=== PATIENT | male | born 1950 | race Caucasian/White ===

== ENCOUNTER 2017-07-02 02:00 | Inpatient (IN) | payer MEDICARE, BC ==
[2017-07-02 02:36] LABS: #Lymphocytes 0.4 thou/uL (1.20-3.40); #Monocytes 1.4 thou/uL (0.11-0.59); #Neutrophils 14.9 thou/uL (1.40-6.50); %Eosinophils 0.3 % (0.0-10.0); %Lymphocytes 2.5 % (21.0-51.0); %Monocytes 8.5 % (0.0-10.0); Hematocrit 32.9 % (42.0-52.0); Mean Platelet Volume 6.9 fL (7.4-10.4); Red Blood Cell (RBC) Count 3.18 mill/uL (4.70-6.10); White Blood Cell (WBC) Count 16.8 thou/uL (4.8-10.8)
[2017-07-02 02:42] LABS: Lactic Acid - Sepsis 1.1 mmol/L (0.5-2.2)
[2017-07-02 02:47] LABS: ALT (SGPT) 18 U/L (8-55); AST (SGOT) 20 U/L (5-34); Alkaline Phosphatase 163 U/L (40-150); Anion Gap 18 mmol/L (10-20); BUN (Urea Nitrogen) 33 mg/dL (8.4-25.7); Bilirubin, Total 0.6 mg/dL (0.2-1.2); Calc. Creatinine Clearance 0 mL/min (70-130); Calcium 9.6 mg/dL (7.8-10.44); Carbon Dioxide 27 mmol/L (23-31); Chloride 94 mmol/L (98-107); Estimated GFR-MDRD 9; Globulin 3.4 g/dL (2.4-3.5); Protein, Total 7.1 g/dL (5.8-8.1)
[2017-07-02 02:51] LABS: Troponin I 0.074 ng/mL (< 0.028)
[2017-07-02] MEDS ORDERED: Morphine 4 MG/ML VIAL ONE (03:12)
[2017-07-02] MEDS ORDERED: HYDROmorphone 0.5 MG/0.5 ML SYRINGE ONE (05:03)
[2017-07-02 06:54] LABS: Troponin I 0.078 ng/mL (< 0.028)
--- NOTE | 2017-07-02 07:39 | RAD ---
ACUTE ABDOMINAL SERIES: Date: 07/02/17 INDICATION: Abdominal pain. FINDINGS: No consolidation. No free air. Air-distended loops of bowel are present within the abdomen, nonspecif ic. IMPRESSION: Air-distended loops of bowel. This could be on the basis of an ileus or obstruction. Recommend clinic al correlation. There is no free air visualized. Dedicated imaging follow-up may be obtained for furt her assessment. POS: [facility]
--- NOTE | 2017-07-02 07:50 | CT ---
PRELIMINARY REPORT/[facility]/EMERGENCY AFTER HOURS PROCEDURE: EXAM: CT Abdomen and Pelvis With Intravenous Contrast CLINICAL HISTORY: 67 years old, male; Pain; Abdominal pain; Localized; Right; Prior surgery; Patient HX: Pt reports col onoscopy on 07/01/2017 at 8. Pt reports around 4 he started having abdominal pain that has been progr essively worsening. Pt describes the pain as "somebody poking me with a sharp stick". Pt reports walk ing and movement worsens the pain. Pt reports nausea and vomiting earlier that has since resolved. Pt denies fever. Pt reports loose diarrhea that is a reddish color x1. Pt reports kidney failure and di alysis and reports having to self cath TECHNIQUE: Axial computed tomography images of the abdomen and pelvis with intravenous contrast. Coronal reformatted images were created and reviewed. COMPARISON: No relevant prior studies available. FINDINGS: Lower thorax: No acute findings. Moderate to severe cardiomegaly and mild subsegmental atelectasis ABDOMEN: Liver: Cirrhosis and hepatomegaly No mass. Gallbladder and bile ducts: Question minimal wall thickening No calcified stones. Common bile duct me asures up to 9 mm and is minimally dilated Pancreas: Unremarkable. No mass. No ductal dilation. Spleen: Unremarkable. No splenomegaly. Adrenals: Unremarkable. No mass. Kidneys and ureters: Atrophic polycystic kidneys. Hyperdense cysts on the left suspected No solid mas s. No hydronephrosis. Stomach and bowel: No obstruction. Question mild mucosal thickening. Appendix: No findings to suggest acute appendicitis. PELVIS: Bladder: Decompressed with questionable circumferential wall thickening. Reproductive: Unremarkable as visualized. ABDOMEN and PELVIS: Intraperitoneal space: Unremarkable. No free air. No significant fluid collection. Bones/joints: No acute fracture. No dislocation. Mild heterogeneous sclerosis presumably related to r enal osteodystrophy. Lucencies along the inferior endplates at L2-L4 are presumed degenerative Soft tissues: Unremarkable. Vasculature: Extensive vascular calcifications No abdominal aortic aneurysm. Lymph nodes: Unremarkable. No enlarged lymph nodes. IMPRESSION: Nonspecific nonobstructed bowel gas pattern. Correlate for enteritis Mild nonspecific bladder wall thickening. Correlate for cystitis as indicated Moderate to severe cardiomegaly Cirrhosis. No definite calcified gallstones. Mild common bile duct dilatation Thank you for allowing us to participate in the care of your patient. Dictated and Authenticated by: Tono Casarez MD 07/02/2017 5:22 AM Central Time ([place] & [place]) FINAL REPORT CT ABDOMEN AND PELVIS WITH CONTRAST: Date: 07/02/17 FINDINGS/IMPRESSION: I agree with the above provided preliminary interpretation from [facility]. There is urinary bladder wall thickening, which may be on the basis of cystitis or sequelae from chronometer adjuster radha bladder disease. Recommend clinical correlation. Contrast-opacified small bowel is normal in caliber. Scattered, subtle areas of mild mucosal prominen ce could be related to mild inflammation. Additional details as described above.
--- NOTE | 2017-07-02 08:32 | ULT ---
GALLBLADDER ULTRASOUND: Date: 07/02/17 HISTORY: Abdominal pain. FINDINGS: The gallbladder is suboptimally imaged. The fundus was not completely evaluated due to overlying benita l gas. A small amount of fluid is seen around the gallbladder. There is some echogenicity within the gallbladder lumen. This does no exhibit posterior shadowing and may represent dense sludge or a sludg e ball. Common bile duct is prominent, measured at over 7.0 mm. No intrahepatic ductal dilatation hesham ntified. The liver is mildly prominent in size, measuring 21.0 cm by ultrasound. No liver mass lesion seen. The pancreas is obscured by overlying gas. The right kidney shows cortical thinning and increased cortical echogenicity suggesting chronic renal disease. There are numerous right hepatic cysts identified. These cysts measure in the 1-2 cm range. IMPRESSION: 1. Suboptimal exam due to overlying bowel gas. There is echogenicity within the gallbladder lumen wh ich does not exhibit posterior shadowing and may represent dense sludge or a sludge ball. Small amoun t of fluid around the gallbladder is noted. 2. Mildly dilated common bile duct. 3. Hepatomegaly. 4. The right kidney is abnormal with cortical thinning and increased cortical echogenicity. Multiple small right renal cysts are seen. POS: [facility]
[2017-07-02] MEDS ORDERED: Levofloxacin 500 mg/D5W 100 ml Premix Bag ONE ×3 (09:30→12:27)
[2017-07-02 09:37] LABS: Troponin I 0.076 ng/mL (< 0.028)
--- NOTE | 2017-07-02 10:46 | HP ---
HISTORY OF PRESENT ILLNESS: A 67-year-old male patient dialyzing at [facility] on Wednesday, Wednesday an d Wednesday, followed Dr. Rogerio Tucker and Dr. Fahad Acharya performed a colonoscopy today, removing mult iple benign polyps. He has a history of colonic polyps. Two to three years ago, he had an upper end oscopy that was normal. The patient presents to the emergency room today with right upper quadrant p ain. Dr. Osiel Arenas saw him and noted that his liver function tests were normal (alkaline phosphatase elevated at 163), lipase was normal. White count 16, hemoglobin 10. CT scan of abdomen and pelvis revealed absence of any signs of colonic perforation. CAT scan did suggest perhaps a cirrhotic liver . Ultrasound of the gallbladder obtained revealing a dilated common bile duct 7 mm and gallbladder s ludge ball. Liver was enlarged on ultrasound. ALLERGIES: ADHESIVES. TOBACCO: None. ALCOHOL: None. MEDICATIONS: Tramadol, hydroxyzine, vitamin E, Timolol drops, temazepam, Protonix, metoprolol 25 mg b.i.d., insulin 9 units subcu b.i.d., atorvastatin 40 mg at bedtime, amlodipine 5 mg daily. Echocardiogram on 04/12/2016, Dr. Ojeda over 45% to 50% ejection fraction, grade 2/3 diastolic dysfu nction, moderate TAR, pulmonary hypertension noted. Dr. Ojeda saw him on 04/12/2016. He was felt h e had demand ischemia from DKA. He suggested he might need a cardiac catheterization at that time. The patient was admitted on 08/03/2016 for passing out, this was felt to be related to his diabetes t ype 1. In 2015, the patient was admitted for generalized weakness. He underwent echocardiogram and no other cardiac intervention was performed. Dr. Madrigal in 2016 did not feel any symptoms of izaiah nary disease and no further cardiac evaluation was not undertaken. PAST MEDICAL HISTORY: Diabetes mellitus, insulin-dependent; end-stage renal disease Wednesday, y, Wednesday [facility] by Dr. Tucker; diabetic retinopathy; PAD; hypertension; depression; chronic elevat ion of troponin of 1 due to end-stage renal disease; history of DKA; history of noncompliance; hyperl ipidemia; and gout. PAST SURGICAL HISTORY: Left Denton fistula that I placed in the past, history of aortofemoral bypass grafting. Left Denton fistula was placed in September 2012, this had been used for dialysis since that time. REVIEW OF SYSTEMS: Noncontributory. The patient denies any history of chest pain or pressure or car diac symptoms. PHYSICAL EXAMINATON: VITAL SIGNS: 18 respiratory rate, 98.1 degrees, 161/89, 97 heart rate. HEAD, EYES, EARS, NOSE, AND THROAT: Unremarkable. LUNGS: Clear to auscultation. CARDIAC: Regular rate and rhythm without murmur or gallop. ABDOMEN: Soft, tenderness in right upper quadrant with mild guarding. EXTREMITIES: Unremarkable. LABORATORIES: As noted. ASSESSMENT AND PLAN: 1. Cholelithiasis sludge ball and gallbladder with dilated bile duct of 7 to 8 mm. We would recomme nd laparoscopic cholecystectomy and cholangiogram. Risks of infection, bleeding, reoperation, viscer al and biliary injury and open procedure discussed the possibility of ERCP discussed. The patient un derstands risks and benefits of procedure and consents. 2. Diabetes mellitus, insulin dependent. 3. End-stage renal disease. We will talk to Dr. Rogerio Tucker regarding dialysis plans. He may ne ed admission postoperatively for dialysis and discharged home the same day.
[2017-07-02] MEDS ORDERED: Fentanyl 100 MCG/2 ML VIAL ONE ×2 (13:29)
[2017-07-02] MEDS ORDERED: Lidocaine 2% w/Epinephrine 1:200K 20 ML VIAL ONE (13:34)
[2017-07-02] MEDS ORDERED: Bupivacaine PF 0.5% 30 ML VIAL ONE (13:38)
[2017-07-02] MEDS ORDERED: Iothalamate Meglumine 60% 50 ML VIAL FS ONE (14:20)
[2017-07-02] MEDS ORDERED: Ondansetron ODT 4 MG TAB PO PRN (15:06)
[2017-07-02] MEDS ORDERED: Dextrose 5% in Water 1,000 ML IV PRN ×2 (15:06→15:11)
[2017-07-02] MEDS ORDERED: Dextrose 50% Abboject 50 ML SYRINGE SLOW IVP PRN ×2 (15:06→15:11)
[2017-07-02] MEDS ORDERED: Morphine 4 MG/ML Carpuject IVP PRN (15:06)
[2017-07-02] MEDS ORDERED: Ondansetron HCl/PF 4 MG/2 ML Vial IVP PRN ×2 (15:06→15:20)
[2017-07-02] MEDS ORDERED: Acetaminophen 500 MG TAB PO PRN (15:11)
[2017-07-02] MEDS ORDERED: HumaLOG 300 UNITS/3 ML VIAL SC PRN (15:11)
[2017-07-02] MEDS ORDERED: traMADol HCl 50 MG TAB PO PRN (15:11)
[2017-07-02] MEDS ORDERED: Lidocaine 1% PF 5 ML VIAL ONE (15:15)
[2017-07-02] MEDS ORDERED: Propofol 200 MG/20 ML VIAL ONE (15:15)
[2017-07-02] MEDS ORDERED: Glycopyrrolate 0.2 MG/ML 5 ML SYRINGE ONE (15:15)
[2017-07-02] MEDS ORDERED: Ketorolac Tromethamine 30 MG/ML VIAL ONE (15:15)
[2017-07-02] MEDS ORDERED: Ondansetron HCl/PF 4 MG/2 ML Vial ONE (15:15)
[2017-07-02] MEDS ORDERED: Dexamethasone 20 MG/5 ML VIAL ONE (15:15)
[2017-07-02] MEDS ORDERED: Meperidine HCl/PF 25 MG/ML VIAL SLOW IVP PRN (15:20)
[2017-07-02] MEDS ORDERED: Promethazine HCl 25 MG/ML VIAL SLOW IVP PRN (15:20)
[2017-07-02] MEDS ORDERED: Morphine Sulfate 2 MG/ML SYRINGE SLOW IVP PRN (15:20)
[2017-07-02] MEDS ORDERED: HYDROmorphone 2 MG/ML VIAL SLOW IVP PRN (15:20)
[2017-07-02] MEDS ORDERED: Promethazine HCl 25 MG/ML VIAL IM PRN (15:20)
[2017-07-02] MEDS ORDERED: Promethazine HCl 25 MG/ML VIAL ONE (15:40)
--- NOTE | 2017-07-02 15:59 | OP ---
DATE OF PROCEDURE: 07/02/2017 PREOPERATIVE DIAGNOSES: Acute cholecystitis, cholelithiasis, bile ducts 7 to 8 mm, status post colon oscopy yesterday by Dr. Acharya with multiple polypectomies, pathology pending, end-stage renal disease on maintenance dialysis, Denton fistula left arm, followed by Dr. Rogerio Tucker. POSTOPERATIVE DIAGNOSES: Acute cholecystitis, cholelithiasis, bile ducts 7 to 8 mm, status post colo noscopy yesterday by Dr. Acharya with multiple polypectomies, pathology pending, end-stage renal disease on maintenance dialysis, Denton fistula left arm, followed by Dr. Rogerio Tucker. PROCEDURES: Laparoscopic video cholecystectomy. Normal intraoperative cholangiogram using fluorosco py and glucagon. COMPLICATIONS: None. Note, CAT scan suggested cirrhotic liver, but liver was slightly fatty, but certainly not cirrhotic a nd colon appeared to be normal. SURGEON: Dr. Rogerio Byrd. ANESTHESIA: General. Local 0.5% Marcaine with epinephrine 30 mL DESCRIPTION OF PROCEDURE: The patient was taken to the operating room where under general anesthesia , abdomen was prepared with ChloraPrep, draped in routine fashion. Local anesthetic infiltrated into skin and subcutaneous tissue about each port site. Infraumbilical incision made and pneumoperitoneu m to 15 mmHg obtained with the Veress needle, replacing it with a 5 port. Laparoscope inserted. Rig ht subxiphoid incision made and 11 port placed. Right subcostal incision made mid clavicular anterio r axillary lines and 5 ports placed. Liver appeared to be normal as noted above, it was slightly fat ty, but certainly not cirrhotic. Omentum surrounding the fundus of gallbladder and hook cautery used to take down the omentum from the edge of the liver and fundus identified, grasped, reflected cephal ad. The gallbladder wall was thickened, edematous, slightly inflamed. Infundibulum grasped and refl ected laterally. Cystic artery and duct dissected free. Critical view obtained with two-thirds diss ection cystic plate. Cystic artery and duct dissected free. Accurate anatomy identified. Cystic ar hayley double clipped proximally. Cystic duct singly clipped on the gallbladder side. An opening made in the cystic duct and cholangiocath inserted and cholangiogram was obtained using fluoroscopy revea ling free flow of contrast into the duodenum with dilated common hepatic, common bile ducts without f illing defects. The common duct emptied so briskly. I could not feel the left and right hepatic emilee ts. Cholangiocatheter removed. Cystic duct stump doubly clipped. Cystic artery and duct divided an d gallbladder dissected free from the liver bed obtaining good hemostasis prior to division of final peritoneal attachments. Gallbladder and contents removed and submitted to Pathology. Good hemostasi s ensured with cautery and generalized survey of the abdominal cavity was unremarkable. Irrigant and pneumoperitoneum evacuated. All instruments removed and all skin incisions approximated with interr upted subdermal 4-0 Monocryl and DermaGlue applied.
[2017-07-02] MEDS ORDERED: Iopamidol 370 76% 50 ML VIAL FS ONE (17:23)
[2017-07-02] MEDS ORDERED: ISOVUE-370 76%-LOCM 1 ML ONE (17:23)
[2017-07-02] MEDS: traMADol HCl 50 MG TAB PO PRN (18:24)
[2017-07-02] MEDS: Sodium Chloride 0.9% 1,000 ML IV SCH (18:51)
[2017-07-02] MEDS: Metoprolol Tartrate 25 MG TAB PO SCH (20:56)
[2017-07-02] MEDS: Timolol 0.5% Ophth Soln 5 ml Bottle L EYE SCH (20:57)
[2017-07-02] MEDS: hydrOXYzine 25 MG TAB PO SCH (20:57)
[2017-07-02] MEDS: NPH, Human Insulin Isophane 300 UNIT/3 ML VIAL SC SCH (20:58)
[2017-07-02] MEDS ORDERED: Famotidine 20 MG TAB PO SCH (21:00)
[2017-07-02] MEDS ORDERED: Amlodipine 5 MG TAB PO SCH ×2 (21:00)
[2017-07-02] MEDS ORDERED: traZODone HCl 50 MG TAB PO SCH (21:00)
[2017-07-03 02:32] VITALS: BMI 24.7
[2017-07-03] MEDS: Sodium Chloride 0.9% 1,000 ML IV SCH (05:17)
[2017-07-03 05:30] LABS: #Lymphocytes 0.5 thou/uL (1.20-3.40); #Monocytes 0.9 thou/uL (0.11-0.59); #Neutrophils 7.3 thou/uL (1.40-6.50); %Basophils 0.2 % (0.0-1.0); %Eosinophils 0.2 % (0.0-10.0); %Lymphocytes 5.7 % (21.0-51.0); %Monocytes 10.4 % (0.0-10.0); Hematocrit 27.8 % (42.0-52.0); Mean Platelet Volume 7.1 fL (7.4-10.4); White Blood Cell (WBC) Count 8.7 thou/uL (4.8-10.8)
[2017-07-03 06:01] LABS: ALT (SGPT) 24 U/L (8-55); AST (SGOT) 26 U/L (5-34); Alkaline Phosphatase 125 U/L (40-150); Anion Gap 15 mmol/L (10-20); BUN (Urea Nitrogen) 51 mg/dL (8.4-25.7); Bilirubin, Total 0.5 mg/dL (0.2-1.2); Calc. Creatinine Clearance 11 mL/min (70-130); Calcium 8.7 mg/dL (7.8-10.44); Carbon Dioxide 27 mmol/L (23-31); Chloride 94 mmol/L (98-107); Estimated GFR-MDRD 7; Globulin 2.8 g/dL (2.4-3.5); Protein, Total 5.8 g/dL (5.8-8.1)
[2017-07-03] MEDS ORDERED: Multivitamin W/ Minerals 1 TAB PO SCH (09:00)
[2017-07-03] MEDS ORDERED: Polyethylene Glycol 3350 17 GM Packet PO SCH (09:00)
[2017-07-03] MEDS ORDERED: Atorvastatin Calcium 40 MG TAB PO SCH (09:00)
[2017-07-03] MEDS ORDERED: Heparin 1,000 UNITS/ML VIAL ONE (11:11)
[2017-07-03] MEDS ORDERED: Acyclovir 400 mg Tablet PO SCH (12:00)
[2017-07-03] MEDS: Calcium Acetate 667 MG CAP PO SCH ×3 (13:33→17:26)
[2017-07-03] MEDS: NPH, Human Insulin Isophane 300 UNIT/3 ML VIAL SC SCH (13:34)
[2017-07-03] MEDS: hydrOXYzine 25 MG TAB PO SCH ×2 (13:38→17:25)
[2017-07-03] MEDS: Metoprolol Tartrate 25 MG TAB PO SCH ×2 (13:39→17:26)
[2017-07-03] MEDS: Timolol 0.5% Ophth Soln 5 ml Bottle L EYE SCH (13:40)
--- NOTE | 2017-07-03 14:08 | PRG ---
DATE OF SERVICE: 07/03/2017 SUBJECTIVE: Mr. Lunsford is doing well today. He is tolerating his diet. He had a potassium of 6.1 this morning, is undergoing dialysis. He was seen by Dr. Rogerio Tucker last night. OBJECTIVE: VITAL SIGNS: Temperature 98 degrees, pulse 78 and blood pressure 167/88. LUNGS: Clear to auscultation. CARDIAC: Regular rate and rhythm without murmur or gallop. ABDOMEN: Soft. Laparoscopic incisions well healed. LABORATORY DATA: White count 8, hemoglobin 9.1. Sodium 130. Liver function tests normal. Glucose is 271 and 284. ASSESSMENT AND PLAN: The patient doing well post-cholecystectomy. He will be discharged home today. He will follow up in my office in 2-3 weeks. Diet and activity as tolerated. No lifting restricti ons. Ultram 50 mg #20 one refill, given for pain in excess of Tylenol.
--- NOTE | 2017-07-03 17:11 | RAD ---
INTRAOPERATIVE CHOLANGIOGRAM TWO VIEWS: 07/02/17 HISTORY: 67-year-old male status post cholecystectomy. This image was originally placed into the [facility] PACS file of a 36-year-old female, and the original dictation was placed under that wrong patient's name. FINDINGS: Contrast injection into cystic duct stump demonstrates contrast material a mildly dilated common bile and mildly dilated inferior portion of pancreatic duct, and in the lumen of the duodenum. No filling defects. The common hepatic duct and the left and right hepatic ducts are not visualized. IMPRESSION: 1. No evidence of high grade biliary obstruction. 2. No evidence of choledocholithiasis. POS: [facility]
[2017-07-03] MEDS: traMADol HCl 50 MG TAB PO PRN (18:16)
--- NOTE | 2017-07-03 19:59 | DIS ---
DATE OF ADMISSION: 07/02/2017 DATE OF DISCHARGE: 07/03/2017 DISCHARGE DIAGNOSES: Cholecystitis, cholelithiasis, dilated bile duct, end-stage renal disease, main tenance dialysis, left Denton fistula, hyperkalemia, dialyzed this admission. CONSULTATION: Dr. Rogerio Tucker. HISTORY: A 67-year-old male patient well known to me for dialysis access. He presents with abdomina l pain, seen in the emergency room and evaluated by Dr. Arenas, noted to have normal liver function blair ts. White count 16, hemoglobin 10. CAT scan of abdomen and pelvis revealed absence of any signs of colonic perforation as he underwent colonoscopy the day prior with Dr. Acharya, removal of multiple poly ps, pathology pending. CAT scan shows cirrhotic liver, although laparoscopy revealed normal appearin g liver, possibly some fatty infiltration certainly not cirrhotic. Ultrasound of gallbladder reveale d dilated common bile duct of 7-8 mm slightly dilated and gallbladder sludge. The patient underwent laparoscopic video cholecystectomy after receiving intravenous fluids and antibiotics and postoperati vely convalesced, tolerated his diet and is being discharged home after he underwent dialysis this mo rning. Follow up in my office in 2-3 weeks. Diet and activity as tolerated, Ultram #20 given in add ition to his home medications, 2 refills. He will take Tylenol as necessary for pain. He will follo w up with Dr. Acharya as per Dr. Acharya for pathology on his multiple polypectomy and colonoscopy.
[2017-07-03 20:22] VITALS: BP 144/76; TEMP 98.3
== END 2017-07-03 18:16 | disposition home or self-care (01) | DRG 417 ==
LOC: ERS 02:00 → SURG B 09:10 → SDC 09:10 → SURG B 16:54
PROVIDERS: ADMIT Specialist; ATTEND Specialist
PROC: 0FT44ZZ Resection of Gallbladder, Percutaneous Endoscopic Approach (ICD-10-PCS; principal; 2017-07-02)
PROC: BF100ZZ Fluoroscopy of Bile Ducts using High Osmolar Contrast (ICD-10-PCS; 2017-07-02)
PROC: 5A1D70Z Performance of Urinary Filtration, Intermittent, Less than 6 Hours Per Day (ICD-10-PCS; 2017-07-03)
DX: K80.00 Calculus of gallbladder with acute cholecystitis without obstruction (principal); N18.6 End stage renal disease; N17.9 Acute kidney failure, unspecified; E10.22 Type 1 diabetes mellitus with diabetic chronic kidney disease; E10.51 Type 1 diabetes mellitus with diabetic peripheral angiopathy without gangrene; I12.0 Hypertensive chronic kidney disease with stage 5 chronic kidney disease or end stage renal disease; Z79.4 Long term (current) use of insulin; E87.5 Hyperkalemia; Z98.890 Other specified postprocedural states; Z87.19 Personal history of other diseases of the digestive system; K76.0 Fatty (change of) liver, not elsewhere classified; Z99.2 Dependence on renal dialysis; Z91.14 Patient's other noncompliance with medication regimen; E78.5 Hyperlipidemia, unspecified; M10.9 Gout, unspecified; N13.9 Obstructive and reflux uropathy, unspecified
CPT/HCPCS: 36415; 36416; 47532; 74022; 74177; 76705; 80053; 82553; 83605; 83690; 84484; 85025; 87340; 88304; 90935; 93005; 96361; 96365; 96372; 96374; 96375; G0257; J0131; J1100; J1170; J1610; J1644; J1815; J1885; J1956; J2001; J2270; J2405; J2550; J2704; J3010; Q9961; S0020

== ENCOUNTER 2017-09-13 00:06 | Inpatient (IN) | payer MEDICARE, OTHER ==
[2017-09-13 01:49] LABS: #Eosinphils 0.2 thou/uL (0.0-0.7); #Lymphocytes 0.5 thou/uL (1.20-3.40); #Monocytes 0.8 thou/uL (0.11-0.59); #Neutrophils 6.3 thou/uL (1.40-6.50); %Basophils 0.3 % (0.0-1.0); %Lymphocytes 6.3 % (21.0-51.0); %Monocytes 10.2 % (0.0-10.0); %Neutrophils 80.2 % (42.0-75.0); Hemoglobin 11.3 g/dL (14.0-18.0); Mean Corpuscular HGB CONC 32.4 g/dL (32.0-36.0); Mean Corpuscular Hemoglobin 32.5 pg (27.0-31.0); Mean Platelet Volume 7.2 fL (7.4-10.4); Platelet Count 247 thou/uL (130-400); Red Blood Cell (RBC) Count 3.49 mill/uL (4.70-6.10); White Blood Cell (WBC) Count 7.9 thou/uL (4.8-10.8)
[2017-09-13 02:08] LABS: ALT (SGPT) 19 U/L (8-55); AST (SGOT) 14 U/L (5-34); Albumin 3.6 g/dL (3.4-4.8); Alkaline Phosphatase 147 U/L (40-150); Anion Gap 20 mmol/L (10-20); BUN (Urea Nitrogen) 86 mg/dL (8.4-25.7); Bilirubin, Total 0.6 mg/dL (0.2-1.2); Calc. Creatinine Clearance 0 mL/min (70-130); Calcium 8.7 mg/dL (7.8-10.44); Carbon Dioxide 23 mmol/L (23-31); Chloride 97 mmol/L (98-107); Estimated GFR-MDRD 7; Glucose 391 mg/dL (80-115); Lipase 14 U/L (8-78); Protein, Total 6.6 g/dL (5.8-8.1); Sodium 134 mmol/L (136-145)
[2017-09-13] MEDS ORDERED: Sodium Bicarb 50 MEQ/50 ML Abboject 8.4% SYRINGE ONE (03:31)
[2017-09-13] MEDS ORDERED: Ondansetron HCl/PF 4 MG/2 ML Vial ONE (03:31)
[2017-09-13] MEDS ORDERED: Insulin Regular 300 UNITS/3 ML VIAL ONE (03:31)
[2017-09-13] MEDS ORDERED: Calcium Gluc 4.6 MEQ/10 ML (100 MG/ML) ONE (03:31)
[2017-09-13] MEDS ORDERED: Dextrose 50% Abboject 50 ML SYRINGE ONE (03:31)
[2017-09-13] MEDS ORDERED: CALCIUM GLUCONATE 25 GM TUBE ONE (03:34)
[2017-09-13 05:01] LABS: Potassium 5.2 mmol/L (3.5-5.1)
[2017-09-13 06:22] VITALS: BMI 24.5
[2017-09-13] MEDS ORDERED: Dextrose 5% in Water 1,000 ML IV PRN (07:23)
[2017-09-13] MEDS ORDERED: Acetaminophen 325 MG TAB PO PRN (07:23)
[2017-09-13] MEDS ORDERED: HumaLOG 300 UNITS/3 ML VIAL SC PRN (07:23)
[2017-09-13] MEDS ORDERED: Zolpidem Tartrate 5 MG TAB PO PRN (07:23)
[2017-09-13] MEDS ORDERED: Dextrose 50% Abboject 50 ML SYRINGE SLOW IVP PRN (07:23)
--- NOTE | 2017-09-13 08:00 | HP ---
PRIMARY CARE PROVIDER: Ryan Koehler M.D. HOGSHEAD PRESS OPERATOR: Rogerio Tucker M.D. HISTORY OF PRESENT ILLNESS: Referred to [facility] for hyperkalemia. The patient 2 days ago developed pain in his proximal right and side thigh. He states it has gotten worse all weekend. He took Tylenol without success, put some kind of heat pack on it, became worried about falling pain. Rated as 7, worse with motion. He called 911 and was bro ught to the emergency room where he was seen and examined and found to have elevated potassium and gi khadra a dose of some narcotic [facility] He has end-stage renal di sease. He has had no fever, chills or sweats. He has had some nausea. PAST MEDICAL HISTORY: Pertinent for diabetes mellitus type 2, insulin requiring; end-stage renal dis ease, on hemodialysis Wednesday, Wednesday, and Wednesday; diabetic retinopathy; peripheral vascular diseas e; hypertension; depression; chronic anemia; dyslipidemia; history of gout. PAST SURGICAL HISTORY: AV fistula in the left lower arm status post aortofemoral bypass. CURRENT MEDICATIONS: Unknown. Did not bring them with him. He states he is on 3 blood pressure med icines, insulin sliding scale twice a day. I have asked him to have someone get his medicines and br ing them to him, he says that may be impossible. ALLERGIES: None. FAMILY HISTORY: Multiple members with diabetes and stroke. SOCIAL HISTORY: in the last year. Retired. No alcohol, tobacco or illicit drug use. Code status is FULL. Next of kin not identified on this study. REVIEW OF SYSTEMS: GENERAL: No headaches, dizziness or fainting. EYES: No double vision, blurred vision, flashing lights. EAR, NOSE, AND THROAT: No ear pain or drainage. No nasal bleeding. No tr ouble swallowing. CARDIAC: No chest pain, orthopnea or paroxysmal nocturnal dyspnea. RESPIRATIONS: No cough, wheezing or asthma. GASTROINTESTINAL: Some nausea with present illness. No vomiting, a bdominal pain, diarrhea or constipation. GENITOURINARY: He does self-catheterize 1-2 times a day. Unable to void without catheterization, no blood in his urine. MUSCULOSKELETAL: No pain or swelling in his lower legs. PSYCHIATRIC: History of anxiety or depression. NEUROLOGIC: No strokes, seizur es or focal weakness. SKIN: The tenderness in his right medial proximal thigh, no skin changes that he has noted. HEME/LYMPH: No tender or swollen lymph nodes in axilla, inguinal or cervical area. PHYSICAL EXAMINATION: GENERAL: He is an alert, cooperative, pleasant gentleman. VITAL SIGNS: Temperature 97.9, pulse 72, respirations 18, O2 sat 96%, blood pressure 181/91. HEENT: Examination of his head, eyes, ears, nose, and throat reveal pupils equal, round. Extraocula r movements are intact. Sclerae are white. Tympanic membranes clear. Nose is clear. Oral mucous m embranes are wet. There are multiple missing teeth. NECK: No jugular venous distention, adenopathy or thyromegaly. CHEST: Clear to percussion. He does have some coarse breath sounds and scattered rhonchi. HEART: Regular rate and rhythm. First and second heart sounds are clear, 2/6 systolic murmur. ABDOMEN: Soft, bowel sounds are normal. No hepatosplenomegaly, no mass or rebound. EXTREMITIES: Reveal no cyanosis, clubbing or edema. His proximal upper medial thigh has indurated a dunia, approximately 12 cm x 3 cm to 4 cm in the area of the superficial saphenous vein. On the opposi te side, he has varicose superficial to that, varicosity of the greater saphenous. Skin otherwise sh ow some chronic stasis changes in his ankles. There is no obvious erythema over the tender area. Th ere is no fluctuance. LYMPH NODES: There are no inguinal, cervical or axillary nodes. Specifically, no tenderness in the nodes at the right inguinal area. No hernia. PULSES: Carotid, radial, and femoral pulses intact. Pedal pulses diminished. Feet warm. NEUROLOGIC: Cranial nerves II-XII are intact. Deep tendon reflexes absent in his legs, diminished i n his arms. Moves all extremities. IMAGING DATA AND LABORATORY DATA: Chest x-ray, none presented. One will be ordered now. EKG; regul ar sinus rhythm, incomplete right bundle branch block, reviewed by me. Venous Doppler on the right i s said to have no deep vein thrombosis, no formal report available. LABORATORY DATA: Sodium 134, potassium 6.0 at 01:38, following acute care treatment 5.2, chloride 97 , CO2 23, BUN 86, creatinine 8.28, blood sugar 391, follow up 236. Liver function tests normal. CBC ; white count 7.9, hemoglobin 11.3, and platelet count 247,000. ADMITTING DIAGNOSES: 1. Pain in right medial thigh in the area of the greater saphenous vein. 2. Hyperkalemia, mild. 3. End-stage renal disease on hemodialysis, due for dialysis today. 4. Diabetes mellitus type 2, insulin dependent. 5. Hypertension. 6. Abnormal chest exam, no radiographs available. 7. Dyslipidemia. PLAN: 1. Obtain formal report of venous ultrasound. 2. Hemodialysis today per Dr. Tucker. 3. Tylenol #3 for pain. 4. Attempt to get home medicines for blood pressure control. 5. Accu-Cheks and sliding scale. Further workup depending availability of venous ultrasound.
--- NOTE | 2017-09-13 08:35 | ULT ---
PRELIMINARY REPORT/[facility]/EMERGENCY AFTER HOURS PROCEDURE: EXAM: US Duplex Right Lower Extremity Veins EXAM DATE/TIME: Exam ordered 09/13/2017 1:16 AM CLINICAL HISTORY: 67 years old, male; Pain; Other: Pain, swelling medial rt leg TECHNIQUE: Real-time ultrasound scan of the veins of the right lower extremity with color Doppler flow, spectral waveform analysis and compression. COMPARISON: No relevant prior studies available. FINDINGS: Deep veins: Unremarkable. No DVT in the visualized common femoral, femoral, proximal deep femoral or popliteal veins. The veins demonstrate normal color flow, are normally compressible, with normal phas ic flow and/or augmentation response. Superficial veins: Unremarkable. No thrombus in the visualized great saphenous vein. Soft tissues: No acute findings. No popliteal cyst. IMPRESSION: Normal right lower extremity duplex venous ultrasound. Thank you for allowing us to participate in the care of your patient. Dictated and Authenticated by: Klaus Fenton MD 09/13/2017 2:10 AM Central Time ([place] & [place]) FINAL REPORT EMERGENCY AFTER HOURS RIGHT LOWER EXTREMITY VENOUS DOPPLER WITH SPECTRAL ANALYSIS AND COLOR FLOW EVAL UATION: Date: 09/13/17 HISTORY: Right leg pain and swelling. TECHNIQUE: Mayers scale, color flow, Doppler evaluation, and spectral analysis of the right lower extremity venous structures is performed with 2D imaging. The right lower extremity common femoral, superficial femor al, popliteal, posterior tibial, most proximal greater saphenous, and profunda femoral veins are imag ed. FINDINGS: There is normal lumen compressibility, flow, and augmentation in the visualized deep venous structure s of the right lower extremity. IMPRESSION: No evidence of a deep venous thrombosis involving the visualized deep venous structures of the right lower extremity. Findings are in agreement with the preliminary report by Elisa. POS: [facility]
[2017-09-13] MEDS: Acetaminophen/Codeine 30-300mg Tablet PO PRN ×4 (08:53→19:33)
[2017-09-13] MEDS: Heparin 5,000 UNITS/ML VIAL SC SCH ×3 (08:54→19:35)
--- NOTE | 2017-09-13 13:32 | RAD ---
PA AND LATERAL CHEST X-RAY: 09/13/2017 HISTORY: Abnormal chest exam. COMPARISON: 07/02/2017 and 04/15/2016 FINDINGS: The cardiac silhouette is enlarged and does appear larger in size when compared to the PA chest x-ray on 04/15/2016. The pulmonary vasculature is mildly increased. The lungs are otherwise clear. No p leural effusion is seen. Vascular calcification is seen in the thoracic aorta. No other interval ch gregor. IMPRESSION: Cardiomegaly with borderline to mildly increased pulmonary vasculature. Correlation for mild congest herman heart failure is suggested. POS: [facility]
[2017-09-13] MEDS: Ondansetron ODT 4 MG TAB PO PRN (20:16)
[2017-09-14] MEDS: Acetaminophen/Codeine 30-300mg Tablet PO PRN (02:32)
[2017-09-14 05:12] LABS: Anion Gap 14 mmol/L (10-20); BUN (Urea Nitrogen) 38 mg/dL (8.4-25.7); Calc. Creatinine Clearance 14 mL/min (70-130); Carbon Dioxide 32 mmol/L (23-31); Chloride 95 mmol/L (98-107); Estimated GFR-MDRD 11; Glucose 138 mg/dL (80-115); Potassium 4.4 mmol/L (3.5-5.1); Sodium 137 mmol/L (136-145)
--- NOTE | 2017-09-14 08:16 | DIS ---
TRANSFER OF CARE NOTE DATE OF ADMISSION: 09/13/2017 DATE OF DISCHARGE: 09/14/2017 DISPOSITION: Discharged home. PRIMARY CARE PROVIDER: Dr. Ryan Koehler FINAL DIAGNOSES: 1. Hyperkalemia. 2. End-stage renal disease. 3. Pain in her right thigh. 4. Diabetes mellitus type 2, insulin requiring. 5. Peripheral vascular disease. 6. Hypertension. 7. Chronic anemia. 8. Dyslipidemia. DISCHARGE MEDICATIONS: Tylenol #4 one every 4 hours as needed for pain, amlodipine 10 mg a day at ght, 5 mg in the morning, PhosLo 2668 t.i.d. with meals, Lipitor 40 mg a day, Protonix 40 mg a day, m etoprolol 25 mg twice a day, Novolin per sliding scale, trazodone 100 mg at bedtime, Zoloft 50 mg at bedtime. ALLERGIES: No known drug allergies. CODE STATUS: Full. PENDING AT THE TIME OF DISCHARGE: Nothing. PRESENT ILLNESS: The patient presented to the emergency room with pain in his upper medial right th igh. There was a tender area there was no inflammation, no fluctuance. He was noted to have high po tassium. He was due for dialysis on the day of admission, Dr. Rogerio Tucker was consulted. The pat ient had dialysis. After dialysis, the area was no longer indurated and no longer tender. He was wa tched overnight. This morning again it is tense and tender, but not exquisitely so. There are no sk in changes. There is no fluctuance. Since the induration and tenderness seems to go from positive t o absence, I suspect is a muscles spasm, etiology unknown. This morning he is currently doing well. Cardiorespiratory exam is normal. He is desirous of going home with follow up with Dr. Koehler. I hav e told him to see Dr. Koehler within 1 week. PROCEDURES: None.
[2017-09-14] MEDS: Heparin 5,000 UNITS/ML VIAL SC SCH ×3 (08:34→22:10)
[2017-09-14] MEDS ORDERED: Metoprolol Tartrate 25 MG TAB PO SCH (09:00)
[2017-09-14] MEDS ORDERED: Amlodipine 5 MG TAB PO SCH (09:00)
[2017-09-14] MEDS: Ondansetron ODT 4 MG TAB PO PRN ×2 (09:05→15:26)
[2017-09-14 15:00] LABS: #Lymphocytes 0.4 thou/uL (1.20-3.40); #Monocytes 0.3 thou/uL (0.11-0.59); #Neutrophils 6.4 thou/uL (1.40-6.50); %Basophils 0.2 % (0.0-1.0); %Eosinophils 0.6 % (0.0-10.0); %Lymphocytes 5.5 % (21.0-51.0); %Monocytes 4.6 % (0.0-10.0); %Neutrophils 89.1 % (42.0-75.0); Hemoglobin 12.5 g/dL (14.0-18.0); Mean Corpuscular HGB CONC 32.5 g/dL (32.0-36.0); Mean Corpuscular Hemoglobin 32.1 pg (27.0-31.0); Mean Corpuscular Volume 98.8 fl (80.0-94.0); Mean Platelet Volume 6.8 fL (7.4-10.4); Platelet Count 246 thou/uL (130-400); Red Blood Cell (RBC) Count 3.88 mill/uL (4.70-6.10); White Blood Cell (WBC) Count 7.2 thou/uL (4.8-10.8)
[2017-09-14 15:17] LABS: Base Excess (BEa) 1.1 mEq/L (0 (+/-) 2.5); CO2 Tension 55.5 mmHg (35.0-45.0); O2 Tension (PaO2) 53.6 mmHg (80.0-100.0); pH, Arterial 7.32 (7.35-7.45)
[2017-09-14 15:18] LABS: Hematocrit-ABG 40.8 % (42.0-52.0); Hemoglobin (Hb) 11.9 g/dL (14.0-18.0)
[2017-09-14 15:19] LABS: Calcium, Ionized 1.1 mmol/L (1.12-1.30); Puncture Site RRA
[2017-09-14 15:24] LABS: Anion Gap 23 mmol/L (10-20); BUN (Urea Nitrogen) 47 mg/dL (8.4-25.7); Calc. Creatinine Clearance 12 mL/min (70-130); Calcium 9.5 mg/dL (7.8-10.44); Carbon Dioxide 25 mmol/L (23-31); Chloride 94 mmol/L (98-107); Estimated GFR-MDRD 9; Glucose 131 mg/dL (80-115); Potassium 5.9 mmol/L (3.5-5.1); Sodium 136 mmol/L (136-145)
--- NOTE | 2017-09-14 16:00 | PDOC.PN ---
- Subjective Encounter Start Date: 09/14/17 Encounter Start Time: 15:58 Subjective: sob, O2 sat low, some nausea - Objective MAR Reviewed: Yes Result Diagrams: 09/14/17 14:48 09/14/17 14:48 Phys Exam - Physical Examination Neck: no JVD post basilar rales Cardiovascular: RRR, no significant murmur Gastrointestinal: soft, positive bowel sounds Musculoskeletal: no edema Dx/Plan (1) Acute respiratory failure with hypoxia and hypercapnia Code(s): J96.01 - ACUTE RESPIRATORY FAILURE WITH HYPOXIA; J96.02 - ACUTE RESPIRATORY FAILURE WITH HYPERCAPNIA Status: Acute (2) Hyperkalemia Code(s): E87.5 - HYPERKALEMIA Status: Acute (3) ESRD (end stage renal disease) on dialysis Code(s): N18.6 - END STAGE RENAL DISEASE; Z99.2 - DEPENDENCE ON RENAL DIALYSIS Status: Chronic (4) HTN (hypertension) Code(s): I10 - ESSENTIAL (PRIMARY) HYPERTENSION Status: Chronic Qualifiers: Hypertension type: essential hypertension - Plan ABG pH 7.32, pCO2-55. K+ 5.9 -: cxr pending -: call renal re HD today * .
[2017-09-14] MEDS ORDERED: Ondansetron HCl/PF 4 MG in Sodium Chloride 0.9% 50 ML IVPB PRN (17:41)
--- NOTE | 2017-09-14 17:59 | RAD ---
PA AND LATERAL CHEST X-RAY 09/14/17 HISTORY: Hypoxia. COMPARISON: 09/13/17. FINDINGS: Cardiac silhouette is enlarged. Pulmonary vasculature is within normal limits. There has been resolut ion of the pulmonary vascular congestion. The lungs clear on today's exam. Vascular calcification see n in the thoracic aorta. Surgical clips overlie the right upper quadrant. No other interval change. IMPRESSION: 1. No acute cardiopulmonary process. 2. Mild cardiomegaly. POS: MALACHI
[2017-09-14] MEDS: Calcium Acetate 667 MG CAP PO SCH (18:04)
[2017-09-14 18:06] LABS: #Lymphocytes 0.4 thou/uL (1.20-3.40); #Monocytes 0.3 thou/uL (0.11-0.59); #Neutrophils 6.3 thou/uL (1.40-6.50); %Basophils 0.1 % (0.0-1.0); %Eosinophils 0.3 % (0.0-10.0); %Lymphocytes 5.2 % (21.0-51.0); %Monocytes 3.7 % (0.0-10.0); %Neutrophils 90.7 % (42.0-75.0); Hemoglobin 12.3 g/dL (14.0-18.0); Mean Corpuscular HGB CONC 33.1 g/dL (32.0-36.0); Mean Corpuscular Hemoglobin 32.6 pg (27.0-31.0); Mean Corpuscular Volume 98.5 fl (80.0-94.0); Mean Platelet Volume 6.8 fL (7.4-10.4); Platelet Count 254 thou/uL (130-400); RBC Distribution Width 14.1 % (11.5-14.5); Red Blood Cell (RBC) Count 3.77 mill/uL (4.70-6.10); White Blood Cell (WBC) Count 6.9 thou/uL (4.8-10.8)
[2017-09-14 18:35] LABS: Troponin I 0.055 ng/mL (< 0.028)
[2017-09-14] MEDS ORDERED: Atorvastatin Calcium 40 MG TAB PO SCH (21:00)
[2017-09-14] MEDS ORDERED: traZODone HCl 50 MG TAB PO SCH (21:00)
[2017-09-14] MEDS ORDERED: Amlodipine 10 MG TAB PO SCH (21:00)
[2017-09-14] MEDS: HYDROcodone/Acetaminophen 7.5/325 mg Tablet PO PRN (22:12)
[2017-09-14] MEDS: Metoprolol Tartrate 25 MG TAB PO SCH (22:13)
[2017-09-14] MEDS: Timolol 0.5% Ophth Soln 5 ml Bottle L EYE SCH (22:30)
[2017-09-15 00:45] LABS: Troponin I 0.066 ng/mL (< 0.028)
[2017-09-15 01:04] LABS: Troponin I 0.054 ng/mL (< 0.028)
[2017-09-15 08:29] LABS: HBSAg Index 0.14 S/CO (0-0.99); Hep B Surf Ag Non-Reactive S/CO (NonReactive)
[2017-09-15] MEDS ORDERED: Amlodipine 5 MG TAB PO SCH (09:00)
[2017-09-15] MEDS: Calcium Acetate 667 MG CAP PO SCH ×2 (12:06→15:35)
[2017-09-15] MEDS: Heparin 5,000 UNITS/ML VIAL SC SCH (12:06)
[2017-09-15] MEDS: HYDROcodone/Acetaminophen 7.5/325 mg Tablet PO PRN (12:08)
[2017-09-15] MEDS: Metoprolol Tartrate 25 MG TAB PO SCH (12:16)
[2017-09-15] MEDS: Timolol 0.5% Ophth Soln 5 ml Bottle L EYE SCH (12:17)
[2017-09-15 12:24] VITALS: BP 142/64; TEMP 97.7
--- NOTE | 2017-09-15 15:06 | DIS ---
DATE OF ADMISSION: 09/14/2017 DATE OF DISCHARGE: 09/15/2017 PRIMARY CARE PROVIDER: Ryan Koehler M.D. DISPOSITION: Discharged home. FINAL DIAGNOSES: Acute respiratory failure with hypoxia, cardiomyopathy, end-stage renal disease, hy perkalemia, peripheral vascular disease, chronic anemia of chronic kidney disease, dyslipidemia. DISCHARGE MEDICATIONS: Tylenol No. 3 one every 4 hours as needed for pain, amlodipine 10 mg every da y p.r.n. 10 days, amlodipine 10 mg at night, 5 in the morning, PhosLo 2668 mg t.i.d. with meals, Lipi tor 40 mg a day, Protonix 40 mg a day, metoprolol 25 mg twice a day, Novolin per sliding scale, trazo done 100 mg at bedtime, Zoloft 50 mg at bedtime. ALLERGIES: No known drug allergies. CODE STATUS: FULL. PENDING AT THE TIME OF DISCHARGE: Nothing. HOSPITAL COURSE: The patient presented to the emergency room with pain in the right upper middle med ial thigh. There is a tender area with no inflammation, no fluctuance. He was noted to have a high potassium. Dr. Rogerio Tucker was consulted. Patient underwent dialysis. After that, area was no l onger indurated or tender. He was watched overnight that day. The next day, he was noted to have a decreased O2 sat in the high 80s. He had basilar rales and again an elevated potassium of 5.9. Dr. Tucker who had been called earlier for dialysis was reconsulted. The patient had dialysis last night and again this morning. His chest is not clear, now clear. His O2 saturation is 95 on room air, si tting. The area of swelling and tenderness has now disappeared in his thigh. It remains a puzzle wh at that was. A venous ultrasound was negative even for superficial phlebitis. He is being discharge d for followup with Dr. Koehler next week. PROCEDURES: Dialysis x3. CONSULTATIONS: Dr. Tucker. He has been told to keep a maximum fluid intake of 1200 mL a day. He is to follow up with his routin e Wednesday, Wednesday, Wednesday dialysis starting Wednesday.
== END 2017-09-15 16:40 | disposition home or self-care (01) | DRG 189 ==
LOC: ERS 00:06 → 2SW 02:55 → OBSVTOIN 09-14 14:36
PROVIDERS: ADMIT Internal Medicine; ATTEND Internal Medicine
PROC: 5A1D70Z Performance of Urinary Filtration, Intermittent, Less than 6 Hours Per Day (ICD-10-PCS; principal; 2017-09-14)
PROC: 5A1D70Z Performance of Urinary Filtration, Intermittent, Less than 6 Hours Per Day (ICD-10-PCS; 2017-09-15)
DX: J96.01 Acute respiratory failure with hypoxia (principal); E11.22 Type 2 diabetes mellitus with diabetic chronic kidney disease; I12.0 Hypertensive chronic kidney disease with stage 5 chronic kidney disease or end stage renal disease; E11.319 Type 2 diabetes mellitus with unspecified diabetic retinopathy without macular edema; I42.9 Cardiomyopathy, unspecified; E11.42 Type 2 diabetes mellitus with diabetic polyneuropathy; N18.6 End stage renal disease; E87.5 Hyperkalemia; J96.02 Acute respiratory failure with hypercapnia; Z79.4 Long term (current) use of insulin; Z99.2 Dependence on renal dialysis; F32.9 Major depressive disorder, single episode, unspecified; D63.1 Anemia in chronic kidney disease; E78.5 Hyperlipidemia, unspecified; M10.9 Gout, unspecified; I45.10 Unspecified right bundle-branch block; M79.651 Pain in right thigh; F41.9 Anxiety disorder, unspecified; I83.90 Asymptomatic varicose veins of unspecified lower extremity; I95.1 Orthostatic hypotension; Z87.891 Personal history of nicotine dependence
CPT/HCPCS: 36415; 36416; 71046; 80048; 80053; 82805; 83690; 84484; 85025; 85379; 87040; 87340; 90935; 93005; 96374; 96375; G0257; J1644; J1815; J2270; J2405; J7050; J7620; Q0162

== ENCOUNTER 2017-09-16 13:37 | Inpatient (IN) | payer MEDICARE ==
[2017-09-16 14:08] LABS: Actual Bicarbonate (HCO3a) 6.9 mEq/L (22-26); Analyzer IN Cardio ER; CO2 Tension 22.4 mmHg (35.0-45.0); Calcium, Ionized 1.1 mmol/L (1.12-1.30); Hematocrit-ABG 38.3 % (42.0-52.0); Hemoglobin (Hb) 10.5 g/dL (14.0-18.0); O2 Tension (PaO2) 94.4 mmHg (80.0-100.0); Puncture Site RBA; pH, Arterial 7.11 (7.35-7.45)
[2017-09-16 14:12] LABS: Hemoglobin 11.3 g/dL (14.0-18.0); Mean Corpuscular HGB CONC 29.7 g/dL (32.0-36.0); Mean Corpuscular Hemoglobin 31.8 pg (27.0-31.0); Mean Platelet Volume 7.4 fL (7.4-10.4); Platelet Count 342 thou/uL (130-400); Red Blood Cell (RBC) Count 3.56 mill/uL (4.70-6.10); White Blood Cell (WBC) Count 8.2 thou/uL (4.8-10.8)
[2017-09-16 14:30] LABS: #Lymphocytes 0.6 thou/uL (1.20-3.40); #Monocytes 0.9 thou/uL (0.11-0.59); #Neutrophils 6.8 thou/uL (1.40-6.50); %Basophils 0.3 % (0.0-1.0); %Eosinophils 0.3 % (0.0-10.0); %Lymphocytes 6.7 % (21.0-51.0); %Monocytes 10.4 % (0.0-10.0); %Neutrophils 82.3 % (42.0-75.0); Anisocytosis SLIGHT = 6-15 cells (100X) (0-5/hpf); MDiff Complete? YES; Macrocytosis SLIGHT = 6-15 cells (100X) (0-5/hpf); PLT Morphology Comment Appears Adequate; Polychromasia SLIGHT = 2-3 cells (100X) (0-2/hpf)
--- NOTE | 2017-09-16 14:30 | RAD ---
FRONTAL VIEW CHEST: Comparison: 09-14-17 Indication: Emergency exam, hypotension. FINDINGS: There is enlarged of the cardiac silhouette. Prominence of the pulmonary vasculature with interstitia l opacification bilaterally. No significant effusion or discrete pneumothorax. There is vascular calc ification. IMPRESSION: Findings indicate CHF. Correlate clinically. Imaging follow up is recommended to confirm resolution. POS: MALACHI
[2017-09-16 14:31] LABS: ALT (SGPT) 21 U/L (8-55); AST (SGOT) 21 U/L (5-34); Albumin 3.6 g/dL (3.4-4.8); Alkaline Phosphatase 172 U/L (40-150); BUN (Urea Nitrogen) 64 mg/dL (8.4-25.7); Bilirubin, Total 0.5 mg/dL (0.2-1.2); CK (CPK) 174 U/L (30-200); Calc. Creatinine Clearance 0 mL/min (70-130); Calcium 8.7 mg/dL (7.8-10.44); Chloride 92 mmol/L (98-107); Estimated GFR-MDRD 10; Globulin 3.2 g/dL (2.4-3.5); Glucose 550 mg/dL (80-115); Potassium 6.1 mmol/L (3.5-5.1); Protein, Total 6.8 g/dL (5.8-8.1); Sodium 134 mmol/L (136-145)
[2017-09-16 14:35] LABS: Carbon Dioxide Less than 8 mmol/L (23-31)
[2017-09-16 14:41] LABS: CKMB 17.3 ng/mL (0-6.6); Troponin I 1.062 ng/mL (< 0.028)
[2017-09-16] MEDS ORDERED: Insulin Regular 100 units/100 ml in NS IVPB SCH (14:45)
[2017-09-16] MEDS ORDERED: Insulin Regular 300 UNITS/3 ML VIAL ONE (14:47)
[2017-09-16 16:29] LABS: BUN (Urea Nitrogen) 68 mg/dL (8.4-25.7); Calc. Creatinine Clearance 0 mL/min (70-130); Calcium 8.3 mg/dL (7.8-10.44); Chloride 95 mmol/L (98-107); Estimated GFR-MDRD 11; Glucose 507 mg/dL (80-115); Potassium 5.5 mmol/L (3.5-5.1); Sodium 135 mmol/L (136-145)
[2017-09-16 16:33] LABS: Carbon Dioxide Less than 8 mmol/L (23-31)
[2017-09-16 16:37] LABS: Troponin I 1.572 ng/mL (< 0.028)
[2017-09-16] MEDS ORDERED: Norepinephrine 8 MG/0.9% NS 250 ML ONE (17:03)
[2017-09-16] MEDS ORDERED: Potassium Chloride 20 MEQ/100 ML PREMIX BAG IVPB PRN (17:43)
[2017-09-16] MEDS ORDERED: Norepinephrine 8 MG/0.9% NS 250 ML IVPB SCH (17:45)
[2017-09-16 18:07] LABS: Osmolality, Serum 343 mOsm/kg (280-295)
[2017-09-16] MEDS ORDERED: Sodium Bicarb 50 MEQ/50 ML Abboject 8.4% SYRINGE IVP SCH (18:15)
[2017-09-16] MEDS ORDERED: Sodium Bicarbonate 2.4 MEQ/5 ML ONE (18:16)
[2017-09-16] MEDS ORDERED: Sodium Bicarb 50 MEQ/50 ML Abboject 8.4% SYRINGE ONE ×2 (18:16→18:29)
[2017-09-16 18:30] LABS: Anion Gap 36 mmol/L (10-20); BUN (Urea Nitrogen) 67 mg/dL (8.4-25.7); Calc. Creatinine Clearance 0 mL/min (70-130); Calcium 8.3 mg/dL (7.8-10.44); Carbon Dioxide 10 mmol/L (23-31); Chloride 96 mmol/L (98-107); Estimated GFR-MDRD 10; Glucose 413 mg/dL (80-115); Potassium 4.7 mmol/L (3.5-5.1); Sodium 137 mmol/L (136-145)
[2017-09-16 18:32] LABS: Troponin I 2.438 ng/mL (< 0.028)
[2017-09-16] MEDS ORDERED: Aspirin 325 MG TAB PO SCH (18:45)
[2017-09-16] MEDS ORDERED: Senokot 8.6 MG TAB PO PRN (20:35)
[2017-09-16] MEDS ORDERED: Calcium Carbonate 500 MG ChewTAB PO PRN (20:35)
[2017-09-16] MEDS ORDERED: Acetaminophen 325 MG TAB PO PRN (20:35)
[2017-09-16] MEDS ORDERED: Dextrose 50% Abboject 50 ML SYRINGE SLOW IVP PRN (20:35)
[2017-09-16] MEDS ORDERED: Ondansetron ODT 4 MG TAB PO PRN (20:35)
[2017-09-16] MEDS ORDERED: Ondansetron HCl/PF 4 MG/2 ML Vial IVP PRN (20:35)
[2017-09-16] MEDS ORDERED: Acetaminophen 650 MG Suppository PR PRN (20:35)
[2017-09-16] MEDS ORDERED: Dextrose 5% in Water 1,000 ML IV PRN (20:35)
[2017-09-16] MEDS ORDERED: Bisacodyl 10 MG SUPP PR PRN (20:37)
[2017-09-16] MEDS ORDERED: Lacri-Lube Opth Oint 3.5 GM TUBE EA EYE PRN (20:37)
[2017-09-16] MEDS ORDERED: Famotidine/PF 20 mg/2ml Vial SLOW IVP SCH (21:00)
--- NOTE | 2017-09-16 21:14 | CON ---
DATE OF CONSULTATION: 09/16/2017 This encompasses 45 minutes of critical care time. CONSULTING PHYSICIAN: Dr. Boles. REASON FOR CONSULTATION: Diabetic ketoacidosis. HISTORY OF PRESENT ILLNESS: This patient was just discharged from the hospital yesterday. He was in the hospital with acute respiratory failure related to fluid overload. He received dialysis on , Wednesday, and Wednesday. Apparently, he went home, did not feel well and was not eating and did n ot take his insulin. He came in today with a blood sugar of over 500. He has received several liter s of IV fluid. He has also been started on an insulin drip. He is arousable and is able to give his own history without limitation. PAST MEDICAL HISTORY: 1. End-stage renal disease requiring hemodialysis. 2. Diabetes mellitus type 2, which is now insulin requiring. 3. Diabetic retinopathy. 4. Peripheral vascular disease. 5. Hypertension. 6. Depression. 7. Anemia from renal disease. 8. Gout. PAST SURGICAL HISTORY: He has a left forearm AV fistula. He has also had aortofemoral bypass. MEDICATIONS PRIOR TO ADMISSION: This list is taken from the discharge summary from yesterday, Janene harrington #3 one every 4 hours as needed for pain, amlodipine 10 mg at night, 5 mg in the morning, PhosLo 266 8 mg t.i.d., Lipitor 40 mg daily, Protonix 40 mg daily, metoprolol 25 mg twice a day, Novolin insulin sliding scale, trazodone 100 mg at night, Zoloft 50 mg at night. ALLERGIES: None. FAMILY MEDICAL HISTORY: Remarkable for diabetes and stroke. 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 Yajaira sevilla by himself. Does not smoke, does not consume alcohol. REVIEW OF SYSTEMS: He has had nausea, lethargy. Denies any fever, chills, chest pain, hematemesis, melena, hematochezia, hematuria, or dysuria. PHYSICAL EXAMINATION: VITAL SIGNS: Temperature 97.4, pulse 80, O2 saturation 93% on room air, blood pressure 82/41. GENERAL: He is a thin white male who is in no acute distress. HEENT: Pupils react and are equal. Sclerae are anicteric. Oropharynx dry. NECK: No JVD. LUNGS: Clear to auscultation anteriorly bilaterally. CARDIOVASCULAR: S1, S2 regular with no audible murmur or gallop. ABDOMEN: Soft, without tenderness. EXTREMITIES: No clubbing, cyanosis, or edema. X-RAY FINDINGS: Chest x-ray shows cardiomegaly, some cephalization of flow. LABORATORY DATA: Sodium 135, potassium 5.5, chloride 95, CO2 less than 8. Anion gap is 32, BUN 68, creatinine 5.3, glucose 507, calcium 8.3, troponin 1.5. ABG, pH 7.11, pCO2 22, PO2 of 94. White blo od cell count 8.2, hemoglobin 11, hematocrit 38, platelet count 342. ASSESSMENT: 1. Severe hyperglycemia with diabetic ketoacidosis. 2. History of renal failure. 3. Possible underlying gastroenteritis. RECOMMENDATIONS: 1. Judicious fluid administration. 2. Insulin drip. 3. Temporary Levophed drip. 4. Consultation with Nephrology. 5. Frequent electrolyte monitoring.
[2017-09-16 21:22] VITALS: BMI 22.9
--- NOTE | 2017-09-16 21:48 | PDOC.PN ---
- Subjective Encounter Start Date: 09/16/17 Encounter Start Time: 20:00 Patient seen and examined. Note dictated. - Objective Resuscitation Status: Resuscitation Status FULL:Full Resuscitation MAR Reviewed: Yes Vital Signs & Weight: Vital Signs (12 hours) Temp 09/16/17 20:05 97.8 F Weight Weight 164 lb 7.437 oz Most Recent Monitor Data Heart Rate from ECG 84 NIBP 110/50 NIBP BP-Mean 76 Respiration from ECG 8 SpO2 96 I&O: 09/15/17 09/16/17 09/17/17 06:59 06:59 06:59 Intake Total 0 Output Total 0 Balance 0 Result Diagrams: 09/16/17 13:50 09/16/17 18:00 Additional Labs: Accuchecks 09/16/17 18:53 POC Glucose 360 H Radiology Reviewed by me: Yes (CXR - no infiltrate. ?volume overload) EKG Reviewed by me: Yes (SR with NSST in inferior leads) Phys Exam - Physical Examination Gen - Somnolent, Ill appearing HEENT: sclera anicteric Neck: no nodes, no JVD Respiratory: no wheezing, no rhonchi Scat rales at bases, Symmetrical Cardiovascular: RRR, no rub no heaves/pulsations Gastrointestinal: soft, non-tender, no distention, positive bowel sounds Musculoskeletal: no edema Neurological: non-focal, normal sensation, moves all 4 limbs Psychiatric: normal affect, A&O x 3 Dx/Plan - Plan DVT proph w/heparin * DKA (diabetic ketoacidoses) * Elevated troponin * Hypotension on pressors. * DM type 2 (diabetes mellitus, type 2) uncontrolled * Hyperkalemia ESRD (end stage renal disease) * Med noncompliance Laboratory Tests 09/16/17 09/16/17 09/16/17 13:52 14:03 18:00 Bicarbonate Actual 6.9 L ABG pH 7.11 L* ABG pCO2 22.4 L* Serum Osmolality 343 H* Troponin I 2.438 H* Review of Systems - Review of Systems Constitutional: weakness. negative: fever, chills, sweats, malaise Eyes: negative: Pain, Vision Change, Conjunctivae Inflammation, Eyelid Inflammation, Redness ENT: negative: Ear Pain, Ear Discharge, Nose Pain, Nose Discharge, Nose Congestion, Mouth Pain, Mouth Swelling, Throat Pain, Throat Swelling Respiratory: negative: Cough, Dry, Shortness of Breath, Hemoptysis, SOB with Excertion, Pleuritic Pain, Sputum, Wheezing Cardiovascular: negative: chest pain, palpitations, orthopnea, paroxysmal nocturnal dyspnea, edema, light headedness Gastrointestinal: negative: Nausea, Vomiting, Abdominal Pain, Diarrhea, Constipation, Melena, Hematochezia Genitourinary: negative: Dysuria, Frequency, Incontinence, Hematuria, Retention Musculoskeletal: negative: Neck Pain, Shoulder Pain, Arm Pain, Back Pain, Hand Pain, Leg Pain, Foot Pain Skin: negative: Rash, Lesions, Jake, Bruising Neurological: Weakness. negative: Numbness, Incoordination, Change in Speech, Confusion, Seizures - Medications/Allergies Allergies/Adverse Reactions: Allergies Allergy/AdvReac Type Severity Reaction Status Date / Time adhesive Allergy Verified 02/04/16 07:59 Medications: Current Medications Acetaminophen (Tylenol) 650 mg PO Q4H PRN PRN Reason: Headache/Fever or Pain Acetaminophen (Tylenol) 650 mg GA Q4H PRN PRN Reason: Headache/Fever or Pain Albuterol/Ipratropium (Duoneb) 3 ml NEB Q6H PRN PRN Reason: SOB &/or Wheezing Aspirin (Aspirin) 325 mg PO DAILY [facility] Atorvastatin Calcium (Lipitor) 10 mg PO HS HEIDY Bisacodyl (Dulcolax) 10 mg GA DAILYPRN PRN PRN Reason: Constipation Calcium Carbonate (Tums) 1,000 mg PO Q4H PRN PRN Reason: Heartburn or Indigestion Dextrose/Water (Dextrose 50%) 25 gm SLOW IVP PRN PRN PRN Reason: Hypoglycemia Docusate Sodium (Colace) 100 mg PO BID [facility] Famotidine (Pepcid) 20 mg SLOW IVP QPM [facility] Glucagon (Glucagon) 1 mg IM PRN PRN PRN Reason: Hypoglycemia Heparin Sodium (Porcine) (Heparin) 5,000 units SC BID HEIDY Sodium Chloride (Normal Saline 0.9%) 1,000 mls @ 100 mls/hr IV .Q10H [facility] Insulin Human Regular 100 (units/ Sodium Chloride) 101 mls @ 0 mls/hr IVPB INF HEIDY; Titrate PRN Reason: Protocol Norepinephrine Bitartrate (Levophed) 250 mls @ 0 mls/hr IVPB INF HEIDY; Titrate PRN Reason: Protocol Dextrose/Water (D5w) 1,000 mls @ 0 mls/hr IV .Q0M PRN; As Directed PRN Reason: Hypoglycemia Influenza Virus Vaccine (Fluzone High-Dose Syr) 0.5 ml IM .ONCE ONE Stop: 09/17/17 09:01 Mineral Oil/White Petrolatum (Lacri-Lube Ointment) 0 gm EA EYE PRN PRN PRN Reason: Dry Eyes Ondansetron HCl (Zofran Odt) 4 mg PO Q6H PRN PRN Reason: Nausea/Vomiting Ondansetron HCl (Zofran) 4 mg IVP Q6H PRN PRN Reason: Nausea/Vomiting Potassium Chloride (Kcl) 20 meq IVPB ONE PRN PRN Reason: potassium below 3.5 Stop: 09/23/17 17:44 Senna (Senokot) 2 tab PO HSPRN PRN PRN Reason: Constipation
[2017-09-16 21:59] LABS: Anion Gap 27 mmol/L (10-20); BUN (Urea Nitrogen) 69 mg/dL (8.4-25.7); Calc. Creatinine Clearance 13 mL/min (70-130); Calcium 8.3 mg/dL (7.8-10.44); Carbon Dioxide 19 mmol/L (23-31); Chloride 97 mmol/L (98-107); Estimated GFR-MDRD 10; Glucose 261 mg/dL (80-115); Potassium 4.8 mmol/L (3.5-5.1); Sodium 138 mmol/L (136-145)
--- NOTE | 2017-09-16 22:03 | HP ---
DATE OF ADMISSION: 09/16/2017 PRIMARY CARE PHYSICIAN: Dr. Koehler. PRIMARY VENEER SAWYER: Dr. Rogerio Tucker. CHIEF COMPLAINT: Generalized weakness. HISTORY OF PRESENT ILLNESS: Patient is a 67-year-old male with end-stage renal disease on hemodialys is and diabetes mellitus type 2 who was discharged from this facility yesterday, [facility]. Post-discharge, patient felt generally weak. He was unable to get out of his bed. He also did not e at or drink much. He did not take his insulin as well. No fever, chills, focal neurologic deficit, syncope, chest pain, palpitations, or seizure reported. His blood pressure per EMS was 60/40. His b lood sugar was 599. He received 1 liter normal saline by EMS. In the emergency room, his initial vi binta signs showed temperature 97.4 with pulse rate 78, respirations 20, blood pressure of 81/48. A ce ntral line was placed. He was started on Levophed drip. He was also found to be in diabetic ketoaci dosis with a bicarbonate of 6.9, pH of 7.1 and pCO2 of 22.4. He is currently on insulin drip. He re ceived 2 liters IV fluid with aspirin and bicarbonate 50 mEq x1. His troponin on admission was 1.062 with a repeat troponin of 2.4. PAST MEDICAL HISTORY: 1. Diabetes mellitus type 2 on insulin. 2. End-stage renal disease on hemodialysis, Wednesday, Wednesday, Wednesday. 3. Diabetic retinopathy. 4. Peripheral vascular disease. 5. Hypertension. 6. Depression 7. Chronic anemia. 8. Dyslipidemia. 9. History of gout. PAST SURGICAL HISTORY: 1. Dialysis access. 2. Aortofemoral bypass. ALLERGIES: No known drug allergies. CURRENT MEDICATIONS: Patient does not remember any of his home medications. He is unable to tell me the details of his insulin dosages. FAMILY HISTORY: Positive for diabetes and stroke in several family members. SOCIAL HISTORY: Patient currently lives at home. He is full code. He makes his own decision. He h as not appointed a next of kin. No alcohol, tobacco or drug use. He does not have any home health c are. REVIEW OF SYSTEMS, PHYSICAL EXAMINATION, LABORATORY FINDINGS: Please refer to my progress note. IMPRESSION: 1. Diabetic ketoacidosis secondary to medication noncompliance. 2. Elevated troponins, probably secondary to dehydration/demand ischemia. 3. Anion gap metabolic acidosis secondary to diabetic ketoacidosis. 4. Hyperkalemia. 5. Hypertension. 6. Peripheral vascular disease. 7. Chronic anemia secondary to renal insufficiency. 8. Dyslipidemia. 9. Chronic diastolic heart failure, ejection fraction 45%-50% in 2016 with moderate tricuspid regurg itation and pulmonary hypertension. PLAN: The patient will be monitored in the Intensive Care Unit setting. We will consult critical ca re and Nephrology. Continue insulin drip. IV normal saline at 100 mL per critical care. We will co ntinue aspirin. Consult Cardiology. We will get echocardiogram. Continue selected home medications based on recent discharge summary. Plan of care was discussed with the patient. He stated understanding.
[2017-09-16 22:14] LABS: CKMB 32.5 ng/mL (0-6.6)
[2017-09-16] MEDS: Heparin 5,000 UNITS/ML VIAL SC SCH (22:27)
[2017-09-16] MEDS: Docusate 100 MG CAP PO SCH (22:27)
[2017-09-16] MEDS: Sodium Chloride 0.9% 1,000 ML IV SCH (22:28)
[2017-09-16] MEDS ORDERED: NPH, Human Insulin Isophane 300 UNIT/3 ML VIAL SC SCH (23:00)
[2017-09-17] MEDS: Sodium Chloride 0.9% 1,000 ML IV SCH ×3 (03:56→21:39)
[2017-09-17 05:56] LABS: Anion Gap 16 mmol/L (10-20); BUN (Urea Nitrogen) 30 mg/dL (8.4-25.7); Calc. Creatinine Clearance 24 mL/min (70-130); Calcium 8.9 mg/dL (7.8-10.44); Carbon Dioxide 27 mmol/L (23-31); Chloride 104 mmol/L (98-107); Estimated GFR-MDRD 20; Glucose 108 mg/dL (80-115); Sodium 143 mmol/L (136-145)
[2017-09-17 06:03] LABS: CKMB 40.3 ng/mL (0-6.6); Troponin I 26.603 ng/mL (< 0.028)
[2017-09-17 06:15] LABS: #Lymphocytes 0.6 thou/uL (1.20-3.40); #Monocytes 1.5 thou/uL (0.11-0.59); #Neutrophils 8.8 thou/uL (1.40-6.50); %Eosinophils 0.4 % (0.0-10.0); %Lymphocytes 5.3 % (21.0-51.0); %Monocytes 13.3 % (0.0-10.0); Hemoglobin 11.4 g/dL (14.0-18.0); Mean Corpuscular HGB CONC 33.5 g/dL (32.0-36.0); Mean Corpuscular Hemoglobin 33.7 pg (27.0-31.0); Mean Platelet Volume 6.9 fL (7.4-10.4); Platelet Count 279 thou/uL (130-400); Red Blood Cell (RBC) Count 3.38 mill/uL (4.70-6.10); White Blood Cell (WBC) Count 10.9 thou/uL (4.8-10.8)
--- NOTE | 2017-09-17 08:38 | PRG ---
DATE OF SERVICE: 09/17/2017 The patient is now off the insulin drip. He will wake up, but he is not very verbal. PHYSICAL EXAMINATION: VITAL SIGNS: Temperature is 98.8, pulse 80, blood pressure 111/56. He is off the Levophed drip. To binta intake 1462, output 2600, most of that by dialysis last night. HEENT: Unremarkable. NECK: No JVD. CHEST: Clear. CARDIAC: S1 and S2 regular. ABDOMEN: Soft. EXTREMITIES: No edema. LABORATORY DATA: Sodium 143, potassium 4, chloride 104, CO2 27, BUN 30, creatinine 3.1, glucose 108. Troponin 26. White blood cell count 10.8, hematocrit 34, platelet count 279. ASSESSMENT: 1. Diabetic ketoacidosis which has resolved. 2. Myocardial infarction. 3. Chronic renal failure. PLAN: Cardiology has been consulted. The patient will remain on subcutaneous heparin and oral aspir in. We will await their disposition. From my standpoint, he can probably go out to telemetry unit i f okay with all.
[2017-09-17] MEDS ORDERED: NPH, Human Insulin Isophane 300 UNIT/3 ML VIAL SC SCH (09:00)
[2017-09-17] MEDS ORDERED: FLU VACC TS2017-18 (>65YR) 0.5 ML SYRINGE IM ONE (09:00)
[2017-09-17] MEDS: Docusate 100 MG CAP PO SCH ×2 (10:18→21:38)
[2017-09-17] MEDS: Aspirin 325 MG TAB PO SCH (10:18)
[2017-09-17] MEDS: Heparin 5,000 UNITS/ML VIAL SC SCH (10:18)
[2017-09-17] MEDS ORDERED: Heparin 1,000 UNITS/ML VIAL ONE (11:11)
[2017-09-17] MEDS ORDERED: Heparin 10,000 UNITS/ 10 ML VIAL SLOW IVP SCH (12:45)
--- NOTE | 2017-09-17 13:04 | CON ---
DATE OF CONSULTATION: 09/17/2017 REASON FOR CONSULTATION: Elevated troponin. HISTORY OF PRESENT ILLNESS: Mr. Lunsford is a very pleasant 67-year-old gentleman, who I have seen an d evaluated in the past. He recently was admitted on 09/16/2017 for profound weakness. He was marke dly hypotensive. He was given IV fluids. He was also found to be in DKA. This is corrected. His i nitial troponin was 1 and has increased to 26. He is currently asymptomatic. He denies chest pain, pressure, shortness of breath or other associated symptoms. His EKG does not suggest any acute EKG c hanges. PAST MEDICAL HISTORY: Diabetes mellitus for the last 40 years, end-stage renal disease, diabetic ret inopathy, PVD, status post aortobifemoral bypass, hypertension, hyperlipidemia. PAST SURGICAL HISTORY: As above. ALLERGIES: None. FAMILY HISTORY: Negative for CAD. SOCIAL HISTORY: No current tobacco or alcohol use. Currently . He does have 3 children who do not live in the immediate area. REVIEW OF SYSTEMS: Ten point review of systems reviewed and as above, otherwise negative. PHYSICAL EXAMINATION: VITAL SIGNS: Blood pressure 124/62, pulse 85, respirations 20. GENERAL: Patient is a pleasant male who is in no acute distress. The patient appears his stated age. NEUROLOGIC: The patient is alert and oriented times 3 with no focal neurologic deficits. HEENT: Sclerae without icterus. Mouth has moist mucous membranes with normal pallor. NECK: No JVD. Carotid upstroke brisk. No bruits bilaterally. LUNGS: Clear to auscultation with unlabored respirations. BACK: No scoliosis or kyphosis. CARDIAC: Regular rate and rhythm with normal S1 and S2. No S3 or S4 noted. No significant rubs, mur murs, thrills, or gallops noted throughout the precordium. PMI is not displaced. There is no parast ernal heave. ABDOMEN: Soft, nontender, nondistended. No peritoneal signs present. No hepatosplenomegaly. No abn ormal striae. EXTREMITIES: 2+ femoral and 2+ dorsalis pedis pulses. No cyanosis, clubbing, or edema. SKIN: No gross abnormalities. PERTINENT LABS: Hemoglobin 11.4, hematocrit 34, creatinine 3.13. CK-MB of 40. Troponin 26. EKG: Normal sinus rhythm, nonspecific ST-T wave changes. IMPRESSION: 1. Elevated troponin. 2. Profound weakness. 3. Hyperkalemia with potassium of 6.1. 4. Profound hypotension, now resolved. RECOMMENDATIONS: Mr. Lunsford initially presented with profound weakness and hypotension. He require d Levophed, which has now been discontinued. His elevated troponin may or may not be related to unst able angina. I feel this is more likely related to demand ischemia given profound hypotension for an unknown time. He has had diabetes mellitus for the last 40 years and likely has a significant 3-ves sanford coronary disease. His last stress study was performed in 2015 and showed a scar with a normal LV EF. I strongly recommended coronary angiography with possible PCI with Mr. Lunsford. The risks of th e procedure include but are not limited to the following: , stroke, [place], need for emergency surg huyen, loss of limb, bleeding, and infection, as well as a reaction to the dye causing kidney failure a nd needing long-term dialysis. I also discussed the risks of PCI to include all of the above includi ng coronary dissection and perforation in addition to acute stent thrombosis and restenosis. All que stions about the procedure were answered. Given the above, the patient agreed to proceed with ramirez ry angiography and possible PCI. All questions were answered. At this point, he would like to defer. He is not interested in proceed ing with angiography or any invasive coronary measures. I would recommend heparin per protocol and c ontinue to manage blood pressure closely. Echo with Doppler pending.
[2017-09-17 13:55] LABS: Hemoglobin 11.2 g/dL (14.0-18.0); Platelet Count 252 thou/uL (130-400)
[2017-09-17] MEDS: Insulin Regular 300 UNITS/3 ML VIAL SC PRN (17:23)
[2017-09-17] MEDS: Heparin 25,000 units/D5W 500 ML IVPB SCH (17:34)
--- NOTE | 2017-09-17 19:00 | PDOC.PN ---
- Subjective Encounter Start Date: 09/17/17 Encounter Start Time: 11:30 Patient seen and examined. Feels gen weak. No overnight events. No CP - Objective Resuscitation Status: Resuscitation Status FULL:Full Resuscitation MAR Reviewed: Yes Vital Signs & Weight: Vital Signs (12 hours) Temp Pulse Resp Pulse Ox 09/17/17 18:55 97 09/17/17 16:00 98.1 F 09/17/17 12:00 99.2 F 09/17/17 07:55 98 09/17/17 07:54 98.8 F 87 15 98 Weight Weight 164 lb 7.437 oz Most Recent Monitor Data Heart Rate from ECG 91 NIBP 135/78 NIBP BP-Mean 92 Respiration from ECG 18 SpO2 100 I&O: 09/16/17 09/17/17 09/18/17 06:59 06:59 06:59 Intake Total 1462.9 1906.3 Output Total 0 Balance 1462.9 1906.3 Result Diagrams: 09/17/17 13:43 09/18/17 05:00 Additional Labs: Accuchecks 09/17/17 09/17/17 09/17/17 16:13 12:06 07:56 POC Glucose 244 H 124 H 105 09/17/17 09/17/17 09/17/17 06:23 05:10 03:56 POC Glucose 94 101 106 09/17/17 09/17/17 09/17/17 02:49 02:28 01:21 POC Glucose 133 H 50 L* 69 L 09/17/17 09/16/17 09/16/17 00:03 23:12 22:17 POC Glucose 105 152 H 192 H 09/16/17 09/16/17 21:09 18:53 POC Glucose 238 H 360 H EKG Reviewed by me: Yes (Tele SR) Phys Exam - Physical Examination Constitutional: NAD Neck: no JVD Respiratory: no wheezing, no rhonchi, clear to auscultation bilateral Scat rales at base Cardiovascular: RRR, no rub no heaves/pulsations Gastrointestinal: soft, non-tender, no distention, positive bowel sounds Neurological: non-focal, normal sensation, moves all 4 limbs Psychiatric: normal affect, A&O x 3 Dx/Plan - Plan IMPRESSION: 1. Diabetic ketoacidosis secondary to medication noncompliance. 2. Elevated troponins, probably secondary to dehydration/demand ischemia. 3. Anion gap metabolic acidosis secondary to diabetic ketoacidosis. 4. ESRD on dialysis with Hyperkalemia on admission 5. Hypotension requiring pressors. 6. Peripheral vascular disease. 7. Chronic anemia secondary to renal insufficiency. 8. Dyslipidemia. 9. Chronic diastolic heart failure, ejection fraction 45%-50% in 2016 with moderate tricuspid regurgitation and pulmonary hypertension/h/oHypertension/Med noncompliance PLAN: * On Heparin drip * Off pressors * Insulin drip changed to SQ * Cont sliding scale * Dialysis per Nephrology * Await Echo Review of Systems - Review of Systems Respiratory: negative: Cough, Dry, Shortness of Breath, Hemoptysis, SOB with Excertion, Pleuritic Pain, Sputum, Wheezing Cardiovascular: negative: chest pain, palpitations, orthopnea, paroxysmal nocturnal dyspnea, edema, light headedness, other - Medications/Allergies Allergies/Adverse Reactions: Allergies Allergy/AdvReac Type Severity Reaction Status Date / Time adhesive Allergy Verified 09/16/17 23:40 Medications: Current Medications Acetaminophen (Tylenol) 650 mg PO Q4H PRN PRN Reason: Headache/Fever or Pain Acetaminophen (Tylenol) 650 mg MO Q4H PRN PRN Reason: Headache/Fever or Pain Albuterol/Ipratropium (Duoneb) 3 ml NEB Q6H PRN PRN Reason: SOB &/or Wheezing Aspirin (Aspirin) 325 mg PO DAILY [facility] Last Admin: 09/17/17 10:18 Dose: 325 mg Atorvastatin Calcium (Lipitor) 10 mg PO HS [facility] Bisacodyl (Dulcolax) 10 mg MO DAILYPRN PRN PRN Reason: Constipation Calcium Carbonate (Tums) 1,000 mg PO Q4H PRN PRN Reason: Heartburn or Indigestion Dextrose/Water (Dextrose 50%) 25 gm SLOW IVP PRN PRN PRN Reason: Hypoglycemia Last Admin: 09/17/17 02:29 Dose: 25 gm Docusate Sodium (Colace) 100 mg PO BID [facility] Last Admin: 09/17/17 10:18 Dose: 100 mg Famotidine (Pepcid) 20 mg PO QPM [facility] Glucagon (Glucagon) 1 mg IM PRN PRN PRN Reason: Hypoglycemia Heparin Sodium (Porcine) (Heparin 1,000 Units/Ml (10 Ml)) 0 units SLOW IVP ASDIR [facility] PRN Reason: Protocol Last Admin: 09/17/17 17:25 Dose: 4,000 unit Sodium Chloride (Normal Saline 0.9%) 1,000 mls @ 100 mls/hr IV .Q10H [facility] Last Admin: 09/17/17 10:28 Dose: 1,000 mls Dextrose/Water (D5w) 1,000 mls @ 0 mls/hr IV .Q0M PRN; As Directed PRN Reason: Hypoglycemia Heparin Sodium/Dextrose (Heparin 25,000 Units/D5w 500 Ml) 500 mls @ 0 mls/hr IVPB INF [facility]IDY; Per Protocol PRN Reason: Protocol Last Admin: 09/17/17 17:34 Dose: 500 mls Insulin Human NPH (Humulin N) 10 unit SC BID [facility] Insulin Human Regular (Humulin R) 0 units SC .MILD SLIDING SCALE PRN PRN Reason: Mild Correctional Scale Last Admin: 09/17/17 17:23 Dose: 3 unit Insulin Human Regular (Humulin R) 0 units SC .BEDTIME SLIDING SC PRN PRN Reason: Bedtime Correctional Scale Mineral Oil/White Petrolatum (Lacri-Lube Ointment) 0 gm EA EYE PRN PRN PRN Reason: Dry Eyes Ondansetron HCl (Zofran Odt) 4 mg PO Q6H PRN PRN Reason: Nausea/Vomiting Ondansetron HCl (Zofran) 4 mg IVP Q6H PRN PRN Reason: Nausea/Vomiting Potassium Chloride (Kcl) 20 meq IVPB ONE PRN PRN Reason: potassium below 3.5 Stop: 09/23/17 17:44 Senna (Senokot) 2 tab PO HSPRN PRN PRN Reason: Constipation Sodium Chloride (Flush - Normal Saline) 10 ml IVF Q12HR [facility] Sodium Chloride (Flush - Normal Saline) 10 ml IVF PRN PRN PRN Reason: Saline Flush
[2017-09-17] MEDS ORDERED: Atorvastatin Calcium 10 MG TAB PO SCH (21:00)
[2017-09-17] MEDS: NPH, Human Insulin Isophane 300 UNIT/3 ML VIAL SC SCH (21:38)
[2017-09-17] MEDS: Famotidine 20 MG TAB PO SCH (21:38)
[2017-09-18] MEDS: Insulin Regular 300 UNITS/3 ML VIAL SC PRN ×2 (05:42→11:55)
[2017-09-18] MEDS: Nitroglycerin 2% Ointment 1 INCH/1 GM Packet TOP SCH ×3 (05:42→20:48)
[2017-09-18 06:26] LABS: Anion Gap 15 mmol/L (10-20); BUN (Urea Nitrogen) 23 mg/dL (8.4-25.7); Calc. Creatinine Clearance 23 mL/min (70-130); Calcium 9.1 mg/dL (7.8-10.44); Carbon Dioxide 27 mmol/L (23-31); Chloride 102 mmol/L (98-107); Estimated GFR-MDRD 19; Glucose 196 mg/dL (80-115); Potassium 3.7 mmol/L (3.5-5.1); Sodium 140 mmol/L (136-145)
[2017-09-18] MEDS: Docusate 100 MG CAP PO SCH ×2 (08:52→20:46)
[2017-09-18] MEDS: Aspirin 325 MG TAB PO SCH (08:52)
[2017-09-18] MEDS: NPH, Human Insulin Isophane 300 UNIT/3 ML VIAL SC SCH ×2 (08:52→20:52)
[2017-09-18] MEDS: Sodium Chloride 0.9% 1,000 ML IV SCH ×3 (09:57→20:49)
[2017-09-18] MEDS ORDERED: Metoprolol Tartrate 25 MG TAB PO SCH (11:45)
[2017-09-18] MEDS: Calcium Acetate 667 MG CAP PO SCH ×2 (12:00→16:55)
--- NOTE | 2017-09-18 13:28 | PRG ---
DATE OF SERVICE: 09/18/2017 SERVICE: Pulmonary Medicine. INTERVAL HISTORY: The patient is doing fantastic from a respiratory standpoint. He denies any curre nt fevers, chills, nausea, or vomiting. There has been no interval change to his condition. There w ere no overnight events. PHYSICAL EXAMINATION: VITAL SIGNS: Afebrile, pulse 87, blood pressure 152/86, respirations 13, saturation 92% on 2 liters nasal cannula. HEENT: Normocephalic, atraumatic. Sclerae are white, conjunctivae pink. Oral and nasal mucosa is m oist without lesions. GENERAL: The patient is awake and alert, in no apparent distress. LUNGS: Excellent air entry. There is not a prolonged expiratory phase or wheezing present. HEART: Normal rate, regular. ABDOMEN: Soft, nontender, nondistended. Bowel sounds are positive. MUSCULOSKELETAL: No cyanosis or clubbing. No pitting in the bilateral lower extremities. NEUROLOGIC: Grossly nonfocal. LABORATORY DATA: Hemoglobin 11.2, platelets 252,000. Basic metabolic profile is completely unremark able. Creatinine is 3.24 and roughly stable. ASSESSMENT: 1. Acute hypoxic respiratory failure. 2. Diabetic ketoacidosis. 3. Myocardial infarction. 4. Chronic kidney disease. PLAN: The patient has been transitioned off of his insulin drip. His gap is closed. He is tolerati ng p.o. just fine and can safely transition out to telemetry Pulmonary Critical Care will follow for 24 hours, but if he remains hemodynamically stable on the floor, we will likely sign off.
--- NOTE | 2017-09-18 16:00 | PDOC.CTH ---
<Charley Avila - Last Filed: 09/18/17 15:58> Cardiology Progress Note - Subjective the pt seen and examined. No overnight events. No cardiac complaints at this time. He complains of weakness in his BLE. - Objective Vital Signs Temp Pulse Resp BP Pulse Ox 09/18/17 15:31 98.5 F 80 18 150/86 H 93 L 09/18/17 13:30 98.3 F 79 16 149/86 H 98 09/18/17 12:00 98.5 F 09/18/17 07:17 98.8 F 88 20 82 L 09/18/17 07:11 96 09/18/17 07:00 98.8 F 09/18/17 04:00 98.6 F Weight 164 lb 7.437 oz 09/17/17 09/18/17 09/19/17 06:59 06:59 06:59 Intake Total 1462.9 4408.4 600 Output Total 0 0 0 Balance 1462.9 4408.4 600 - Physical Examination General/Neuro: alert & oriented x3 Neck: no JVD present Lungs: CTA Heart: RRR Abdomen: soft Extremities: other: (No edemas) - Telemetry Telemetry Rhythm: SR - Labs Result Diagrams: 09/17/17 13:43 09/18/17 05:00 Troponin/CKMB CK-MB (CK-2) 40.3 ng/mL (0-6.6) H* 09/17/17 05:00 Troponin I 26.603 ng/mL (< 0.028) H* 09/17/17 05:00 - Assessment/Plan 1. Elevated trop probably secondary to dehydration/demand ischemia - Stable with ASA, BBlocker, and Hepairn drip which was started on 09/17/17 around noon. Cont. Heparin drip for 48 hrs. 2. DKA due to noncompliance of med - on ACHS BG check with Insulin SS. Managed by PCP 3. ESRD with HD - managed by tapper hand 4. Hypotension requiring pressors - stable with off pressors; cont. to monitor 6. Hyperlipidemia - on Statin 7. Chronic anemia secondary to renal insufficiency - stable MAR reviewed * Echo on 09/16/17 showed EF 60-65%, mod-severe LVH, severe RVE, severe LAE, severely elevated PAP, 60 mmHg Review of Systems - Review of Systems Constitutional: reports: no symptoms reported EENTM: reports: no symptoms reported Respiratory: reports: no symptoms reported Cardiac (ROS): reports: no symptoms reported ABD/GI: reports: no symptoms reported : reports: no symptoms reported Musculoskeletal: reports: no symptoms reported Skin: reports: no symptoms reported <Mary Márquez - Last Filed: 09/18/17 17:33> Cardiology Progress Note - Objective Vital Signs Temp Pulse Resp BP Pulse Ox 09/18/17 15:31 98.5 F 80 18 150/86 H 93 L 09/18/17 13:30 98.5 F 80 18 149/86 H 98 09/18/17 12:00 98.5 F 09/18/17 07:17 98.8 F 88 20 82 L 09/18/17 07:11 96 09/18/17 07:00 98.8 F Weight 164 lb 7.437 oz 09/17/17 09/18/17 09/19/17 06:59 06:59 06:59 Intake Total 1462.9 4408.4 600 Output Total 0 0 0 Balance 1462.9 4408.4 600 - Labs Result Diagrams: 09/17/17 13:43 09/18/17 05:00 Troponin/CKMB CK-MB (CK-2) 40.3 ng/mL (0-6.6) H* 09/17/17 05:00 Troponin I 26.603 ng/mL (< 0.028) H* 09/17/17 05:00 - Assessment/Plan Pt. seen and eval. by me. I agree with the A/P by the FELT DYEING MACHINE TENDER. He is comfortable at this time and has no complaints. Chest- few bibasilar rales. RRR.
--- NOTE | 2017-09-18 19:19 | PDOC.PN ---
- Subjective Encounter Start Date: 09/18/17 Encounter Start Time: 13:00 Patient seen and examined. No new complaints. No CP. No overnight events - Objective Resuscitation Status: Resuscitation Status FULL:Full Resuscitation MAR Reviewed: Yes Vital Signs & Weight: Vital Signs (12 hours) Temp Pulse Resp BP Pulse Ox 09/18/17 15:31 98.5 F 80 18 150/86 H 93 L 09/18/17 13:30 98.5 F 80 18 149/86 H 98 09/18/17 12:00 98.5 F Weight Weight 164 lb 7.437 oz Most Recent Monitor Data Heart Rate from ECG 87 NIBP 152/86 NIBP BP-Mean 97 Respiration from ECG 13 SpO2 92 I&O: 09/17/17 09/18/17 09/19/17 06:59 06:59 06:59 Intake Total 1462.9 4408.4 600 Output Total 0 0 0 Balance 1462.9 4408.4 600 Result Diagrams: 09/17/17 13:43 09/18/17 05:00 Additional Labs: Accuchecks 09/18/17 09/18/17 09/18/17 16:48 11:49 05:42 POC Glucose 94 165 H 189 H 09/18/17 09/17/17 01:19 21:05 POC Glucose 175 H 128 H EKG Reviewed by me: Yes (Tele SR) Phys Exam - Physical Examination Constitutional: NAD HEENT: sclera anicteric Neck: no JVD Respiratory: no wheezing, no rhonchi Scat rales at bases Cardiovascular: RRR, no rub no heaves/pulsations Gastrointestinal: soft, non-tender, no distention, positive bowel sounds Musculoskeletal: no edema Neurological: non-focal, normal sensation, moves all 4 limbs Psychiatric: A&O x 3 Dx/Plan - Plan IMPRESSION: 1. Diabetic ketoacidosis secondary to medication noncompliance. Off Insulin drip. 2. Elevated troponins, probably secondary to dehydration/demand ischemia. 3. Anion gap metabolic acidosis secondary to diabetic ketoacidosis. 4. ESRD on dialysis with Hyperkalemia on admission 5. Hypotension improved. Off pressors 6. Peripheral vascular disease. 7. Chronic anemia secondary to renal insufficiency. 8. Dyslipidemia. 9. Chronic diastolic heart failure, ejection fraction 45%-50% in 2016 with moderate tricuspid regurgitation and pulmonary hypertension/h/oHypertension/Med noncompliance PLAN: * On Heparin drip/NTG patch * Resume Metoprolol * Cardiology following * Change NPH to 10 units in AM and 5 QPM * Cont sliding scale * Dialysis per Nephrology * Echo reviewed * change IVF to 40 ml/hr Review of Systems - Review of Systems Respiratory: negative: Cough, Dry, Shortness of Breath, Hemoptysis, SOB with Excertion, Pleuritic Pain, Sputum, Wheezing Cardiovascular: negative: chest pain, palpitations, orthopnea, paroxysmal nocturnal dyspnea, edema, light headedness Gastrointestinal: negative: Nausea, Vomiting, Abdominal Pain, Diarrhea, Constipation, Melena, Hematochezia - Medications/Allergies Allergies/Adverse Reactions: Allergies Allergy/AdvReac Type Severity Reaction Status Date / Time adhesive Allergy Verified 09/16/17 23:40 Medications: Current Medications Acetaminophen (Tylenol) 650 mg PO Q4H PRN PRN Reason: Headache/Fever or Pain Acetaminophen (Tylenol) 650 mg RI Q4H PRN PRN Reason: Headache/Fever or Pain Albuterol/Ipratropium (Duoneb) 3 ml NEB Q6H PRN PRN Reason: SOB &/or Wheezing Aspirin (Ecotrin) 325 mg PO DAILY [facility] Atorvastatin Calcium (Lipitor) 40 mg PO HS [facility] Bisacodyl (Dulcolax) 10 mg RI DAILYPRN PRN PRN Reason: Constipation Calcium Acetate (Phoslo) 2,668 mg PO TID[facility] Last Admin: 09/18/17 16:55 Dose: 2,668 mg Calcium Carbonate (Tums) 1,000 mg PO Q4H PRN PRN Reason: Heartburn or Indigestion Dextrose/Water (Dextrose 50%) 25 gm SLOW IVP PRN PRN PRN Reason: Hypoglycemia Last Admin: 09/17/17 02:29 Dose: 25 gm Docusate Sodium (Colace) 100 mg PO BID [facility] Last Admin: 09/18/17 08:52 Dose: 100 mg Famotidine (Pepcid) 20 mg PO QPM [facility] Last Admin: 09/17/17 21:38 Dose: 20 mg Glucagon (Glucagon) 1 mg IM PRN PRN PRN Reason: Hypoglycemia Heparin Sodium (Porcine) (Heparin 1,000 Units/Ml (10 Ml)) 0 units SLOW IVP ASDIR [facility] PRN Reason: Protocol Last Admin: 09/17/17 17:25 Dose: 4,000 unit Dextrose/Water (D5w) 1,000 mls @ 0 mls/hr IV .Q0M PRN; As Directed PRN Reason: Hypoglycemia Heparin Sodium/Dextrose (Heparin 25,000 Units/D5w 500 Ml) 500 mls @ 0 mls/hr IVPB INF [facility]ID[facility]; Per Protocol PRN Reason: Protocol Last Admin: 09/17/17 17:34 Dose: 500 mls Sodium Chloride (Normal Saline 0.9%) 1,000 mls @ 40 mls/hr IV .Q24H [facility] Last Admin: 09/18/17 12:05 Dose: 1,000 mls Insulin Human NPH (Humulin N) 10 unit SC DAILY [facility] Insulin Human NPH (Humulin N) 5 unit SC HS [facility] Insulin Human Regular (Humulin R) 0 units SC .MILD SLIDING SCALE PRN PRN Reason: Mild Correctional Scale Last Admin: 09/18/17 11:55 Dose: 2 unit Insulin Human Regular (Humulin R) 0 units SC .BEDTIME SLIDING SC PRN PRN Reason: Bedtime Correctional Scale Metoprolol Tartrate (Lopressor) 25 mg PO BID [facility] Mineral Oil/White Petrolatum (Lacri-Lube Ointment) 0 gm EA EYE PRN PRN PRN Reason: Dry Eyes Nitroglycerin (Nitro-Bid 2% Ointment) 1 inch TOP Q8HR [facility] Last Admin: 09/18/17 15:26 Dose: 1 inch Ondansetron HCl (Zofran Odt) 4 mg PO Q6H PRN PRN Reason: Nausea/Vomiting Ondansetron HCl (Zofran) 4 mg IVP Q6H PRN PRN Reason: Nausea/Vomiting Potassium Chloride (Kcl) 20 meq IVPB ONE PRN PRN Reason: potassium below 3.5 Stop: 09/23/17 17:44 Senna (Senokot) 2 tab PO HSPRN PRN PRN Reason: Constipation Sertraline HCl (Zoloft) 50 mg PO HS [facility] Sodium Chloride (Flush - Normal Saline) 10 ml IVF Q12HR [facility] Last Admin: 09/18/17 08:52 Dose: 10 ml Sodium Chloride (Flush - Normal Saline) 10 ml IVF PRN PRN PRN Reason: Saline Flush Timolol Maleate (Timoptic 0.5% Oph Soln) 1 drop L EYE HS [facility] Trazodone HCl (Desyrel) 100 mg PO HS [facility]
[2017-09-18] MEDS: Famotidine 20 MG TAB PO SCH (20:46)
[2017-09-18] MEDS: traZODone HCl 50 MG TAB PO SCH (20:46)
[2017-09-18] MEDS: Atorvastatin Calcium 40 MG TAB PO SCH (20:46)
[2017-09-18] MEDS: Metoprolol Tartrate 25 MG TAB PO SCH (20:47)
[2017-09-18] MEDS: Timolol 0.5% Ophth Soln 5 ml Bottle L EYE SCH (20:48)
[2017-09-18] MEDS: Heparin 25,000 units/D5W 500 ML IVPB SCH (20:49)
[2017-09-19] MEDS: Nitroglycerin 2% Ointment 1 INCH/1 GM Packet TOP SCH ×3 (05:20→20:44)
[2017-09-19 05:39] LABS: Hemoglobin 10.5 g/dL (14.0-18.0); Platelet Count 188 thou/uL (130-400)
[2017-09-19 05:54] LABS: Anion Gap 16 mmol/L (10-20); BUN (Urea Nitrogen) 40 mg/dL (8.4-25.7); Calc. Creatinine Clearance 16 mL/min (70-130); Calcium 8.9 mg/dL (7.8-10.44); Carbon Dioxide 24 mmol/L (23-31); Chloride 98 mmol/L (98-107); Estimated GFR-MDRD 12; Glucose 251 mg/dL (80-115); Potassium 4.2 mmol/L (3.5-5.1); Sodium 134 mmol/L (136-145)
[2017-09-19 05:56] LABS: CKMB 2.2 ng/mL (0-6.6)
[2017-09-19 05:57] LABS: Critical Call Chem Troponin I RESULT DECREASING; Troponin I 6.909 ng/mL (< 0.028)
--- NOTE | 2017-09-19 09:18 | PDOC.CTH ---
<Charley Avila - Last Filed: 09/19/17 09:14> Cardiology Progress Note - Subjective The pt seen and examined. HR converted to Aflutter since 0200 on 09/19/17. The pt complains of mild fatigue due to lack of sleep last night; otherwise, he denied any other cardiac complaints. - Objective Vital Signs Temp Pulse Resp BP Pulse Ox 09/19/17 07:10 98.2 F 126 H 16 148/100 H 92 L 09/19/17 07:01 95 09/19/17 04:10 91 L 09/19/17 04:00 97.7 F 124 H 18 134/94 H 91 L 09/19/17 01:03 96 Weight 167 lb 12.8 oz 09/18/17 09/19/17 09/20/17 06:59 06:59 06:59 Intake Total 4408.4 1696.8 Output Total 0 0 Balance 4408.4 1696.8 - Physical Examination General/Neuro: alert & oriented x3 Neck: no JVD present Lungs: CTA (diminished at bases) Heart: other: (irregular) Abdomen: soft Extremities: other: (No edema) - Telemetry Telemetry Rhythm: Aflutter HR 120s - Labs Result Diagrams: 09/19/17 04:56 09/19/17 04:56 Troponin/CKMB CK-MB (CK-2) 2.2 ng/mL (0-6.6) 09/19/17 04:56 Troponin I 6.909 ng/mL (< 0.028) H* 09/19/17 04:56 - Assessment/Plan 1. AFlutter with RVR - Converted to Aflutter with HR 120s since 0200 on . The pt asymptomatic, except mild fatigue from lack of sleep. Increase Metoprolol from 25mg to 50mg BID. Order EP consult. 2. Elevated trop probably secondary to dehydration/demand ischemia - Stable with ASA, BBlocker, and Hepairn drip which was started on 09/17/17 around noon. The pt refused any cardiac interventions at this time. 3. DKA due to noncompliance of med - on ACHS BG check with Insulin SS and Schedule Insulin. Managed by PCP 4. ESRD with HD on MWF - managed by [facility] admin 5. HTN - increase Metoprolol form 25mg to 50mg BID; cont. to monitor 6. Hyperlipidemia - on Statin 7. Chronic anemia secondary to renal insufficiency - stable MAR reviewed * Echo on 09/16/17 showed EF 60-65%, mod-severe LVH, severe RVE, severe LAE, severely elevated PAP, 60 mmHg Review of Systems - Review of Systems Constitutional: reports: see HPI EENTM: reports: no symptoms reported Respiratory: reports: no symptoms reported Cardiac (ROS): reports: no symptoms reported ABD/GI: reports: no symptoms reported : reports: no symptoms reported Musculoskeletal: reports: no symptoms reported Skin: reports: no symptoms reported <Mary Márquez - Last Filed: 09/23/17 22:02> Cardiology Progress Note - Objective Weight 160 lb 4.8 oz 09/22/17 09/23/17 09/24/17 06:59 06:59 06:59 Intake Total 320 720 Output Total 0 2500 Balance 320 -1780 - Labs Result Diagrams: 09/21/17 08:06 09/21/17 08:06 Troponin/CKMB CK-MB (CK-2) 2.2 ng/mL (0-6.6) 09/19/17 04:56 Troponin I 6.909 ng/mL (< 0.028) H* 09/19/17 04:56 - Assessment/Plan pt. seen and eval. by me.I agree with the A/P by the CERTIFIED WELDING INSPECTOR.
[2017-09-19] MEDS: Calcium Acetate 667 MG CAP PO SCH ×3 (09:29→17:59)
[2017-09-19] MEDS ORDERED: Metoprolol Tartrate 50 MG TAB PO SCH (09:30)
[2017-09-19] MEDS: Aspirin 325 mg Enteric Coated Tablet PO SCH (09:30)
[2017-09-19] MEDS: Docusate 100 MG CAP PO SCH ×2 (09:30→20:40)
[2017-09-19] MEDS: NPH, Human Insulin Isophane 300 UNIT/3 ML VIAL SC SCH ×2 (09:34→20:42)
--- NOTE | 2017-09-19 10:06 | PDOC.PN ---
- Subjective Encounter Start Date: 09/19/17 Encounter Start Time: 20:00 Expresses no specific complaint... - Objective Resuscitation Status: Resuscitation Status FULL:Full Resuscitation Vital Signs & Weight: Vital Signs (12 hours) Temp Pulse Resp BP Pulse Ox 09/19/17 07:10 98.2 F 126 H 16 148/100 H 92 L 09/19/17 07:01 95 09/19/17 04:10 91 L 09/19/17 04:00 97.7 F 124 H 18 134/94 H 91 L 09/19/17 01:03 96 Weight Weight 167 lb 12.8 oz Most Recent Monitor Data Heart Rate from ECG 87 NIBP 152/86 NIBP BP-Mean 97 Respiration from ECG 13 SpO2 92 I&O: 09/18/17 09/19/17 09/20/17 06:59 06:59 06:59 Intake Total 4408.4 1696.8 Output Total 0 0 Balance 4408.4 1696.8 Result Diagrams: 09/19/17 04:56 09/19/17 04:56 Additional Labs: Accuchecks 09/19/17 09/18/17 09/18/17 05:46 20:06 16:48 POC Glucose 246 H 183 H 94 09/18/17 11:49 POC Glucose 165 H Phys Exam - Physical Examination HEENT: sclera anicteric Neck: no JVD Respiratory: clear to auscultation bilateral Cardiovascular: RRR Gastrointestinal: soft Musculoskeletal: no edema Neurological: moves all 4 limbs Psychiatric: A&O x 3 Dx/Plan (1) Elevated troponin I level Code(s): R74.8 - ABNORMAL LEVELS OF OTHER SERUM ENZYMES Status: Acute Plan: continue heparin. Comment: Due to demand ischemia. Seen by cardiology. (2) ESRD (end stage renal disease) on dialysis Code(s): N18.6 - END STAGE RENAL DISEASE; Z99.2 - DEPENDENCE ON RENAL DIALYSIS Status: Chronic Plan: For HD tomorrow. Comment: Seen by nephrology. (3) HTN (hypertension) Code(s): I10 - ESSENTIAL (PRIMARY) HYPERTENSION Status: Chronic Qualifiers: Hypertension type: essential hypertension Plan: Continue current management.. Defer to nephrology. Comment: Diastolic is elevated.. (4) Diabetic ketoacidosis associated with type 1 diabetes mellitus Code(s): E10.10 - TYPE 1 DIABETES MELLITUS WITH KETOACIDOSIS WITHOUT COMA Status: Resolved Qualifiers: Diabetes mellitus complication detail: without coma Qualified Code(s): E10.10 - Type 1 diabetes mellitus with ketoacidosis without coma Plan: Continue current insulin regimen.. Comment: Resolved. - Plan -: Overall condition is stable. -: f/u with consultants. -: Continue current management. * .
[2017-09-19] MEDS: Metoprolol Tartrate 25 MG TAB PO SCH (10:14)
[2017-09-19] MEDS ORDERED: Diltiazem 125 MG in Sodium Chloride 0.9% 100 ML IVPB SCH (12:45)
[2017-09-19] MEDS: Insulin Regular 300 UNITS/3 ML VIAL SC PRN ×3 (13:26→21:00)
--- NOTE | 2017-09-19 20:09 | PRG ---
DATE OF SERVICE: 09/19/2017 SERVICE: Pulmonary Medicine. INTERVAL HISTORY: The patient is doing great from a respiratory standpoint. He denies any current s hortness of breath, chest pain. Otherwise, he would like to start moving around a little bit and is asking that what point he can move around. It is like a little bit of assistance when he initially g ets around because he does not feel perfectly stable. Otherwise, there has been no interval change t o his condition. PHYSICAL EXAMINATION: VITAL SIGNS: Afebrile, pulse 119, blood pressure 157/60, respirations 18, saturation 93% on room air . GENERAL: The patient is awake and alert, in no apparent distress. LUNGS: Excellent air entry with dependent crackles, which are minimal. No prolonged expiratory phas e or wheezing are present. HEART: Tachycardic. Irregular. ABDOMEN: Soft, nontender, nondistended. Bowel sounds are positive. MUSCULOSKELETAL: No cyanosis or clubbing. No pitting in the bilateral lower extremities. NEUROLOGIC: Grossly nonfocal. LABORATORY DATA: Hemoglobin 10.5, platelets 188,000. Sodium 134, creatinine 4.86. Basic metabolic profile is otherwise unremarkable. Troponin is down trending to 7 from 26. ASSESSMENT: 1. Acute hypoxic respiratory failure, resolved. 2. Diabetic ketoacidosis. 3. Myocardial infarction. 4. End-stage renal disease. 6. Atrial flutter with rapid ventricular response. DISCUSSION AND PLAN: We will start to gently mobilize the patient today. We will put him in a chair twice daily and increase as tolerated. If he is cleared by Cardiology, we can also have him partici hickey with physical therapy. Pulmonary will continue to follow during hospital stay, but Dr. Gaspar will resume care in the morning.
[2017-09-19] MEDS: traZODone HCl 50 MG TAB PO SCH (20:40)
[2017-09-19] MEDS: Metoprolol Tartrate 50 MG TAB PO SCH (20:40)
[2017-09-19] MEDS: Famotidine 20 MG TAB PO SCH (20:41)
[2017-09-19] MEDS: Atorvastatin Calcium 40 MG TAB PO SCH (20:42)
[2017-09-19] MEDS: Timolol 0.5% Ophth Soln 5 ml Bottle L EYE SCH (20:43)
[2017-09-19] MEDS: Heparin 25,000 units/D5W 500 ML IVPB SCH (22:01)
[2017-09-20 05:38] LABS: Hemoglobin 10.7 g/dL (14.0-18.0); Platelet Count 191 thou/uL (130-400)
[2017-09-20] MEDS: Nitroglycerin 2% Ointment 1 INCH/1 GM Packet TOP SCH ×3 (06:20→23:20)
--- NOTE | 2017-09-20 08:50 | PRG ---
DATE OF SERVICE: 09/20/2017 SUBJECTIVE: Mr. Lunsford is doing well. No chest pain, pressure, or shortness of breath. His DKA denise s resolved. He did develop atrial flutter. His LVEF was felt to be 60%-65% with moderate to severe LVH present. PHYSICAL EXAMINATION: VITAL SIGNS: Blood pressure 113/72, pulse 63, temperature 98.1. LUNGS: Clear to auscultation. HEART: Regular rate and rhythm. ABDOMEN: Soft, nontender, and nondistended. EXTREMITIES: No edema. PERTINENT LABORATORY DATA: Hemoglobin 10.7, peak troponin 26 on 09/17/2017. IMPRESSION: 1. Elevated troponin. 2. Hypotension, likely due to volume contraction. 3. End-stage renal disease. 4. Noncompliance. 5. Diabetic ketoacidosis. 6. Atrial flutter. RECOMMENDATIONS: Once again, Mr. Lunsford refused to proceed with any invasive procedure such as dina ography, stent placement or bypass surgery. His elevated troponin likely related to demand ischemia with moderate to severe LVH and marked hypotension, likely causing demand ischemia. He did develop atrial flutter and have consulted with Dr. Dickens for recommendations. He is okay with proceeding with ablation if needed. Continue with aspirin, atorvastatin. He is currently on IV Card izem in addition to metoprolol. We will add ARB when blood pressure more stable. Keep n.p.o.
[2017-09-20] MEDS: NPH, Human Insulin Isophane 300 UNIT/3 ML VIAL SC SCH ×2 (08:51→23:18)
[2017-09-20] MEDS: Docusate 100 MG CAP PO SCH ×2 (08:51→23:21)
[2017-09-20] MEDS: Metoprolol Tartrate 50 MG TAB PO SCH ×2 (08:51→23:21)
[2017-09-20] MEDS: Aspirin 325 mg Enteric Coated Tablet PO SCH (08:51)
[2017-09-20] MEDS: Calcium Acetate 667 MG CAP PO SCH ×3 (08:51→18:34)
--- NOTE | 2017-09-20 09:21 | PRG ---
DATE OF SERVICE: 09/20/2017 PULMONARY AND CRITICAL CARE PROGRESS NOTE SUBJECTIVE: He is in good spirits, much more talkative than he was last week. He is scheduled for c ardiac ablation later today. PHYSICAL EXAMINATION: VITAL SIGNS: Temperature 97.5, pulse 61, respirations 18, O2 saturation 98%, blood pressure 97/61. HEENT: Unremarkable. NECK: No JVD. CHEST: Clear. CARDIAC: S1, S2 regular. ABDOMEN: Soft. EXTREMITIES: No edema. LABORATORY DATA: White blood cell count 10.9, hematocrit 34.2, platelet count 191. No chemistry was done today. ASSESSMENT: 1. Paroxysmal atrial flutter. 2. Acute hypoxic respiratory failure was resolving. 3. Diabetic ketoacidosis, which has resolved. 4. Myocardial infarction. 5. End-stage renal disease. PLAN: Cardiac ablation planned. He is continuing on a Cardizem drip. His glucose is being managed by [facility]. No further pulmonary recommendations. We will sign off. Please recall if needed.
[2017-09-20] MEDS: Sodium Chloride 0.9% 1,000 ML IV SCH ×2 (10:04→11:36)
--- NOTE | 2017-09-20 11:32 | EKG ---
Test Reason : Blood Pressure : / mmHG Vent. Rate : 126 BPM Atrial Rate : 252 BPM P-R Int : 000 ms QRS Dur : 110 ms QT Int : 354 ms P-R-T Axes : 236 095 -82 degrees QTc Int : 512 ms Poor data quality, interpretation may be adversely affected Narrow complex regular tachycardia Rightward axis Incomplete right bundle branch block Marked ST abnormality, possible inferior subendocardial injury Abnormal ECG When compared with ECG of 16-SEP-2017 13:46, Atrial flutter has replaced Sinus rhythm Vent. rate has increased BY [address] Desi VILLAREAL ([id number]) on 09/20/2017 11:31:44 AM Referred By: Confirmed By:DR. Desi VILLAREAL
--- NOTE | 2017-09-20 12:35 | CON ---
DATE OF CONSULTATION: 09/20/2017 DICTATED BY: SADE Hidalgo REFERRING PHYSICIAN: Dr. Madrigal. REASON FOR CONSULTATION: Atrial flutter with rapid ventricular response. HISTORY OF PRESENT ILLNESS: Mr. Lunsford is a pleasant 67-year-old gentleman who was admitted on 07/2017 for severe weakness and hypotension. He was given IV fluids and was found to be in DKA which has since been corrected. He has also through the course of this hospitalization had an elevated tro ponin which peaked at 26 and he has undergone evaluation by Cardiology. It has been determined that this is possibly related to demand ischemia and the patient was asymptomatic with his elevated tropon in and has refused any additional angiography or coronary intervention. Around 2:00 a.m. on 09/20/19 the patient converted to atrial flutter initially with rates in the 120-130 range. He is currentl y on a diltiazem drip as well as IV metoprolol for rate control. He is having some issues with hypot ension. Currently, his rates are much better controlled in the 60-70 beat per minute range. At this point, the patient is overall doing better. He denies any cardiac complaints other than just some f atigue from poor sleep. He has not had any significant heart racing, palpitations and denies any nori st pain. He has not had any stroke or stroke-like symptoms. Denies any syncope or near syncope. PAST MEDICAL HISTORY: 1. Diabetes mellitus for the past 40 years. 2. End-stage renal disease on hemodialysis. 3. Diabetic retinopathy. 4. Peripheral vascular disease with prior aortobifemoral bypass grafting. 5. Hypertension. 6. Hyperlipidemia. PAST SURGICAL HISTORY: As above. ALLERGIES: No known drug allergies. FAMILY HISTORY: Negative for coronary artery disease of early onset before the age of 55. SOCIAL HISTORY: Negative for tobacco habituation or alcohol abuse. He is with 3 children w ho do not live in the immediate area. REVIEW OF SYSTEMS: Twelve point review of systems was conducted and is negative except that listed i n HPI. PHYSICAL EXAMINATION: VITAL SIGNS: Most recent vital signs; temperature 97.5 degrees Fahrenheit, pulse 61, respirations 18 , oxygen saturation 92% on room air, blood pressure 97/61. GENERAL: The patient is a pleasant male in no acute distress. He is resting comfortably in bed and appears his stated age. He is alert and oriented times person, place and time, and situation. His s peech is clear and his affect is appropriate. NEUROLOGIC: Grossly intact. Cranial nerves II-XII and exam is nonfocal without deficit. EYES: His sclerae are anicteric. EOMs are intact. ENT: Neck is supple without jugular venous distention. His oral mucosa is moist and pink with adeq uate dentition. Carotids are without bruit bilaterally. LUNGS: Clear to auscultation bilaterally. Respirations are even and unlabored with good bilateral e xcursion. HEART: His heart rate is variable at this point, with some irregularity noted with his atrial flutte r. No significant murmur, rub or gallop noted by auscultation. His PMI is nondisplaced. ABDOMEN: Soft and nontender without palpable masses or hepatosplenomegaly. Hepatojugular reflex is negative. EXTREMITIES: Warm and dry to touch without clubbing, cyanosis or edema. DATABASE: Hemoglobin and hematocrit from today 10.7 and 34.2, platelet count is 191. Chemistry on 0 09/19/2017; sodium 134, potassium 4.2, chloride 98, carbon dioxide 24, BUN is 40, creatinine is 4.86, glucose 134 today. Serial troponins were done and peaked at 26.6 on 09/17/2017. Most recently 6.9 o n 09/19/2017. Chest x-ray on 09/16/2017. Findings indicate CHF and an enlarged cardiac silhouette. Echocardiogram on 09/16/2017: Summary; left ventricle size is normal, ejection fraction is visually estimated at 68 to 65%. Paradoxical septal motion compatible with right heart overload. Moderate to severe concentric left ventricular hypertrophy. Severely enlarged right ventricle cavit y. Left atrium is severely dilated. Marked enlargement of right atrium. Structurally normal aortic valve without significant stenosis or regurgitation, mild TR, and severe elevation of PAP estimated at 60 mmHg. REVIEW OF TELEMETRY STRIPS AND EKG: The patient is currently in atrial flutter at 3:1 conduction helen t is currently rate controlled in the 60s. All rhythm strips and EKGs were personally reviewed. The patient was initially in sinus rhythm and converted to atrial flutter on 09/19/2017. IMPRESSION: 1. Typical atrial flutter of new onset with rapid ventricular response, rates are currently controll ed with diltiazem and metoprolol. 2. Elevated troponin I, likely secondary to dehydration and/or demand ischemia. The patient was asy mptomatic and has refused any additional coronary artery disease evaluation or intervention at this t darryl. 3. End-stage renal disease with hemodialysis on Wednesday, Wednesday, and Wednesday. 4. Diabetes with recent diabetic ketoacidosis and noncompliance with medications. 5. Anemia of chronic disease. ASSESSMENT AND PLAN: Proceed with atrial flutter ablation at the cavotricuspid isthmus later today. Risks and benefits have been discussed with the patient and the patient has had a chance to ask ques tions. All questions have been answered and patient is agreeable to move forward with the procedure. Thank you for allowing us to participate in the care of this patient.
[2017-09-20] MEDS ORDERED: Heparin 25,000 units/D5W 0 ML ONE (12:47)
[2017-09-20] MEDS ORDERED: Heparin 10,000 UNITS/1 ML VIAL ONE (12:48)
[2017-09-20] MEDS ORDERED: Lidocaine 1% (PF) 30 ML VIAL ONE (12:51)
[2017-09-20] MEDS ORDERED: Propofol 1,000 MG/100 ML VIAL IV ONE (13:02)
[2017-09-20] MEDS ORDERED: Lidocaine 2% Jelly 5 ML TUBE ONE (14:00)
[2017-09-20] MEDS ORDERED: DOPamine 400 MG/D5W 250 ML 250 ML ONE (14:58)
[2017-09-20] MEDS ORDERED: Morphine Sulfate 2 MG/ML SYRINGE SLOW IVP PRN (15:46)
[2017-09-20] MEDS ORDERED: Ondansetron HCl/PF 4 MG/2 ML Vial IVP PRN ×2 (15:46→16:08)
[2017-09-20] MEDS ORDERED: Promethazine HCl 25 MG/ML VIAL SLOW IVP PRN (15:46)
[2017-09-20] MEDS ORDERED: hydrALAZINE 20 MG/ML VIAL ONE (16:04)
[2017-09-20] MEDS ORDERED: Bisacodyl 10 MG SUPP PR PRN (16:08)
[2017-09-20] MEDS ORDERED: Silver Sulfadiazine 1% Cream 50 GM JAR TOP PRN (16:08)
[2017-09-20] MEDS ORDERED: diphenhydrAMINE 25 MG CAP PO PRN (16:08)
[2017-09-20] MEDS ORDERED: Nitroglycerin 0.4 MG TAB (25 Tab Bottle) SL PRN (16:08)
[2017-09-20] MEDS ORDERED: Bisacodyl 5 MG TAB PO PRN (16:08)
[2017-09-20] MEDS ORDERED: Temazepam 15 MG CAP PO PRN (16:08)
[2017-09-20] MEDS ORDERED: Mag-Al 1200 mg/1200 mg/30 ML UDCUP PO PRN (16:08)
[2017-09-20] MEDS ORDERED: Glycopyrrolate 0.2 MG/ML 5 ML SYRINGE ONE (16:42)
[2017-09-20] MEDS ORDERED: PHENYLEPHRINE-NS 100 MCG/ML 10 ML SYRINGE ONE (16:42)
[2017-09-20] MEDS ORDERED: Ondansetron HCl/PF 4 MG/2 ML Vial ONE (16:42)
[2017-09-20] MEDS ORDERED: Propofol 200 MG/20 ML VIAL ONE (16:42)
[2017-09-20] MEDS ORDERED: hydrALAZINE 20 MG/ML VIAL SLOW IVP SCH (16:45)
--- NOTE | 2017-09-20 17:53 | PDOC.PN ---
- Subjective Encounter Start Date: 09/20/17 Encounter Start Time: 11:00 Patient seen and examined. No new complaints. No overnight events. NPO for ablation. - Objective Resuscitation Status: Resuscitation Status FULL:Full Resuscitation MAR Reviewed: Yes Vital Signs & Weight: Vital Signs (12 hours) Temp Pulse Resp Pulse Ox 09/20/17 07:40 98.0 F 62 16 97 Weight Weight 173 lb 11.2 oz Most Recent Monitor Data Heart Rate from ECG 87 NIBP 152/86 NIBP BP-Mean 97 Respiration from ECG 13 SpO2 92 I&O: 09/19/17 09/20/17 09/21/17 06:59 06:59 06:59 Intake Total 1696.8 180 Output Total 0 0 Balance 1696.8 180 Result Diagrams: 09/20/17 04:10 09/19/17 04:56 Additional Labs: Accuchecks 09/20/17 09/20/17 09/19/17 11:40 05:43 20:55 POC Glucose 182 H 134 H 326 H EKG Reviewed by me: Yes (Tele SR) Phys Exam - Physical Examination Constitutional: NAD Respiratory: no wheezing, no rhonchi Cardiovascular: RRR, no rub Gastrointestinal: soft, non-tender, positive bowel sounds Musculoskeletal: no edema Neurological: moves all 4 limbs Dx/Plan - Plan IMPRESSION: 1. Atrial flutter with RVR 2. Diabetic ketoacidosis secondary to medication noncompliance. Off Insulin drip. h/o DM1 3. Elevated troponins, probably secondary to dehydration/demand ischemia. 4. ESRD on dialysis with Hyperkalemia on admission 5. Hypotension improved. Off pressors 6. Peripheral vascular disease. 7. Chronic anemia secondary to renal insufficiency. 8. Dyslipidemia. 9. Chronic diastolic heart failure, ejection fraction 45%-50% in 2016 with moderate tricuspid regurgitation and pulmonary hypertension/h/oHypertension/Med noncompliance/Anion gap metabolic acidosis secondary to diabetic ketoacidosis. PLAN: * On Heparin and Cardizem drip * Cont Metoprolol * Cardiology/EP following * Cont NPH to 10 units in AM and 5 QPM with sliding scale * Dialysis per Nephrology * AM labs * SNF Eval Review of Systems - Review of Systems Respiratory: negative: Cough, Dry, Shortness of Breath, Hemoptysis, SOB with Excertion, Pleuritic Pain, Sputum, Wheezing Cardiovascular: negative: chest pain, palpitations, orthopnea, paroxysmal nocturnal dyspnea, edema, light headedness - Medications/Allergies Allergies/Adverse Reactions: Allergies Allergy/AdvReac Type Severity Reaction Status Date / Time adhesive Allergy Verified 09/16/17 23:40 Medications: Current Medications Acetaminophen (Tylenol) 650 mg PO Q4H PRN PRN Reason: Headache/Fever or Pain Acetaminophen (Tylenol) 650 mg UT Q4H PRN PRN Reason: Headache/Fever or Pain Al Hydroxide/Mg Hydroxide (Maalox) 15 ml PO Q4H PRN PRN Reason: Heartburn or Indigestion Albuterol/Ipratropium (Duoneb) 3 ml NEB Q6H PRN PRN Reason: SOB &/or Wheezing Aspirin (Ecotrin) 325 mg PO DAILY [facility] Last Admin: 09/20/17 08:51 Dose: 325 mg Atorvastatin Calcium (Lipitor) 40 mg PO HS [facility] Last Admin: 09/19/17 20:42 Dose: 40 mg Bisacodyl (Dulcolax) 10 mg UT DAILYPRN PRN PRN Reason: Constipation Bisacodyl (Dulcolax) 5 mg PO DAILYPRN PRN PRN Reason: CONSTIAPT Bisacodyl (Dulcolax) 10 mg UT DAILYPRN PRN PRN Reason: Constipation Calcium Acetate (Phoslo) 2,668 mg PO TID-[facility] Last Admin: 09/20/17 11:36 Dose: Not Given Calcium Carbonate (Tums) 1,000 mg PO Q4H PRN PRN Reason: Heartburn or Indigestion Dextrose/Water (Dextrose 50%) 25 gm SLOW IVP PRN PRN PRN Reason: Hypoglycemia Last Admin: 09/17/17 02:29 Dose: 25 gm Diphenhydramine HCl (Benadryl) 25 mg PO Q6H PRN PRN Reason: Itching Docusate Sodium (Colace) 100 mg PO BID [facility] Last Admin: 09/20/17 08:51 Dose: 100 mg Famotidine (Pepcid) 20 mg PO QPM [facility] Last Admin: 09/19/17 20:41 Dose: 20 mg Fentanyl (Pacu-Sublimaze) 50 mcg SLOW IVP Q10MIN PRN PRN Reason: Moderate to Severe Pain (6-10) Stop: 09/20/17 18:46 Glucagon (Glucagon) 1 mg IM PRN PRN PRN Reason: Hypoglycemia Heparin Sodium (Porcine) (Heparin 1,000 Units/Ml (10 Ml)) 0 units SLOW IVP ASDIR HEIDY PRN Reason: Protocol Last Admin: 09/17/17 17:25 Dose: 4,000 unit Dextrose/Water (D5w) 1,000 mls @ 0 mls/hr IV .Q0M PRN; As Directed PRN Reason: Hypoglycemia Heparin Sodium/Dextrose (Heparin 25,000 Units/D5w 500 Ml) 500 mls @ 0 mls/hr IVPB INF HEIDY; Per Protocol PRN Reason: Protocol Last Admin: 09/19/17 22:01 Dose: 500 mls Sodium Chloride (Normal Saline 0.9%) 1,000 mls @ 40 mls/hr IV .Q24H HEIDY Last Admin: 09/20/17 11:36 Dose: Not Given Diltiazem HCl 125 mg/ Sodium (Chloride) 125 mls @ 2.5 mls/hr IVPB INF HEIDY; 2.5 MG/HR PRN Reason: Protocol Last Admin: 09/19/17 13:26 Dose: 125 mls Insulin Human NPH (Humulin N) 10 unit SC DAILY [facility] Last Admin: 09/20/17 08:51 Dose: Not Given Insulin Human NPH (Humulin N) 5 unit SC HS [facility] Last Admin: 09/19/17 20:42 Dose: 5 unit Insulin Human Regular (Humulin R) 0 units SC .MILD SLIDING SCALE PRN PRN Reason: Mild Correctional Scale Last Admin: 09/19/17 18:01 Dose: 5 unit Insulin Human Regular (Humulin R) 0 units SC .BEDTIME SLIDING SC PRN PRN Reason: Bedtime Correctional Scale Last Admin: 09/19/17 21:00 Dose: 4 unit Metoprolol Tartrate (Lopressor) 50 mg PO BID [facility] Last Admin: 09/20/17 08:51 Dose: 50 mg Mineral Oil/White Petrolatum (Lacri-Lube Ointment) 0 gm EA EYE PRN PRN PRN Reason: Dry Eyes Morphine Sulfate (Pacu-Morphine Sulfate) 2 mg SLOW IVP Q10MIN PRN PRN Reason: Moderate to Severe Pain (6-10) Stop: 09/20/17 18:46 Morphine Sulfate (Pacu-Morphine Sulfate) 4 mg SLOW IVP ONE PRN PRN Reason: Moderate to Severe Pain (6-10) Stop: 09/20/17 18:46 Nitroglycerin (Nitro-Bid 2% Ointment) 1 inch TOP Q8HR [facility] Last Admin: 09/20/17 06:20 Dose: 1 inch Nitroglycerin (Nitrostat) 0.4 mg SL Q5MIN PRN PRN Reason: Chest Pain Ondansetron HCl (Zofran Odt) 4 mg PO Q6H PRN PRN Reason: Nausea/Vomiting Ondansetron HCl (Zofran) 4 mg IVP Q6H PRN PRN Reason: Nausea/Vomiting Ondansetron HCl (Pacu-Zofran) 4 mg IVP ONE PRN PRN Reason: Nausea/Vomiting Stop: 09/20/17 18:46 Ondansetron HCl (Zofran) 4 mg IVP Q6H PRN PRN Reason: Nausea/Vomiting Potassium Chloride (Kcl) 20 meq IVPB ONE PRN PRN Reason: potassium below 3.5 Stop: 09/23/17 17:44 Promethazine HCl (Pacu-Phenergan) 6.25 mg SLOW IVP ONE PRN PRN Reason: Nausea/Vomiting Stop: 09/20/17 18:46 Senna (Senokot) 2 tab PO HSPRN PRN PRN Reason: Constipation Sertraline HCl (Zoloft) 50 mg PO [facility] Last Admin: 09/19/17 20:41 Dose: 50 mg Silver Sulfadiazine (Silvadene) 0 gm TOP Q12H PRN PRN Reason: Rash/Topical Irritation Sodium Chloride (Flush - Normal Saline) 10 ml IVF Q12HR [facility] Last Admin: 09/20/17 08:52 Dose: 10 ml Sodium Chloride (Flush - Normal Saline) 10 ml IVF PRN PRN PRN Reason: Saline Flush Temazepam (Restoril) 15 mg PO HSPRN PRN PRN Reason: Insomnia Timolol Maleate (Timoptic 0.5% Ophth Soln) 1 drop L EYE [facility] Last Admin: 09/19/17 20:43 Dose: 1 drop Trazodone HCl (Desyrel) 100 mg PO [facility] Last Admin: 09/19/17 20:40 Dose: 100 mg
--- NOTE | 2017-09-20 18:18 | OP ---
DATE OF PROCEDURE: 09/20/2017 ELECTROPHYSIOLOGY STUDY AND RADIOFREQUENCY ABLATION ATTENDING PHYSICIANS: Abilio Boles MD and Cameron Madrigal MD REASON FOR PROCEDURE: Mr. Lunsford is a 67-year-old man who has history of end-stage renal disease an d normal LV function, who presented with sustained atrial flutter. No prior history. The patient ac tually developed atrial flutter during the hospitalization, but less than 48 hours ago and sustained in it. He has been on heparin up until the procedure. The patient is undergoing the ablation proced ure to evaluate atrial arrhythmia and rule out intracardiac clots. DESCRIPTION OF PROCEDURE: The patient received propofol by Anesthesia for deep sedation. After adeq uate sedation achieved, the left femoral venous area was prepped, draped, and anesthetized with subcu taneous lidocaine. Under ultrasound guidance, the left femoral vein was cannulated x2 with two 8-Sukumar nch short sheath introduced. During the case, the 8-Micronesian short sheath was upgraded to SRO sheath. Through the 8-Micronesian sheath, a decapolar CS catheter was advanced to the CS position and then follow ing that a ThermoCool SF ST ablation catheter was advanced to the right atrium. His bundle measureme nts were obtained. Catheters were placed in the RV, right atrium, His bundle, and CS area. Pacing, mapping, and recording were performed in each location and the right atrial 3D map was obtained. Als o, pace mapping of the baseline atrial flutter was performed with a cycle length of 250 milliseconds. The perfect post-pacing internal match was noted at the cavotricuspid isthmus suggestive of cavotric uspid isthmus dependent. Following that, the cavotricuspid isthmus ablation was performed. The atrial flutter broke during ca votricuspid ablation and during proximal CS pacing, the line of block was demonstrated by transisthmu s time progressing lengthening from the lateral wall right atrium towards the ablation line. Followi ng then, EP study was performed with the following findings: The QRS 135 milliseconds, QT 599 milliseconds, AH 50 milliseconds. Corrected sinus node recovery pito e was 730. AV Wenckebach cycle length was 460 milliseconds. AV node ERP was 600/400. No dual AV no jim physiology or central retrograde VA conduction is seen. No atrial flutter or atrial arrhythmias were inducible. CONCLUSION: Successful cavotricuspid ablation eliminating atrial arrhythmias. PLAN: Proceed with anticoagulation for a month and routine postoperative followup.
[2017-09-20] MEDS: HYDROcodone/Acetaminophen 5/325 mg Tablet PO PRN (19:34)
[2017-09-20] MEDS: Timolol 0.5% Ophth Soln 5 ml Bottle L EYE SCH (23:19)
[2017-09-20] MEDS: Famotidine 20 MG TAB PO SCH (23:20)
[2017-09-20] MEDS: traZODone HCl 50 MG TAB PO SCH (23:20)
[2017-09-20] MEDS: Atorvastatin Calcium 40 MG TAB PO SCH (23:22)
[2017-09-21] MEDS: Nitroglycerin 2% Ointment 1 INCH/1 GM Packet TOP SCH ×2 (05:04→13:10)
[2017-09-21] MEDS: Sodium Chloride 0.9% 1,000 ML IV SCH (05:32)
[2017-09-21 08:27] LABS: Hemoglobin 10.3 g/dL (14.0-18.0); Platelet Count 205 thou/uL (130-400)
[2017-09-21 08:44] LABS: Anion Gap 20 mmol/L (10-20); BUN (Urea Nitrogen) 39 mg/dL (8.4-25.7); Calc. Creatinine Clearance 17 mL/min (70-130); Calcium 8.4 mg/dL (7.8-10.44); Carbon Dioxide 21 mmol/L (23-31); Chloride 98 mmol/L (98-107); Estimated GFR-MDRD 12; Glucose 191 mg/dL (80-115); Magnesium 1.8 mg/dL (1.6-2.6); Potassium 4.7 mmol/L (3.5-5.1); Sodium 134 mmol/L (136-145)
[2017-09-21] MEDS: Calcium Acetate 667 MG CAP PO SCH ×3 (09:00→17:26)
[2017-09-21] MEDS: Aspirin 325 mg Enteric Coated Tablet PO SCH (09:00)
[2017-09-21] MEDS: Metoprolol Tartrate 50 MG TAB PO SCH ×2 (09:00→20:42)
[2017-09-21] MEDS: Docusate 100 MG CAP PO SCH ×2 (09:00→20:42)
[2017-09-21] MEDS: NPH, Human Insulin Isophane 300 UNIT/3 ML VIAL SC SCH ×2 (09:01→21:42)
[2017-09-21] MEDS: Insulin Regular 300 UNITS/3 ML VIAL SC PRN ×3 (13:10→21:41)
--- NOTE | 2017-09-21 15:30 | PDOC.PN ---
- Subjective Encounter Start Date: 09/21/17 Encounter Start Time: 10:30 Patient seen and examined. No new complaints. No overnight events. No CP. - Objective Resuscitation Status: Resuscitation Status FULL:Full Resuscitation MAR Reviewed: Yes Vital Signs & Weight: Vital Signs (12 hours) Temp Pulse Resp BP Pulse Ox 09/21/17 03:38 97.8 F 76 14 136/69 95 Weight Weight 176 lb Most Recent Monitor Data Heart Rate from ECG 87 NIBP 152/86 NIBP BP-Mean 97 Respiration from ECG 13 SpO2 92 I&O: 09/20/17 09/21/17 09/22/17 06:59 06:59 06:59 Intake Total 180 Output Total 0 3500 Balance 180 -3500 Result Diagrams: 09/21/17 08:06 09/21/17 08:06 Additional Labs: Accuchecks 09/21/17 09/21/17 09/21/17 10:10 04:08 00:06 POC Glucose 197 H 159 H 183 H 09/20/17 20:28 POC Glucose 214 H EKG Reviewed by me: Yes (Tele SR) Phys Exam - Physical Examination Constitutional: NAD Respiratory: no wheezing, no rhonchi Cardiovascular: RRR, no rub Gastrointestinal: soft, non-tender, positive bowel sounds Musculoskeletal: no edema Neurological: moves all 4 limbs Dx/Plan - Plan IMPRESSION: 1. Atrial flutter with RVR s/p Ablation 09/20 2. Diabetic ketoacidosis secondary to medication noncompliance. Off Insulin drip. h/o DM1 3. Elevated troponins, probably secondary to dehydration/demand ischemia. - declined Cath 4. ESRD on dialysis with Hyperkalemia on admission 5. Hypotension improved. Off pressors 6. Peripheral vascular disease. 7. Chronic anemia secondary to renal insufficiency. 8. Dyslipidemia. 9. Chronic diastolic heart failure, ejection fraction 45%-50% in 2016 with moderate tricuspid regurgitation and pulmonary hypertension/h/o Hypertension/ Med noncompliance/Anion gap metabolic acidosis secondary to diabetic ketoacidosis. PLAN: * Off Heparin and Cardizem drip * Cont Metoprolol/ASA/Statins * Cardiology/EP following * Cont NPH to 10 units in AM and 5 QPM with sliding scale * Dialysis per Nephrology * SNF Eval pending * No ACEI/ARB due to renal insufficiency/Hyperkalemia on admission Review of Systems - Review of Systems Respiratory: negative: Cough, Dry, Shortness of Breath, Hemoptysis, SOB with Excertion, Pleuritic Pain, Sputum, Wheezing Cardiovascular: negative: chest pain, palpitations, orthopnea, paroxysmal nocturnal dyspnea, edema, light headedness Gastrointestinal: negative: Nausea, Vomiting, Abdominal Pain, Diarrhea, Constipation, Melena, Hematochezia - Medications/Allergies Allergies/Adverse Reactions: Allergies Allergy/AdvReac Type Severity Reaction Status Date / Time adhesive Allergy Verified 09/16/17 23:40 Medications: Current Medications Acetaminophen (Tylenol) 650 mg PO Q4H PRN PRN Reason: Headache/Fever or Pain Acetaminophen (Tylenol) 650 mg IA Q4H PRN PRN Reason: Headache/Fever or Pain Hydrocodone Bitart/Acetaminophen ([place] 5/325) 1 tab PO Q6H PRN PRN Reason: Moderate Pain (4-6) Last Admin: 09/20/17 19:34 Dose: 1 tab Al Hydroxide/Mg Hydroxide (Maalox) 15 ml PO Q4H PRN PRN Reason: Heartburn or Indigestion Albuterol/Ipratropium (Duoneb) 3 ml NEB Q6H PRN PRN Reason: SOB &/or Wheezing Aspirin (Ecotrin) 325 mg PO DAILY [facility] Last Admin: 09/21/17 09:00 Dose: 325 mg Atorvastatin Calcium (Lipitor) 40 mg PO [facility] Last Admin: 09/20/17 23:22 Dose: 40 mg Bisacodyl (Dulcolax) 10 mg IA DAILYPRN PRN PRN Reason: Constipation Bisacodyl (Dulcolax) 5 mg PO DAILYPRN PRN PRN Reason: CONSTIAPT Bisacodyl (Dulcolax) 10 mg IA DAILYPRN PRN PRN Reason: Constipation Calcium Acetate (Phoslo) 2,668 mg PO [facility] Last Admin: 09/21/17 13:09 Dose: 2,668 mg Calcium Carbonate (Tums) 1,000 mg PO Q4H PRN PRN Reason: Heartburn or Indigestion Dextrose/Water (Dextrose 50%) 25 gm SLOW IVP PRN PRN PRN Reason: Hypoglycemia Last Admin: 09/17/17 02:29 Dose: 25 gm Diphenhydramine HCl (Benadryl) 25 mg PO Q6H PRN PRN Reason: Itching Docusate Sodium (Colace) 100 mg PO BID [facility] Last Admin: 09/21/17 09:00 Dose: 100 mg Famotidine (Pepcid) 20 mg PO QPM [facility] Last Admin: 09/20/17 23:20 Dose: 20 mg Glucagon (Glucagon) 1 mg IM PRN PRN PRN Reason: Hypoglycemia Dextrose/Water (D5w) 1,000 mls @ 0 mls/hr IV .Q0M PRN; As Directed PRN Reason: Hypoglycemia Sodium Chloride (Normal Saline 0.9%) 1,000 mls @ 40 mls/hr IV .Q24H [facility] Last Admin: 09/21/17 05:32 Dose: 1,000 mls Insulin Human NPH (Humulin N) 10 unit SC DAILY [facility] Last Admin: 09/21/17 09:01 Dose: 10 unit Insulin Human NPH (Humulin N) 5 unit SC HS [facility] Last Admin: 09/20/17 23:18 Dose: 5 unit Insulin Human Regular (Humulin R) 0 units SC .MILD SLIDING SCALE PRN PRN Reason: Mild Correctional Scale Last Admin: 09/21/17 13:10 Dose: 2 unit Insulin Human Regular (Humulin R) 0 units SC .BEDTIME SLIDING SC PRN PRN Reason: Bedtime Correctional Scale Last Admin: 09/19/17 21:00 Dose: 4 unit Metoprolol Tartrate (Lopressor) 50 mg PO BID [facility] Last Admin: 09/21/17 09:00 Dose: 50 mg Mineral Oil/White Petrolatum (Lacri-Lube Ointment) 0 gm EA EYE PRN PRN PRN Reason: Dry Eyes Nitroglycerin (Nitro-Bid 2% Ointment) 1 inch TOP Q8HR [facility] Last Admin: 09/21/17 13:10 Dose: 1 inch Nitroglycerin (Nitrostat) 0.4 mg SL Q5MIN PRN PRN Reason: Chest Pain Ondansetron HCl (Zofran Odt) 4 mg PO Q6H PRN PRN Reason: Nausea/Vomiting Ondansetron HCl (Zofran) 4 mg IVP Q6H PRN PRN Reason: Nausea/Vomiting Ondansetron HCl (Zofran) 4 mg IVP Q6H PRN PRN Reason: Nausea/Vomiting Potassium Chloride (Kcl) 20 meq IVPB ONE PRN PRN Reason: potassium below 3.5 Stop: 09/23/17 17:44 Senna (Senokot) 2 tab PO HSPRN PRN PRN Reason: Constipation Sertraline HCl (Zoloft) 50 mg PO [facility] Last Admin: 09/20/17 23:20 Dose: 50 mg Silver Sulfadiazine (Silvadene) 0 gm TOP Q12H PRN PRN Reason: Rash/Topical Irritation Sodium Chloride (Flush - Normal Saline) 10 ml IVF Q12HR [facility] Last Admin: 09/21/17 09:03 Dose: 10 ml Sodium Chloride (Flush - Normal Saline) 10 ml IVF PRN PRN PRN Reason: Saline Flush Temazepam (Restoril) 15 mg PO HSPRN PRN PRN Reason: Insomnia Timolol Maleate (Timoptic 0.5% Oph Soln) 1 drop L EYE [facility] Last Admin: 09/20/17 23:19 Dose: 1 drop Trazodone HCl (Desyrel) 100 mg PO [facility] Last Admin: 09/20/17 23:20 Dose: 100 mg
--- NOTE | 2017-09-21 16:53 | PDOC.CTH ---
<Marlen Arriola - Last Filed: 09/21/17 16:51> Cardiology Progress Note - Subjective EP progress note: Patient stable overnight and without cardiac complaints. Denies heart racing, palpitations, or chest pain. Denies pain at groin site. - Objective Weight 176 lb 09/20/17 09/21/17 09/22/17 06:59 06:59 06:59 Intake Total 180 Output Total 0 3500 Balance 180 -3500 - Physical Examination General/Neuro: alert & oriented x3, NAD Neck: carotid US brisk, no JVD present Lungs: CTA, unlabored respirations Heart: PMI normal, RRR - Telemetry Telemetry Rhythm: NSR - Labs Result Diagrams: 09/21/17 08:06 09/21/17 08:06 Troponin/CKMB CK-MB (CK-2) 2.2 ng/mL (0-6.6) 09/19/17 04:56 Troponin I 6.909 ng/mL (< 0.028) H* 09/19/17 04:56 - Assessment/Plan 1. Typical Atrial Flutter, s/p CTI ablation on 09/20/17. Currently maintaining sinus mechanism. Diltiazem gtt DCd yesterday. Rate stable on metoprolol. 2. NSTEMI- medically managed, refused additional cardiac intervention. Currently on DAPT. 3. Oral anticoagulation- likely low burden and terminated quickly. Ok for patient to DC on DAPT of ASA and plavix without NOAC. Will need to follow up with [facility]/Dr Funez 4-6 weeks. <Abimael Funez - Last Filed: 09/22/17 19:04> Cardiology Progress Note - Objective Vital Signs Temp Pulse Pulse Pulse Resp BP BP 09/22/17 12:46 71 16 09/22/17 09:42 98.2 F 71 18 09/22/17 09:16 98.2 F 71 18 09/22/17 08:32 71 72 129/77 148/77 H BP Pulse Ox 09/22/17 12:46 122/72 09/22/17 09:42 92 L 09/22/17 09:16 166/86 H 92 L 09/22/17 08:32 Weight 160 lb 4.8 oz 09/21/17 09/22/17 09/23/17 06:59 06:59 06:59 Intake Total 320 720 Output Total 3500 0 2500 Balance -3500 320 -1780 - Labs Result Diagrams: 09/21/17 08:06 09/21/17 08:06 Troponin/CKMB CK-MB (CK-2) 2.2 ng/mL (0-6.6) 09/19/17 04:56 Troponin I 6.909 ng/mL (< 0.028) H* 09/19/17 04:56 Attending Addendum - Attending Addendum Date/Time: 09/22/171903 I personally evaluated the patient and discussed the management with Ms Arriola. I agree with the History, Examination, Assessment and Plan documented above with any addition or exceptions noted below.
[2017-09-21] MEDS: Atorvastatin Calcium 40 MG TAB PO SCH (20:42)
[2017-09-21] MEDS: Famotidine 20 MG TAB PO SCH (20:42)
[2017-09-21] MEDS: traZODone HCl 50 MG TAB PO SCH (20:44)
[2017-09-21] MEDS: Timolol 0.5% Ophth Soln 5 ml Bottle L EYE SCH (21:43)
[2017-09-21] MEDS: HYDROcodone/Acetaminophen 5/325 mg Tablet PO PRN (21:45)
[2017-09-22 09:21] VITALS: TEMP 98.2
[2017-09-22] MEDS: Aspirin 325 mg Enteric Coated Tablet PO SCH (09:22)
[2017-09-22] MEDS: Calcium Acetate 667 MG CAP PO SCH ×3 (09:22→18:21)
[2017-09-22] MEDS: Metoprolol Tartrate 50 MG TAB PO SCH (09:22)
[2017-09-22] MEDS: Docusate 100 MG CAP PO SCH (09:22)
[2017-09-22] MEDS: NPH, Human Insulin Isophane 300 UNIT/3 ML VIAL SC SCH (09:25)
[2017-09-22 12:47] VITALS: BP 122/72
[2017-09-22] MEDS ORDERED: Clopidogrel Bisulfate 75 MG TAB PO SCH (13:30)
--- NOTE | 2017-09-22 13:59 | DIS ---
DATE OF ADMISSION: 09/16/2017 DATE OF DISCHARGE: 09/22/2017 DISCHARGE DISPOSITION: To [facility]. ALLERGIES: The patient is allergic to ADHESIVES. The patient was seen and examined on the day of discharge, denies any new complaints, no chest pain, shortness of breath, palpitations. DISCHARGE MEDICATIONS: Aspirin 81 mg daily, Plavix 75 mg daily, metoprolol tartrate 50 mg b.i.d., Im dur ER 30 mg daily, NPH insulin 10 units in the morning and 5 units at bedtime. Other home medicatio ns were resumed including Protonix, Zoloft, timolol, trazodone, vitamin E, Tylenol #3, PhosLo and Col sahil. BRIEF HOSPITAL COURSE: The patient is a 67-year-old male with end-stage renal disease on hemodialysi s and diabetes mellitus type 2, presented to the emergency room with generalized weakness. His blood pressure per EMS was 60/40 with blood sugar of 600. Please refer to the history and physical dated 09/16/2017 for further details. The patient was admitted to the Intensive Care Unit with a diagnosis of non-ST elevation CO with diab etic ketoacidosis. Due to low blood pressure, he required Levophed. His maximum troponin this admis laura was 26.6 with CK-MB of 40.3. Later, Levophed was weaned off. The patient was then transferred to telemetry. He then developed atrial flutter with rapid ventricular response requiring Cardizem dr carranza. He underwent radiofrequency ablation on 09/20/2017. He has been started on Plavix today. I dis cussed with Dr. Funez and Dr. Madrigal on the day of discharge. Due to transient atrial flutter, Dr. Funez recommended aspirin with Plavix. He is chest pain free and has been cleared by consultants for discharge. The patient was also placed on heparin drip during his CCU stay. SIGNIFICANT LABORATORY DATA: 1. Bicarbonate on admission was less than 8 with potassium of 6.1 and sodium 134. 2. Blood gases on admission showed pH 7.11 with pCO2 of 22.4, and bicarbonate 6.9. 3. Ketones on admission was 4.32, next day was 1.31. 4. Serum osmolality 343 on admission, next day was 303. INPATIENT PROCEDURES: 1. Cardiac ablation as discussed above. 2. Echocardiogram showed left ventricular ejection fraction 60%-65% with diastolic dysfunction, mode rate to severe concentric left ventricular hypertrophy and severely elevated pulmonary artery pressur e greater than 60 mmHg. FINAL DIAGNOSES: 1. Non-ST elevation myocardial infarction. Please note patient declined cardiac catheterization. 2. Diabetic ketoacidosis on admission, probably precipitated by non-ST elevation myocardial infarcti on requiring insulin drip. 3. History of diabetes mellitus type 1. 4. Atrial flutter with rapid ventricular response, status post ablation on 09/20/2017. 5. End-stage renal disease, on hemodialysis. 6. Hyperkalemia on admission due to metabolic acidosis, resolved. 7. Hypotension requiring pressors, probably secondary to #1. 8. Peripheral vascular disease. 9. Chronic anemia secondary to renal insufficiency. 10. Dyslipidemia. 11. Chronic diastolic heart failure. 12. History of medication noncompliance. 13. Pulmonary hypertension, on echocardiogram. 14. History of hypertension. 15. Anion gap metabolic acidosis secondary to diabetic ketoacidosis. 16. Chronic anemia of renal insufficiency. Total time coordinating the discharge of this patient was 38 minutes.
--- NOTE | 2017-09-22 15:47 | PDOC.CTH ---
<Marlen Arriola - Last Filed: 09/22/17 15:46> Cardiology Progress Note - Subjective EP progress note: Patient has done well overnight with no new cardiac complaints. - Objective Vital Signs Temp Pulse Pulse Pulse Resp BP BP 09/22/17 12:46 71 16 09/22/17 09:42 98.2 F 71 18 09/22/17 09:16 98.2 F 71 18 09/22/17 08:32 71 72 129/77 148/77 H 09/22/17 04:00 98.1 F 69 18 BP Pulse Ox 09/22/17 12:46 122/72 09/22/17 09:42 92 L 09/22/17 09:16 166/86 H 92 L 09/22/17 08:32 09/22/17 04:00 117/64 95 Weight 160 lb 4.8 oz 09/21/17 09/22/17 09/23/17 06:59 06:59 06:59 Intake Total 320 Output Total 3500 0 Balance -3500 320 - Physical Examination General/Neuro: alert & oriented x3, NAD Neck: carotid US brisk, no JVD present Lungs: CTA, unlabored respirations Heart: PMI normal Abdomen: no HSM, NT/ND - Labs Result Diagrams: 09/21/17 08:06 09/21/17 08:06 Troponin/CKMB CK-MB (CK-2) 2.2 ng/mL (0-6.6) 09/19/17 04:56 Troponin I 6.909 ng/mL (< 0.028) H* 09/19/17 04:56 - Assessment/Plan 1. Typical atrial flutter s/p CTI ablation. Doing well post ablation without recurrence. Ok for discharge by EP. Recommend continued OAC with either ASA + plavix OR ASA+warfarin x 1 month post ablation then may to stop warfarin in favor of plavix. 2. NSTEMI- medically managed by cardiology EP signing off. Patient will follow up as OP in 4-6 weeks <Abimael Funez - Last Filed: 09/22/17 19:07> Cardiology Progress Note - Objective Vital Signs Temp Pulse Pulse Pulse Resp BP BP 09/22/17 12:46 71 16 09/22/17 09:42 98.2 F 71 18 03/07/18 09:16 98.2 F 71 18 09/22/17 08:32 71 72 129/77 148/77 H BP Pulse Ox 09/22/17 12:46 122/72 09/22/17 09:42 92 L 09/22/17 09:16 166/86 H 92 L 09/22/17 08:32 Weight 160 lb 4.8 oz 09/21/17 09/22/17 09/23/17 06:59 06:59 06:59 Intake Total 320 720 Output Total 3500 0 2500 Balance -3500 320 -1780 - Labs Result Diagrams: 09/21/17 08:06 09/21/17 08:06 Troponin/CKMB CK-MB (CK-2) 2.2 ng/mL (0-6.6) 09/19/17 04:56 Troponin I 6.909 ng/mL (< 0.028) H* 09/19/17 04:56 Attending Addendum - Attending Addendum Date/Time: 09/22/171906 I personally evaluated the patient and discussed the management with Ms Arriola. I agree with the History, Examination, Assessment and Plan documented above with any addition or exceptions noted below.
[2017-09-23] MEDS ORDERED: Clopidogrel Bisulfate 75 MG TAB PO SCH (09:00)
--- NOTE | 2017-09-23 17:31 | EKG ---
Test Reason : Blood Pressure : / mmHG Vent. Rate : 070 BPM Atrial Rate : 070 BPM P-R Int : 176 ms QRS Dur : 118 ms QT Int : 460 ms P-R-T Axes : 063 068 053 degrees QTc Int : 496 ms Normal sinus rhythm Possible Left atrial enlargement Prolonged QT Abnormal ECG When compared with ECG of 19-SEP-2017 07:15, Previous ECG has undetermined rhythm, needs review ST no longer depressed in Inferior leads T wave inversion no longer evident in Inferior leads Confirmed by DR. Dasha BUTT ([id number]) on 09/23/2017 5:31:22 PM Referred By: HAWA Confirmed By:DR. Dasha BUTT
== END 2017-09-22 19:20 | DRG 637 ==
LOC: ERS 13:37 → CCU 17:34 → 2NO 09-18 13:33
PROVIDERS: ADMIT Internal Medicine; ATTEND Internal Medicine
PROC: 5A1D70Z Performance of Urinary Filtration, Intermittent, Less than 6 Hours Per Day (ICD-10-PCS; 2017-09-16)
PROC: 06HY33Z Insertion of Infusion Device into Lower Vein, Percutaneous Approach (ICD-10-PCS; 2017-09-16)
PROC: 5A1D70Z Performance of Urinary Filtration, Intermittent, Less than 6 Hours Per Day (ICD-10-PCS; 2017-09-17)
PROC: 4A023FZ Measurement of Cardiac Rhythm, Percutaneous Approach (ICD-10-PCS; principal; 2017-09-20)
PROC: 4A0234Z Measurement of Cardiac Electrical Activity, Percutaneous Approach (ICD-10-PCS; 2017-09-20)
PROC: 02573ZK Destruction of Left Atrial Appendage, Percutaneous Approach (ICD-10-PCS; 2017-09-20)
PROC: 5A1D70Z Performance of Urinary Filtration, Intermittent, Less than 6 Hours Per Day (ICD-10-PCS; 2017-09-20)
PROC: 5A1D70Z Performance of Urinary Filtration, Intermittent, Less than 6 Hours Per Day (ICD-10-PCS; 2017-09-22)
DX: E11.10 Type 2 diabetes mellitus with ketoacidosis without coma (principal); N18.6 End stage renal disease; J96.01 Acute respiratory failure with hypoxia; I21.A1 Myocardial infarction type 2; R57.9 Shock, unspecified; I13.2 Hypertensive heart and chronic kidney disease with heart failure and with stage 5 chronic kidney disease, or end stage renal disease; I95.9 Hypotension, unspecified; E87.5 Hyperkalemia; I27.20 Pulmonary hypertension, unspecified; I50.32 Chronic diastolic (congestive) heart failure; I48.3 Typical atrial flutter; I07.1 Rheumatic tricuspid insufficiency; E11.22 Type 2 diabetes mellitus with diabetic chronic kidney disease; E11.319 Type 2 diabetes mellitus with unspecified diabetic retinopathy without macular edema; Z99.2 Dependence on renal dialysis; Z79.4 Long term (current) use of insulin; E11.51 Type 2 diabetes mellitus with diabetic peripheral angiopathy without gangrene; F32.9 Major depressive disorder, single episode, unspecified; D63.1 Anemia in chronic kidney disease; E78.5 Hyperlipidemia, unspecified; M10.9 Gout, unspecified; Z91.14 Patient's other noncompliance with medication regimen; E86.0 Dehydration; Z91.19 Patient's noncompliance with other medical treatment and regimen; Z91.048 Other nonmedicinal substance allergy status; F41.9 Anxiety disorder, unspecified
CPT/HCPCS: 36415; 36416; 36556; 71045; 76942; 80048; 80053; 82010; 82533; 82550; 82553; 82805; 83605; 83735; 83930; 84484; 85014; 85018; 85025; 85049; 85347; 85730; 90471; 90682; 90935; 93005; 93010; 93306; 93613; 93623; 93653; 94760; 96361; 96365; 96366; 96375; 96376; A4216; C1730; C1769; G0008; G0257; G8978-GP-CL; G8979-GP-CJ; G8987-GO-CJ; G8988-GO-CH; J0360; J1265; J1644; J1815; J2001; J2405; J2704; J7050; Q2036; S0028

== ENCOUNTER 2017-10-06 21:21 | Emergency (ER) | payer MEDICARE ==
[2017-10-06 23:02] LABS: Glucose 674 mg/dL (80-115)
[2017-10-06] MEDS ORDERED: Insulin Regular 300 UNITS/3 ML VIAL ONE (23:20)
[2017-10-06 23:34] LABS: #Eosinphils 0.1 thou/uL (0.0-0.7); #Lymphocytes 0.6 thou/uL (1.20-3.40); #Monocytes 0.6 thou/uL (0.11-0.59); #Neutrophils 3.6 thou/uL (1.40-6.50); %Basophils 0.5 % (0.0-1.0); %Eosinophils 1.9 % (0.0-10.0); %Lymphocytes 11.4 % (21.0-51.0); %Monocytes 11.8 % (0.0-10.0); %Neutrophils 74.4 % (42.0-75.0); Hemoglobin 10.2 g/dL (14.0-18.0); Mean Corpuscular HGB CONC 32.5 g/dL (32.0-36.0); Mean Corpuscular Hemoglobin 32.8 pg (27.0-31.0); Mean Platelet Volume 7.1 fL (7.4-10.4); Platelet Count 212 thou/uL (130-400); RBC Distribution Width 15.3 % (11.5-14.5); White Blood Cell (WBC) Count 4.8 thou/uL (4.8-10.8)
--- NOTE | 2017-10-06 23:37 | RAD ---
RADIOGRAPH CHEST 1 VIEW: 10/06/17 HISTORY: 67-year-old male with hypoxemia. FINDINGS: The thoracic aorta is tortuous and ectatic. There is no evidence of air space density, pneumothorax, or pulmonary edema. The lateral costophrenic angles are sharp. IMPRESSION: 1) No acute pulmonary findings. 2) Ectasia of thoracic aorta. camacho [] POS: ALVIN
[2017-10-06 23:55] LABS: ALT (SGPT) 11 U/L (8-55); AST (SGOT) 12 U/L (5-34); Alkaline Phosphatase 132 U/L (40-150); Anion Gap 13 mmol/L (10-20); BUN (Urea Nitrogen) 27 mg/dL (8.4-25.7); Bilirubin, Total 0.4 mg/dL (0.2-1.2); Calc. Creatinine Clearance 0 mL/min (70-130); Calcium 8.6 mg/dL (7.8-10.44); Carbon Dioxide 29 mmol/L (23-31); Chloride 95 mmol/L (98-107); Estimated GFR-MDRD 12; Globulin 2.6 g/dL (2.4-3.5); Potassium 4.9 mmol/L (3.5-5.1); Protein, Total 5.6 g/dL (5.8-8.1); Sodium 132 mmol/L (136-145)
[2017-10-06 23:58] LABS: CKMB 2.1 ng/mL (0-6.6); Troponin I 0.082 ng/mL (< 0.028)
[2017-10-07 00:04] LABS: Glucose 656 mg/dL (80-115)
== END 2017-10-07 01:18 | disposition home or self-care (01) ==
LOC: ERS 21:21
DX: E10.65 Type 1 diabetes mellitus with hyperglycemia (principal); E10.22 Type 1 diabetes mellitus with diabetic chronic kidney disease; I12.0 Hypertensive chronic kidney disease with stage 5 chronic kidney disease or end stage renal disease; N18.6 End stage renal disease; E78.5 Hyperlipidemia, unspecified; F32.9 Major depressive disorder, single episode, unspecified; F41.9 Anxiety disorder, unspecified; K21.9 Gastro-esophageal reflux disease without esophagitis; I25.2 Old myocardial infarction; Z87.891 Personal history of nicotine dependence
CPT/HCPCS: 36415; 36416; 71045; 82553; 82947; 83605; 83880; 84484; 85025; 93005; 96360; J1815

== ENCOUNTER 2017-11-05 08:24 | Inpatient (IN) | payer MEDICARE, OTHER ==
[~2017-11-05 08:24] MED LIST: Dextrose 50% Abboject 50 ML SYRINGE ONE; Sodium Bicarb 50 MEQ/50 ML Abboject 8.4% SYRINGE ONE
[2017-11-05 08:40] LABS: pH, Arterial 7.16 (7.35-7.45)
[2017-11-05 08:41] LABS: Actual Bicarbonate (HCO3a) 18.7 mEq/L (22-26); Base Excess (BEa) -9.9 mEq/L (0 (+/-) 2.5); CO2 Tension 53.5 mmHg (35.0-45.0); Calcium, Ionized 0.9 mmol/L (1.12-1.30); Hemoglobin (Hb) 10.9 g/dL (14.0-18.0); O2 Tension (PaO2) 87.4 mmHg (80.0-100.0); Potassium - ABG Lab 7.6 mmol/L (3.70-5.30)
[2017-11-05 08:42] LABS: ALV-art Gradient 380.475 (0-20); Analyzer IN Cardio ER; Puncture Site RRA
[2017-11-05 08:44] LABS: Bicarbonate (HCO3v) 17.5 mmol/L (1.0-85.0); CO2 Tension (PvCO2) 54.1 mmHg (41.0-51.0); Calcium, Ionized 1.04 mmol/L (1.12-1.32); Hemoglobin - Calc 12.6 g/dL (12.0-18.0); O2 Tension (PvO2) 53.4 mmHg (35.0-45.0); Potassium 7.4 mmol/L (3.4-4.7); T. Carbon Dioxide 19.2 mmol/L (1.0-85.0); pH (Venous) 7.118 (7.35-7.45); vO2 Saturation-calc 74.9 % (94-98)
--- NOTE | 2017-11-05 08:48 | RAD ---
1 VIEW CHEST: Date: 11/05/17 COMPARISON: 10/06/17. HISTORY: Decreased O2 saturation. FINDINGS: There is an endotracheal tube just beyond the level of the clavicles. Heart is enlarged. There is ath erosclerosis of the aorta. There are interstitial and alveolar opacities throughout the lung parenchy ma, right greater than left. No significant pleural fluid. Limited evaluation for pneumothorax as the lung apices are excluded. IMPRESSION: 1. Cardiomegaly. 2. Atherosclerosis. 3. Interstitial and alveolar opacities suggesting an infiltrate. The possibility of aspiration canno t be excluded. POS: ALVIN
[2017-11-05] MEDS ORDERED: Insulin Regular 300 UNITS/3 ML VIAL ONE (08:49)
[2017-11-05 08:52] LABS: #Lymphocytes 0.3 thou/uL (1.20-3.40); #Neutrophils 11.5 thou/uL (1.40-6.50); %Basophils 0.1 % (0.0-1.0); %Eosinophils 0.3 % (0.0-10.0); %Lymphocytes 2.4 % (21.0-51.0); %Monocytes 7.7 % (0.0-10.0); %Neutrophils 89.6 % (42.0-75.0); Hemoglobin 11.3 g/dL (14.0-18.0); Mean Corpuscular HGB CONC 30.7 g/dL (32.0-36.0); Mean Platelet Volume 8.8 fL (7.4-10.4); Platelet Count 232 thou/uL (130-400); RBC Distribution Width 14.5 % (11.5-14.5); Red Blood Cell (RBC) Count 3.43 mill/uL (4.70-6.10); White Blood Cell (WBC) Count 12.9 thou/uL (4.8-10.8)
[2017-11-05 08:55] LABS: INR-International Normal Ratio 1.5; PTT 40.4 SEC (22.9-36.1)
[2017-11-05 09:02] LABS: ALT (SGPT) 50 U/L (8-55); AST (SGOT) 48 U/L (5-34); Albumin 3.7 g/dL (3.4-4.8); Alkaline Phosphatase 140 U/L (40-150); Anion Gap 29 mmol/L (10-20); BUN (Urea Nitrogen) 75 mg/dL (8.4-25.7); Bilirubin, Total 1.3 mg/dL (0.2-1.2); CK (CPK) 604 U/L (30-200); Calc. Creatinine Clearance 0 mL/min (70-130); Calcium 8.4 mg/dL (7.8-10.44); Carbon Dioxide 14 mmol/L (23-31); Chloride 85 mmol/L (98-107); Estimated GFR-MDRD 7; Globulin 2.9 g/dL (2.4-3.5); Lipase 85 U/L (8-78); Magnesium 1.9 mg/dL (1.6-2.6); Protein, Total 6.6 g/dL (5.8-8.1); Sodium 121 mmol/L (136-145)
[2017-11-05 09:03] LABS: Acetaminophen Less than 6.0 mcg/mL (10.0-30.0); Alcohol Less than 10 mg/dL (Less than 10); Salicylate Less than 8.0 mg/dL (15.0-30.0)
[2017-11-05 09:12] LABS: CKMB 3.5 ng/mL (0-6.6)
[2017-11-05] MEDS ORDERED: Lorazepam 2 MG/ML VIAL SLOW IVP PRN ×2 (09:14→10:34)
[2017-11-05] MEDS ORDERED: Propofol 1,000 MG/100 ML VIAL IV PRN (09:14)
[2017-11-05] MEDS ORDERED: DISCONTINUE PREVIOUS NARCOTIC PAIN MEDICATIONS AND BENZODIAZEPINES FS SCH (09:14)
[2017-11-05] MEDS ORDERED: Morphine 4 MG/ML VIAL SLOW IVP PRN ×2 (09:14→10:34)
[2017-11-05] MEDS ORDERED: Propofol BOLUS 1,000 MG/100 ML VIAL IV PRN ×2 (09:14→10:34)
[2017-11-05] MEDS ORDERED: Fentanyl BOLUS 250 ML IVPB PRN ×2 (09:14→10:34)
[2017-11-05] MEDS ORDERED: fentaNYL Citrate/PF 2,000 MCG in Sodium Chloride 0.9% 60 ML IV SCH ×2 (09:14→10:34)
[2017-11-05 09:18] LABS: Glucose 1348 mg/dL (80-115); Potassium 7.3 mmol/L (3.5-5.1); Troponin I 0.468 ng/mL (< 0.028)
[2017-11-05] MEDS ORDERED: Cefepime 2 GM/10 ML SYR ONE (09:37)
[2017-11-05] MEDS ORDERED: Nitroglycerin 50 MG/250 ML BOT 250 ML ONE (09:45)
[2017-11-05] MEDS ORDERED: Insulin Regular 100 units/100 ml in NS IVPB SCH (09:45)
[2017-11-05 09:46] LABS: Bilirubin Negative (Negative); Blood, Urine Moderate (Negative); Clarity CLEAR (Clear); Glucose, Urine (Dipstick) 500 mg/dL (Negative); Leukocyte Small (Negative); Nitrite Negative (Negative); Protein, Urine (Dipstick) 300 mg/dL (Neg-Trace); Specific Gravity, Urine 1.019 (1.002-1.036); Urobilinogen 0.2 mg/dL (0.2-1.0); pH, Urine 7.5 (5.0-9.0)
[2017-11-05 09:50] LABS: Bacteria/HPF None Seen HPF (None Seen); Hyaline Casts/LPF 4-6 HYALINE CAST LPF (0-3 Hyaline); Pathc Cast-AUWi Flag 0.43 (0-2.49); WBC/HPF 21-50 HPF (0-3)
[2017-11-05 09:59] LABS: Medtox Reader # READER 1
[2017-11-05 10:00] LABS: Opiate Screen Detected (NotDetected)
[2017-11-05 10:01] LABS: Amphetamine Not Detected (NotDetected); Barbiturates Screen Not Detected (NotDetected); Benzodiazepine Screen Not Detected (NotDetected); Cocaine Metabolite Screen Not Detected (NotDetected); Medtox Control Line Valid? VALID (VALID); Methadone Not Detected (NotDetected); Methamphetamine Not Detected (NotDetected); Oxycodone Screen Not Detected (NotDetected); Phencyclidine (PCP) Not Detected (NotDetected); THC/Cannabinoid Screen Not Detected (NotDetected); Tricyclic Screen Not Detected (NotDetected)
[2017-11-05] MEDS ORDERED: Ondansetron PF 4 MG/2 ML Vial IVP PRN (10:22)
[2017-11-05] MEDS ORDERED: Ventilator Sedation Protocol 1 EACH FS ONE (10:22)
[2017-11-05] MEDS ORDERED: CCU Insulin Drip FS ONE (10:22)
[2017-11-05] MEDS ORDERED: Acetaminophen 650 MG Suppository PR PRN (10:22)
[2017-11-05] MEDS ORDERED: Dextrose 50% Abboject 50 ML SYRINGE SLOW IVP PRN (10:22)
[2017-11-05] MEDS ORDERED: Dextrose 5% in Water 1,000 ML IV PRN (10:22)
[2017-11-05] MEDS ORDERED: CCU Electrolyte Replacement 1 EACH FS ONE (10:22)
[2017-11-05 10:25] LABS: Renal Epithelial None Seen HPF (0-3); Transitional Epithelial 0-3 HPF (0-3)
--- NOTE | 2017-11-05 10:43 | CT ---
CT HEAD NONCONTRAST DATE: 11/05/17 HISTORY: Altered mental status. Syncope. COMPARISON: 04/10/16. FINDINGS: There is no evidence of acute intracranial hemorrhage or infarct. Mild chronic ischemic small vessel disease and diffuse cortical atrophy are apparent. There is no mass effect or shift of midline struct ures. Visualized paranasal sinuses are well aerated. IMPRESSION: No acute intracranial abnormalities are demonstrated on noncontrast CT head. POS: ALVIN
[2017-11-05] MEDS: Propofol 1,000 MG/100 ML VIAL IV PRN ×2 (10:49→16:52)
[2017-11-05] MEDS: Timolol 0.5% Ophth Soln 5 ml Bottle L EYE SCH (10:49)
[2017-11-05 10:52] LABS: Actual Bicarbonate (HCO3a) 20.6 mEq/L (22-26); Base Excess (BEa) -6.3 mEq/L (0 (+/-) 2.5); Carboxyhemoglobin (COHb) 1.5 gm% (0.0-3.0); Hematocrit-ABG 41.4 % (42.0-52.0); Hemoglobin (Hb) 10.5 g/dL (14.0-18.0); O2 Tension (PaO2) 100.2 mmHg (80.0-100.0); Potassium - ABG Lab 6.6 mmol/L (3.70-5.30); pH, Arterial 7.26 (7.35-7.45)
[2017-11-05 10:53] LABS: Calcium, Ionized 1.2 mmol/L (1.12-1.30); Puncture Site RBA
--- NOTE | 2017-11-05 10:54 | HP ---
REASON FOR ADMISSION: Acute respiratory failure, volume overload, severe hyperkalemia, cardiac arrest for 30 seconds with brief CPR in the ER, severe respiratory acidosis with pH of 7.16, acute encephalopathy. HISTORY OF PRESENTING ILLNESS: Please note majority of this history is obtained by my talking to Dr. Desai ER physician and prior records as patient is currently intubated and sedated. Per Dr. Desai, he had a routine welfare check done this morning. He did not respond and finally when they were able to get in, he was found on the bed unresponsive. EMS was summoned and was intubated in the field. On arrival here, patient had an episode of V-tach with heart rates going up to 170s and also coded for a period of 30 seconds. He had CPR for 30 seconds done. No shock was delivered for V-tach which got resolved spontaneously. He was found to have had potassium of 7.3 and pH of 7.16. Also , his serum sugars were 1348. He was given an amp of calcium, an amp of bicarb , 10 units of insulin, 30 grams Kayexalate and 1 liter IV fluid in the ER. He has had a femoral line placed on the right lower extremity. Dr. Rogerio Tucker has been called by the ER physician for emergent hemodialysis. PAST MEDICAL AND SURGICAL HISTORY: Recent caval triscuspid ablation done for atrial flutter on 09/20/2017, end-stage renal disease on hemodialysis, diabetes mellitus type 2 on insulin, diabetic retinopathy, peripheral vascular disease, hypertension, depression, chronic anemia, dyslipidemia, history of gout, left forearm fistula, prior history of aortofemoral bypass. PERSONAL HISTORY: Per prior records, does not abuse alcohol or drugs. He lives alone. His a year back per ER physician. Code status will be full until family arrives to let us know otherwise. FAMILY HISTORY: Positive for diabetes and stroke in several family members. ALLERGIES: ADHESIVE. His discharge medications from September of this year is aspirin 81 mg p.o. daily, atorvastatin 40 mg p.o. at bedtime, PhosLo 2668 mg p.o. 3 times daily, Plavix 75 mg p.o. daily, Colace 100 mg p.o. twice daily, Imdur extended release 30 mg daily, Lopressor 50 mg twice daily, multivitamin 1 tab once daily, NPH 10 units subcutaneously q.a.m. and 5 units subcu at bedtime, Protonix 40 mg daily, sertraline 50 mg p.o. at bedtime, trazodone 100 mg p.o. at bedtime, vitamin E 400 units p.o. q.a.m. REVIEW OF SYSTEMS: Cannot be obtained as patient is not conscious at present with being sedated and placed on ventilator. PHYSICAL EXAMINATION: GENERAL: The patient is a 67-year-old male who is currently sedated and is on ventilator. The patient is trying to wake up in between, but is not fully conscious. Has ET #7 with tube at 27cm at incisor. VITAL SIGNS: Blood pressure 238/116, pulse 107 per minute, respiratory rate 20 per minute, temperature 100.9 on CRITICORE, saturating 98% on 75% FiO2 on the ventilator. NECK: Supple. There is elevated JVD. EYES: Pupils are 3 mm and sluggishly reacting to light. ORAL CAVITY: Mucous membranes are moist. No exudates or congestion. CARDIOVASCULAR SYSTEM: S1 and S2 heard. Irregular rhythm. S3 plus. RESPIRATORY SYSTEM: Air entry 1+ bilateral, rales plus bilaterally. ABDOMEN: Soft, bowel sounds heard. No tenderness, rigidity or guarding. EXTREMITIES: No peripheral edema or calf tenderness. VASCULAR SYSTEM: Peripheral pulses 1+ bilateral. No ischemic ulcerations or gangrene. CENTRAL NERVOUS SYSTEM: No gross focal signs seen. The patient has downgoing Babinski on both lower extremities. Reflexes are 1+ at the knees. PSYCHIATRIC SYSTEM: Cannot be assessed due to patient being sedated at present. LABORATORY DATA AND IMAGING DATA: White count of 12, hemoglobin and hematocrit 11 and 37, platelet count 232, MCV is 108 with 89% neutrophils. INR 1.5, PTT 40. Blood gas done shows pH of 7.16, pCO2 of 53, pO2 87, bicarbonate is 18. Sodium 121, potassium 7.4, serum bicarbonate is 14, BUN 75, creatinine 7.7, serum glucose 1348, lactic acid is 7.5, total bilirubin 1.3, AST 48, ALT 50, alkaline phosphatase 140. Magnesium is 1.9. CK level 604, CK-MB 3.5, and troponin I 0.46. Albumin is 3.7. BNP is 11,581. Lipase is 85. TSH 2.17. Urine drug screen is positive for opiates. EKG done shows sinus atrial fibrillation at 102 beats per minute. There is bifascicular block seen. CLINICAL IMPRESSION AND PLAN: The patient will be admitted to ICU for acute respiratory failure with hypoxia, severe volume overload with metabolic acidosis , hyperkalemia, brief period of cardiac arrest of 30 seconds with ventricular tachycardia which resolved spontaneously. Dr. Rogerio Tucker has been consulted from the ER and emergent hemodialysis will be done shortly. He was given hyperkalemia cocktail in the ER. He is currently in atrial fibrillation which is rate controlled. He does not have any signs or symptoms of infection at present. Likely patient missed hemodialysis and resulted in current situation. Also, patient might be noncompliant with his insulin with serum sugars going more than 1000. He will be on insulin drip for now. Once emergent hemodialysis is done, we will obtain an electrolyte panel and serum sugars as well and correct any abnormalities if any after that. He will be on aspirin, Plavix, Lipitor, PhosLo and sertraline at bedtime. CT brain without contrast has been ordered in the ER and follow up with the results. Hubert for Pulmonology and Dr. Rogerio Tucker for Nephrology has been consulted from ER. ANNABELLA
[2017-11-05] MEDS ORDERED: niCARdipine 40MG In NaCl 40 MG/200 ML BAG IVPB SCH (11:15)
[2017-11-05] MEDS: Calcium Acetate 667 MG CAP PO SCH ×2 (11:29→15:39)
[2017-11-05] MEDS ORDERED: niCARdipine HCl 50 MG in Sodium Chloride 0.9% 250 ML 230 ML IVPB SCH (11:30)
--- NOTE | 2017-11-05 11:56 | CON ---
DATE OF CONSULTATION: 11/05/2017 Thirty-five minutes critical care time. CONSULTING PHYSICIAN: Dr. Kaplan REASON FOR CONSULTATION: Ventilator and critical care management. HISTORY OF PRESENT ILLNESS: The patient is a 67-year-old male who I am familiar with from previous h ospitalizations. He was brought to the ER today after being found down at home. He had missed dialy sis yesterday. Upon arrival to the ER, he was found to be in ventricular tachycardia. He required b rief CPR, been no shocks. He was extremely acidotic. He was also found to be hyperglycemic with a b lood sugar above 1300. PAST MEDICAL HISTORY: 1. Remarkable for diabetes mellitus - he has been noncompliant with insulin in the past and had carol ral hospitalizations related hyperglycemia, most recently back in September. 2. Diabetic retinopathy. 3. Peripheral vascular disease. 4. Hypertension. 5. Depression. 6. Anemia from renal disease. 7. Gout. PAST SURGICAL HISTORY: Left forearm AV shunt placement. Aortofemoral bypass. ALLERGIES: None. FAMILY MEDICAL HISTORY: Remarkable for diabetes and stroke. SOCIAL HISTORY: He is retired from [employer] in [place]. He lives by himself. He do es not smoke, does not consume alcohol. REVIEW OF SYSTEMS: Cannot be obtained because he is on mechanical ventilation. MEDICATIONS PRIOR TO ADMISSION: Not confirmed yet. The list is as follows: Acetaminophen with code ine 1 tablet every 6 hours as needed, Tylenol #4 as needed, docusate 100 mg b.i.d., Plavix 75 mg sergo y, PhosLo 2668 mg t.i.d., atorvastatin 40 mg daily, aspirin 81 mg daily, multivitamin daily, metoprol ol 50 mg b.i.d., isosorbide mononitrate 30 mg daily, Protonix 40 mg daily, Nitrostat 0.4 mg every 5 m inutes sublingual as needed, NPH insulin 10 units and 5 units split morning and evening, trazodone 10 0 mg at night, vitamin E 400 mg daily, timolol eyedrops 1 drop left eye daily, sertraline 50 mg daily . PHYSICAL EXAMINATION: VITAL SIGNS: Heart rate 104, blood pressure 177/97, O2 sat 93% on 70% oxygen, respiratory rate 33. GENERAL: The patient is currently obtunded, but will move his arms and legs spontaneously. HEENT: Pupils are 5 mm, sluggishly reactive. Sclerae are anicteric. Oropharynx clear. NECK: No JVD, no bruits. LUNGS: Coarse breath sounds bilaterally. CARDIOVASCULAR: S1, S2, tachycardic without murmur. ABDOMEN: Soft, nontender, nondistended. EXTREMITIES: No clubbing, cyanosis or edema. LABORATORY DATA: Sodium 121, potassium 7.3, chloride 85, CO2 14, BUN 75, creatinine 7.7, glucose 134 8, AST 48, ALT 50. CPK 604. Troponin 0.468. BNP 11,581. TSH 2.17. White blood cell count 12.9, h ematocrit 37, platelet count 232. INR 1.5, pH 7.26, pCO2 47, pO2 100 on SIMV rate 20, tidal volume 5 00, PEEP 5, pressure support 10, FiO2 70%. Chest x-ray shows pulmonary edema bilaterally. Brain CT demonstrated no acute abnormalities. ASSESSMENT: 1. Fluid overload with respiratory failure. 2. Chronic renal failure. 3. Ventricular fib/ventricular tachycardia. 4. Severe hyperglycemia, probably consistent with hyperosmolar nonketotic state, but diabetic ketoac idosis cannot be ruled out. PLAN: 1. Emergent dialysis. 2. Insulin drip. 3. Cardene drip for blood pressure control. 4. Recheck ABG after dialysis. 5. Keep an eye on electrolytes. 6. Check beta hydroxybutyrate level. We will follow.
[2017-11-05] MEDS: Acetaminophen 325 MG TAB PO PRN (12:32)
[2017-11-05 12:34] LABS: Glucose Accucheck Confirmation 1341 mg/dl (80-115)
[2017-11-05 15:26] LABS: Troponin I 0.784 ng/mL (< 0.028)
[2017-11-05 15:49] VITALS: BMI 22.5
[2017-11-05 17:29] LABS: Anion Gap 14 mmol/L (10-20); BUN (Urea Nitrogen) 25 mg/dL (8.4-25.7); Calc. Creatinine Clearance 22 mL/min (70-130); Calcium 9.8 mg/dL (7.8-10.44); Carbon Dioxide 32 mmol/L (23-31); Chloride 98 mmol/L (98-107); Estimated GFR-MDRD 19; Glucose 84 mg/dL (80-115); Potassium 3.5 mmol/L (3.5-5.1); Sodium 140 mmol/L (136-145)
[2017-11-05 17:35] LABS: Actual Bicarbonate (HCO3a) 29.7 mEq/L (22-26); Base Excess (BEa) 6.5 mEq/L (0 (+/-) 2.5); CO2 Tension 37.1 mmHg (35.0-45.0); Carboxyhemoglobin (COHb) 0.8 gm% (0.0-3.0); Hematocrit-ABG 31.6 % (42.0-52.0); Hemoglobin (Hb) 9.8 g/dL (14.0-18.0); O2 Tension (PaO2) 163.2 mmHg (80.0-100.0); pH, Arterial 7.52 (7.35-7.45)
[2017-11-05 17:36] LABS: ALV-art Gradient 289.525 (0-20); Calcium, Ionized 1.1 mmol/L (1.12-1.30); Potassium - ABG Lab 3.4 mmol/L (3.70-5.30); Puncture Site RBA
[2017-11-05] MEDS: Atorvastatin Calcium 40 MG TAB PO SCH (20:39)
[2017-11-05] MEDS: Heparin 5,000 UNITS/ML VIAL SC SCH (20:39)
[2017-11-05] MEDS ORDERED: Famotidine/PF 20 mg/2ml Vial SLOW IVP SCH (21:00)
[2017-11-05] MEDS: Pantoprazole 40 MG VIAL IVP SCH (22:24)
[2017-11-05 22:29] LABS: Anion Gap 14 mmol/L (10-20); BUN (Urea Nitrogen) 29 mg/dL (8.4-25.7); Calc. Creatinine Clearance 20 mL/min (70-130); Calcium 9.2 mg/dL (7.8-10.44); Carbon Dioxide 31 mmol/L (23-31); Chloride 96 mmol/L (98-107); Estimated GFR-MDRD 17; Glucose 104 mg/dL (80-115); Potassium 3.8 mmol/L (3.5-5.1); Sodium 137 mmol/L (136-145)
[2017-11-06] MEDS ORDERED: Dextrose 50% Abboject 50 ML SYRINGE IVP PRN (00:34)
[2017-11-06] MEDS ORDERED: Dextrose 5% in Water 1,000 ML IV PRN (00:34)
[2017-11-06 04:08] LABS: Anion Gap 15 mmol/L (10-20); BUN (Urea Nitrogen) 36 mg/dL (8.4-25.7); BUN/Creatinine Ratio 8.76; Calc. Creatinine Clearance 18 mL/min (70-130); Carbon Dioxide 30 mmol/L (23-31); Chloride 96 mmol/L (98-107); Estimated GFR-MDRD 15; Glucose 189 mg/dL (80-115); Phosphorus 4.1 mg/dL (2.3-4.7); Potassium 3.5 mmol/L (3.5-5.1); Sodium 137 mmol/L (136-145)
[2017-11-06 04:09] LABS: Anion Gap 14 mmol/L (10-20); BUN (Urea Nitrogen) 35 mg/dL (8.4-25.7); Calc. Creatinine Clearance 18 mL/min (70-130); Calcium 8.9 mg/dL (7.8-10.44); Carbon Dioxide 30 mmol/L (23-31); Chloride 95 mmol/L (98-107); Estimated GFR-MDRD 15; Glucose 189 mg/dL (80-115); Potassium 3.5 mmol/L (3.5-5.1); Sodium 135 mmol/L (136-145)
[2017-11-06] MEDS: Insulin Regular 300 UNITS/3 ML VIAL SC PRN ×3 (05:14→16:16)
[2017-11-06 05:40] LABS: #Eosinphils 0.1 thou/uL (0.0-0.7); #Monocytes 0.7 thou/uL (0.11-0.59); #Neutrophils 6.8 thou/uL (1.40-6.50); %Basophils 0.5 % (0.0-1.0); %Eosinophils 1.1 % (0.0-10.0); %Lymphocytes 11.4 % (21.0-51.0); Hemoglobin 9.8 g/dL (14.0-18.0); Mean Corpuscular Hemoglobin 32.9 pg (27.0-31.0); Mean Corpuscular Volume 96.5 fl (80.0-94.0); Mean Platelet Volume 7.8 fL (7.4-10.4); Platelet Count 176 thou/uL (130-400); RBC Distribution Width 14.7 % (11.5-14.5); Red Blood Cell (RBC) Count 2.99 mill/uL (4.70-6.10); White Blood Cell (WBC) Count 8.6 thou/uL (4.8-10.8)
[2017-11-06 05:44] LABS: Anion Gap 15 mmol/L (10-20); BUN (Urea Nitrogen) 37 mg/dL (8.4-25.7); Calc. Creatinine Clearance 17 mL/min (70-130); Carbon Dioxide 30 mmol/L (23-31); Chloride 95 mmol/L (98-107); Estimated GFR-MDRD 14; Glucose 198 mg/dL (80-115); Potassium 3.5 mmol/L (3.5-5.1); Sodium 136 mmol/L (136-145)
[2017-11-06] MEDS: Propofol 1,000 MG/100 ML VIAL IV PRN (06:03)
[2017-11-06 07:04] LABS: O2 Tension (PaO2) 64.9 mmHg (80.0-100.0); pH, Arterial 7.42 (7.35-7.45)
[2017-11-06 07:05] LABS: Actual Bicarbonate (HCO3a) 30.5 mEq/L (22-26); Base Excess (BEa) 5.2 mEq/L (0 (+/-) 2.5); CO2 Tension 48.8 mmHg (35.0-45.0); Hematocrit-ABG 30.4 % (42.0-52.0); Hemoglobin (Hb) 9.1 g/dL (14.0-18.0)
[2017-11-06 07:06] LABS: Potassium - ABG Lab 2.9 mmol/L (3.70-5.30)
[2017-11-06 07:07] LABS: Calcium, Ionized 1.1 mmol/L (1.12-1.30); Puncture Site RBA
--- NOTE | 2017-11-06 07:39 | RAD ---
FRONTAL RADIOGRAPH CHEST SUPINE: Date: 11/06/17 COMPARISON: 11/05/17. HISTORY: Ventilated patient, evaluate pulmonary parenchyma. FINDINGS: Endotracheal tube and nasogastric tube in proper position. No pneumothorax is evident, although asses sment is limited secondary to supine positioning. There is increased density in bilateral perihilar r egions suggesting pulmonary vascular congestion and interstitial infiltrate. There is increased densi ty in both lung bases, left greater than right, obscuring the left hemidiaphragm, as well as the righ t hemidiaphragm and right heart border. Opacity within the lung bases is grossly unchanged. IMPRESSION: Nonspecific bibasilar pulmonary parenchymal opacity may signify edema, infectious pneumonitis, or asp iration. Follow-up to resolution advised. POS: ALVIN
[2017-11-06] MEDS: Calcium Acetate 667 MG CAP PO SCH ×3 (09:14→16:14)
[2017-11-06] MEDS: Heparin 5,000 UNITS/ML VIAL SC SCH ×2 (09:20→20:42)
[2017-11-06] MEDS: Aspirin 81 mg Enteric Coated Tablet PO SCH (09:20)
[2017-11-06] MEDS: Clopidogrel Bisulfate 75 MG TAB PO SCH (09:20)
[2017-11-06] MEDS: Timolol 0.5% Ophth Soln 5 ml Bottle L EYE SCH (09:23)
[2017-11-06 09:42] LABS: Anion Gap 12 mmol/L (10-20); BUN (Urea Nitrogen) 39 mg/dL (8.4-25.7); Calc. Creatinine Clearance 16 mL/min (70-130); Calcium 8.7 mg/dL (7.8-10.44); Carbon Dioxide 33 mmol/L (23-31); Chloride 96 mmol/L (98-107); Estimated GFR-MDRD 13; Glucose 133 mg/dL (80-115); Potassium 3.2 mmol/L (3.5-5.1); Sodium 138 mmol/L (136-145)
--- NOTE | 2017-11-06 12:18 | PRG ---
DATE OF SERVICE: 11/06/2017 A 35 minutes critical care time. SUBJECTIVE: Mr. Lunsford remains intubated on mechanical ventilation. He is now awake and follows co mmands. PHYSICAL EXAMINATION: VITAL SIGNS: Temperature is 98.8 with a T-max of 99.5, pulse 77, blood pressure 128/67. He is requi ring no vasopressors, currently sedated lightly on propofol and fentanyl. Total intake for 24 hours is 273, output 3200. HEENT: Unremarkable. NECK: No JVD. LUNGS: Clear anteriorly. CARDIOVASCULAR: S1, S2 regular. ABDOMEN: Soft, nontender. EXTREMITIES: No edema. LABORATORY DATA: Sodium 136, potassium 3.5, chloride 95, CO2 of 30, BUN 37, creatinine 4.1, glucose 198. pH of 7.42, pCO2 of 48, pO2 of 65 on SIMV rate 14, tidal 500, PEEP 5, pressure support 10, FiO2 35%. White blood cell count 8.6, hematocrit 20.9, platelet count 176. X-RAY FIDINGS: Chest x-ray reviewed personally by myself demonstrates ET tube in good position. He has some mild pulmonary edema bilaterally. ASSESSMENT: 1. Status post ventricular fibrillation, V-tach arrest. 2. Acute respiratory failure. 3. Severe hyperglycemia at the time of admission. 4. Chronic renal failure. PLAN: 1. The patient looks stable enough to try to wean off the ventilator. He will be awakened and hopef ully extubated later today. 2. Continue sliding scale insulin.
--- NOTE | 2017-11-06 13:44 | PDOC.PN ---
- Subjective Encounter Start Date: 11/06/17 Encounter Start Time: 13:47 Subjective: No new complaints. -: No acute events overnight. - Objective MAR Reviewed: Yes Vital Signs & Weight: Vital Signs (12 hours) Temp Pulse Resp BP Pulse Ox 11/06/17 12:00 16 11/06/17 11:31 88 170/87 H 11/06/17 10:00 14 11/06/17 09:23 85 138/67 11/06/17 08:05 75 138/67 11/06/17 08:00 14 11/06/17 07:24 98.8 F 78 14 100 11/06/17 06:00 14 11/06/17 04:00 14 11/06/17 02:00 14 Weight Admit Weight 156 lb 15.506 oz Weight 156 lb 15.506 oz Most Recent Monitor Data Heart Rate from ECG 86 NIBP 137/70 NIBP BP-Mean 92 Respiration from ECG 14 SpO2 99 I&O: 11/05/17 11/06/17 11/07/17 06:59 06:59 06:59 Intake Total 273.1 61.8 Output Total 45 0 Balance 228.1 61.8 Result Diagrams: 11/06/17 05:27 11/06/17 09:14 Additional Labs: Accuchecks 11/06/17 11/06/17 11/06/17 12:03 08:57 08:01 POC Glucose 72 121 H 144 H 11/06/17 11/06/17 11/06/17 07:13 06:08 04:47 POC Glucose 185 H 219 H 187 H 11/06/17 11/06/17 11/05/17 02:20 00:10 22:05 POC Glucose 168 H 134 H 98 11/05/17 11/05/17 11/05/17 20:37 19:45 18:55 POC Glucose 77 66 L 74 11/05/17 11/05/17 11/05/17 18:01 16:59 15:51 POC Glucose 79 82 284 H 11/05/17 11/05/17 11/05/17 14:48 14:12 13:31 POC Glucose 420 H 384 H Greater than 550 H* Phys Exam - Physical Examination Constitutional: NAD HEENT: PERRLA, moist MMs, sclera anicteric, oral pharynx no lesions Neck: no JVD, supple, full ROM Respiratory: no wheezing, no rales, no rhonchi, clear to auscultation bilateral Cardiovascular: RRR, no significant murmur, no rub Gastrointestinal: soft, non-tender, no distention, positive bowel sounds Musculoskeletal: no edema, pulses present Intubated, sedated. Unable to cooperate w exam. Skin: no rash, normal turgor Dx/Plan (1) Acute respiratory failure with hypoxia Code(s): J96.01 - ACUTE RESPIRATORY FAILURE WITH HYPOXIA Status: Acute Comment: Intubated and sedated on minimal settings. Will be weaned off vent. (2) Hyperglycemia due to type 1 diabetes mellitus Code(s): E10.65 - TYPE 1 DIABETES MELLITUS WITH HYPERGLYCEMIA Status: Resolved Comment: Continue SSI, monitor blood glucose closely. (3) Ventricular fibrillation Code(s): I49.01 - VENTRICULAR FIBRILLATION Status: Resolved Comment: Had 30 second cardiac arrest, likely from severe electrolyte disturbances. (4) Hyperkalemia Code(s): E87.5 - HYPERKALEMIA Status: Resolved Comment: Resolved w hemodialysis. (5) ESRD (end stage renal disease) on dialysis Code(s): N18.6 - END STAGE RENAL DISEASE; Z99.2 - DEPENDENCE ON RENAL DIALYSIS Status: Chronic Comment: Nephrology on board. Dialysis per nephrology. (6) HTN (hypertension) Code(s): I10 - ESSENTIAL (PRIMARY) HYPERTENSION Status: Chronic Qualifiers: Hypertension type: essential hypertension Comment: Controlled and at goal. - Plan cont current plan of care, plan discussed w/ family, boss catheter, respiratory therapy, DVT proph w/heparin Extubation planned today -: HD per nephrology * . Review of Systems - Medications/Allergies Allergies/Adverse Reactions: Allergies Allergy/AdvReac Type Severity Reaction Status Date / Time adhesive Allergy Verified 09/16/17 23:40 Medications: Current Medications Acetaminophen (Tylenol) 650 mg PO Q4H PRN PRN Reason: Headache/Fever or Pain Last Admin: 11/05/17 12:32 Dose: 650 mg Acetaminophen (Tylenol) 650 mg [place] Q4H PRN PRN Reason: Headache/Fever or Pain Last Admin: 11/05/17 16:52 Dose: 650 mg Aspirin (Ecotrin) 81 mg PO DAILY [facility] Last Admin: 11/06/17 09:20 Dose: 81 mg Atorvastatin Calcium (Lipitor) 40 mg PO HS [facility] Last Admin: 11/05/17 20:39 Dose: Not Given Calcium Acetate (Phoslo) 2,668 mg PO TID-WM [facility] Last Admin: 11/06/17 09:14 Dose: Not Given Clopidogrel Bisulfate (Plavix) 75 mg PO DAILY [facility] Last Admin: 11/06/17 09:20 Dose: 75 mg Dextrose/Water (Dextrose 50%) 25 gm IVP PRN PRN PRN Reason: HYPOGLYCEMIA PROTOCOL Glucagon (Glucagon) 1 mg IM PRN PRN PRN Reason: HYPOGLYCEMIA PROTOCOL Heparin Sodium (Porcine) (Heparin) 5,000 units SC BID [facility] Last Admin: 11/06/17 09:20 Dose: 5,000 units Fentanyl Citrate 2,000 mcg/ (Sodium Chloride) 100 mls @ 0 mls/hr IV INF [facility]; Per Protocol PRN Reason: Protocol Stop: 12/05/17 10:34 Fentanyl Citrate (Fentanyl Bolus) 250 mls @ 0 mls/hr IVPB PRN PRN; As Directed PRN Reason: Breakthrough pain/agitation Stop: 12/05/17 10:34 Nicardipine HCl 50 mg/ Sodium (Chloride) 250 mls @ 0 mls/hr IVPB INF [facility]; Titrate PRN Reason: Protocol Dextrose/Water (D5w) 1,000 mls @ 0 mls/hr IV INF PRN; As Directed PRN Reason: HYPOGLYCEMIA PROTOCOL Insulin Human Regular (Humulin R) 0 units SC .MODERATE SLIDING SC PRN; Protocol PRN Reason: MODERATE SLIDING SCALE Last Admin: 11/06/17 07:20 Dose: 2 unit Lorazepam (Ativan) 2 mg SLOW IVP Q1H PRN PRN Reason: Breakthrough agitation Stop: 12/05/17 10:34 Morphine Sulfate (Morphine) 2 mg SLOW IVP Q1H PRN PRN Reason: breakthrough pain/agitation Stop: 12/05/17 10:34 Ondansetron HCl (Zofran) 4 mg IVP Q6H PRN PRN Reason: Nausea/Vomiting Pantoprazole Sodium (Protonix) 40 mg IVP 2100 [facility] Last Admin: 11/05/17 22:24 Dose: 40 mg Propofol (Diprivan) 1,000 mg IV INF PRN; Protocol PRN Reason: TO ACHIEVE GOAL RASS Stop: 12/05/17 10:34 Last Admin: 11/06/17 06:03 Dose: 1,000 mg Propofol (Diprivan Bolus) 20 mg IV Q5MIN PRN PRN Reason: BREAKTHROUGH AGITATION Stop: 12/05/17 10:34 Sertraline HCl (Zoloft) 50 mg PO HS [facility] Last Admin: 11/05/17 20:39 Dose: Not Given Sodium Chloride (Flush - Normal Saline) 10 ml IVF Q12HR [facility] Last Admin: 11/06/17 09:21 Dose: 10 ml Sodium Chloride (Flush - Normal Saline) 10 ml IVF PRN PRN PRN Reason: Saline Flush Timolol Maleate (Timoptic 0.5% [facility]) 1 drop L EYE DAILY [facility] Last Admin: 11/06/17 09:23 Dose: 1 drop
[2017-11-06 14:15] LABS: Hemoglobin 11.3 g/dL (14.0-18.0)
[2017-11-06] MEDS: Acetaminophen 325 MG TAB PO PRN (20:42)
[2017-11-06] MEDS: Atorvastatin Calcium 40 MG TAB PO SCH (20:42)
[2017-11-06] MEDS: Pantoprazole 40 MG VIAL IVP SCH (20:43)
[2017-11-07] MEDS: Insulin Regular 300 UNITS/3 ML VIAL SC PRN ×4 (01:14→16:16)
[2017-11-07 07:07] LABS: Hemoglobin A1c 10.3 % (4.0-6.0)
[2017-11-07 07:18] LABS: Anion Gap 17 mmol/L (10-20); BUN (Urea Nitrogen) 24 mg/dL (8.4-25.7); Calc. Creatinine Clearance 20 mL/min (70-130); Calcium 9.3 mg/dL (7.8-10.44); Carbon Dioxide 27 mmol/L (23-31); Chloride 100 mmol/L (98-107); Estimated GFR-MDRD 17; Glucose 142 mg/dL (80-115); Potassium 3.6 mmol/L (3.5-5.1); Sodium 140 mmol/L (136-145)
[2017-11-07 07:41] LABS: #Eosinphils 0.2 thou/uL (0.0-0.7); #Lymphocytes 0.6 thou/uL (1.20-3.40); #Monocytes 0.8 thou/uL (0.11-0.59); #Neutrophils 7.5 thou/uL (1.40-6.50); %Basophils 0.3 % (0.0-1.0); %Eosinophils 2.3 % (0.0-10.0); %Lymphocytes 6.2 % (21.0-51.0); %Monocytes 8.7 % (0.0-10.0); %Neutrophils 82.6 % (42.0-75.0); Hemoglobin 10.8 g/dL (14.0-18.0); Mean Corpuscular Hemoglobin 32.8 pg (27.0-31.0); Mean Corpuscular Volume 99.3 fl (80.0-94.0); Mean Platelet Volume 8.6 fL (7.4-10.4); Platelet Count 204 thou/uL (130-400); RBC Distribution Width 14.8 % (11.5-14.5)
[2017-11-07] MEDS: Heparin 5,000 UNITS/ML VIAL SC SCH ×2 (09:05→21:23)
[2017-11-07] MEDS: Calcium Acetate 667 MG CAP PO SCH ×3 (09:05→16:14)
[2017-11-07] MEDS: Clopidogrel Bisulfate 75 MG TAB PO SCH (09:06)
[2017-11-07] MEDS: Timolol 0.5% Ophth Soln 5 ml Bottle L EYE SCH (09:06)
[2017-11-07] MEDS: Aspirin 81 mg Enteric Coated Tablet PO SCH (09:06)
--- NOTE | 2017-11-07 09:33 | PRG ---
DATE OF SERVICE: 11/07/2017 SUBJECTIVE: The patient is awake, alert, and does not remember being intubated. PHYSICAL EXAMINATION: VITAL SIGNS: Temperature is 98.8, pulse 97, blood pressure 139/107. A 24-hour intake 360, output 30 18. HEENT: Unremarkable. NECK: No JVD. CHEST: Clear without wheezing or rhonchi. CARDIAC: S1 and S2 regular. ABDOMEN: Soft, nontender. EXTREMITIES: No edema. X-RAY FINDINGS: Chest x-ray shows some bilateral cephalization of flow. LABORATORY DATA: White blood cell count 9, hematocrit 32.8, platelet count 204. Sodium 140, potassi um 3.6, chloride 100, CO2 27, BUN 24, creatinine 3.6, glucose 142. ASSESSMENT: 1. Status post acute respiratory failure requiring mechanical ventilation - successfully extubated y esterday. 2. End-stage renal disease requiring hemodialysis. 3. Status post episode of ventricular tachycardia, ventricular fibrillation. 4. Severe hyperglycemia with hyperosmolar nonketotic state. PLAN: 1. Transfer out to telemetry. 2. Increase activity. 3. Ask physical therapy to see. 4. Transition to Accu-Cheks with meals only. 5. Further orders per Nephrology and Internal Medicine.
--- NOTE | 2017-11-07 09:45 | RAD ---
PORTABLE SEMIUPRIGHT FRONTAL CHEST RADIOGRAPH: Date: 11/07/17 COMPARISON: 11/06/17. HISTORY: CCU patient. FINDINGS: There is hazy asymmetric increased density in the right upper lobe medially suggesting nonspecific ai r space disease. When compared to the prior examination, aeration within the lung bases has improved. No obvious pneumothorax or large volume pleural effusion. There is atherosclerotic calcification of the thoracic aorta. IMPRESSION: Improved aeration in both lung bases. Findings suggesting new nonspecific right upper lobe air space disease. Follow-up to resolution advised. POS: ALVIN
[2017-11-07] MEDS ORDERED: Heparin 1,000 UNITS/ML VIAL ONE (11:11)
--- NOTE | 2017-11-07 13:58 | PDOC.PN ---
- Subjective Encounter Start Date: 11/07/17 Encounter Start Time: 14:02 Subjective: Patient awake, well oriented with no c/o except poor appetite -: No acute events overnight. - Objective MAR Reviewed: Yes Vital Signs & Weight: Vital Signs (12 hours) Temp Pulse Resp BP Pulse Ox 11/07/17 11:50 99.2 F 11/07/17 09:37 97 11/07/17 09:06 89 121/50 L 11/07/17 08:00 98.8 F 97 18 96 11/07/17 07:00 98.8 F 11/07/17 04:00 98.0 F Weight Admit Weight 156 lb 15.506 oz Weight 156 lb 15.506 oz Most Recent Monitor Data Heart Rate from ECG 82 NIBP 151/81 NIBP BP-Mean 103 Respiration from ECG 17 SpO2 95 I&O: 11/06/17 11/07/17 11/08/17 06:59 06:59 06:59 Intake Total 273.1 541.8 720 Output Total 45 35 0 Balance 228.1 506.8 720 Result Diagrams: 11/07/17 05:40 11/07/17 05:40 Additional Labs: Accuchecks 11/07/17 11/07/17 11/07/17 11:01 07:46 04:57 POC Glucose 341 H 182 H 125 H 11/07/17 11/06/17 11/06/17 00:53 20:42 16:14 POC Glucose 156 H 109 156 H Phys Exam - Physical Examination Constitutional: NAD HEENT: PERRLA, moist MMs, sclera anicteric, oral pharynx no lesions Neck: no JVD, supple, full ROM Respiratory: no wheezing, no rales, no rhonchi, clear to auscultation bilateral Cardiovascular: RRR, no significant murmur, no rub Gastrointestinal: soft, non-tender, no distention, positive bowel sounds Musculoskeletal: no edema, pulses present Neurological: non-focal, moves all 4 limbs Psychiatric: normal affect, A&O x 3 Skin: no rash, normal turgor Dx/Plan (1) Hyperglycemia due to type 1 diabetes mellitus Code(s): E10.65 - TYPE 1 DIABETES MELLITUS WITH HYPERGLYCEMIA Status: Acute Comment: Continue SSI, monitor blood glucose closely. Resume home insulin regimen. (2) ESRD (end stage renal disease) on dialysis Code(s): N18.6 - END STAGE RENAL DISEASE; Z99.2 - DEPENDENCE ON RENAL DIALYSIS Status: Chronic Comment: Nephrology on board. Dialysis per nephrology. (3) HTN (hypertension) Code(s): I10 - ESSENTIAL (PRIMARY) HYPERTENSION Status: Chronic Qualifiers: Hypertension type: essential hypertension Comment: Fair control. Will gradually reintroduce home regimen. (4) Acute respiratory failure with hypoxia Code(s): J96.01 - ACUTE RESPIRATORY FAILURE WITH HYPOXIA Status: Acute Comment: Resolved. (5) Ventricular fibrillation Code(s): I49.01 - VENTRICULAR FIBRILLATION Status: Resolved Comment: Had 30 second cardiac arrest, likely from severe electrolyte disturbances. - Plan cont current plan of care, respiratory therapy, DVT proph w/heparin * . Review of Systems - Medications/Allergies Allergies/Adverse Reactions: Allergies Allergy/AdvReac Type Severity Reaction Status Date / Time adhesive Allergy Verified 09/16/17 23:40 Medications: Current Medications Acetaminophen (Tylenol) 650 mg PO Q4H PRN PRN Reason: Headache/Fever or Pain Last Admin: 11/06/17 20:42 Dose: 650 mg Acetaminophen (Tylenol) 650 mg [place] Q4H PRN PRN Reason: Headache/Fever or Pain Last Admin: 11/05/17 16:52 Dose: 650 mg Aspirin (Ecotrin) 81 mg PO DAILY [facility] Last Admin: 11/07/17 09:06 Dose: 81 mg Atorvastatin Calcium (Lipitor) 40 mg PO HS [facility] Last Admin: 11/06/17 20:42 Dose: 40 mg Calcium Acetate (Phoslo) 2,668 mg PO TID-[facility] Last Admin: 11/07/17 12:26 Dose: Not Given Clopidogrel Bisulfate (Plavix) 75 mg PO DAILY [facility] Last Admin: 11/07/17 09:06 Dose: 75 mg Dextrose/Water (Dextrose 50%) 25 gm IVP PRN PRN PRN Reason: HYPOGLYCEMIA PROTOCOL Glucagon (Glucagon) 1 mg IM PRN PRN PRN Reason: HYPOGLYCEMIA PROTOCOL Heparin Sodium (Porcine) (Heparin) 5,000 units SC BID [facility] Last Admin: 11/07/17 09:05 Dose: 5,000 units Dextrose/Water (D5w) 1,000 mls @ 0 mls/hr IV INF PRN; As Directed PRN Reason: HYPOGLYCEMIA PROTOCOL Insulin Human Regular (Humulin R) 0 units SC .MODERATE SLIDING SC PRN; Protocol PRN Reason: MODERATE SLIDING SCALE Last Admin: 11/07/17 11:04 Dose: 8 unit Ondansetron HCl (Zofran) 4 mg IVP Q6H PRN PRN Reason: Nausea/Vomiting Pantoprazole Sodium (Protonix) 40 mg PO DAILY [facility] Last Admin: 11/07/17 09:17 Dose: 40 mg Sertraline HCl (Zoloft) 50 mg PO HS [facility] Last Admin: 11/06/17 20:42 Dose: 50 mg Sodium Chloride (Flush - Normal Saline) 10 ml IVF Q12HR [facility] Last Admin: 11/07/17 09:05 Dose: 10 ml Sodium Chloride (Flush - Normal Saline) 10 ml IVF PRN PRN PRN Reason: Saline Flush Timolol Maleate (Timoptic 0.5% [facility]) 1 drop L EYE DAILY [facility] Last Admin: 11/07/17 09:06 Dose: 1 drop
[2017-11-07] MEDS ORDERED: NPH, Human Insulin Isophane 300 UNIT/3 ML VIAL SC SCH (21:00)
[2017-11-07] MEDS: Metoprolol Tartrate 50 MG TAB PO SCH (21:22)
[2017-11-07] MEDS: Docusate 100 MG CAP PO SCH (21:23)
[2017-11-07] MEDS: Atorvastatin Calcium 40 MG TAB PO SCH (21:23)
[2017-11-08] MEDS ORDERED: Temazepam 15 MG CAP PO SCH (01:30)
[2017-11-08 05:18] LABS: Anion Gap 13 mmol/L (10-20); BUN (Urea Nitrogen) 21 mg/dL (8.4-25.7); Calc. Creatinine Clearance 21 mL/min (70-130); Carbon Dioxide 29 mmol/L (23-31); Chloride 97 mmol/L (98-107); Estimated GFR-MDRD 18; Glucose 536 mg/dL (80-115); Potassium 3.9 mmol/L (3.5-5.1); Sodium 135 mmol/L (136-145)
[2017-11-08] MEDS: Insulin Regular 300 UNITS/3 ML VIAL SC PRN ×2 (06:35→12:52)
[2017-11-08 08:33] LABS: Glucose 699 mg/dL (80-115)
[2017-11-08] MEDS ORDERED: NPH, Human Insulin Isophane 300 UNIT/3 ML VIAL SC SCH ×3 (08:52→21:00)
[2017-11-08] MEDS: Multivit, Therapeutic 1 TAB PO SCH (10:23)
[2017-11-08] MEDS: Calcium Acetate 667 MG CAP PO SCH ×3 (10:23→17:36)
[2017-11-08] MEDS: Clopidogrel Bisulfate 75 MG TAB PO SCH (10:24)
[2017-11-08] MEDS: Aspirin 81 mg Enteric Coated Tablet PO SCH (10:24)
[2017-11-08] MEDS: Metoprolol Tartrate 50 MG TAB PO SCH ×2 (10:24→22:00)
[2017-11-08] MEDS: Timolol 0.5% Ophth Soln 5 ml Bottle L EYE SCH (10:25)
[2017-11-08] MEDS: Heparin 5,000 UNITS/ML VIAL SC SCH ×2 (10:27→22:00)
[2017-11-08] MEDS: Docusate 100 MG CAP PO SCH ×2 (10:27→21:59)
--- NOTE | 2017-11-08 10:35 | PRG ---
DATE OF SERVICE: 11/08/2017 The patient is doing well, had no complaints. PHYSICAL EXAMINATION: VITAL SIGNS: Temperature 97.8, pulse 80, respirations 17, saturation 97%, blood pressure 165/80. HEENT: Unremarkable. NECK: No JVD. CHEST: Clear. CARDIAC: S1 and S2 regular. ABDOMEN: Soft. EXTREMITIES: No edema. ASSESSMENT: 1. Status post acute respiratory failure. 2. End-stage renal disease. 3. Recent V-tach. 4. Recent hyperosmolar nonketotic hyperglycemia. PLAN: Continue care per Nephrology, Internal Medicine. No further pulmonary issues. We will sign o ff. Please recall if further assistance needed.
--- NOTE | 2017-11-08 11:30 | PDOC.PN ---
- Subjective Encounter Start Date: 11/08/17 Encounter Start Time: 08:00 Subjective: is awake, reading newspaper -: no sob or chest pain - Objective MAR Reviewed: Yes Vital Signs & Weight: Vital Signs (12 hours) Temp Pulse Resp BP BP Pulse Ox 11/08/17 10:25 80 168/80 H 11/08/17 08:00 97.2 F L 84 18 179/90 H 93 L 11/08/17 03:55 80 17 165/80 H 97 11/08/17 02:35 94 L Weight Admit Weight 133 lb 6.4 oz Weight 156 lb 15.506 oz Most Recent Monitor Data Heart Rate from ECG 88 NIBP 172/91 NIBP BP-Mean 110 Respiration from ECG 14 SpO2 94 I&O: 11/07/17 11/08/17 11/09/17 06:59 06:59 06:59 Intake Total 541.8 1130 Output Total 35 0 Balance 506.8 1130 Result Diagrams: 11/07/17 05:40 11/08/17 08:03 Additional Labs: Accuchecks 11/08/17 11/08/17 11/07/17 10:49 06:21 21:21 POC Glucose Greater than 550 H* Greater than 550 H* 112 H 11/07/17 11/05/17 11/05/17 16:06 12:29 12:01 POC Glucose 229 H Greater than 550 H* Greater than 550 H* Phys Exam - Physical Examination HEENT: PERRLA, moist MMs Neck: no JVD, supple Respiratory: no wheezing, no rales Cardiovascular: RRR, no significant murmur Gastrointestinal: soft, non-tender, positive bowel sounds Musculoskeletal: no edema, pulses present Neurological: non-focal, moves all 4 limbs Psychiatric: normal affect, A&O x 3 Dx/Plan (1) Dyslipidemia Code(s): E78.5 - HYPERLIPIDEMIA, UNSPECIFIED Status: Chronic (2) Hyperglycemia due to type 1 diabetes mellitus Code(s): E10.65 - TYPE 1 DIABETES MELLITUS WITH HYPERGLYCEMIA Status: Acute (3) Ventricular fibrillation Code(s): I49.01 - VENTRICULAR FIBRILLATION Status: Resolved Comment: Had 30 second cardiac arrest, likely from severe electrolyte disturbances. (4) ESRD (end stage renal disease) on dialysis Code(s): N18.6 - END STAGE RENAL DISEASE; Z99.2 - DEPENDENCE ON RENAL DIALYSIS Status: Chronic Comment: Dialysis per nephrology. (5) HTN (hypertension) Code(s): I10 - ESSENTIAL (PRIMARY) HYPERTENSION Status: Chronic Qualifiers: Hypertension type: essential hypertension - Plan fingerstick is ranging from 112-650 -: one dose NPH 25u now and 10 u in evening -: strict 1800kcal heart healthy renal diet -: to mobilize as tolerated -: is on lopressor 50 bid, imdur, asp, lipitor and plavix * . Review of Systems - Medications/Allergies Allergies/Adverse Reactions: Allergies Allergy/AdvReac Type Severity Reaction Status Date / Time adhesive Allergy Verified 09/16/17 23:40 Medications: Current Medications Acetaminophen (Tylenol) 650 mg PO Q4H PRN PRN Reason: Headache/Fever or Pain Last Admin: 11/06/17 20:42 Dose: 650 mg Acetaminophen (Tylenol) 650 mg [place] Q4H PRN PRN Reason: Headache/Fever or Pain Last Admin: 11/05/17 16:52 Dose: 650 mg Aspirin (Ecotrin) 81 mg PO DAILY [facility] Last Admin: 11/08/17 10:24 Dose: 81 mg Atorvastatin Calcium (Lipitor) 40 mg PO HS [facility] Last Admin: 11/07/17 21:23 Dose: 40 mg Calcium Acetate (Phoslo) 2,668 mg PO TID-WM [facility] Last Admin: 11/08/17 10:23 Dose: 2,668 mg Clopidogrel Bisulfate (Plavix) 75 mg PO DAILY [facility] Last Admin: 11/08/17 10:24 Dose: 75 mg Dextrose/Water (Dextrose 50%) 25 gm IVP PRN PRN PRN Reason: HYPOGLYCEMIA PROTOCOL Docusate Sodium (Colace) 100 mg PO BID [facility] Last Admin: 11/08/17 10:27 Dose: Not Given Glucagon (Glucagon) 1 mg IM PRN PRN PRN Reason: HYPOGLYCEMIA PROTOCOL Heparin Sodium (Porcine) (Heparin) 5,000 units SC BID [facility] Last Admin: 11/08/17 10:27 Dose: 5,000 units Dextrose/Water (D5w) 1,000 mls @ 0 mls/hr IV INF PRN; As Directed PRN Reason: HYPOGLYCEMIA PROTOCOL Insulin Human NPH (Humulin N) 5 unit SC [facility] Last Admin: 11/07/17 21:21 Dose: 5 unit Insulin Human NPH (Humulin N) 10 unit SC DAILY [facility] Last Admin: 11/08/17 10:28 Dose: Not Given Insulin Human Regular (Humulin R) 0 units SC .MODERATE SLIDING SC PRN; Protocol PRN Reason: MODERATE SLIDING SCALE Last Admin: 11/08/17 06:35 Dose: 10 unit Isosorbide Mononitrate (Imdur Er) 30 mg PO DAILY [facility] Last Admin: 11/08/17 10:23 Dose: 30 mg Metoprolol Tartrate (Lopressor) 50 mg PO BID [facility] Last Admin: 11/08/17 10:24 Dose: 50 mg Multivitamins (Theragran) 1 tab PO DAILY [facility] Last Admin: 11/08/17 10:23 Dose: 1 tab Nitroglycerin (Nitrostat) 0.4 mg SL Q5MIN PRN PRN Reason: Chest Pain Ondansetron HCl (Zofran) 4 mg IVP Q6H PRN PRN Reason: Nausea/Vomiting Pantoprazole Sodium (Protonix) 40 mg PO DAILY [facility] Last Admin: 11/08/17 10:24 Dose: 40 mg Sertraline HCl (Zoloft) 50 mg PO HS [facility] Last Admin: 11/07/17 21:22 Dose: 50 mg Sodium Chloride (Flush - Normal Saline) 10 ml IVF Q12HR [facility] Last Admin: 11/08/17 10:24 Dose: 10 ml Sodium Chloride (Flush - Normal Saline) 10 ml IVF PRN PRN PRN Reason: Saline Flush Timolol Maleate (Timoptic 0.5% [facility]) 1 drop L EYE DAILY [facility] Last Admin: 11/08/17 10:25 Dose: 1 drop
[2017-11-08 12:37] LABS: Glucose 692 mg/dL (80-115)
[2017-11-08] MEDS ORDERED: Insulin Regular 300 UNITS/3 ML VIAL SC SCH (13:00)
[2017-11-08] MEDS: Atorvastatin Calcium 40 MG TAB PO SCH (21:59)
[2017-11-09 05:30] LABS: Anion Gap 15 mmol/L (10-20); BUN (Urea Nitrogen) 39 mg/dL (8.4-25.7); Calc. Creatinine Clearance 15 mL/min (70-130); Calcium 9.5 mg/dL (7.8-10.44); Carbon Dioxide 28 mmol/L (23-31); Chloride 96 mmol/L (98-107); Estimated GFR-MDRD 12; Glucose 223 mg/dL (80-115); Potassium 3.7 mmol/L (3.5-5.1); Sodium 135 mmol/L (136-145)
--- NOTE | 2017-11-09 11:10 | PDOC.PN ---
- Subjective Encounter Start Date: 11/09/17 Encounter Start Time: 09:00 Subjective: is getting HD now -: no sob, is not fully oriented this am -: follows verbal stimuli - Objective MAR Reviewed: Yes Vital Signs & Weight: Vital Signs (12 hours) Temp Pulse Resp BP Pulse Ox 11/09/17 08:00 97.6 F 74 18 11/09/17 04:00 97.6 F 74 18 92 L 11/08/17 23:57 98.2 F 76 12 180/94 H 94 L Weight Admit Weight 156 lb 15.506 oz Weight 156 lb 15.506 oz Most Recent Monitor Data Heart Rate from ECG 88 NIBP 172/91 NIBP BP-Mean 110 Respiration from ECG 14 SpO2 94 I&O: 11/08/17 11/09/17 11/10/17 06:59 06:59 06:59 Intake Total 1130 480 Output Total 0 200 Balance 1130 280 Result Diagrams: 11/07/17 05:40 11/09/17 04:28 Additional Labs: Accuchecks 11/09/17 11/08/17 11/08/17 05:41 20:41 16:18 POC Glucose 206 H 178 H 269 H 11/08/17 11/08/17 14:35 12:05 POC Glucose 413 H Greater than 550 H* Phys Exam - Physical Examination HEENT: PERRLA, moist MMs Neck: no JVD, supple Respiratory: no wheezing, no rales Cardiovascular: RRR, no significant murmur Gastrointestinal: soft, non-tender, positive bowel sounds Musculoskeletal: no edema, pulses present Neurological: non-focal, moves all 4 limbs Dx/Plan (1) Hyperglycemia due to type 1 diabetes mellitus Code(s): E10.65 - TYPE 1 DIABETES MELLITUS WITH HYPERGLYCEMIA Status: Acute (2) Dyslipidemia Code(s): E78.5 - HYPERLIPIDEMIA, UNSPECIFIED Status: Chronic (3) Ventricular fibrillation Code(s): I49.01 - VENTRICULAR FIBRILLATION Status: Resolved Comment: Had 30 second cardiac arrest, likely from severe electrolyte disturbances. (4) ESRD (end stage renal disease) on dialysis Code(s): N18.6 - END STAGE RENAL DISEASE; Z99.2 - DEPENDENCE ON RENAL DIALYSIS Status: Chronic Comment: Dialysis per nephrology. (5) HTN (hypertension) Code(s): I10 - ESSENTIAL (PRIMARY) HYPERTENSION Status: Chronic Qualifiers: Hypertension type: essential hypertension - Plan mild confusion this am, likely from sleeping aid which he got late night -: may tx to med floor -: rehab/swing bed if he didnt do well with PT, to mobilize more in hallway as -: -tolerated, d/w sister prior to seeing him in pts room -: is noncompliance with meds and diet * . On NPH 15u bid now, fingerstick around 171-293. Continue asp, plavix, lopressor, imdur as before. dc plan in 24hrs if stable. Review of Systems - Medications/Allergies Allergies/Adverse Reactions: Allergies Allergy/AdvReac Type Severity Reaction Status Date / Time adhesive Allergy Verified 09/16/17 23:40 Medications: Current Medications Acetaminophen (Tylenol) 650 mg PO Q4H PRN PRN Reason: Headache/Fever or Pain Last Admin: 11/06/17 20:42 Dose: 650 mg Acetaminophen (Tylenol) 650 mg [place] Q4H PRN PRN Reason: Headache/Fever or Pain Last Admin: 11/05/17 16:52 Dose: 650 mg Aspirin (Ecotrin) 81 mg PO DAILY [facility] Last Admin: 11/08/17 10:24 Dose: 81 mg Atorvastatin Calcium (Lipitor) 40 mg PO HS [facility] Last Admin: 11/08/17 21:59 Dose: 40 mg Calcium Acetate (Phoslo) 2,668 mg PO TID-[facility] Last Admin: 11/08/17 17:36 Dose: 2,668 mg Clopidogrel Bisulfate (Plavix) 75 mg PO DAILY [facility] Last Admin: 11/08/17 10:24 Dose: 75 mg Dextrose/Water (Dextrose 50%) 25 gm IVP PRN PRN PRN Reason: HYPOGLYCEMIA PROTOCOL Docusate Sodium (Colace) 100 mg PO BID [facility] Last Admin: 11/08/17 21:59 Dose: 100 mg Glucagon (Glucagon) 1 mg IM PRN PRN PRN Reason: HYPOGLYCEMIA PROTOCOL Heparin Sodium (Porcine) (Heparin) 5,000 units SC BID [facility] Last Admin: 11/08/17 22:00 Dose: 5,000 units Dextrose/Water (D5w) 1,000 mls @ 0 mls/hr IV INF PRN; As Directed PRN Reason: HYPOGLYCEMIA PROTOCOL Insulin Human NPH (Humulin N) 15 unit SC BID [facility] Insulin Human Regular (Humulin R) 0 units SC .MODERATE SLIDING SC PRN; Protocol PRN Reason: MODERATE SLIDING SCALE Last Admin: 11/08/17 12:52 Dose: 10 unit Isosorbide Mononitrate (Imdur Er) 30 mg PO DAILY [facility] Last Admin: 11/08/17 10:23 Dose: 30 mg Metoprolol Tartrate (Lopressor) 50 mg PO BID [facility] Last Admin: 11/08/17 22:00 Dose: 50 mg Multivitamins (Theragran) 1 tab PO DAILY [facility] [place] Last Admin: 11/08/17 10:23 Dose: 1 tab Nitroglycerin (Nitrostat) 0.4 mg SL Q5MIN PRN PRN Reason: Chest Pain Ondansetron HCl (Zofran) 4 mg IVP Q6H PRN PRN Reason: Nausea/Vomiting Pantoprazole Sodium (Protonix) 40 mg PO DAILY [facility] [place] Last Admin: 11/08/17 10:24 Dose: 40 mg Sertraline HCl (Zoloft) 50 mg PO HS [facility] Last Admin: 11/08/17 22:00 Dose: 50 mg Sodium Chloride (Flush - Normal Saline) 10 ml IVF Q12HR [facility] Last Admin: 11/08/17 22:01 Dose: 10 ml Sodium Chloride (Flush - Normal Saline) 10 ml IVF PRN PRN PRN Reason: Saline Flush Timolol Maleate (Timoptic 0.5% [facility]) 1 drop L EYE DAILY [facility] Last Admin: 11/08/17 10:25 Dose: 1 drop
[2017-11-09] MEDS: Calcium Acetate 667 MG CAP PO SCH ×3 (14:16→17:42)
[2017-11-09] MEDS: Aspirin 81 mg Enteric Coated Tablet PO SCH (14:34)
[2017-11-09] MEDS: Metoprolol Tartrate 50 MG TAB PO SCH ×2 (14:35→20:00)
[2017-11-09] MEDS: Multivit, Therapeutic 1 TAB PO SCH (14:35)
[2017-11-09] MEDS: Heparin 5,000 UNITS/ML VIAL SC SCH ×2 (14:35→20:00)
[2017-11-09] MEDS: Clopidogrel Bisulfate 75 MG TAB PO SCH (14:35)
[2017-11-09] MEDS: NPH, Human Insulin Isophane 300 UNIT/3 ML VIAL SC SCH ×2 (14:36→20:19)
[2017-11-09] MEDS: Docusate 100 MG CAP PO SCH ×2 (14:36→20:00)
[2017-11-09] MEDS: Timolol 0.5% Ophth Soln 5 ml Bottle L EYE SCH (16:24)
[2017-11-09] MEDS: Insulin Regular 300 UNITS/3 ML VIAL SC PRN ×2 (17:42→20:19)
[2017-11-09] MEDS ORDERED: Lorazepam 2 MG/ML VIAL SLOW IVP PRN (19:44)
[2017-11-09] MEDS: Atorvastatin Calcium 40 MG TAB PO SCH (20:00)
[2017-11-10 04:25] LABS: Anion Gap 12 mmol/L (10-20); BUN (Urea Nitrogen) 28 mg/dL (8.4-25.7); Calc. Creatinine Clearance 20 mL/min (70-130); Carbon Dioxide 33 mmol/L (23-31); Chloride 98 mmol/L (98-107); Estimated GFR-MDRD 17; Potassium 3.9 mmol/L (3.5-5.1); Sodium 139 mmol/L (136-145)
[2017-11-10 04:30] LABS: Glucose 48 mg/dL (80-115)
[2017-11-10] MEDS: Calcium Acetate 667 MG CAP PO SCH ×3 (08:52→18:13)
[2017-11-10] MEDS: Metoprolol Tartrate 50 MG TAB PO SCH ×2 (08:53→20:22)
[2017-11-10] MEDS: Clopidogrel Bisulfate 75 MG TAB PO SCH (08:53)
[2017-11-10] MEDS: Multivit, Therapeutic 1 TAB PO SCH (08:53)
[2017-11-10] MEDS: Aspirin 81 mg Enteric Coated Tablet PO SCH (08:53)
[2017-11-10] MEDS: NPH, Human Insulin Isophane 300 UNIT/3 ML VIAL SC SCH ×2 (08:55→21:44)
[2017-11-10] MEDS: Timolol 0.5% Ophth Soln 5 ml Bottle L EYE SCH (08:56)
[2017-11-10] MEDS: Heparin 5,000 UNITS/ML VIAL SC SCH ×2 (08:57→20:22)
[2017-11-10] MEDS ORDERED: Vancomycin HCl 500 MG in Sodium Chloride 0.9% 100 ML IVPB SCH ×2 (09:15→14:00)
[2017-11-10] MEDS: Docusate 100 MG CAP PO SCH ×2 (09:55→20:22)
[2017-11-10] MEDS ORDERED: [UNRECOGNIZED DRUG - REMARK] IVPB PRN (10:23)
[2017-11-10] MEDS ORDERED: Cefepime 1 GM in Sodium Chloride 0.9% 100 ML IVPB SCH (11:00)
[2017-11-10] MEDS ORDERED: Vancomycin HCl 1.5 GM in Sodium Chloride 0.9% 250 ML 300 ML IVPB SCH (12:00)
[2017-11-10] MEDS: Insulin Regular 300 UNITS/3 ML VIAL SC PRN ×2 (12:51→18:13)
[2017-11-10] MEDS ORDERED: Vancomycin Sliding Scale 1 EACH IVPB PRN (13:25)
--- NOTE | 2017-11-10 13:26 | PDOC.PN ---
- Subjective Encounter Start Date: 11/10/17 Encounter Start Time: 11:25 Subjective: awakens but is not fully oriented -: no sob or pain - Objective MAR Reviewed: Yes Vital Signs & Weight: Vital Signs (12 hours) Temp Pulse Pulse Pulse Resp BP BP 11/10/17 11:00 98.2 F 72 18 11/10/17 09:50 11/10/17 09:37 78 80 132/86 11/10/17 08:56 77 152/100 H 11/10/17 08:00 97.4 F L 77 18 11/10/17 07:46 97.4 F L 77 18 BP BP Pulse Ox Pulse Ox Pulse Ox Pulse Ox 11/10/17 11:00 162/83 H 95 11/10/17 09:50 95 11/10/17 09:37 160/88 H 95 83 L 95 11/10/17 08:56 11/10/17 08:00 95 11/10/17 07:46 152/100 H 94 L Weight Admit Weight 156 lb 15.506 oz Weight 156 lb 15.506 oz Most Recent Monitor Data Heart Rate from ECG 88 NIBP 172/91 NIBP BP-Mean 110 Respiration from ECG 14 SpO2 94 I&O: 11/09/17 11/10/17 11/11/17 06:59 06:59 06:59 Intake Total 480 850 Output Total 200 Balance 280 850 Result Diagrams: 11/07/17 05:40 11/10/17 03:51 Additional Labs: Accuchecks 11/10/17 11/10/17 11/09/17 11:32 05:01 20:13 POC Glucose 288 H 75 349 H 11/09/17 11/09/17 11/08/17 16:37 13:26 07:13 POC Glucose 415 H 250 H Greater than 550 H* Phys Exam - Physical Examination HEENT: PERRLA, moist MMs Neck: no JVD, supple Respiratory: no wheezing, no rales Cardiovascular: RRR, no significant murmur Gastrointestinal: soft, non-tender, positive bowel sounds Musculoskeletal: no edema, pulses present Neurological: non-focal, moves all 4 limbs Dx/Plan (1) Hyperglycemia due to type 1 diabetes mellitus Code(s): E10.65 - TYPE 1 DIABETES MELLITUS WITH HYPERGLYCEMIA Status: Acute (2) Dyslipidemia Code(s): E78.5 - HYPERLIPIDEMIA, UNSPECIFIED Status: Chronic (3) Ventricular fibrillation Code(s): I49.01 - VENTRICULAR FIBRILLATION Status: Resolved Comment: Had 30 second cardiac arrest, likely from severe electrolyte disturbances. (4) ESRD (end stage renal disease) on dialysis Code(s): N18.6 - END STAGE RENAL DISEASE; Z99.2 - DEPENDENCE ON RENAL DIALYSIS Status: Chronic Comment: Dialysis per nephrology. (5) HTN (hypertension) Code(s): I10 - ESSENTIAL (PRIMARY) HYPERTENSION Status: Chronic Qualifiers: Hypertension type: essential hypertension (6) Bacteremia Code(s): R78.81 - BACTEREMIA Status: Acute (7) Sepsis Code(s): A41.9 - SEPSIS, UNSPECIFIED ORGANISM Status: Suspected Qualifiers: Sepsis type: sepsis due to unspecified organism Qualified Code(s): A41.9 - Sepsis, unspecified organism - Plan await final culture results -: start cefepime and vanc with renal dosing -: PT to mobilize -: hold insulins for now until his fingerstick is above 150 x2 -: d/w sister at bedside * . Review of Systems - Medications/Allergies Allergies/Adverse Reactions: Allergies Allergy/AdvReac Type Severity Reaction Status Date / Time adhesive Allergy Verified 09/16/17 23:40 Medications: Current Medications Acetaminophen (Tylenol) 650 mg PO Q4H PRN PRN Reason: Headache/Fever or Pain Last Admin: 11/06/17 20:42 Dose: 650 mg Acetaminophen (Tylenol) 650 mg [place] Q4H PRN PRN Reason: Headache/Fever or Pain Last Admin: 11/05/17 16:52 Dose: 650 mg Aspirin (Ecotrin) 81 mg PO DAILY [facility] Last Admin: 11/10/17 08:53 Dose: 81 mg Atorvastatin Calcium (Lipitor) 40 mg PO HS [facility] Last Admin: 11/09/17 20:00 Dose: Not Given Calcium Acetate (Phoslo) 2,668 mg PO TID-WM [facility] Last Admin: 11/10/17 11:42 Dose: 2,668 mg Clopidogrel Bisulfate (Plavix) 75 mg PO DAILY [facility] Last Admin: 11/10/17 08:53 Dose: 75 mg Dextrose/Water (Dextrose 50%) 25 gm IVP PRN PRN PRN Reason: HYPOGLYCEMIA PROTOCOL Docusate Sodium (Colace) 100 mg PO BID [facility] Last Admin: 11/10/17 09:55 Dose: Not Given Glucagon (Glucagon) 1 mg IM PRN PRN PRN Reason: HYPOGLYCEMIA PROTOCOL Heparin Sodium (Porcine) (Heparin) 5,000 units SC BID [facility] Last Admin: 11/10/17 08:57 Dose: 5,000 units Dextrose/Water (D5w) 1,000 mls @ 0 mls/hr IV INF PRN; As Directed PRN Reason: HYPOGLYCEMIA PROTOCOL Vancomycin HCl 1.5 gm/ Sodium (Chloride) 300 mls @ 200 mls/hr IVPB 1200 [facility] Stop: 11/10/17 13:29 Last Admin: 11/10/17 11:40 Dose: 300 mls Cefepime HCl 0.5 gm/ (Miscellaneous Medication) 0 mls @ 0 mls/hr IVPB 1500 [facility] Insulin Human NPH (Humulin N) 15 unit SC BID [facility] Last Admin: 11/10/17 08:55 Dose: Not Given Insulin Human Regular (Humulin R) 0 units SC .MODERATE SLIDING SC PRN; Protocol PRN Reason: MODERATE SLIDING SCALE Last Admin: 11/10/17 12:51 Dose: 6 unit Isosorbide Mononitrate (Imdur Er) 30 mg PO DAILY [facility] Last Admin: 11/10/17 08:53 Dose: 30 mg Lorazepam (Ativan) 1 mg SLOW IVP Q6H PRN PRN Reason: Anxiety/Agitation Last Admin: 11/09/17 20:14 Dose: 1 mg Metoprolol Tartrate (Lopressor) 50 mg PO BID [facility] Last Admin: 11/10/17 08:53 Dose: 50 mg Miscellaneous Medication (Pharmacy To Dose) 0 each IVPB DAILYPRN PRN PRN Reason: LABS Multivitamins (Theragran) 1 tab PO DAILY [facility] Last Admin: 11/10/17 08:53 Dose: 1 tab Nitroglycerin (Nitrostat) 0.4 mg SL Q5MIN PRN PRN Reason: Chest Pain Ondansetron HCl (Zofran) 4 mg IVP Q6H PRN PRN Reason: Nausea/Vomiting Pantoprazole Sodium (Protonix) 40 mg PO DAILY [facility] Last Admin: 11/10/17 08:55 Dose: 40 mg Sertraline HCl (Zoloft) 50 mg PO [facility] Last Admin: 11/09/17 20:01 Dose: Not Given Sodium Chloride (Flush - Normal Saline) 10 ml IVF Q12HR [facility] Last Admin: 11/10/17 08:55 Dose: 10 ml Sodium Chloride (Flush - Normal Saline) 10 ml IVF PRN PRN PRN Reason: Saline Flush Timolol Maleate (Timoptic 0.5% Oph Soln) 1 drop L EYE DAILY [facility] Last Admin: 11/10/17 08:56 Dose: 1 drop
[2017-11-10] MEDS ORDERED: Vancomycin Sliding Scale 1 EACH FS ONE (14:00)
[2017-11-10] MEDS ORDERED: HOLD VANCOMYCIN FOR LEVEL >20 FS SCH (14:00)
[2017-11-10] MEDS ORDERED: Vancomycin HCl 750 MG in Sodium Chloride 0.9% 250 ML 250 ML IVPB SCH (14:00)
[2017-11-10] MEDS ORDERED: Vancomycin HCl 1 GM in Premix Bag 1 BAG IVPB SCH (14:00)
[2017-11-10] MEDS ORDERED: Vancomycin HCl 1.25 GM in Sodium Chloride 0.9% 250 ML 250 ML IVPB SCH (14:00)
[2017-11-10] MEDS: Atorvastatin Calcium 40 MG TAB PO SCH (20:22)
--- NOTE | 2017-11-10 22:56 | CON ---
DATE OF CONSULTATION: 11/10/2017 REASON FOR CONSULTATION: Bacteremia. HISTORY OF PRESENT ILLNESS: A 67-year-old who has a history of type 2 diabetes mellitus with end-sta ge renal disease on hemodialysis through an AV fistula, peripheral vascular disease, dyslipidemia. Teodoro tompkins was last admitted in 09/2017 was diagnosed with diabetic ketoacidosis secondary to noncompliance wi th medication. He was felt to have demand ischemia with elevated troponins as well. The last proced ure before admission was a tricuspid ablation to eliminate atrial arrhythmias. Before that patient h ad a cholecystectomy. The pathology of that procedure revealed mild chronic cholecystitis. Finally, the patient is admitted this time after have been found by third constitution party in his home unconscious. He had to be intubated in the field by EMS and his initial blood sugars 1300. He was brought to the [facility] on 11/05/2017. His initial O2 sats were 77% room air, temperature 101, BP 200/116. There are some questions regarding possibility of ventricular tachycardia versus atrial tachycardia with aberra nt conduction to it. He was given calcium chloride, because of life-threatening hyperkalemia, insuli n and amp of bicarbonate, Kayexalate via OG-tube. Patient was stabilized and extubated. Right now, he has seen in the floor, but he is very sleepy. He would not wake up for me, for the student, he di d wake up and answer some questions. He is very drowsy, had to be aroused every few minutes. REVIEW OF SYSTEMS: At this point, he denies any headaches. He did have what he describes as gastroi ntestinal symptoms with nausea and general feeling of uncomfortable feeling in his abdominal area, wh ich he could not be more precise with. No genitourinary symptoms. No back pain, no joint symptoms. PAST MEDICAL HISTORY: Includes type 2 diabetes, diabetes ketoacidosis or hyperosmolar syndrome, tric uspid ablation for management of atrial tachycardia, end-stage renal disease on hemodialysis through an AV fistula in the left upper extremity, retinopathy, PVD, hypertension, depression, gout, prior ao rtofemoral bypass. SOCIAL HISTORY: Lives alone. ALLERGIES: No known drug allergies. Never smoker. PHYSICAL EXAMINATION: VITAL SIGNS: T-max 100.6 has currently been afebrile since admission, blood pressure 160/83, pulse 7 2, respirations 18, O2 sat 95%. SKIN: Shows no areas of skin breakdown. Patient has a peripheral IV access, has an indwelling Glover catheter which has been removed today. For the first time, he is urinating his diapers. No lymphad enopathy. HEENT: Ocular movements are conjugate. Pupils are 1 mm and reactive. Nasal passages moist patent. Oral cavity with no lesions. NECK: Supple. No jugular venous distention, no thyromegaly. LUNGS: With symmetric air entry. HEART: S1, S2, regular rate with a soft aortic murmur. ABDOMEN: Soft, no distention, ascites, or organomegaly, no bladder distention. : No genital abnormalities. EXTREMITIES: No joint inflammatory activity. No edema. Pulses 1+ in dorsalis pedis popliteals 1+. NEUROLOGIC: He is quite drowsy, difficult to arouse. I could not ask orientation questions to him. LABORATORY DATA: White cell count down from 12.9-9.0, hemoglobin 10.8, MCV 99, platelets 204,000, 82 % neutrophils. INR 1.5, pH 7.42, pCO2 of 48, pO2 of 64, creatinine 3.62, glucose 48 up to 699, and l actic acid was 7.5 on arrival and then 4.0, calcium 10, bilirubin was 1.3. AST 48, ALT 50, alkaline phosphatase 140, CK was 604 on admission. Troponin 0.784. Lipase was 85. TSH 2.17, globulin 2.9. Urinalysis with 21-50 wbc's, 300 protein, 500 glucose. Toxicology with negative results except for o piates, which were detected. Two sets of blood cultures with polymicrobial bacteremia including what appears to be Gram-positive cocci in chains and a Gram negative erna yet to be identified, susceptibi lity tested. The [employer] system was not able to give an early identification. In terms of imaging studies, we have a chest x-ray with evidence of a right upper lung infiltrate with some air bronchogr ams. He had an echocardiogram in September, which showed EF 60%-65%. Moderate tricuspid regurg, severe elevated pulmonary artery pressure. ASSESSMENT: 1. Type 2 diabetes with poor compliance with his treatment at home. 2. Severe hyperglycemia hyperosmolar syndrome with altered mental state. 3. Polymicrobial bacteremia of uncertain etiology. DISCUSSION: The differential diagnosis includes an intra-abdominal inflammatory process associated w ith the polymicrobial bacteremia. We are still waiting on the identification of the organisms to get a better view on the possible sources. Lung source would be another possibility, but less likely. Endocarditis is not ruled out. We will have the further considered, although polymicrobial endocardi tis is quite rare. Spinal infection is unlikely, but we will have to inquire regarding back pain whe n he wakes up a bit. No other bone and joint inflammatory process noted. Genitourinary infection wi ll be another possibility in view of the abnormal urinalysis. Continue current regimen and wait on t he further identification of the organism. We will order CT abdomen and pelvis with contrast to eval uate the above possibilities.
[2017-11-11 05:07] LABS: Anion Gap 13 mmol/L (10-20); BUN (Urea Nitrogen) 42 mg/dL (8.4-25.7); Calc. Creatinine Clearance 14 mL/min (70-130); Calcium 9.2 mg/dL (7.8-10.44); Carbon Dioxide 28 mmol/L (23-31); Chloride 94 mmol/L (98-107); Estimated GFR-MDRD 11; Glucose 456 mg/dL (80-115); Potassium 4.4 mmol/L (3.5-5.1); Sodium 131 mmol/L (136-145)
[2017-11-11] MEDS: Insulin Regular 300 UNITS/3 ML VIAL SC PRN ×4 (05:45→22:10)
[2017-11-11] MEDS: Docusate 100 MG CAP PO SCH ×2 (08:49→20:13)
[2017-11-11] MEDS: Calcium Acetate 667 MG CAP PO SCH ×3 (08:49→16:43)
[2017-11-11] MEDS: NPH, Human Insulin Isophane 300 UNIT/3 ML VIAL SC SCH ×2 (08:49→20:34)
[2017-11-11] MEDS: Heparin 5,000 UNITS/ML VIAL SC SCH ×2 (08:50→20:20)
[2017-11-11] MEDS: Metoprolol Tartrate 50 MG TAB PO SCH ×2 (08:50→20:20)
[2017-11-11] MEDS: Clopidogrel Bisulfate 75 MG TAB PO SCH (08:50)
[2017-11-11] MEDS: Aspirin 81 mg Enteric Coated Tablet PO SCH (08:50)
[2017-11-11] MEDS: Multivit, Therapeutic 1 TAB PO SCH (08:50)
[2017-11-11] MEDS: Timolol 0.5% Ophth Soln 5 ml Bottle L EYE SCH (08:51)
--- NOTE | 2017-11-11 09:21 | CT ---
CT ABDOMEN AND PELVIS WITH IV AND ORAL CONTRAST: Date: 11/11/17 HISTORY: Bacteremia. Fever. COMPARISON: 07/02/17. FINDINGS: There is mild bibasilar atelectasis and emphysematous changes apparent at the lung bases. Severe calc ification present throughout the arterial structures. Gallbladder is now surgically absent. Cysts lorene se from the cortex of the atrophied kidneys. Urinary bladder is decompressed. No evidence of bowel obstruction. Degenerative changes lumbar spine. Gastroesophageal reflux. No abdominal abscess is apparent. Circumferential wall thickening of the rectum is similar in appeara nce to the prior study. No significant stranding of the adjacent fat. IMPRESSION: 1. No CT evidence of abdominal abscess or other cause for infection. 2. Interval cholecystectomy. 3. Circumferential wall thickening of the rectum suggests proctitis, although the appearance is unch anged from the previous exam. 4. Severe atherosclerosis. POS: ALVIN
[2017-11-11 09:34] LABS: Vancomycin, Random 16.7 ug/mL (See Comment)
--- NOTE | 2017-11-11 11:36 | PDOC.PN ---
- Subjective Encounter Start Date: 11/11/17 Encounter Start Time: 10:20 Subjective: is awake, mostly oriented -: no sob or abd pain or chest pain -: had CT abd and is awaiting breakfast - Objective MAR Reviewed: Yes Vital Signs & Weight: Vital Signs (12 hours) Temp Pulse Resp BP BP Pulse Ox 11/11/17 08:51 75 11/11/17 08:00 97.8 F 75 16 95 11/11/17 07:22 97.8 F 75 16 190/93 H 95 11/10/17 23:41 98.2 F 68 16 142/65 H 93 L Weight Admit Weight 156 lb 15.506 oz Weight 156 lb 15.506 oz Most Recent Monitor Data Heart Rate from ECG 88 NIBP 172/91 NIBP BP-Mean 110 Respiration from ECG 14 SpO2 94 I&O: 11/10/17 11/11/17 11/12/17 06:59 06:59 06:59 Intake Total 850 1180 Balance 850 1180 Result Diagrams: 11/07/17 05:40 11/11/17 03:59 Additional Labs: Accuchecks 11/11/17 11/11/17 11/10/17 08:43 05:36 20:48 POC Glucose 397 H 437 H 267 H 11/10/17 11/10/17 16:18 11:32 POC Glucose 319 H 288 H Phys Exam - Physical Examination HEENT: PERRLA, sclera anicteric Neck: no JVD, supple Respiratory: no wheezing, no rales Cardiovascular: no significant murmur, no rub Gastrointestinal: soft, non-tender, positive bowel sounds Musculoskeletal: no edema, pulses present Neurological: non-focal, moves all 4 limbs Dx/Plan (1) Sepsis Code(s): A41.9 - SEPSIS, UNSPECIFIED ORGANISM Status: Acute Qualifiers: Sepsis type: sepsis due to unspecified organism Qualified Code(s): A41.9 - Sepsis, unspecified organism (2) Bacteremia Code(s): R78.81 - BACTEREMIA Status: Acute (3) Hyperglycemia due to type 1 diabetes mellitus Code(s): E10.65 - TYPE 1 DIABETES MELLITUS WITH HYPERGLYCEMIA Status: Acute Comment: labile (4) Dyslipidemia Code(s): E78.5 - HYPERLIPIDEMIA, UNSPECIFIED Status: Chronic (5) Ventricular fibrillation Code(s): I49.01 - VENTRICULAR FIBRILLATION Status: Resolved Comment: Had 30 second cardiac arrest, likely from severe electrolyte disturbances. (6) ESRD (end stage renal disease) on dialysis Code(s): N18.6 - END STAGE RENAL DISEASE; Z99.2 - DEPENDENCE ON RENAL DIALYSIS Status: Chronic Comment: Dialysis per nephrology. (7) HTN (hypertension) Code(s): I10 - ESSENTIAL (PRIMARY) HYPERTENSION Status: Chronic Qualifiers: Hypertension type: essential hypertension - Plan cultures taken on growing polymicrobial nagi, await full results -: is on cefepime and vanc HD dosing -: DM is labile, needs consistent portions, compliance with diet -: on asp, plavix, lipitor, lopressor and imdur -: PT to amb pt in hallway as tolerated, CT abd -ve for ac changes * . Review of Systems - Medications/Allergies Allergies/Adverse Reactions: Allergies Allergy/AdvReac Type Severity Reaction Status Date / Time adhesive Allergy Verified 09/16/17 23:40 Medications: Current Medications Acetaminophen (Tylenol) 650 mg PO Q4H PRN PRN Reason: Headache/Fever or Pain Last Admin: 11/06/17 20:42 Dose: 650 mg Acetaminophen (Tylenol) 650 mg [place] Q4H PRN PRN Reason: Headache/Fever or Pain Last Admin: 11/05/17 16:52 Dose: 650 mg Aspirin (Ecotrin) 81 mg PO DAILY [facility] Last Admin: 11/11/17 08:50 Dose: 81 mg Atorvastatin Calcium (Lipitor) 40 mg PO HS [facility] Last Admin: 11/10/17 20:22 Dose: 40 mg Calcium Acetate (Phoslo) 2,668 mg PO TID[facility] Last Admin: 11/11/17 08:49 Dose: 2,668 mg Clopidogrel Bisulfate (Plavix) 75 mg PO DAILY [facility] Last Admin: 11/11/17 08:50 Dose: 75 mg Dextrose/Water (Dextrose 50%) 25 gm IVP PRN PRN PRN Reason: HYPOGLYCEMIA PROTOCOL Docusate Sodium (Colace) 100 mg PO BID [facility] Last Admin: 11/11/17 08:49 Dose: 100 mg Glucagon (Glucagon) 1 mg IM PRN PRN PRN Reason: HYPOGLYCEMIA PROTOCOL Heparin Sodium (Porcine) (Heparin) 5,000 units SC BID [facility] Last Admin: 11/11/17 08:50 Dose: 5,000 units Dextrose/Water (D5w) 1,000 mls @ 0 mls/hr IV INF PRN; As Directed PRN Reason: HYPOGLYCEMIA PROTOCOL Vancomycin HCl 1.25 gm/ Sodium (Chloride) 250 mls @ 166.667 mls/hr IVPB [facility] Vancomycin HCl 1 gm/ Device 200 mls @ 200 mls/hr IVPB [facility] Vancomycin HCl 750 mg/ Sodium (Chloride) 250 mls @ 250 mls/hr IVPB [facility] Vancomycin HCl 500 mg/ Sodium (Chloride) 100 mls @ 100 mls/hr IVPB [facility] Cefepime HCl 0.5 gm/Miscellaneous Medication 1 each/ Sterile Water 5 mls @ 60 mls/hr SLOW IVP 1500 [facility] Insulin Human NPH (Humulin N) 15 unit SC BID [facility] Last Admin: 11/11/17 08:49 Dose: 15 unit Insulin Human Regular (Humulin R) 0 units SC .MODERATE SLIDING SC PRN; Protocol PRN Reason: MODERATE SLIDING SCALE Last Admin: 11/11/17 05:45 Dose: 10 unit Isosorbide Mononitrate (Imdur Er) 30 mg PO DAILY [facility] Last Admin: 11/11/17 08:50 Dose: 30 mg Lorazepam (Ativan) 1 mg SLOW IVP Q6H PRN PRN Reason: Anxiety/Agitation Last Admin: 11/09/17 20:14 Dose: 1 mg Metoprolol Tartrate (Lopressor) 50 mg PO BID [facility] Last Admin: 11/11/17 08:50 Dose: 50 mg Miscellaneous Medication (Pharmacy To Dose) 0 each IVPB DAILYPRN PRN PRN Reason: LABS Multivitamins (Theragran) 1 tab PO DAILY [facility] Last Admin: 11/11/17 08:50 Dose: 1 tab Nitroglycerin (Nitrostat) 0.4 mg SL Q5MIN PRN PRN Reason: Chest Pain Hold Vancomycin For (Level >20) 0 each FS .AT DIALYSIS [facility] Ondansetron HCl (Zofran) 4 mg IVP Q6H PRN PRN Reason: Nausea/Vomiting Pantoprazole Sodium (Protonix) 40 mg PO DAILY [facility] Last Admin: 11/11/17 08:50 Dose: 40 mg Sertraline HCl (Zoloft) 50 mg PO HS [facility] Last Admin: 11/10/17 20:22 Dose: 50 mg Sodium Chloride (Flush - Normal Saline) 10 ml IVF Q12HR [facility] Last Admin: 11/11/17 08:50 Dose: 10 ml Sodium Chloride (Flush - Normal Saline) 10 ml IVF PRN PRN PRN Reason: Saline Flush Timolol Maleate (Timoptic 0.5% Oph Soln) 1 drop L EYE DAILY [facility] Last Admin: 11/11/17 08:51 Dose: 1 drop
[2017-11-11] MEDS: Cefepime 0.5 GM, Admixture Fee 1 EACH in Sterile Water 5 ML SLOW IVP SCH (14:38)
[2017-11-11] MEDS ORDERED: Cefepime 0.5 GM in Admixture Fee 1 EACH IVPB SCH (15:00)
--- NOTE | 2017-11-11 16:51 | PRG ---
DATE OF SERVICE: 11/11/2017 SUBJECTIVE: Mr. Lunsford is more alert. He denies headaches, no neck pain, no abdominal pain, no alethea rrhea, and no genitourinary symptoms. PHYSICAL EXAMINATION: VITAL SIGNS: Have normalized. GENERAL APPEARANCE: Appears chronically ill. HEENT: Ocular movements conjugate. LUNGS: With symmetric clear breath sounds. HEART: S1 and S2, regular rate. ABDOMEN: Soft, not distended. No bladder distention. LABORATORY DATA AND IMAGING DATA: White cell count 9.0, hemoglobin 10.8, platelets 204 with 82% neut rophils. Sodium 131 and creatinine 5.29. Abdomen and pelvis CT demonstrated basilar atelectases, em physematous changes, calcification of arterial structures, surgically absent gallbladder, decompresse d urinary bladder, circumferential wall thickening of the rectum, possible proctitis. ASSESSMENT AND DISCUSSION: Type 2 diabetes, severe hyperglycemia, hyperosmolar syndrome, altered men binta state and polymicrobial bacteremia with evidence of proctitis on CT scan. The patient does not h ave symptoms to indicate proctitis though. Possibility of ischemic proctitis is less likely since us ually that area has multiple sources of arterial blood supply. We will have GI take a look at him an d see if he needs endoscopy. The workup of the bacteremia is progressing in the lab and they still d o not have identification, hopefully tomorrow.
[2017-11-11] MEDS: Atorvastatin Calcium 40 MG TAB PO SCH (20:13)
[2017-11-12 05:08] LABS: #Eosinphils 0.3 thou/uL (0.0-0.7); #Monocytes 0.6 thou/uL (0.11-0.59); #Neutrophils 4.6 thou/uL (1.40-6.50); %Eosinophils 5.1 % (0.0-10.0); %Lymphocytes 15.3 % (21.0-51.0); %Monocytes 9.5 % (0.0-10.0); %Neutrophils 70.2 % (42.0-75.0); Hemoglobin 10.6 g/dL (14.0-18.0); Mean Corpuscular HGB CONC 33.9 g/dL (32.0-36.0); Mean Corpuscular Hemoglobin 32.9 pg (27.0-31.0); Mean Corpuscular Volume 97.2 fl (80.0-94.0); Mean Platelet Volume 7.1 fL (7.4-10.4); Platelet Count 278 thou/uL (130-400); RBC Distribution Width 15.1 % (11.5-14.5); Red Blood Cell (RBC) Count 3.22 mill/uL (4.70-6.10); White Blood Cell (WBC) Count 6.5 thou/uL (4.8-10.8)
[2017-11-12 05:30] LABS: Anion Gap 14 mmol/L (10-20); BUN (Urea Nitrogen) 25 mg/dL (8.4-25.7); Calc. Creatinine Clearance 18 mL/min (70-130); Calcium 8.9 mg/dL (7.8-10.44); Carbon Dioxide 29 mmol/L (23-31); Chloride 98 mmol/L (98-107); Estimated GFR-MDRD 15; Glucose 158 mg/dL (80-115); Potassium 4.1 mmol/L (3.5-5.1); Sodium 137 mmol/L (136-145)
--- NOTE | 2017-11-12 06:48 | CON ---
DATE OF CONSULTATION: 11/11/2017 REASON FOR CONSULTATION: Possible proctitis, bacteremia. CONSULTING PHYSICIAN: Cameron Hilton M.D. HISTORY OF PRESENT ILLNESS: The patient is a 67-year-old male with past medical history of atrial flutter, status post ablation; end-stage renal disease , on hemodialysis; diabetes complicated by retinopathy; peripheral vascular disease; hypertension; depression; chronic anemia; hyperlipidemia; and gout; who initially was presenting to the hospital with altered mental status/loss of consciousness. Per review of the chart, the patient was found at home by EMS and was unresponsive at that time. He was subsequently transported to [facility] where he underwent cardiac resuscitation, which did include CPR. He was ultimately transferred to the ICU for further level of care and noted to have bacteremia consisting of a polymicrobial infection. After resuscitated and antibiotic treatment, the patient's clinical status has improved significantly over the last few days; however, in an attempt to determine source of the possible polymicrobial infection, he underwent CT scan of the abdomen and pelvis, which showed circumferential wall thickening of the rectum with no adjacent fat stranding concerning for possible infectious etiology at that particular route. Currently, he denies any nausea, vomiting, fevers, chills, abdominal pain, diarrhea, constipation, hematochezia, melena, or hematemesis. He denies any pain with defecation nor fecal urgency associated with possible proctitis. Over the last 2-3 days, he has been having approximately 1 solid bowel movement every other day with no special maneuvers in order to defecate. REVIEW OF SYSTEMS: A 10 category review of systems was obtained with all responses negative except for the pertinent positives as listed in the HPI. PAST MEDICAL HISTORY: As per HPI. PAST SURGICAL HISTORY: Recent cavotricuspid ablation done for atrial flutter, AV fistula placement for hemodialysis, and prior history of aortofemoral bypass. FAMILY HISTORY: Denies any GI malignancies. SOCIAL HISTORY: Denies any tobacco, alcohol, or illicit drug use. OUTPATIENT AND INPATIENT MEDICATIONS: Reviewed. ALLERGIES: No known drug allergies. PHYSICAL EXAMINATION: VITAL SIGNS: Temperature of 97.6, pulse 73, blood pressure 147/85, respiratory rate 18, satting 96% on room air. GENERAL: The patient is lying in bed comfortably, in no acute distress, alert and oriented x4. CARDIOVASCULAR: Regular rate and rhythm with no discernible murmurs, gallops, or rubs. RESPIRATORY: Clear to auscultation bilaterally with no discernible wheezes or rales. ABDOMEN: Normoactive bowel sounds, soft, nondistended, mild tenderness to palpation in the periumbilical region. EXTREMITIES: No cyanosis, clubbing, or edema. LABORATORY DATA: No current labs are available for review. IMAGING DATA: CT of the abdomen and pelvis obtained on 11/11/2017 showed mild bibasilar atelectasis and emphysematous changes apparent in the lung bases. The patient is also status post cholecystectomy. No abdominal abscess is apparent; however, circumferential wall thickening of the rectum was seen that is similar to appearance from the prior study from 06/2017. No significant stranding of the adjacent fat. ASSESSMENT AND PLAN: The patient is a 67-year-old male with past medical history of atrial flutter, status post ablation; end-stage renal disease, on hemodialysis; diabetes; peripheral vascular disease; hypertension; depression; chronic anemia; hyperlipidemia; and gout; presenting with a polymicrobial bacteremia. Polymicrobial bacteremia: The patient is initially presenting with loss of consciousness and respiratory distress, requiring mechanical ventilation and intubation shortly after admission. He also was found to have a multi-organism bacteremia concerning for possible GI origin. However, upon questioning the patient, he denies any GI symptoms either before or during this hospitalization that would lend itself towards the diagnosis of a GI infective process. He does have some evidence of wall thickening in the rectum, but he does not have any adjacent fat stranding and is unchanged from a CT in 06/2017. When coupled with lack of symptoms for proctitis, the likelihood of this being the infectious etiology is unlikely. At this time, the source of the polymicrobial infection is unclear with CT abdomen and pelvis also negative for other intra- abdominal process or abscess that might contribute to the current clinical picture. RECOMMENDATIONS: 1. We would hold on any endoscopic evaluation for now in light of active bacteremia and increased risk of complication with sedation and/or procedure in light of this infection. 2. Would agree with following up on bacterial cultures for further speciation and tailoring of antibiotic therapy towards this. 3. Continue to monitor for any signs of GI inflammation or signs of proctitis. I will review the prior colonoscopy reports for any indicators that might contribute to the current findings seen on the CT abdomen and pelvis. However, with multiple recent colonoscopies in the recent past, the likelihood of a colonic malignancy is low. We will continue to follow. Please call with any questions. MTDD
[2017-11-12] MEDS: Calcium Acetate 667 MG CAP PO SCH ×3 (08:34→16:18)
[2017-11-12] MEDS: Multivit, Therapeutic 1 TAB PO SCH (08:34)
[2017-11-12] MEDS: Heparin 5,000 UNITS/ML VIAL SC SCH ×2 (08:35→21:40)
[2017-11-12] MEDS: Metoprolol Tartrate 50 MG TAB PO SCH ×2 (08:35→21:38)
[2017-11-12] MEDS: Aspirin 81 mg Enteric Coated Tablet PO SCH (08:35)
[2017-11-12] MEDS: Timolol 0.5% Ophth Soln 5 ml Bottle L EYE SCH (08:35)
[2017-11-12] MEDS: Clopidogrel Bisulfate 75 MG TAB PO SCH (08:35)
[2017-11-12] MEDS: Docusate 100 MG CAP PO SCH ×2 (08:35→21:39)
[2017-11-12] MEDS: NPH, Human Insulin Isophane 300 UNIT/3 ML VIAL SC SCH ×2 (08:36→21:41)
[2017-11-12] MEDS: Cefepime 0.5 GM, Admixture Fee 1 EACH in Sterile Water 5 ML SLOW IVP SCH (14:44)
[2017-11-12] MEDS: metroNIDAZOLE 250 MG TAB PO SCH ×2 (16:18→21:38)
[2017-11-12] MEDS: cefTRIAXone\\ROCEPHIN 2 GM in Sodium Chloride 0.9% 100 ML IVPB SCH (16:18)
[2017-11-12] MEDS: Insulin Regular 300 UNITS/3 ML VIAL SC PRN (16:19)
--- NOTE | 2017-11-12 17:11 | PRG ---
DATE OF SERVICE: 11/12/2017 SUBJECTIVE: Mr. Lunsford denies headaches, no sore throat, no toothache or mandibular pain, no back p ain, no chest pain, no abdominal pain, no tenesmus or diarrhea. No genitourinary symptoms. No joint symptoms. PHYSICAL EXAMINATION: VITAL SIGNS: T-max 98.1, blood pressure 152/85, pulse 77. Apparently, he was a little bit orthostat ic, still with little bit low blood pressure this morning. LABORATORY DATA: White cell count is 6.5, hemoglobin 10.6, platelets 278, INR 1.5, pH 7.42, pCO2 48, pO2 64, sodium 137, creatinine 2.98, CO2 29. ASSESSMENT AND DISCUSSION: Type 2 diabetes with hyperosmolar syndrome, change in mental status and a naerobic polymicrobial bacteremia. The patient has end-stage renal disease and receives hemodialysis through an AV fistula. There is the area for possible proctitis in the CT of the abdomen and pelvis . At this point, the only abnormality noted on the evaluation thus far beyond the bacteremia is the evidence of proctitis. This appears to be present for the past few months. Order Dispatcher Chief does not recommend any intervention at this point, but probably we will need repeat colonoscopy down the r oad. It is possible that there is an abnormality that he has not yet been identified on the imaging studies. The other sites of possible source would be the oral cavity, but there is no apparent clini ambika involvement at this point in time. The organisms are anaerobes and will have to switch him to a different combination. We will transition him to Rocephin plus Flagyl. Eventually, consider dischar ge planning on oral Augmentin depending on clinical course.
--- NOTE | 2017-11-12 18:57 | PDOC.PN ---
- Subjective Encounter Start Date: 11/12/17 Encounter Start Time: 11:40 Subjective: awake, not in distress -: responds well to verbal stimuli, is oriented - Objective MAR Reviewed: Yes Vital Signs & Weight: Vital Signs (12 hours) Temp Pulse Pulse Pulse Resp BP BP 11/12/17 16:02 11/12/17 11:18 11/12/17 10:23 78 78 87/52 L 11/12/17 08:35 77 177/95 H 11/12/17 08:00 98.1 F 77 18 11/12/17 07:33 98.1 F 77 18 BP BP Pulse Ox 11/12/17 16:02 136/78 11/12/17 11:18 152/85 H 11/12/17 10:23 138/80 11/12/17 08:35 11/12/17 08:00 94 L 11/12/17 07:33 177/95 H 94 L Weight Admit Weight 156 lb 15.506 oz Weight 156 lb 15.506 oz Most Recent Monitor Data Heart Rate from ECG 88 NIBP 172/91 NIBP BP-Mean 110 Respiration from ECG 14 SpO2 94 I&O: 11/11/17 11/12/17 11/13/17 06:59 06:59 06:59 Intake Total 1180 240 Output Total 0 Balance 1180 240 Result Diagrams: 11/12/17 04:50 11/12/17 04:50 Additional Labs: Accuchecks 11/12/17 11/12/17 11/12/17 16:03 11:20 04:44 POC Glucose 299 H 285 H 174 H 11/11/17 11/11/17 22:09 20:30 POC Glucose 299 H 333 H Phys Exam - Physical Examination HEENT: PERRLA, moist MMs Neck: no JVD, supple Respiratory: no wheezing, no rales Cardiovascular: RRR, no significant murmur Gastrointestinal: soft, non-tender, positive bowel sounds Musculoskeletal: no edema, pulses present Neurological: non-focal, moves all 4 limbs Psychiatric: A&O x 3 Dx/Plan (1) Sepsis Code(s): A41.9 - SEPSIS, UNSPECIFIED ORGANISM Status: Acute Qualifiers: Sepsis type: sepsis due to unspecified organism Qualified Code(s): A41.9 - Sepsis, unspecified organism (2) Bacteremia Code(s): R78.81 - BACTEREMIA Status: Acute (3) Hyperglycemia due to type 1 diabetes mellitus Code(s): E10.65 - TYPE 1 DIABETES MELLITUS WITH HYPERGLYCEMIA Status: Acute Comment: labile (4) Dyslipidemia Code(s): E78.5 - HYPERLIPIDEMIA, UNSPECIFIED Status: Chronic (5) Ventricular fibrillation Code(s): I49.01 - VENTRICULAR FIBRILLATION Status: Resolved Comment: Had 30 second cardiac arrest, likely from severe electrolyte disturbances. (6) ESRD (end stage renal disease) on dialysis Code(s): N18.6 - END STAGE RENAL DISEASE; Z99.2 - DEPENDENCE ON RENAL DIALYSIS Status: Chronic Comment: Dialysis per nephrology. (7) HTN (hypertension) Code(s): I10 - ESSENTIAL (PRIMARY) HYPERTENSION Status: Chronic Qualifiers: Hypertension type: essential hypertension - Plan is growing anaerobes in blood cs, unclear source -: on ceftriaxone and flagyl from today -: to mobilize with PT, may need placement depending on PT eval -: his dm is very labile, will not attempt at strict control due hypoglycemia -: - and freq encephalopathies, try to keep fingerstick less than 200 * . is on levemir 15u bid with coverage. Encourage po intake with same amount of calories. Long h/o noncompliance with diet and insulins and hospitalizations Review of Systems - Medications/Allergies Allergies/Adverse Reactions: Allergies Allergy/AdvReac Type Severity Reaction Status Date / Time adhesive Allergy Verified 09/16/17 23:40 Medications: Current Medications Acetaminophen (Tylenol) 650 mg PO Q4H PRN PRN Reason: Headache/Fever or Pain Last Admin: 11/06/17 20:42 Dose: 650 mg Acetaminophen (Tylenol) 650 mg [place] Q4H PRN PRN Reason: Headache/Fever or Pain Last Admin: 11/05/17 16:52 Dose: 650 mg Aspirin (Ecotrin) 81 mg PO DAILY [facility] Last Admin: 11/12/17 08:35 Dose: 81 mg Atorvastatin Calcium (Lipitor) 40 mg PO HS [facility] Last Admin: 11/11/17 20:13 Dose: 40 mg Calcium Acetate (Phoslo) 2,668 mg PO TID-WM [facility] Last Admin: 11/12/17 16:18 Dose: 2,668 mg Clopidogrel Bisulfate (Plavix) 75 mg PO DAILY [facility] Last Admin: 11/12/17 08:35 Dose: 75 mg Dextrose/Water (Dextrose 50%) 25 gm IVP PRN PRN PRN Reason: HYPOGLYCEMIA PROTOCOL Docusate Sodium (Colace) 100 mg PO BID [facility] Last Admin: 11/12/17 08:35 Dose: 100 mg Glucagon (Glucagon) 1 mg IM PRN PRN PRN Reason: HYPOGLYCEMIA PROTOCOL Heparin Sodium (Porcine) (Heparin) 5,000 units SC BID [facility] Last Admin: 11/12/17 08:35 Dose: 5,000 units Dextrose/Water (D5w) 1,000 mls @ 0 mls/hr IV INF PRN; As Directed PRN Reason: HYPOGLYCEMIA PROTOCOL Ceftriaxone Sodium 2 gm/ (Sodium Chloride) 100 mls @ 200 mls/hr IVPB Q24HR [facility] Last Admin: 11/12/17 16:18 Dose: 100 mls Insulin Human NPH (Humulin N) 15 unit SC BID [facility] Last Admin: 11/12/17 08:36 Dose: 15 unit Insulin Human Regular (Humulin R) 0 units SC .MODERATE SLIDING SC PRN; Protocol PRN Reason: MODERATE SLIDING SCALE Last Admin: 11/12/17 16:19 Dose: 6 unit Isosorbide Mononitrate (Imdur Er) 30 mg PO DAILY [facility] Last Admin: 11/12/17 08:35 Dose: 30 mg Lorazepam (Ativan) 1 mg SLOW IVP Q6H PRN PRN Reason: Anxiety/Agitation Last Admin: 11/09/17 20:14 Dose: 1 mg Metoprolol Tartrate (Lopressor) 50 mg PO BID [facility] Last Admin: 11/12/17 08:35 Dose: 50 mg Metronidazole (Flagyl) 250 mg PO TID [facility] Last Admin: 11/12/17 16:18 Dose: 250 mg Miscellaneous Medication (Pharmacy To Dose) 0 each IVPB DAILYPRN PRN PRN Reason: LABS Multivitamins (Theragran) 1 tab PO DAILY [facility] Last Admin: 11/12/17 08:34 Dose: 1 tab Nitroglycerin (Nitrostat) 0.4 mg SL Q5MIN PRN PRN Reason: Chest Pain Hold Vancomycin For (Level >20) 0 each FS .AT DIALYSIS [facility] Ondansetron HCl (Zofran) 4 mg IVP Q6H PRN PRN Reason: Nausea/Vomiting Pantoprazole Sodium (Protonix) 40 mg PO DAILY [facility] Last Admin: 11/12/17 08:35 Dose: 40 mg Sertraline HCl (Zoloft) 50 mg PO HS [facility] Last Admin: 11/11/17 20:14 Dose: 50 mg Sodium Chloride (Flush - Normal Saline) 10 ml IVF Q12HR [facility] Last Admin: 11/12/17 08:35 Dose: 10 ml Sodium Chloride (Flush - Normal Saline) 10 ml IVF PRN PRN PRN Reason: Saline Flush Timolol Maleate (Timoptic 0.5% [facility]) 1 drop L EYE DAILY [facility] Last Admin: 11/12/17 08:35 Dose: 1 drop
[2017-11-12] MEDS: Atorvastatin Calcium 40 MG TAB PO SCH (21:39)
--- NOTE | 2017-11-12 21:50 | PRG ---
DATE OF SERVICE: 11/12/2017 REASON FOR CONSULTATION: Possible proctitis, bacteremia. SUBJECTIVE: Upon questioning the patient today, he states when asked how he felt he responded "I don 't really know." He currently denies any nausea, vomiting, fevers, chills, diarrhea, constipation, a bdominal pain, odynophagia, dysphagia, or GI bleeding. During the course of the interview, he was ve ry tearful about the recent of his spouse as well as the future of his own health care outside of the hospital. OBJECTIVE: VITAL SIGNS: Temperature 98.2, pulse 64, blood pressure 145/81, respiratory rate 18, satting 98% on room air. GENERAL: The patient was sitting in bed at bedside, in no acute distress. He is alert and oriented x4. CARDIOVASCULAR: Regular rate and rhythm. RESPIRATORY: Clear to auscultation bilaterally. ABDOMEN: Normoactive bowel sounds, soft, nontender, nondistended. EXTREMITIES: No cyanosis, clubbing or edema. LABORATORY DATA: CBC with a white blood cell count of 6.5, hemoglobin 10.6, hematocrit 31.3, platele ts 278. Chemistry with sodium of 137, potassium 4.1, chloride 98, CO2 of 29, BUN 25, creatinine 3.98 , glucose 158. IMAGING DATA: No current GI imaging is available for review. ASSESSMENT AND PLAN: The patient is a 67-year-old male with past medical history of atrial flutter, status post ablation; end-stage renal disease, on hemodialysis; diabetes; peripheral vascular disease ; hypertension; depression; chronic anemia; hyperlipidemia and gout; presenting with a polymicrobial bacteremia. Polymicrobial bacteremia. The patient initially presented with loss of consciousness and respiratory distress, prompting admission to the hospital, intubation via EMS in the field. On admission, he un derwent CPR with return of spontaneous circulation; however, blood cultures x2 obtained on 11/05/2017 are showing positivity for both gram-negative rods and gram-positive cocci indicative of a polymicro bial infection. Given the nature of this infection and multiple organisms being cultured, the most l ikely source would be the GI tract. Lending credence to the theory is also a CT scan of the abdomen showing wall thickening in the rectum, but without any evidence of fat stranding and is relatively un changed from a CT that was obtained in 06/2017. At this point in time, he has no current GI symptoms that would lend itself towards proctitis or inflammation of the colon. He also had a colonoscopy in 06/2017, which showed the presence of multiple colonic polyps within the cecum, ascending and transv erse colon, but no mention of any abnormalities within the rectum at all. At this point, the origin of his infection is extremely confusing with no clear etiology at this point in time. Differential c ould include a GI infection/inflammation versus dental abscesses or poor dentition as being more comm on sites of polymicrobial infection. He does get end-stage renal disease and is currently on hemodia lysis, but introduction through this route should be more monomicrobial with more skin nagi. RECOMMENDATIONS: 1. We will follow up with the bacterial cultures for further speciation and tailoring of antibiotic therapy towards this. 2. Based on speciation, we will consider doing a limited evaluation of the lower GI tract with a fle xible sigmoidoscopy for evaluation of this proctitis. 3. We will continue to monitor clinically for any signs of GI inflammation or evidence of GI tract i nvolvement. We will continue to follow. Please call with any questions.
[2017-11-12] MEDS: Nitroglycerin 0.4 MG TAB (25 Tab Bottle) SL PRN ×3 (22:44→23:01)
[2017-11-12 23:49] LABS: CKMB 1.5 ng/mL (0-6.6)
[2017-11-13 03:42] LABS: Anion Gap 15 mmol/L (10-20); BUN (Urea Nitrogen) 47 mg/dL (8.4-25.7); Calc. Creatinine Clearance 13 mL/min (70-130); Calcium 8.9 mg/dL (7.8-10.44); Carbon Dioxide 29 mmol/L (23-31); Chloride 92 mmol/L (98-107); Estimated GFR-MDRD 11; Glucose 433 mg/dL (80-115); Potassium 4.6 mmol/L (3.5-5.1); Sodium 131 mmol/L (136-145)
[2017-11-13 03:48] LABS: CKMB 2.1 ng/mL (0-6.6); Troponin I 0.045 ng/mL (< 0.028)
--- NOTE | 2017-11-13 05:01 | PDOC.EVN ---
Event Note - Event Note Event Note: Nurse called during night concerned about pt's chest pain. Recommended doing a ekg and checking trops. upon evaluation pt had left side reproducible chest pain. His trops are intermediate will trend x3, ekg no acute changes. will also rx lidoderm patch to pt's chest.
[2017-11-13] MEDS ORDERED: hydrALAZINE 20 MG/ML VIAL SLOW IVP SCH (05:15)
[2017-11-13] MEDS ORDERED: Lidocaine 5% Patch TD ONE (05:15)
[2017-11-13] MEDS: Insulin Regular 300 UNITS/3 ML VIAL SC PRN ×2 (06:06→17:40)
[2017-11-13] MEDS ORDERED: Heparin 10,000 UNITS/ 10 ML VIAL ONE (10:56)
[2017-11-13] MEDS: Calcium Acetate 667 MG CAP PO SCH ×3 (11:20→17:40)
[2017-11-13] MEDS: Heparin 5,000 UNITS/ML VIAL SC SCH ×2 (11:22→20:24)
[2017-11-13] MEDS: Docusate 100 MG CAP PO SCH ×2 (11:22→20:24)
[2017-11-13] MEDS: Aspirin 81 mg Enteric Coated Tablet PO SCH (11:22)
[2017-11-13] MEDS: Clopidogrel Bisulfate 75 MG TAB PO SCH (11:22)
[2017-11-13] MEDS: Multivit, Therapeutic 1 TAB PO SCH (11:23)
[2017-11-13] MEDS: metroNIDAZOLE 250 MG TAB PO SCH ×3 (11:25→20:24)
[2017-11-13] MEDS: Metoprolol Tartrate 50 MG TAB PO SCH ×3 (11:26→23:48)
[2017-11-13] MEDS: Timolol 0.5% Ophth Soln 5 ml Bottle L EYE SCH (11:27)
--- NOTE | 2017-11-13 11:29 | PDOC.PN ---
- Subjective Encounter Start Date: 11/13/17 Encounter Start Time: 10:30 Subjective: getting HD now -: no chest pain or sob - Objective MAR Reviewed: Yes Vital Signs & Weight: Vital Signs (12 hours) Temp Pulse Resp BP BP BP Pulse Ox 11/13/17 05:56 75 11/13/17 04:00 97.9 F 68 18 206/100 H 98 11/13/17 00:20 97.7 F 76 18 212/105 H 94 L 11/13/17 00:00 97.3 F L 76 18 192/94 H 94 L 11/12/17 23:30 180/90 H Weight Admit Weight 156 lb 15.506 oz Weight 156 lb 15.506 oz Most Recent Monitor Data Heart Rate from ECG 88 NIBP 172/91 NIBP BP-Mean 110 Respiration from ECG 14 SpO2 94 I&O: 11/12/17 11/13/17 11/14/17 06:59 06:59 06:59 Intake Total 240 Output Total 0 Balance 240 Result Diagrams: 11/12/17 04:50 11/13/17 03:16 Additional Labs: Accuchecks 11/13/17 11/12/17 11/12/17 04:34 20:26 16:03 POC Glucose 389 H 343 H 299 H 11/12/17 11:20 POC Glucose 285 H Phys Exam - Physical Examination HEENT: PERRLA, moist MMs Neck: no JVD, supple Respiratory: no wheezing, no rales Cardiovascular: RRR, no significant murmur Gastrointestinal: soft, non-tender, positive bowel sounds Musculoskeletal: no edema, pulses present Neurological: non-focal, moves all 4 limbs Psychiatric: A&O x 3 Dx/Plan (1) Sepsis Code(s): A41.9 - SEPSIS, UNSPECIFIED ORGANISM Status: Acute Qualifiers: Sepsis type: sepsis due to unspecified organism Qualified Code(s): A41.9 - Sepsis, unspecified organism (2) Bacteremia Code(s): R78.81 - BACTEREMIA Status: Acute Comment: polymicrobes growing (3) Hyperglycemia due to type 1 diabetes mellitus Code(s): E10.65 - TYPE 1 DIABETES MELLITUS WITH HYPERGLYCEMIA Status: Acute Comment: labile (4) Dyslipidemia Code(s): E78.5 - HYPERLIPIDEMIA, UNSPECIFIED Status: Chronic (5) Ventricular fibrillation Code(s): I49.01 - VENTRICULAR FIBRILLATION Status: Resolved Comment: Had 30 second cardiac arrest, likely from severe electrolyte disturbances. (6) ESRD (end stage renal disease) on dialysis Code(s): N18.6 - END STAGE RENAL DISEASE; Z99.2 - DEPENDENCE ON RENAL DIALYSIS Status: Chronic Comment: Dialysis per nephrology. (7) HTN (hypertension) Code(s): I10 - ESSENTIAL (PRIMARY) HYPERTENSION Status: Chronic Qualifiers: Hypertension type: essential hypertension - Plan cxr after HD, trop are stable -: no current chest pain -: is on ceftriaxone and flagyl, await full cs results -: add levemir to NPH to see if dm gets controlled, still labile -: to amb as tolerated, rehab eval * . Review of Systems - Medications/Allergies Allergies/Adverse Reactions: Allergies Allergy/AdvReac Type Severity Reaction Status Date / Time adhesive Allergy Verified 09/16/17 23:40 Medications: Current Medications Acetaminophen (Tylenol) 650 mg PO Q4H PRN PRN Reason: Headache/Fever or Pain Last Admin: 11/06/17 20:42 Dose: 650 mg Acetaminophen (Tylenol) 650 mg [place] Q4H PRN PRN Reason: Headache/Fever or Pain Last Admin: 11/05/17 16:52 Dose: 650 mg Aspirin (Ecotrin) 81 mg PO DAILY [facility] Last Admin: 11/12/17 08:35 Dose: 81 mg Atorvastatin Calcium (Lipitor) 40 mg PO HS [facility] Last Admin: 11/12/17 21:39 Dose: 40 mg Calcium Acetate (Phoslo) 2,668 mg PO TID-WM [facility] Last Admin: 11/12/17 16:18 Dose: 2,668 mg Clopidogrel Bisulfate (Plavix) 75 mg PO DAILY [facility] Last Admin: 11/12/17 08:35 Dose: 75 mg Dextrose/Water (Dextrose 50%) 25 gm IVP PRN PRN PRN Reason: HYPOGLYCEMIA PROTOCOL Docusate Sodium (Colace) 100 mg PO BID [facility] Last Admin: 11/12/17 21:39 Dose: 100 mg Glucagon (Glucagon) 1 mg IM PRN PRN PRN Reason: HYPOGLYCEMIA PROTOCOL Heparin Sodium (Porcine) (Heparin) 5,000 units SC BID [facility] Last Admin: 11/12/17 21:40 Dose: 5,000 units Dextrose/Water (D5w) 1,000 mls @ 0 mls/hr IV INF PRN; As Directed PRN Reason: HYPOGLYCEMIA PROTOCOL Ceftriaxone Sodium 2 gm/ (Sodium Chloride) 100 mls @ 200 mls/hr IVPB Q24HR [facility] Last Admin: 11/12/17 16:18 Dose: 100 mls Insulin Detemir 10 units/ (Miscellaneous Medication) 0.1 mls @ 0 mls/hr SC QAM [facility] Insulin Human NPH (Humulin N) 15 unit SC BID [facility] Last Admin: 11/12/17 21:41 Dose: 15 unit Insulin Human Regular (Humulin R) 0 units SC .MODERATE SLIDING SC PRN; Protocol PRN Reason: MODERATE SLIDING SCALE Last Admin: 11/13/17 06:06 Dose: 10 unit Isosorbide Mononitrate (Imdur Er) 30 mg PO DAILY [facility] Last Admin: 11/12/17 08:35 Dose: 30 mg Lorazepam (Ativan) 1 mg SLOW IVP Q6H PRN PRN Reason: Anxiety/Agitation Last Admin: 11/09/17 20:14 Dose: 1 mg Metoprolol Tartrate (Lopressor) 50 mg PO BID [facility] Last Admin: 11/12/17 21:38 Dose: 50 mg Metronidazole (Flagyl) 250 mg PO TID [facility] Last Admin: 11/12/17 21:38 Dose: 250 mg Miscellaneous Medication (Pharmacy To Dose) 0 each IVPB DAILYPRN PRN PRN Reason: LABS Miscellaneous Medication (Lidocaine Patch Removal) 1 each TOP 1715 [facility] Stop: 11/13/17 17:16 Multivitamins (Theragran) 1 tab PO DAILY [facility] Last Admin: 11/12/17 08:34 Dose: 1 tab Nitroglycerin (Nitrostat) 0.4 mg SL Q5MIN PRN PRN Reason: Chest Pain Last Admin: 11/12/17 23:01 Dose: 0.4 mg Hold Vancomycin For (Level >20) 0 each FS .AT DIALYSIS [facility] Ondansetron HCl (Zofran) 4 mg IVP Q6H PRN PRN Reason: Nausea/Vomiting Pantoprazole Sodium (Protonix) 40 mg PO DAILY [facility] Last Admin: 11/12/17 08:35 Dose: 40 mg Sertraline HCl (Zoloft) 50 mg PO HS [facility] Last Admin: 11/12/17 21:38 Dose: 50 mg Sodium Chloride (Flush - Normal Saline) 10 ml IVF Q12HR [facility] Last Admin: 11/12/17 21:41 Dose: 10 ml Sodium Chloride (Flush - Normal Saline) 10 ml IVF PRN PRN PRN Reason: Saline Flush Timolol [facility] 1 drop L EYE [facility]ILY [facility] Last Admin: 11/12/17 08:35 Dose: 1 drop
[2017-11-13] MEDS: NPH, Human Insulin Isophane 300 UNIT/3 ML VIAL SC SCH ×2 (11:41→20:31)
[2017-11-13] MEDS: Insulin Detemir 100 UNITS/ML 10 UNITS in Pre-Filled Syringe 1 EACH SC SCH (14:32)
--- NOTE | 2017-11-13 14:38 | PRG ---
DATE OF SERVICE: 11/13/2017 REASON FOR CONSULTATION: Possible proctitis, bacteremia. SUBJECTIVE: The patient had recently come back from hemodialysis this morning and was fatigued and l ethargic post-dialysis. Currently, denies any nausea, vomiting, fevers, chills, diarrhea, constipati on, abdominal pain, odynophagia, dysphagia, or GI bleeding. OBJECTIVE: VITAL SIGNS: Temperature 97.6, pulse 70, blood pressure 162/87, respiratory rate 20, satting 99% on room air. GENERAL: The patient is lying in bed, in no acute distress, alert and oriented x4. CARDIOVASCULAR: Regular rate and rhythm. RESPIRATORY: Clear to auscultation bilaterally. ABDOMEN: Normoactive bowel sounds, soft, nontender, and nondistended. EXTREMITIES: No cyanosis, clubbing or edema. LABORATORY DATA: No current studies available for review. MICROBIOLOGY: A 2/2 cultures have shown positivity for Peptostreptococcus species with the anaerobic culture is still pending at this time. IMAGING DATA: No current GI imaging is available for review. ASSESSMENT AND PLAN: The patient is a 67-year-old male with past medical history of atrial flutter, status post ablation; end-stage renal disease, on hemodialysis; diabetes; peripheral vascular disease ; hypertension; depression; chronic anemia; hyperlipidemia and gout; presenting with a polymicrobial bacteremia. Polymicrobial bacteremia. The patient is initially presenting with loss of consciousness and respira tory distress, prompting intubation in the field via EMS and CPR here in the ER at [facility]. Blood cultures obtained shortly thereafter on 11/05/2017 showed positivity for both gram-negative rods and gram-positive cocci indicative of a polymicrobial infection. Cultures have since positive for Peptostreptococcus species with the anaerobic species still pending at this time. With these fin dings, the Peptostreptococcus species could be found on the skin within the oral and general GI tract when coupled with a CT scan of the abdomen showing wall thickening of the rectum. It could be indic ative of a possible GI infection; however, this rectal wall thickening has been present since 06/2017 with no symptoms up until this point in time. He also had a colonoscopy in 06/2017, which had remov al of multiple colonic polyps, but no mention of abnormalities within the rectum. At this point, the origin of the infection is unclear, but could include an oral versus skin versus GI origin of the in fection. Given that he is on hemodialysis, this also could be a relative infection that could contri bute to what we are seeing. RECOMMENDATIONS: 1. We will followup on the bacterial cultures for further speciation and tailoring of antibiotic the rapy towards this. 2. We will consider doing a limited evaluation of the lower GI tract with a flexible sigmoidoscopy f or evaluation of the proctitis after further speciation of the microbes is known. 3. We will continue to monitor clinically for any signs of GI inflammation or evidence of GI tract i nvolvement. We will continue to follow. Please call with any questions.
[2017-11-13] MEDS: cefTRIAXone\\ROCEPHIN 2 GM in Sodium Chloride 0.9% 100 ML IVPB SCH (15:37)
--- NOTE | 2017-11-13 16:51 | RAD ---
PORTABLE CHEST 11/13/17 PROVIDED CLINICAL HISTORY: Chest pain. FINDINGS: Comparison 11/07/17. The cardiac and mediastinal silhouette is unchanged in appearance. Atherosclerosis again seen. Soft t issue artifact overlies the right hemithorax. No focal consolidation, pleural fluid or pneumothorax apparent. IMPRESSION: No evidence for an acute cardiopulmonary process. POS: [facility]
[2017-11-13] MEDS ORDERED: Lidocaine Patch Removal 1 EACH TOP SCH (17:15)
[2017-11-13] MEDS: Atorvastatin Calcium 40 MG TAB PO SCH (20:24)
[2017-11-14] MEDS: Calcium Acetate 667 MG CAP PO SCH ×3 (08:18→17:07)
[2017-11-14] MEDS: metroNIDAZOLE 250 MG TAB PO SCH ×3 (08:19→20:40)
[2017-11-14] MEDS: Aspirin 81 mg Enteric Coated Tablet PO SCH (08:19)
[2017-11-14] MEDS: Clopidogrel Bisulfate 75 MG TAB PO SCH (08:19)
[2017-11-14] MEDS: Metoprolol Tartrate 50 MG TAB PO SCH ×2 (08:19→20:41)
[2017-11-14] MEDS: Multivit, Therapeutic 1 TAB PO SCH (08:19)
[2017-11-14] MEDS: Timolol 0.5% Ophth Soln 5 ml Bottle L EYE SCH (08:19)
[2017-11-14] MEDS: Docusate 100 MG CAP PO SCH ×2 (08:19→20:40)
[2017-11-14 08:20] LABS: #Eosinphils 0.3 thou/uL (0.0-0.7); #Lymphocytes 0.8 thou/uL (1.20-3.40); #Monocytes 0.5 thou/uL (0.11-0.59); #Neutrophils 3.4 thou/uL (1.40-6.50); %Basophils 0.5 % (0.0-1.0); %Eosinophils 5.6 % (0.0-10.0); %Lymphocytes 15.6 % (21.0-51.0); %Monocytes 10.5 % (0.0-10.0); %Neutrophils 67.9 % (42.0-75.0); Hemoglobin 10.4 g/dL (14.0-18.0); Mean Corpuscular HGB CONC 33.6 g/dL (32.0-36.0); Mean Corpuscular Hemoglobin 32.9 pg (27.0-31.0); Mean Corpuscular Volume 97.9 fl (80.0-94.0); Mean Platelet Volume 6.9 fL (7.4-10.4); Platelet Count 341 thou/uL (130-400); RBC Distribution Width 15.3 % (11.5-14.5); Red Blood Cell (RBC) Count 3.15 mill/uL (4.70-6.10)
[2017-11-14] MEDS: Heparin 5,000 UNITS/ML VIAL SC SCH ×2 (08:20→20:41)
[2017-11-14] MEDS: Insulin Detemir 100 UNITS/ML 10 UNITS in Pre-Filled Syringe 1 EACH SC SCH (08:20)
[2017-11-14 08:22] LABS: Anion Gap 13 mmol/L (10-20); BUN (Urea Nitrogen) 31 mg/dL (8.4-25.7); Calc. Creatinine Clearance 15 mL/min (70-130); Calcium 8.9 mg/dL (7.8-10.44); Carbon Dioxide 29 mmol/L (23-31); Chloride 96 mmol/L (98-107); Estimated GFR-MDRD 13; Glucose 156 mg/dL (80-115); Potassium 4.6 mmol/L (3.5-5.1); Sodium 133 mmol/L (136-145)
[2017-11-14] MEDS: NPH, Human Insulin Isophane 300 UNIT/3 ML VIAL SC SCH ×2 (08:52→20:47)
[2017-11-14] MEDS: Acetaminophen 325 MG TAB PO PRN (10:41)
--- NOTE | 2017-11-14 11:43 | PDOC.PN ---
- Subjective Encounter Start Date: 11/14/17 Encounter Start Time: 11:15 Subjective: no complaints of sob or pain -: feels better -: amb very minimal yesterday with PT - Objective MAR Reviewed: Yes Vital Signs & Weight: Vital Signs (12 hours) Temp Pulse Resp BP BP Pulse Ox 11/14/17 08:19 69 11/14/17 08:00 98.0 F 70 20 92 L 11/14/17 07:00 98.0 F 70 18 156/91 H 92 L 11/14/17 06:09 160/93 H 11/13/17 23:58 167/87 H Weight Admit Weight 156 lb 15.506 oz Weight 156 lb 15.506 oz Most Recent Monitor Data Heart Rate from ECG 88 NIBP 172/91 NIBP BP-Mean 110 Respiration from ECG 14 SpO2 94 I&O: 11/13/17 11/14/17 11/15/17 06:59 06:59 06:59 Intake Total 240 Output Total 0 Balance 240 Result Diagrams: 11/14/17 08:03 11/14/17 08:03 Additional Labs: Accuchecks 11/14/17 11/13/17 11/13/17 05:05 20:31 16:22 POC Glucose 71 297 H 281 H 11/13/17 11:40 POC Glucose 118 H Phys Exam - Physical Examination HEENT: PERRLA, moist MMs Neck: no JVD, supple Respiratory: no wheezing, no rales Cardiovascular: RRR, no significant murmur Gastrointestinal: soft, non-tender, positive bowel sounds Musculoskeletal: no edema, pulses present Neurological: non-focal, moves all 4 limbs Psychiatric: normal affect, A&O x 3 Dx/Plan (1) Sepsis Code(s): A41.9 - SEPSIS, UNSPECIFIED ORGANISM Status: Acute Qualifiers: Sepsis type: sepsis due to unspecified organism Qualified Code(s): A41.9 - Sepsis, unspecified organism (2) Bacteremia Code(s): R78.81 - BACTEREMIA Status: Acute Comment: polymicrobes growing (3) Hyperglycemia due to type 1 diabetes mellitus Code(s): E10.65 - TYPE 1 DIABETES MELLITUS WITH HYPERGLYCEMIA Status: Acute Comment: labile (4) Dyslipidemia Code(s): E78.5 - HYPERLIPIDEMIA, UNSPECIFIED Status: Chronic (5) Ventricular fibrillation Code(s): I49.01 - VENTRICULAR FIBRILLATION Status: Resolved Comment: Had 30 second cardiac arrest, likely from severe electrolyte disturbances. (6) ESRD (end stage renal disease) on dialysis Code(s): N18.6 - END STAGE RENAL DISEASE; Z99.2 - DEPENDENCE ON RENAL DIALYSIS Status: Chronic Comment: Dialysis per nephrology. (7) HTN (hypertension) Code(s): I10 - ESSENTIAL (PRIMARY) HYPERTENSION Status: Chronic Qualifiers: Hypertension type: essential hypertension - Plan hemostable -: culture sensitivity is still pending -: is on ceftriaxone and flagyl -: dm is slowly getting controlled, still labile -: to amb as tolerated, will need rehab * . Review of Systems - Medications/Allergies Allergies/Adverse Reactions: Allergies Allergy/AdvReac Type Severity Reaction Status Date / Time adhesive Allergy Verified 09/16/17 23:40 Medications: Current Medications Acetaminophen (Tylenol) 650 mg PO Q4H PRN PRN Reason: Headache/Fever or Pain Last Admin: 11/14/17 10:41 Dose: 650 mg Acetaminophen (Tylenol) 650 mg IA Q4H PRN PRN Reason: Headache/Fever or Pain Last Admin: 11/05/17 16:52 Dose: 650 mg Aspirin (Ecotrin) 81 mg PO DAILY [facility] Last Admin: 11/14/17 08:19 Dose: 81 mg Atorvastatin Calcium (Lipitor) 40 mg PO HS [facility] Last Admin: 11/13/17 20:24 Dose: 40 mg Calcium Acetate (Phoslo) 2,668 mg PO TID-WM [facility] Last Admin: 11/14/17 08:18 Dose: 2,668 mg Clopidogrel Bisulfate (Plavix) 75 mg PO DAILY [facility] Last Admin: 11/14/17 08:19 Dose: 75 mg Dextrose/Water (Dextrose 50%) 25 gm IVP PRN PRN PRN Reason: HYPOGLYCEMIA PROTOCOL Docusate Sodium (Colace) 100 mg PO BID [facility] Last Admin: 11/14/17 08:19 Dose: 100 mg Glucagon (Glucagon) 1 mg IM PRN PRN PRN Reason: HYPOGLYCEMIA PROTOCOL Heparin Sodium (Porcine) (Heparin) 5,000 units SC BID [facility] Last Admin: 11/14/17 08:20 Dose: 5,000 units Dextrose/Water (D5w) 1,000 mls @ 0 mls/hr IV INF PRN; As Directed PRN Reason: HYPOGLYCEMIA PROTOCOL Ceftriaxone Sodium 2 gm/ (Sodium Chloride) 100 mls @ 200 mls/hr IVPB Q24HR [facility] Last Admin: 11/13/17 15:37 Dose: 100 mls Insulin Detemir 10 units/ (Miscellaneous Medication) 0.1 mls @ 0 mls/hr SC QAM [facility] Last Admin: 11/14/17 08:20 Dose: 0.1 mls Insulin Human NPH (Humulin N) 15 unit SC BID [facility] Last Admin: 11/14/17 08:52 Dose: 15 unit Insulin Human Regular (Humulin R) 0 units SC .MODERATE SLIDING SC PRN; Protocol PRN Reason: MODERATE SLIDING SCALE Last Admin: 11/13/17 17:40 Dose: 6 unit Isosorbide Mononitrate (Imdur Er) 30 mg PO DAILY [facility] Last Admin: 11/14/17 08:18 Dose: 30 mg Lorazepam (Ativan) 1 mg SLOW IVP Q6H PRN PRN Reason: Anxiety/Agitation Last Admin: 11/09/17 20:14 Dose: 1 mg Metoprolol Tartrate (Lopressor) 50 mg PO BID [facility] Last Admin: 11/14/17 08:19 Dose: 50 mg Metronidazole (Flagyl) 250 mg PO TID [facility] Last Admin: 11/14/17 08:19 Dose: 250 mg Miscellaneous Medication (Pharmacy To Dose) 0 each IVPB DAILYPRN PRN PRN Reason: LABS Multivitamins (Theragran) 1 tab PO DAILY [facility] Last Admin: 11/14/17 08:19 Dose: 1 tab Nitroglycerin (Nitrostat) 0.4 mg SL Q5MIN PRN PRN Reason: Chest Pain Last Admin: 11/12/17 23:01 Dose: 0.4 mg Hold Vancomycin For (Level >20) 0 each FS .AT DIALYSIS [facility] Ondansetron HCl (Zofran) 4 mg IVP Q6H PRN PRN Reason: Nausea/Vomiting Pantoprazole Sodium (Protonix) 40 mg PO DAILY [facility] Last Admin: 11/14/17 08:19 Dose: 40 mg Sertraline HCl (Zoloft) 50 mg PO HS [facility] Last Admin: 11/13/17 20:24 Dose: 50 mg Sodium Chloride (Flush - Normal Saline) 10 ml IVF Q12HR [facility] Last Admin: 11/14/17 08:52 Dose: 10 ml Sodium Chloride (Flush - Normal Saline) 10 ml IVF PRN PRN PRN Reason: Saline Flush Timolol Maleate (Timoptic 0.5% [facility]) 1 drop L EYE DAILY [facility] Last Admin: 11/14/17 08:19 Dose: 1 drop
[2017-11-14] MEDS: cefTRIAXone\\ROCEPHIN 2 GM in Sodium Chloride 0.9% 100 ML IVPB SCH (14:46)
[2017-11-14] MEDS ORDERED: Mag-Al 1200 mg/1200 mg/30 ML UDCUP PO PRN (19:40)
[2017-11-14] MEDS: Atorvastatin Calcium 40 MG TAB PO SCH (20:42)
--- NOTE | 2017-11-14 20:42 | PRG ---
DATE OF SERVICE: 11/14/2017 REASON FOR CONSULTATION: Possible proctitis, bacteremia. SUBJECTIVE: The patient is doing well with no acute events or problems overnight. Currently tolerat ing antibiotics without difficulty. Denies any nausea, vomiting, fevers, chills, diarrhea, constipat ion, abdominal pain, odynophagia, dysphagia, or GI bleeding. OBJECTIVE: VITAL SIGNS: Temperature 98, pulse 69, blood pressure 156/91, respiratory rate 20, satting 92% on ro om air. GENERAL: The patient is lying in bed in no acute distress. Alert and oriented x4. CARDIOVASCULAR: Regular rate and rhythm. RESPIRATORY: Clear to auscultation bilaterally. ABDOMEN: Normoactive bowel sounds, soft, nontender, nondistended. EXTREMITIES: No cyanosis, clubbing or edema. LABORATORY DATA: CBC with white blood cell count of 5, hemoglobin 10.4, hematocrit 30.8, and platele ts 341. Chemistry with sodium 133, potassium 4.6, chloride 96, CO2 29, BUN 31, creatinine 4.68, gluc ose 156. IMAGING DATA: No current GI imaging is available for review. ASSESSMENT AND PLAN: The patient is a 67-year-old male with past medical history of atrial flutter, status post ablation, end-stage renal disease on hemodialysis, diabetes, peripheral vascular disease, hypertension, depression, chronic anemia, hyperlipidemia, and gout, presenting with polymicrobial ba cteremia and abnormal GI imaging. Polymicrobial bacteremia: During the course of this hospitalization, patient had a CT scan of the ab domen showed nonspecific wall thickening of the rectum that was relatively unchanged since 06/2017. Currently without any signs of proctitis or inflammation including diarrhea, abdominal cramping or GI bleeding. Blood cultures have come back positive for Peptostreptococcus species with the anaerobic species still pending at this time. Lastly, he had a colonoscopy in 06/2017 which did not mention an y abnormalities within the rectum with direct visualization at that time. At this point, the origin of his infection is unclear, but the likelihood of the infection originating within the rectum is hig hly unlikely. RECOMMENDATIONS: 1. Followup of bacterial cultures for further speciation and tailoring of antibiotic therapy. 2. At this point, the likelihood of significant findings seen on lower endoscopy is low given recent colonoscopy with normal findings. Full colonoscopy is not indicated at this time. 3. Would continue to monitor clinically for any signs of GI inflammation or evidence of GI tract inv olvement that might suggest a GI tract origin. We will sign off at this time. Please call with any additional questions.
[2017-11-15] MEDS: Acetaminophen 325 MG TAB PO PRN (02:26)
[2017-11-15] MEDS ORDERED: Insulin Detemir 100 UNITS/ML 16 UNITS in Pre-Filled Syringe 1 EACH SC SCH (09:00)
[2017-11-15] MEDS: Calcium Acetate 667 MG CAP PO SCH ×2 (09:48→12:22)
[2017-11-15] MEDS: Aspirin 81 mg Enteric Coated Tablet PO SCH (09:49)
[2017-11-15] MEDS: Clopidogrel Bisulfate 75 MG TAB PO SCH (09:50)
[2017-11-15] MEDS: Metoprolol Tartrate 50 MG TAB PO SCH (09:50)
[2017-11-15] MEDS: Docusate 100 MG CAP PO SCH (09:50)
[2017-11-15] MEDS: Heparin 5,000 UNITS/ML VIAL SC SCH (09:50)
[2017-11-15] MEDS: NPH, Human Insulin Isophane 300 UNIT/3 ML VIAL SC SCH (09:51)
[2017-11-15] MEDS: Multivit, Therapeutic 1 TAB PO SCH (09:51)
[2017-11-15] MEDS: metroNIDAZOLE 250 MG TAB PO SCH (09:51)
[2017-11-15] MEDS: Timolol 0.5% Ophth Soln 5 ml Bottle L EYE SCH (09:53)
[2017-11-15] MEDS: Insulin Regular 300 UNITS/3 ML VIAL SC PRN (12:33)
--- NOTE | 2017-11-15 13:08 | PDOC.PN ---
- Subjective Encounter Start Date: 11/15/17 Encounter Start Time: 09:45 Subjective: no complaints, feels better -: is eating well -: sister at bedside - Objective MAR Reviewed: Yes Vital Signs & Weight: Vital Signs (12 hours) Temp Pulse Resp BP Pulse Ox 11/15/17 09:53 68 11/15/17 08:00 97.5 F L 68 16 100 11/15/17 07:54 97.5 F L 68 16 187/94 H 100 11/15/17 01:53 98 Weight Admit Weight 156 lb 15.506 oz Weight 156 lb 15.506 oz Most Recent Monitor Data Heart Rate from ECG 88 NIBP 172/91 NIBP BP-Mean 110 Respiration from ECG 14 SpO2 94 I&O: 11/14/17 11/15/17 11/16/17 06:59 06:59 06:59 Intake Total 240 1000 Output Total 0 200 Balance 240 800 Result Diagrams: 11/14/17 08:03 11/14/17 08:03 Additional Labs: Accuchecks 11/15/17 11/15/17 11/14/17 11:26 05:11 23:31 POC Glucose 367 H 331 H 251 H 11/14/17 11/14/17 20:48 16:35 POC Glucose 187 H 175 H Phys Exam - Physical Examination HEENT: PERRLA, moist MMs Neck: no JVD, supple Respiratory: no wheezing, no rales Cardiovascular: RRR, no significant murmur Gastrointestinal: soft, non-tender, positive bowel sounds Musculoskeletal: no edema, pulses present Neurological: non-focal, moves all 4 limbs Psychiatric: normal affect, A&O x 3 Dx/Plan (1) Sepsis Code(s): A41.9 - SEPSIS, UNSPECIFIED ORGANISM Status: Resolved Qualifiers: Sepsis type: sepsis due to unspecified organism Qualified Code(s): A41.9 - Sepsis, unspecified organism (2) Bacteremia Code(s): R78.81 - BACTEREMIA Status: Acute Comment: peptostreptococcus, repeat blood cs are -ve (3) Hyperglycemia due to type 1 diabetes mellitus Code(s): E10.65 - TYPE 1 DIABETES MELLITUS WITH HYPERGLYCEMIA Status: Acute Comment: labile (4) Dyslipidemia Code(s): E78.5 - HYPERLIPIDEMIA, UNSPECIFIED Status: Chronic (5) Ventricular fibrillation Code(s): I49.01 - VENTRICULAR FIBRILLATION Status: Resolved Comment: Had 30 second cardiac arrest, likely from severe electrolyte disturbances. (6) ESRD (end stage renal disease) on dialysis Code(s): N18.6 - END STAGE RENAL DISEASE; Z99.2 - DEPENDENCE ON RENAL DIALYSIS Status: Chronic Comment: Dialysis per nephrology. (7) HTN (hypertension) Code(s): I10 - ESSENTIAL (PRIMARY) HYPERTENSION Status: Chronic Qualifiers: Hypertension type: essential hypertension - Plan hemostable -: dc pt to rehab for deconditioning -: is on sertraline for depression -: dm is labile, rehab to titrate as needed -: d/w , augmentin and flagyl for dc * .
[2017-11-15 14:10] VITALS: BP 178/88; TEMP 98
--- NOTE | 2017-11-16 09:43 | PRG ---
DATE OF SERVICE: 11/14/2017 SUBJECTIVE: No headaches, no visual symptoms, sore throat, odynophagia, dysphagia. No dyspnea or ch est pain. No abdominal pain. Patient actually did have some chest pain mostly costochondral on pres sure, mild for the past few days. OBJECTIVE: VITAL SIGNS: He has been afebrile. Other vital signs are normal. GENERAL: Awake, alert, oriented. LUNGS: Clear. Mild tenderness, left costochondral area anteriorly. Oral cavity normal. NECK: Supple. CARDIOVASCULAR: S1, S2 with soft aortic murmur. ABDOMEN: Soft, not distended. No bladder distention. No joint inflammatory activity noted. LABORATORY DATA: White cell count 5.0, hemoglobin 10.4, platelets 341, 67% neutrophils. Chemistry w ith sodium 133, creatinine 4.68. The last bilirubin was 1.3 that was 11/05/2017. The AST was 48 and ALT 50, and alkaline phosphatase was 140. Patient had repeat chest x-ray, which did not show any ac nondalton cardiopulmonary process and the abdomen and pelvis CT done on 11/[address] evidence of absces s, interval cholecystectomy, and wall thickening of the rectum, which is unchanged. ASSESSMENT: 1. Type 2 diabetes. Change in mental status associated with hyperosmolar syndrome. 2. End-stage renal disease, on hemodialysis with AV fistula and anaerobic polymicrobial bacteremia w ith anaerobic Gram-negative erna in Peptostreptococcus micros. The only clue is area of thickening of the rectum area with suggestion of proctitis. Patient also does intermittent self-catheterization u sually one-self catheterization every 5 days, which he does without any reported problems, has done t hose upon recommendation by one of our urologists. Usually gets small amount of urine a little bit more than a cup of clear urine, has not done this in a while. He is currently on Rocephin and F lagyl and eventually consider discharge planning on oral Augmentin. Gastroenterology has evaluated t he patient and is still the type of organism isolated. It is very consistent with either oral nagi or gastrointestinal nagi infection. He probably would be advised to follow up with his dentist upon discharge to make sure that there is no dental abscess or other inflammatory process, although this is not apparent in the clinical examination.
--- NOTE | 2017-11-16 13:27 | DIS ---
DATE OF ADMISSION: 11/05/2017 DATE OF DISCHARGE: 11/15/2017 DISCHARGE DISPOSITION: To inpatient rehabilitation. PRIMARY DISCHARGE DIAGNOSES: Sepsis with bacteremia due to Peptostreptococcus, initial diabetic keto acidosis with type 1 diabetes, still labile, but diabetic ketoacidosis is resolved, brief episode of ventricular fibrillation with 30 second cardiac arrest on arrival resolved with no shock delivered, e nd-stage renal disease on hemodialysis, hypertension, and dyslipidemia. PROCEDURES DONE DURING HOSPITALIZATION: Chest x-ray done on the day of admission showed cardiomegaly with suspicion for infiltrate, likely aspiration. CT brain on the day of admission showed no acute intracranial abnormalities. Echo with 2D Doppler showed EF of 45%-50%. There was diastolic dysfunct ion, moderately enlarged RV, moderate mitral regurgitation, severe tricuspid regurgitation. Abdomina l and pelvic CAT scan done on the of this month showed no evidence of abdominal abscess or other cause of infection. There is circumferential wall thickening of the rectum suggestive of proctitis, although the appearance was unchanged from prior exam done in 06/2017. There was severe atheroscler osis seen. Blood cultures x2 grew fusobacterium species and Peptostreptococcus obtained on that is on admission. A repeat blood culture done on showed no growth. Urine culture no growth x2. Discharge hemoglobin and hematocrit 10 and 30, platelet count 341 with 67% neutrophils. Discharge BUN and creatinine is 31 and 4.6, serum bicarbonate is 29. Discharge serum glucose was 156. His adm itting serum glucose was 1348, BUN was 75, creatinine of 7.7 on . Potassium was 7.3 with sodium of 121 on the day of admission. BNP of 11,581 on the day of admission. Blood gas on admission showe d pH of 7.16, pCO2 53, pO2 87, bicarbonate was 18 on the blood gas. Urine drug screen on admission w as positive for opiates. INPATIENT CONSULTS: Dr. Gaspar for Pulmonology and Critical Care, Dr. Tucker for Nephrology, Dr. Moreno for Infectious Disease, and Dr. Salvador Gutierrez for Gastroenterology. DISCHARGE MEDICATIONS: Augmentin 250 mg p.o. daily for a total of 2 weeks, Flagyl 250 mg twice daily for 2 weeks, aspirin 81 mg p.o. daily, Lipitor 40 mg p.o. at bedtime, PhosLo 2668 mg p.o. 3 times da meg, Plavix 75 mg p.o. daily, Colace 100 mg twice daily, Levemir 16 units subcu q.a.m., NPH insulin 1 5 units subcu twice daily, Imdur extended release 30 mg p.o. daily, Lopressor 50 mg twice daily, Prot alize 40 mg daily, sertraline 50 mg p.o. at bedtime, and timolol eyedrops. ALLERGIES: ADHESIVES. DISCHARGE PLAN: Patient to follow up with primary care physician in 1 week. BRIEF COURSE DURING HOSPITALIZATION: Patient initially was brought to emergency room on the aft er he was found unresponsive at home. EMS had intubated him in the field. He had a brief episode of ventricular tachycardia on arrival in the ER with heart rates going up to 170s. This lasted for 30 seconds and resolved on its own with no shocks delivered. The patient was placed in ICU initially. His initial pH was 7.16 with serum sugars of 1348 and severe volume overload. Patient is known to be noncompliant with his medications for diabetes and has had multiple hospitalizations here. He was e mergently dialyzed for severe hyperkalemia and volume overload. He was on IV insulin drip for DKA. The patient was successfully extubated and was downgraded to medical floor. Patient's diabetes [facility] type 1 has been labile. His blood cultures grew anaerobes including fusobacterium and Peptostrep tococcus species. CT of the abdomen and pelvis done revealed proctitis. Again, it is unclear the so urce of his anaerobic bacteria in the blood. A repeat culture obtained on the x 2 has shown no growth. He was evaluated by Dr. Salvador Gutierrez for Gastroenterology and Dr. Hilton for Infectious Disea se as well. He was on IV antibiotics all through his stay and has been switched over to Augmentin an d Flagyl for a period of 2 weeks. In addition to patient's NPH insulin, Levemir was added which has been slowly titrated. Patient has a tendency to become hypoglycemic and at the same time, goes up to 350. Hopefully, in the next 2 weeks at rehabilitation, his diabetes will be fairly controlled. He has been counseled with regards to eating same amount of calories to help with his titration of insul in. Prior to discharge, he is eating well. He is severely deconditioned and is being discharged to inpatient rehab for further recuperation. Please see a face to face documentation on [facility] for th e day of discharge. A total of 35 minutes was spent on discharge plan.
--- NOTE | 2017-11-16 18:20 | PQF ---
DORETHA NORRIS, JANESSA MICHEL MD [id number] CLINICAL DOCUMENTATION CLARIFICATION FORM: POST DISCHARGE Addendum to original discharge summary date: ____ Late entry note date: __ DATE: 11/16/2017 ATTN: Please exercise your independent, professional judgment in responding to the clarification form. Clinical indicators are provided on the bottom of this form for your review Please check appropriate box(es): [ x ] Sepsis due to: (Pna, UTI, gangrenous gall bladder, etc.) Due to: [ ] Device (please specify) [ ] Implant [ ] Graft [ ] Infusion [ ] SIRS due to non-infectious process (please specify etiology) [ ] with organ dysfunction [ ] without organ dysfunction [ ] Severe sepsis with acute organ dysfunction of: (Examples: respiratory failure, encephalopathy, acute kidney failure, other) [ ] Septic Shock [ ] Localized infection without sepsis [ x ] Other diagnosis _grew 2/2 peptostreptococcus and fusobacterium from unknown source [ ] Unable to determine In addition, please specify: Present on Admission (POA): [ x ] Yes [ ] No [ ] Unable to determine For continuity of documentation, please document condition throughout progress notes and discharge summary. Thank You. 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
--- NOTE | 2018-01-08 14:48 | EKG ---
Test Reason : Blood Pressure : / mmHG Vent. Rate : 102 BPM Atrial Rate : 089 BPM P-R Int : 000 ms QRS Dur : 144 ms QT Int : 372 ms P-R-T Axes : 000 119 -12 degrees QTc Int : 484 ms Atrial fibrillation with rapid ventricular response with premature ventricular or aberrantly conducte d complexes Right bundle branch block Left posterior fascicular block Bifascicular block Septal infarct , age undetermined T wave abnormality, consider inferior ischemia or digitalis effect Nonspecific ST abnormality Abnormal ECG Confirmed by JEFF WILD, SANDRITA Piedra ([id number]), science editor SCOT HUBER ([id number]) on 01/08/2018 2:48:12 PM Referred By: Confirmed By:SANDRITA AGUILAR MD
== END 2017-11-15 14:02 | DRG 871 ==
LOC: ERS 08:24 → CCU 10:26 → 2NO 11-07 22:01 → T4-B 11-09 12:55
PROVIDERS: ADMIT Internal Medicine; ATTEND Internal Medicine
PROC: 5A1945Z Respiratory Ventilation, 24-96 Consecutive Hours (ICD-10-PCS; principal; 2017-11-05)
DX: A41.9 Sepsis, unspecified organism (principal); J96.01 Acute respiratory failure with hypoxia; I46.9 Cardiac arrest, cause unspecified; E11.10 Type 2 diabetes mellitus with ketoacidosis without coma; E87.2 Acidosis; I12.0 Hypertensive chronic kidney disease with stage 5 chronic kidney disease or end stage renal disease; I48.91 Unspecified atrial fibrillation; N18.6 End stage renal disease; E78.5 Hyperlipidemia, unspecified; Z99.2 Dependence on renal dialysis; Z91.048 Other nonmedicinal substance allergy status; Z79.82 Long term (current) use of aspirin; Z79.899 Other long term (current) drug therapy; Z79.02 Long term (current) use of antithrombotics/antiplatelets; K62.89 Other specified diseases of anus and rectum
CPT/HCPCS: 36415; 36416; 36556; 51702; 70450; 71045; 74177; 80048; 80053; 80069; 80202; 80306; 80307; 81002; 81003; 81015; 82010; 82140; 82330; 82550; 82553; 82803; 82805; 83036; 83605; 83690; 83735; 83880; 84443; 84484; 85025; 85610; 85730; 86850; 86900; 86901; 87040; 87076; 87086; 87149; 90935; 92950; 93005; 93010; 93306; 94002; 94003; 94760; 96361; 96365; 96374; 96375; 96376; 99292; A4216; C9113; G0257; G8978-GP-CN; G8979-GP-CK; G8987-GO-CJ; G8988-GO-CI; J0360; J0692; J0696; J1644; J1815; J2060; J2704; J3010; J3370; J7050

== ENCOUNTER 2017-12-01 17:46 | Inpatient (IN) | payer MEDICARE, OTHER ==
[2017-12-01 18:25] LABS: #Basophils 0.1 thou/uL (0.0-0.2); #Eosinphils 0.2 thou/uL (0.0-0.7); #Lymphocytes 0.5 thou/uL (1.20-3.40); #Monocytes 0.6 thou/uL (0.11-0.59); #Neutrophils 5.5 thou/uL (1.40-6.50); %Basophils 0.8 % (0.0-1.0); %Eosinophils 2.6 % (0.0-10.0); %Lymphocytes 7.4 % (21.0-51.0); %Monocytes 8.8 % (0.0-10.0); %Neutrophils 80.5 % (42.0-75.0); Hemoglobin 7.8 g/dL (14.0-18.0); Mean Corpuscular HGB CONC 33.4 g/dL (32.0-36.0); Mean Corpuscular Hemoglobin 34.1 pg (27.0-31.0); Mean Platelet Volume 6.7 fL (7.4-10.4); Platelet Count 255 thou/uL (130-400); RBC Distribution Width 16.1 % (11.5-14.5); Red Blood Cell (RBC) Count 2.28 mill/uL (4.70-6.10); White Blood Cell (WBC) Count 6.8 thou/uL (4.8-10.8)
[2017-12-01 18:27] LABS: Base Excess-Venous 6.7 mmol/L (0 (+/- 2.5)); Bicarbonate (HCO3v) 29.5 mmol/L (1.0-85.0); CO2 Tension (PvCO2) 33.9 mmHg (41.0-51.0); Calcium, Ionized 1.12 mmol/L (1.12-1.32); Hemoglobin - Calc 8.6 g/dL (12.0-18.0); Lactate 0.48 mmol/L (0.50-2.20); O2 Tension (PvO2) 78.4 mmHg (35.0-45.0); T. Carbon Dioxide 30.5 mmol/L (1.0-85.0); pH (Venous) 7.547 (7.35-7.45)
[2017-12-01 18:32] LABS: INR-International Normal Ratio 1.2; Prothrombin Time 15.3 SEC (12.0-14.7)
[2017-12-01 18:33] LABS: PTT 40.1 SEC (22.9-36.1)
[2017-12-01 18:48] LABS: ALT (SGPT) 40 U/L (8-55); AST (SGOT) 34 U/L (5-34); Albumin 3.2 g/dL (3.4-4.8); Alkaline Phosphatase 166 U/L (40-150); Anion Gap 13 mmol/L (10-20); BUN (Urea Nitrogen) 19 mg/dL (8.4-25.7); Bilirubin, Total 0.6 mg/dL (0.2-1.2); Calc. Creatinine Clearance 0 mL/min (70-130); Calcium 9.1 mg/dL (7.8-10.44); Carbon Dioxide 29 mmol/L (23-31); Chloride 99 mmol/L (98-107); Estimated GFR-MDRD 22; Globulin 3.1 g/dL (2.4-3.5); Glucose 224 mg/dL (80-115); Protein, Total 6.3 g/dL (5.8-8.1); Sodium 137 mmol/L (136-145)
[2017-12-01 18:51] LABS: CKMB 2.9 ng/mL (0-6.6)
--- NOTE | 2017-12-01 19:29 | RAD ---
CHEST ONE VIEW 12/01/17 HISTORY: Dyspnea. COMPARISON: Chest radiograph 11/05/17. FINDINGS: Heart size is enlarged. Mild pulmonary venous congestion. No pneumothorax. Mild vascular calcifications of the transverse aorta. IMPRESSION: Cardiomegaly with mild pulmonary venous congestion. POS: [facility]
[2017-12-01 21:47] LABS: Troponin I 0.041 ng/mL (< 0.028)
[2017-12-01] MEDS ORDERED: Nitroglycerin 2% Ointment 1 INCH/1 GM Packet ONE (23:22)
[2017-12-01] MEDS ORDERED: Furosemide 40 MG/4 ML VIAL ONE (23:29)
[2017-12-01] MEDS ORDERED: Furosemide 20 MG/2 ML VIAL ONE (23:29)
[2017-12-02 00:41] LABS: Troponin I 0.034 ng/mL (< 0.028)
[2017-12-02 03:53] LABS: Troponin I 0.043 ng/mL (< 0.028)
[2017-12-02] MEDS ORDERED: Insulin Regular 300 UNITS/3 ML VIAL ONE (06:43)
[2017-12-02] MEDS ORDERED: Insulin Glargine 16 UNITS in Pre-Filled Syringe 1 EACH SC SCH (09:00)
[2017-12-02] MEDS ORDERED: Non-Formulary Item 1 EACH (Insulin Detemir 100 Units/Ml [Levemir] 16 UNITS) SC SCH (09:00)
[2017-12-02] MEDS ORDERED: Ondansetron HCl/PF 4 MG/2 ML Vial IVP PRN (10:17)
[2017-12-02] MEDS ORDERED: Acetaminophen 325 MG TAB PO PRN (10:17)
[2017-12-02] MEDS ORDERED: hydrALAZINE 20 MG/ML VIAL SLOW IVP PRN (10:17)
[2017-12-02] MEDS ORDERED: Zolpidem Tartrate 5 MG TAB PO PRN (10:17)
[2017-12-02] MEDS ORDERED: Nitroglycerin 0.4 MG TAB (25 Tab Bottle) SL PRN (10:20)
[2017-12-02] MEDS ORDERED: Dextrose 5% in Water 1,000 ML IV PRN (10:26)
[2017-12-02] MEDS ORDERED: HumaLOG 300 UNITS/3 ML VIAL SC PRN (10:26)
[2017-12-02] MEDS ORDERED: Dextrose 50% Abboject 50 ML SYRINGE SLOW IVP PRN (10:26)
[2017-12-02 10:54] VITALS: BMI 21.2
[2017-12-02] MEDS: Calcium Acetate 667 MG CAP PO SCH ×2 (12:29→17:54)
--- NOTE | 2017-12-02 13:25 | ULT ---
BILATERAL CAROTID DUPLEX ULTRASOUND: HISTORY: Syncope and lower extremity weakness. TECHNIQUE: Mayers scale ultrasound with color flow and spectral Doppler imaging of the extracranial carotid artery systems is performed bilaterally. FINDINGS: There is plaque formation on either side. The peak systolic velocity in the right ICA measures 56 cm/s with an end-diastolic velocity of 11 cm/ s and a systolic ratio of 0.85. The peak systolic velocity in the left ICA measures 57 cm/s with an end-diastolic velocity of 16 cm/s and a systolic ratio of 0.86. Flow in both vertebral arteries remains antegrade. IMPRESSION: No evidence of hemodynamically significant stenosis. POS: OFF
--- NOTE | 2017-12-02 14:00 | MRI ---
MRI OF BRAIN WIHTOUT CONTRAST: HISTORY: Syncope and left extremity weakness. COMPARISON: Comparison is made to a CT of the head dated 11/05/17. FINDINGS: There is moderate cortical atrophy. Moderate to severe chronic ischemic white matter changes are see n in both cerebral hemispheres. There is no evidence of restricted diffusion. No mass or edema. No acute infarct. No evidence of h emorrhage. The intracranial internal carotid arteries and proximal cerebral arteries show flow voids. Basilar a rtery appears patent. Tiny retention cyst in the right maxillary sinus. Paranasal sinuses and masto ids otherwise appear clear. IMPRESSION: 1. Moderate cortical atrophy. 2. Moderate to severe chronic ischemic white matter changes. 3. No evidence of acute infarct or mass. POS: C
--- NOTE | 2017-12-02 15:32 | HP ---
DATE OF ADMISSION: 12/02/2017. CHIEF COMPLAINT: Syncope. HISTORY OF PRESENT ILLNESS: This is a 67-year-old male being admitted to Internal Medicine Team and being consultation for Nephrology as well. Patient apparently is ESRD patient who had successful 4 h ours on his dialysis yesterday, went home and was using a walker for the very first time. The patien t noted that while walking suddenly his legs gave out, he fell on the floor and passed out, was appar ently for 2 hours in mobile and then had sudden severe weakness of his bilateral lower extremities. Patient states that this has happened in the past. He has apparently finished a course of rehabilita tion, but has not really had any improvement in functional status according to the patient himself. The patient currently denies any nausea, vomiting, diarrhea, constipation, chest pain, fevers, or tiffani rtness of breath. The patient has no other alleviating or aggravating factors. No other associated symptoms noted. Patient states that he lost his a year ago. He is currently living home alone and appears to not be able to do any activities very safely as he feels that he has significant weakn ess and may have another episode where he falls. Patient of note in the past recently in September had e lectrophysiology study and radiofrequency ablation done on EKG and telemetry. In the ER, the patient appears to have a normal sinus rhythm. ALLERGIES: To ADHESIVES. 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 FAMILY HISTORY: Positive for hypertension on both sides. SOCIAL HISTORY: Denies any drinking or smoking. HOME MEDICATIONS: See MAR. REVIEW OF SYSTEMS: All systems reviewed. Pertinent positives in the HPI, otherwise negative. PHYSICAL EXAMINATION: VITAL SIGNS: Blood pressure is 162/75, O2 saturation is 97% on 3 liters nasal cannula, respiratory r ate of 16, pulse of 66, temperature of 97.7. GENERAL: The patient is lying in bed, in no acute discomfort. HEENT: Pupils are equal, round, and reactive to light and accommodation. Extraocular muscles intact . Oral cavity moist and pink. Nontender, mobile. Thyroid appreciated. LUNGS: Clear to auscultation bilaterally, aerating well. No wheezing, rales or rhonchi appreciated. CARDIOVASCULAR: Regular rate and rhythm. S1 and S2. No murmurs, rubs, or gallops appreciated. ABDOMEN: Positive bowel sounds, soft, nontender, mobile. No rebound, guarding, or rigidity noted. EXTREMITIES: 2+ peripheral pulses. No edema, no cyanosis or clubbing noted. NEUROLOGIC: Cranial nerves II-XII intact. No loss of motor or sensory function. Of note, the patie cindy has a left upper extremity AV fistula with good thrill and bruit appreciated. DATABASE: Shows a CBC positive for anemia, hemoglobin of 7.8, hematocrit of 22.3, MCV 102, platelet count of 255, white count of 6.8. PT/INR within acceptable limits. Blood gas shows a pH of 7.54, pC O2 of 34, pO2 of 78. Chemistry work shows elevated creatinine at 2.84, glucose elevated at 224, abbie line phosphatase slightly elevated at 166. Three cardiac enzymes at 0.04, 0.041 and 0.043. Brain na triuretic peptide slightly elevated at 4644. Of note, the patient has had levels of 11,[address] approximately a month ago. Albumin of 3.2. Otherwise, all other labs within acceptable limits. Patient had a chest x-ray done as well which showed cardiomegaly with mild pulmonary venous congestio n. ASSESSMENT AND PLAN: 1. Syncope. 2. Coronary artery disease. 3. Diabetes mellitus type 2. 4. Hypertension. 5. End-stage renal disease. 6. Anemia due to renal disease. PLAN: At this point in time, we will admit the patient to inpatient status. Consult Nephrology for dialysi s purposes. We will obtain a brain image study for further evaluation and care, insulin for his diab etes, we will obtain a cardiac evaluation if the patient's syncopal episodes were resumed or if shasha white has any cardiac complaints and chest pain, currently patient does not have any of these, so we nicolás l hold off on Cardiology consultation. We will obtain an MRI of the brain, carotid ultrasounds and t anthony monitoring. The patient wishes to be a full code. Case and plan discussed with the patient at [facility]. He understands and agrees with this plan.
[2017-12-02] MEDS ORDERED: HYDROcodone/Acetaminophen 5/325 mg Tablet PO PRN ×2 (20:12)
[2017-12-02] MEDS: Metoprolol Tartrate 50 MG TAB PO SCH (20:48)
[2017-12-02] MEDS: Famotidine 20 MG TAB PO SCH (20:48)
[2017-12-02] MEDS: Heparin 5,000 UNITS/ML VIAL SC SCH (20:49)
[2017-12-02] MEDS: Atorvastatin Calcium 10 MG TAB PO SCH (20:52)
[2017-12-02] MEDS ORDERED: Atorvastatin Calcium 40 MG TAB PO SCH (21:00)
[2017-12-02] MEDS ORDERED: Non-Formulary Item 1 EACH (Sertraline Hcl [Sertraline Hcl] 50 MG) PO SCH (21:00)
[2017-12-02] MEDS ORDERED: Famotidine 20 MG TAB PO SCH (21:00)
[2017-12-03] MEDS ORDERED: Insulin Glargine 16 UNITS in Pre-Filled Syringe 1 EACH SC SCH (09:00)
[2017-12-03] MEDS ORDERED: Non-Formulary Item 1 EACH (Multivitamin/Iron/Folic Acid [Centrum Adults Tablet] 1 EACH) PO SCH (09:00)
--- NOTE | 2017-12-03 11:56 | PDOC.EVN ---
Event Note - Event Note Event Note: DC SUMMARY #[id number]
[2017-12-03] MEDS: Calcium Acetate 667 MG CAP PO SCH ×4 (13:03→18:36)
[2017-12-03] MEDS: Metoprolol Tartrate 50 MG TAB PO SCH ×2 (13:05→20:41)
[2017-12-03] MEDS: Heparin 5,000 UNITS/ML VIAL SC SCH ×2 (13:39→20:42)
[2017-12-03] MEDS: Aspirin 81 mg Enteric Coated Tablet PO SCH (13:39)
[2017-12-03] MEDS: Multivit, Therapeutic 1 TAB PO SCH (13:39)
[2017-12-03] MEDS: Clopidogrel Bisulfate 75 MG TAB PO SCH (13:40)
[2017-12-03] MEDS: Famotidine 20 MG TAB PO SCH (20:41)
[2017-12-03] MEDS: Atorvastatin Calcium 10 MG TAB PO SCH (20:41)
--- NOTE | 2017-12-03 20:53 | DIS ---
DATE OF ADMISSION: 12/02/2017 DATE OF DISCHARGE: 12/03/2017 ADMITTING DIAGNOSES: Fall, history of end-stage renal disease, hypertension, GERD, coronary artery d isease, diabetes mellitus type 2, anemia, secondary hyperparathyroidism, and coronary artery disease. DISCHARGE DIAGNOSES: Fall, mechanical, neurological indications ruled out; end-stage renal disease; hypertension; anemia of renal disease; secondary hyperparathyroidism; history of coronary artery dise ase; diabetes mellitus type 2. HOSPITAL COURSE: This is a 67-year-old male who was admitted to the Internal Medicine Team, followed closely by Nephrology for purposes of dialysis. The patient apparently had dialysis done outpatient and was found to have had a mechanical fall at home. The patient was admitted to Internal Medicine Team, had carotid ultrasounds as well as brain MRI done, and head CT; all of which showed some modera te atrophy and no acute bleed or stroke noted. Carotid ultrasound also showed no evidence of signifi cant hemodynamic stenosis. At point of time of discharge, the patient denied any nausea, vomiting, d iarrhea, constipation, chest pain, fevers, or shortness of breath. The patient was dialyzed prior to discharge and was to follow up with his outpatient dialysis unit for further management and care. T he patient was cleared from Internal Medicine for discharge. The patient was also cleared from Nephr ology for the purposes of discharge. Case and plan were discussed with the patient at length. He un derstood and agreed with this plan. DISPOSITION: Home. FOLLOWUP: Follow up with PCP and Nephrology for further management and care. Follow up with his alethea lysis units for further management and care. DIET: Renal. ACTIVITY: As tolerated with assistance as appropriate. CONDITION: Stable. PROGNOSIS: Guarded. MEDICATIONS: Resume home medication. Once again, case and plan discussed with the patient at length. He understands and agrees with this plan.
[2017-12-04] MEDS: Calcium Acetate 667 MG CAP PO SCH ×3 (08:25→16:49)
--- NOTE | 2017-12-04 12:22 | PDOC.PN ---
- Subjective Encounter Start Date: 12/03/17 Encounter Start Time: 11:00 Patient seen and examined during dialysis, no new issues or complaints, all questions answered, no family at bedside. - Objective Vital Signs & Weight: Vital Signs (12 hours) Temp Pulse Resp BP BP Pulse Ox 12/04/17 08:00 98.3 F 75 16 92 L 12/04/17 07:40 98.3 F 75 16 153/72 H 92 L 12/04/17 05:48 98.4 F 75 16 168/84 H 97 Weight Weight 148 lb 6.4 oz I&O: 12/03/17 12/04/17 12/05/17 06:59 06:59 06:59 Intake Total 700 560 Output Total 1700 Balance 700 -1140 Result Diagrams: 12/01/17 18:17 12/01/17 18:10 Additional Labs: Accuchecks 12/04/17 12/04/17 12/03/17 10:43 04:58 20:53 POC Glucose 102 166 H 182 H 12/03/17 12/03/17 16:22 13:18 POC Glucose 126 H 61 L Phys Exam - Physical Examination Constitutional: NAD HEENT: PERRLA, moist MMs, sclera anicteric Neck: no nodes, no JVD, supple, full ROM Respiratory: no wheezing, no rales, no rhonchi Cardiovascular: RRR, no significant murmur, no rub Gastrointestinal: soft, non-tender, no distention, positive bowel sounds Musculoskeletal: no edema, pulses present Neurological: non-focal, normal sensation Psychiatric: normal affect, A&O x 3 Dx/Plan (1) Syncope Code(s): R55 - SYNCOPE AND COLLAPSE Status: Acute (2) Hyperglycemia due to type 1 diabetes mellitus Code(s): E10.65 - TYPE 1 DIABETES MELLITUS WITH HYPERGLYCEMIA Status: Acute Comment: labile (3) ESRD (end stage renal disease) on dialysis Code(s): N18.6 - END STAGE RENAL DISEASE; Z99.2 - DEPENDENCE ON RENAL DIALYSIS Status: Chronic Comment: Dialysis per nephrology. (4) HTN (hypertension) Code(s): I10 - ESSENTIAL (PRIMARY) HYPERTENSION Status: Chronic Qualifiers: - Plan * Patient not discharged yesterday, note being written today as not DC yesterday * patient's plan was to cont Hd and DC once ok with renal * plan d/w patient at length, no other issues, no family at bedside.
[2017-12-04] MEDS: Clopidogrel Bisulfate 75 MG TAB PO SCH (12:26)
[2017-12-04] MEDS: Heparin 5,000 UNITS/ML VIAL SC SCH (12:27)
[2017-12-04] MEDS: Aspirin 81 mg Enteric Coated Tablet PO SCH (12:27)
[2017-12-04] MEDS: Metoprolol Tartrate 50 MG TAB PO SCH (12:27)
[2017-12-04] MEDS: Multivit, Therapeutic 1 TAB PO SCH (12:27)
--- NOTE | 2017-12-04 14:47 | EKG ---
Test Reason : Blood Pressure : / mmHG Vent. Rate : 073 BPM Atrial Rate : 073 BPM P-R Int : 170 ms QRS Dur : 112 ms QT Int : 434 ms P-R-T Axes : 058 052 -24 degrees QTc Int : 478 ms Normal sinus rhythm Possible Left atrial enlargement Incomplete right bundle branch block Abnormal ECG Confirmed by TAWANNA BOYD M.D. ([id number]), film and video editor EDUARDO BRAVO ([id number]) on 12/04/2017 2:46:43 PM Referred By: Confirmed By:TAWANNA BOYD M.D.
[2017-12-04 15:32] VITALS: BP 135/71; TEMP 98
--- NOTE | 2017-12-05 15:29 | ADD-DIS ---
ADDENDUM DATE OF DISCHARGE: 12/04/2017 The patient stayed an extra day as home oxygen arrangements were needed to be made. The patient was discharged once case management evaluate and place patient for home oxygen. No other changes. .
== END 2017-12-04 18:38 | DRG 312 ==
LOC: ERS 17:46 → ERHOLD 20:35 → 2NO 12-02 10:42
PROVIDERS: ADMIT Internal Medicine; ATTEND Internal Medicine
PROC: 5A1D70Z Performance of Urinary Filtration, Intermittent, Less than 6 Hours Per Day (ICD-10-PCS; principal; 2017-12-03)
DX: R55 Syncope and collapse (principal); N18.6 End stage renal disease; I12.0 Hypertensive chronic kidney disease with stage 5 chronic kidney disease or end stage renal disease; N25.81 Secondary hyperparathyroidism of renal origin; E11.22 Type 2 diabetes mellitus with diabetic chronic kidney disease; Z99.2 Dependence on renal dialysis; I25.10 Atherosclerotic heart disease of native coronary artery without angina pectoris; D63.1 Anemia in chronic kidney disease
CPT/HCPCS: 36415; 36416; 70551; 71045; 80053; 82330; 82553; 82803; 83605; 83880; 84484; 85025; 85610; 85730; 87324; 87449; 93005; 93880; 96374; A4216; G8978-GP-CN; G8979-GP-CJ; J0360; J1644; J1815; J1940

== ENCOUNTER 2017-12-24 15:19 | Observation (INO) | payer MEDICARE, OTHER ==
[~2017-12-24 15:19] MED LIST changes: -Dextrose 50% Abboject 50 ML SYRINGE ONE; +Heparin 1,000 UNITS/ML VIAL ONE; -Sodium Bicarb 50 MEQ/50 ML Abboject 8.4% SYRINGE ONE
[2017-12-24] MEDS ORDERED: Dextrose 50% Abboject 50 ML SYRINGE ONE ×2 (16:08→16:37)
[2017-12-24 16:11] LABS: #Eosinphils 0.2 thou/uL (0.0-0.7); #Lymphocytes 0.6 thou/uL (1.20-3.40); #Monocytes 0.6 thou/uL (0.11-0.59); #Neutrophils 4.9 thou/uL (1.40-6.50); %Basophils 0.6 % (0.0-1.0); %Eosinophils 3.4 % (0.0-10.0); %Lymphocytes 9.1 % (21.0-51.0); %Monocytes 9.3 % (0.0-10.0); %Neutrophils 77.6 % (42.0-75.0); Hemoglobin 8.4 g/dL (14.0-18.0); Mean Corpuscular HGB CONC 33.6 g/dL (32.0-36.0); Mean Corpuscular Hemoglobin 35.7 pg (27.0-31.0); Mean Platelet Volume 6.2 fL (7.4-10.4); Platelet Count 334 thou/uL (130-400); RBC Distribution Width 15.9 % (11.5-14.5); Red Blood Cell (RBC) Count 2.35 mill/uL (4.70-6.10); White Blood Cell (WBC) Count 6.3 thou/uL (4.8-10.8)
[2017-12-24 16:30] LABS: ALT (SGPT) 34 U/L (8-55); AST (SGOT) 34 U/L (5-34); Albumin 3.5 g/dL (3.4-4.8); Alkaline Phosphatase 152 U/L (40-150); Anion Gap 18 mmol/L (10-20); BUN (Urea Nitrogen) 66 mg/dL (8.4-25.7); Bilirubin, Total 0.5 mg/dL (0.2-1.2); Calc. Creatinine Clearance 0 mL/min (70-130); Calcium 10.2 mg/dL (7.8-10.44); Carbon Dioxide 25 mmol/L (23-31); Chloride 96 mmol/L (98-107); Estimated GFR-MDRD 10; Globulin 3.2 g/dL (2.4-3.5); Glucose 84 mg/dL (80-115); Protein, Total 6.7 g/dL (5.8-8.1); Sodium 133 mmol/L (136-145)
[2017-12-24 16:34] LABS: CKMB 2.8 ng/mL (0-6.6); Troponin I 0.022 ng/mL (< 0.028)
[2017-12-24] MEDS ORDERED: Sodium Bicarb 50 MEQ/50 ML Abboject 8.4% SYRINGE ONE (16:37)
[2017-12-24] MEDS ORDERED: Insulin Regular 300 UNITS/3 ML VIAL ONE (16:37)
[2017-12-24] MEDS ORDERED: Calcium Gluc 4.6 MEQ/10 ML (100 MG/ML) ONE ×2 (16:44→16:48)
[2017-12-24] MEDS ORDERED: CALCIUM GLUCONATE 25 GM TUBE ONE (16:45)
[2017-12-24] MEDS ORDERED: Dextrose 50% Abboject 50 ML SYRINGE SLOW IVP PRN (18:45)
[2017-12-24] MEDS ORDERED: Nitroglycerin 0.4 MG TAB (25 Tab Bottle) SL PRN (18:45)
[2017-12-24] MEDS ORDERED: hydrALAZINE 20 MG/ML VIAL SLOW IVP PRN (18:45)
[2017-12-24] MEDS ORDERED: Insulin Regular 300 UNITS/3 ML VIAL SC PRN (18:45)
[2017-12-24] MEDS ORDERED: Acetaminophen 325 MG TAB PO PRN ×2 (18:45)
[2017-12-24] MEDS ORDERED: Dextrose 5% in Water 1,000 ML IV PRN (18:45)
[2017-12-24] MEDS ORDERED: HumaLOG 300 UNITS/3 ML VIAL SC PRN (18:45)
[2017-12-24] MEDS ORDERED: Atorvastatin Calcium 40 MG TAB PO SCH (21:00)
[2017-12-24] MEDS ORDERED: Amlodipine 5 MG TAB PO SCH (21:00)
[2017-12-25] MEDS: hydrOXYzine 25 MG TAB PO SCH ×2 (00:29→09:13)
[2017-12-25] MEDS: Insulin NPH/Reg Insulin Hm 300 UNITS/3 ML VIAL SC SCH ×2 (00:29→09:13)
[2017-12-25] MEDS: Heparin 5,000 UNITS/ML VIAL SC SCH ×2 (00:29→09:13)
[2017-12-25] MEDS: Metoprolol Tartrate 25 MG TAB PO SCH ×2 (00:32→09:13)
--- NOTE | 2017-12-25 01:55 | HP ---
PRIMARY CARE PHYSICIAN: Dr. Koehler. CHIEF COMPLAINT: Altered mental status and hyperkalemia. HISTORY OF PRESENT ILLNESS: Mr. Lunsford is a pleasant 67-year-old gentleman who has history of end-s tage renal disease on hemodialysis. He also has a history of hypertension and diabetes. He says helen t he was in his usual state of health until last night when he began having diarrhea in the middle of the night. He says he was going back and forth to the bathroom. He says that he called his dialysi s nurse and let her know that due to this excessive diarrhea, he was not going to make it to his usua l dialysis. He says that he laid down in bed and the staff at the snf asked him if he wante d to get up and come to breakfast, but he said he refused and says then he laid down and went to [facility] and says the next thing he knew his sister was there and there was a staff from the EMS and they we re bringing him to the hospital. At that time, it was found that his blood sugar was in the 30s. He was given D50 and brought to the hospital. In the ER, it was also noted that his potassium was elev ated at 6.0, blood glucose was 42 and he is being placed in observation for further recommendations. The patient right now says he feels fine other than some lower back pain, which he says he has had o ff and on for some time. He also says the diarrhea is more or less chronic. He had been in another assisted living facility about a month ago and was having diarrhea for several weeks. They ran lab w ork and could not find the reason and it basically stopped spontaneously. He was free from diarrhea for about 2-3 weeks, but then it started again last night. He has no fevers or chills. No abdominal pain. No blood in the stools. REVIEW OF SYSTEMS: Constitutional: There have been no fevers, chills, no night sweats, no weight lo ss. HEENT: No headaches, no dizziness, no visual changes, no sore throat, rhinorrhea, neck pain, no adenopathy. Pulmonary: No hemoptysis, no cough, no wheezing. Cardiovascular: He denies any chest pain, no shortness of breath, no PND, no orthopnea. Gastrointestinal: As the history of present il lness. Genitourinary: No urinary frequency, hematuria, no hesitancy. Neurologic: No focal weaknes s, numbness, no seizures. Psychiatric: No symptoms of anxiety or depression. Skin and Integument: No skin changes. No rash. PAST MEDICAL HISTORY: Significant for end-stage renal disease on hemodialysis, hypertension, coronar y artery disease, diabetes mellitus type 2, dyslipidemia, diabetic retinopathy, atrial flutter, statu s post ablation. PAST SURGICAL HISTORY: He has had a left arm fistula and aortofemoral bypass. ALLERGIES: ADHESIVE. FAMILY HISTORY: Significant for diabetes mellitus and cerebral vascular disease. SOCIAL HISTORY: He is a nonsmoker, nondrinker. He is a FULL CODE. He makes his own decisions. CURRENT MEDICATIONS: He says these are the same as that on his last admission and these include aspi rin 81 mg daily, Lipitor 40 mg at bedtime, PhosLo 2668 mg t.i.d., Plavix 75 mg daily, docusate 100 mg twice a day, Levemir insulin 16 units daily, Imdur extended release 30 mg daily, metoprolol 50 mg tw ice a day, multivitamin once daily, NPH insulin 15 units twice a day, Nitrostat 0.4 sublingual p.r.n. , Protonix 40 mg daily, Zoloft 50 mg at bedtime, Timolol 0.5% 1 drop in the left eye daily, vitamin E 400 units daily, and Flagyl 250 mg twice a day. PHYSICAL EXAMINATION: GENERAL: He is alert and oriented. He appears to be in no acute distress. VITAL SIGNS: Stable. HEENT: Pupils are equal, round, and reactive. Extraocular muscles are intact. His sclerae are anic teric. Throat, no erythema, no exudates. NECK: No adenopathy, no bruits. LUNGS: Clear to auscultation, no wheezing or rales. CARDIOVASCULAR: He has a normal S1, S2. I did not appreciate an S3 or S4. No murmurs, clicks, no r ubs. ABDOMEN: Soft, nontender, nondistended. Positive for bowel sounds. No rebound or guarding. EXTREMITIES: He has got 1+ ankle edema, some chronic venous stasis changes. Pulses are 2+ and symme tric. NEUROLOGIC: The exam is grossly nonfocal. LABORATORY: Sodium is 133, potassium 6.0, chloride is 96, CO2 is 25, BUN is 66, creatinine 5.54, glu cose is 42, calcium 10.2, AST 34, ALT 34, alkaline phosphatase is 152. White blood cell count 6.3, h emoglobin 8.4, hematocrit is 24.9, and platelet count is 334. ASSESSMENT AND PLAN: 1. This is a pleasant 67-year-old gentleman who was brought into the hospital due to decrease in res ponsiveness. This was likely due to hypoglycemia and I suspect the hypoglycemia is probably from dec reased oral intake as he had slept through breakfast and had NPH insulin the night before. He is als o hyperkalemic. Also, this is likely related to his end-stage renal disease. He will be placed in o bservation and Nephrology has been consulted for urgent dialysis and regards to his hyperkalemia. 2. Hypoglycemia. We will restart his usual diabetic medications and monitor the trend. Once again, I suspect this is likely due to poor oral intake. 3. Diarrhea. This appears to be chronic with an unclear etiology. If he has another episode of alethea rrhea, we will check the stool for Clostridium difficile. Otherwise, he will be treated symptomatica lly and this can be worked up in the outpatient setting. Otherwise, we will continue his other home medications and reevaluate him in the a.m.
[2017-12-25 05:19] LABS: Anion Gap 11 mmol/L (10-20); BUN (Urea Nitrogen) 29 mg/dL (8.4-25.7); Calc. Creatinine Clearance 21 mL/min (70-130); Calcium 8.9 mg/dL (7.8-10.44); Carbon Dioxide 30 mmol/L (23-31); Chloride 99 mmol/L (98-107); Estimated GFR-MDRD 19; Glucose 227 mg/dL (80-115); Potassium 4.4 mmol/L (3.5-5.1); Sodium 136 mmol/L (136-145)
[2017-12-25] MEDS ORDERED: Amlodipine 10 MG TAB PO SCH (09:00)
[2017-12-25] MEDS ORDERED: Multivitamin W/ Minerals 1 TAB PO SCH (09:00)
[2017-12-25 11:56] VITALS: BP 177/86; TEMP 98.3
[2017-12-25 13:46] VITALS: BMI 20.7
--- NOTE | 2017-12-25 14:11 | PDOC.PN ---
- Subjective Encounter Start Date: 12/25/17 Encounter Start Time: 14:09 was seen today in follow-up of hypoglycemia. He is feeling better today. - Objective Resuscitation Status: Resuscitation Status FULL:Full Resuscitation MAR Reviewed: Yes Vital Signs & Weight: Vital Signs (12 hours) Temp Pulse Resp BP Pulse Ox 12/25/17 11:13 98.3 F 67 18 177/86 H 98 12/25/17 09:13 72 12/25/17 08:00 98.6 F 72 18 12/25/17 07:07 98.4 F 72 16 169/81 H 72 L 12/25/17 04:18 98.6 F 72 18 128/62 92 L Weight Admit Weight 152 lb 9.6 oz Weight 152 lb 9.6 oz I&O: 12/24/17 12/25/17 12/26/17 06:59 06:59 06:59 Intake Total 120 Output Total 4500 Balance -4380 Result Diagrams: 12/24/17 16:00 12/25/17 04:00 Additional Labs: Accuchecks 12/25/17 12/24/17 10:36 22:39 POC Glucose 369 H 64 L Phys Exam - Physical Examination HEENT: PERRLA Respiratory: no wheezing, no rales, no rhonchi, clear to auscultation bilateral Cardiovascular: RRR, no significant murmur, no rub Gastrointestinal: soft, non-tender, positive bowel sounds Musculoskeletal: no edema Dx/Plan (1) Hypoglycemia Code(s): E16.2 - HYPOGLYCEMIA, UNSPECIFIED Status: Acute (2) Dyslipidemia Code(s): E78.5 - HYPERLIPIDEMIA, UNSPECIFIED Status: Chronic (3) ESRD (end stage renal disease) on dialysis Code(s): N18.6 - END STAGE RENAL DISEASE; Z99.2 - DEPENDENCE ON RENAL DIALYSIS Status: Chronic Comment: Dialysis per nephrology. (4) HTN (hypertension) Code(s): I10 - ESSENTIAL (PRIMARY) HYPERTENSION Status: Chronic Qualifiers: (5) Diabetic ketoacidosis associated with type 1 diabetes mellitus Code(s): E10.10 - TYPE 1 DIABETES MELLITUS WITH KETOACIDOSIS WITHOUT COMA Status: Resolved Qualifiers: Comment: Resolved. - Plan * Hypoglycemia- resolved- likely due to taking insulin, and not eating * Hyperkalemia- corrected with dialysis * He is stable for discharge home..
--- NOTE | 2017-12-25 17:52 | DIS ---
DATE OF ADMISSION: 12/24/2017 DATE OF DISCHARGE: 12/25/2017 PRIMARY CARE PHYSICIAN: Ryan Koehler M.D. DISCHARGE DISPOSITION: Home. PRIMARY DISCHARGE DIAGNOSES: 1. Hypoglycemia. 2. Syncope secondary to #1. 3. End-stage renal disease, on hemodialysis. 4. Diabetes mellitus type 1. 5. Dyslipidemia. 6. Diabetic retinopathy. 7. Atrial flutter. 8. Coronary artery disease. DISCHARGE MEDICATIONS: Include vitamin E 400 units daily, Timoptic 1 drop in each eye daily, sertral ine 50 mg daily, Nitrostat 0.4 sublingual every 5 minutes as needed, multivitamin once a day, Lopress or 50 mg twice a day, isosorbide mononitrate 30 mg daily, NPH insulin 18 units in the morning, 22 uni ts in the evening, Atarax 25 mg t.i.d., Apresoline 25 mg 3 times a day, Plavix 75 mg daily, clonidine 0.1 mg twice daily, calcium acetate 667 mg 4 tablets 3 times a day, atorvastatin 40 mg daily, amlodi pine 10 mg daily, and Tylenol 650 mg q.4 h. CODE STATUS: FULL CODE. ALLERGIES: Adhesives. HOSPITAL COURSE: Mr. Lunsford is a pleasant 67-year-old gentleman who came to the emergency room afte r he was unresponsive in the assisted living. He was found to be hypoglycemic. The patient admits t hat he had taken his insulin, but did not eat and took a nap and this is when his blood glucose dropp ed. This is likely the reason for the hypoglycemic episode. He also had an episode of diarrhea and as a result decided not to go to dialysis. He was found to be hyperkalemic and this was corrected wi th urgent dialysis. Today, the patient feels fine. No complaints and will be discharged home. He i s to follow up with his primary care physician in 1-2 weeks.
== END 2017-12-25 16:15 | disposition home or self-care (01) ==
LOC: ERS 15:19 → 2SW 17:21
PROVIDERS: ADMIT Internal Medicine; ATTEND Internal Medicine
DX: E10.649 Type 1 diabetes mellitus with hypoglycemia without coma (principal); I12.0 Hypertensive chronic kidney disease with stage 5 chronic kidney disease or end stage renal disease; E10.22 Type 1 diabetes mellitus with diabetic chronic kidney disease; N18.6 End stage renal disease; I25.10 Atherosclerotic heart disease of native coronary artery without angina pectoris; E78.5 Hyperlipidemia, unspecified; I48.92 Unspecified atrial flutter; E87.5 Hyperkalemia; R19.7 Diarrhea, unspecified; E10.319 Type 1 diabetes mellitus with unspecified diabetic retinopathy without macular edema; E10.10 Type 1 diabetes mellitus with ketoacidosis without coma; Z79.82 Long term (current) use of aspirin; Z79.02 Long term (current) use of antithrombotics/antiplatelets; Z79.4 Long term (current) use of insulin; Z79.899 Other long term (current) drug therapy; Z91.048 Other nonmedicinal substance allergy status; Z99.2 Dependence on renal dialysis
CPT/HCPCS: 80048; 80053; 82553; 82962 ×2; 84484; 85025; 93005; 96374; 96375; 96376; 99285; G0378; 36415; 36416; 90935; G0257; J1644; J1815

== ENCOUNTER 2018-04-01 05:25 | Emergency (ER) | payer MEDICARE, OTHER ==
[2018-04-01] MEDS ORDERED: Nitroglycerin 0.4 MG TAB (25 Tab Bottle) ONE (05:55)
[2018-04-01] MEDS ORDERED: hydrALAZINE 25 MG TAB ONE (05:55)
[2018-04-01 06:02] LABS: #Eosinphils 0.1 thou/uL (0.0-0.7); #Lymphocytes 0.4 thou/uL (1.20-3.40); #Monocytes 0.6 thou/uL (0.11-0.59); #Neutrophils 5.2 thou/uL (1.40-6.50); %Basophils 0.7 % (0.0-1.0); %Eosinophils 0.9 % (0.0-10.0); %Lymphocytes 6.8 % (21.0-51.0); %Monocytes 9.3 % (0.0-10.0); %Neutrophils 82.3 % (42.0-75.0)
[2018-04-01 06:13] LABS: Hemoglobin 12.3 g/dL (14.0-18.0); Mean Corpuscular HGB CONC 32.3 g/dL (32.0-36.0); Mean Corpuscular Hemoglobin 34.3 pg (27.0-31.0); Platelet Count 195 thou/uL (130-400); RBC Distribution Width 14.2 % (11.5-14.5); Red Blood Cell (RBC) Count 3.59 mill/uL (4.70-6.10); White Blood Cell (WBC) Count 6.3 thou/uL (4.8-10.8)
[2018-04-01 06:21] LABS: ALT (SGPT) 22 U/L (8-55); AST (SGOT) 16 U/L (5-34); Albumin 3.8 g/dL (3.4-4.8); Alkaline Phosphatase 130 U/L (40-150); Anion Gap 18 mmol/L (10-20); BUN (Urea Nitrogen) 41 mg/dL (8.4-25.7); Bilirubin, Total 0.6 mg/dL (0.2-1.2); Calc. Creatinine Clearance 0 mL/min (70-130); Calcium 9.4 mg/dL (7.8-10.44); Carbon Dioxide 23 mmol/L (23-31); Chloride 99 mmol/L (98-107); Estimated GFR-MDRD 10; Globulin 3.1 g/dL (2.4-3.5); Glucose 184 mg/dL (80-115); Potassium 4.2 mmol/L (3.5-5.1); Protein, Total 6.9 g/dL (5.8-8.1); Sodium 136 mmol/L (136-145)
[2018-04-01 06:25] LABS: CKMB 4.5 ng/mL (0-6.6); Troponin I 0.054 ng/mL (< 0.028)
[2018-04-01 06:31] LABS: MDiff Complete? YES; Macrocytosis SLIGHT = 6-15 cells (100X) (0-5/hpf)
[2018-04-01] MEDS ORDERED: Acetaminophen/Codeine 30-300mg Tablet ONE (07:22)
[2018-04-01] MEDS ORDERED: Ibuprofen 800 MG TAB ONE (07:22)
--- NOTE | 2018-04-01 07:58 | RAD ---
CHEST ONE VIEW: HISTORY: Dyspnea. COMPARISON: 12/01/2017 FINDINGS: Atherosclerosis of the aorta. The heart is enlarged. The pulmonary vessels and hilum are normal. T he costophrenic angles are clear. No masses or consolidation. No pneumothorax or osseous abnormalit ies. IMPRESSION: 1. Atherosclerosis. 2. Cardiomegaly. 3. No evidence of congestive heart failure. POS: [facility]
--- NOTE | 2018-04-09 12:19 | EKG ---
Test Reason : Blood Pressure : / mmHG Vent. Rate : 075 BPM Atrial Rate : 075 BPM P-R Int : 172 ms QRS Dur : 114 ms QT Int : 460 ms P-R-T Axes : 053 086 014 degrees QTc Int : 513 ms Normal sinus rhythm Possible Left atrial enlargement Incomplete right bundle branch block Prolonged QT Abnormal ECG Confirmed by DESIREE MORRIS ([id number]), editor producer EDUARDO BRAVO ([id number]) on 04/09/2018 12:19:05 PM Referred By: Confirmed By:DESIREE MORRIS
== END 2018-04-01 07:45 | disposition home or self-care (01) ==
LOC: ERS 05:25
DX: K08.89 Other specified disorders of teeth and supporting structures (principal); E10.649 Type 1 diabetes mellitus with hypoglycemia without coma; I12.0 Hypertensive chronic kidney disease with stage 5 chronic kidney disease or end stage renal disease; N18.6 End stage renal disease; F41.9 Anxiety disorder, unspecified; I25.2 Old myocardial infarction; Z79.4 Long term (current) use of insulin; Z87.891 Personal history of nicotine dependence; Z79.899 Other long term (current) drug therapy
CPT/HCPCS: 36415; 71045; 80053; 82553; 84484; 85025; 93005

== ENCOUNTER 2018-04-04 11:22 | Inpatient (IN) | payer MEDICARE, OTHER ==
[2018-04-04] MEDS ORDERED: Heparin 10,000 UNITS/ 10 ML VIAL ONE (12:00)
[2018-04-04 12:20] LABS: #Lymphocytes 0.4 thou/uL (1.20-3.40); #Monocytes 0.8 thou/uL (0.11-0.59); %Eosinophils 0.2 % (0.0-10.0); %Lymphocytes 5.4 % (21.0-51.0); %Monocytes 10.8 % (0.0-10.0); %Neutrophils 83.6 % (42.0-75.0); Hemoglobin 12.3 g/dL (14.0-18.0); Mean Corpuscular HGB CONC 30.7 g/dL (32.0-36.0); Mean Corpuscular Hemoglobin 33.6 pg (27.0-31.0); Mean Platelet Volume 7.9 fL (7.4-10.4); Platelet Count 240 thou/uL (130-400); RBC Distribution Width 14.1 % (11.5-14.5); Red Blood Cell (RBC) Count 3.67 mill/uL (4.70-6.10); White Blood Cell (WBC) Count 7.2 thou/uL (4.8-10.8)
[2018-04-04 12:40] LABS: Troponin I 0.046 ng/mL (< 0.028)
[2018-04-04 12:41] LABS: ALT (SGPT) 23 U/L (8-55); AST (SGOT) 20 U/L (5-34); Albumin 3.7 g/dL (3.4-4.8); Alkaline Phosphatase 156 U/L (40-150); Anion Gap 34 mmol/L (10-20); BUN (Urea Nitrogen) 67 mg/dL (8.4-25.7); Bilirubin, Total 0.6 mg/dL (0.2-1.2); Calc. Creatinine Clearance 0 mL/min (70-130); Calcium 8.7 mg/dL (7.8-10.44); Carbon Dioxide 11 mmol/L (23-31); Chloride 98 mmol/L (98-107); Estimated GFR-MDRD 7; Globulin 3.2 g/dL (2.4-3.5); Glucose 263 mg/dL (80-115); Potassium 5.4 mmol/L (3.5-5.1); Protein, Total 6.9 g/dL (5.8-8.1); Sodium 138 mmol/L (136-145)
[2018-04-04 12:43] LABS: CKMB 9.2 ng/mL (0-6.6)
--- NOTE | 2018-04-04 13:25 | RAD ---
PORTABLE AP CHEST: Date: 04/04/18 HISTORY: Dyspnea. COMPARISON: 04/01/18. FINDINGS: The cardiac silhouette is magnified by projection, but does appear mildly enlarged and stable from pr ior study. The pulmonary vasculature is within normal limits. Lungs remain clear. Vascular calcificat ions seen in thoracic aorta. IMPRESSION: 1. No acute cardiopulmonary process. 2. Stable cardiomegaly. 3. Vascular calcifications thoracic aorta. POS: [facility]
--- NOTE | 2018-04-04 13:52 | CT ---
CT BRAIN WITHOUT CONTRAST: Date: 04/04/18 HISTORY: Altered mental status. COMPARISON: CT brain dated 11/05/17. FINDINGS: No acute territorial infarct or hemorrhage. No midline shift or mass effect. Ventricular size and ext ra-axial CSF spaces are normal. Paranasal sinuses and mastoids are clear. Moderate microvascular isch emic changes. IMPRESSION: Chronic changes. No acute intracranial abnormality. POS: [facility]
[2018-04-04] MEDS ORDERED: Insulin Regular 300 UNITS/3 ML VIAL ONE (15:30)
[2018-04-04] MEDS ORDERED: Ondansetron ODT 4 MG TAB PO PRN (17:01)
[2018-04-04] MEDS ORDERED: Senokot 8.6 MG TAB PO PRN (17:01)
[2018-04-04] MEDS ORDERED: Acetaminophen 650 MG Suppository PR PRN (17:01)
[2018-04-04] MEDS ORDERED: Nitroglycerin 0.4 MG TAB (25 Tab Bottle) PO PRN (17:01)
[2018-04-04] MEDS ORDERED: Ondansetron HCl/PF 4 MG/2 ML Vial IVP PRN (17:01)
[2018-04-04] MEDS ORDERED: Labetalol HCl 100 MG/20 ML VIAL SLOW IVP PRN (17:07)
[2018-04-04] MEDS ORDERED: hydrALAZINE 20 MG/ML VIAL SLOW IVP PRN ×2 (17:07→17:09)
[2018-04-04] MEDS ORDERED: cloNIDine 0.1 MG TAB PO PRN (17:09)
[2018-04-04] MEDS ORDERED: Sodium Chloride 0.9% 500 ML IV SCH (17:15)
[2018-04-04] MEDS ORDERED: Sodium Chloride 0.9% 1,000 ML IV SCH ×2 (17:15)
[2018-04-04] MEDS ORDERED: Dextrose 5 %-0.45 % NaCl 1,000 ML IV SCH (17:15)
--- NOTE | 2018-04-04 17:52 | HP ---
DATE OF ADMISSION: 04/04/2018 PRIMARY CARE PHYSICIAN: Dr. Koehler PRIMARY COVER CREASER: Dr. Rogerio Tucker. CHIEF COMPLAINT: Altered mentation. HISTORY OF PRESENT ILLNESS: The patient is a 68-year-old male with diabetes mellitus type 2; end-sta ge renal disease, on hemodialysis Wednesday, Wednesday and Wednesday; hypertension; depression. Currently living alone at home, presented to the emergency room with above complaints. He was brought in by EM S. The patient did not show up for his dialysis today. For this reason, family went in at patient's place to check on him and was found to have confusion. He was brought into the emergency room. The patient was last seen normal 2 days ago. He underwent hemodialysis 2 days ago (on 04/01/2018). He is currently on insulin and maintenance of blood sugar log. There was no blood sugar log noted from 04/01/2018. It is unclear whether he was taking his medications. He was also seen in the emergency room 2 days ago for dental pain. He was started on Tylenol #3 along with amoxicillin. There was no chest pain, shortness of breath, palpitations, lightheadedness, dizziness, or syncope reported. He d enies any pain. He is alert and awake; however, intermittently staying confused. Not much informati on is available from the patient due to current cognition. History obtained from the family at the [facility]. In the emergency room, initial vital signs showed temperature 97.4, respiration 18, pulse rate of 84 with a blood pressure of 92/43, O2 saturation 96% on room air. His workup was consistent with diabet ic ketoacidosis. He was started on IV fluids as well as insulin drip. PAST MEDICAL HISTORY: 1. Diabetes mellitus type 2 on insulin. 2. End-stage renal disease, on hemodialysis Wednesday, Wednesday and Wednesday. 3. Peripheral vascular disease. 4. Hypertension. 5. Depression 6. Chronic anemia. 7. Dyslipidemia. 8. History of gout. 9. Diabetic retinopathy. 10. Atrial flutter, status post ablation. 11. Dyslipidemia. 12. Coronary artery disease. PAST SURGICAL HISTORY: 1. Dialysis access. 2. Aortofemoral bypass. ALLERGIES: Patient is allergic to ADHESIVES. CURRENT HOME MEDICATIONS: The family to bring the accurate list of medications. Patient does not re call any of his home medications. SOCIAL HISTORY: He is a nonsmoker, nondrinker. He is FULL CODE. I confirmed with his family that elena tompkins makes his own decisions and has not appointed any decision maker yet. FAMILY HISTORY: Significant for diabetes and CVA. REVIEW OF SYSTEMS: Cannot be reliably obtained from the patient due to current cognitive status. PHYSICAL EXAMINATION: VITAL SIGNS: As discussed above. GENERAL: A 68-year-old male with altered mentation. HEENT: Head atraumatic, normocephalic. Sclerae are anicteric. Dry mucous membrane, no oral lesion. Dental caries noted. NECK: Supple, no JVD appreciated. No carotid bruit. LUNGS: Essentially clear to auscultation bilaterally. HEART: S1, S2 present. Regular rate and rhythm. No murmur, rubs, or gallops appreciated. ABDOMEN: Soft, nontender, bowel sounds present. EXTREMITIES: No edema or calf tenderness. NEUROLOGIC: Patient is moving all four extremities and follows commands appropriately most of the ti me. PSYCHIATRIC: As discussed above. Patient is awake and alert with intermittent confusion. SKIN: As discussed above. LYMPH NODES: No palpable lymph nodes in the neck. PERIPHERAL VASCULAR: Radial pulses palpable bilaterally, low volume. LYMPH NODES: No palpable lymph nodes in the neck. LABORATORY DATA AND IMAGING DATA: CBC showed WBC 7.2 with hemoglobin 12.3, hematocrit 40.2, platelet of 240. Chemistry showed sodium 138, potassium 5.4, chloride 98, bicarbonate 11, BUN 67, creatinine 7.39, glucose 263. Troponins of 0.043, BNP 4092. Ketones 8.13. EKG by my review showed sinus rhyt hm with incomplete right bundle branch block with nonspecific ST-T wave changes. QT was prolonged. Chest x-ray by my review was negative for infiltrate. CT scan of the brain by my review was negative for acute findings. It showed chronic changes. IMPRESSION: 1. Toxic metabolic encephalopathy. 2. Diabetic ketoacidosis. 3. Hyperkalemia secondary to metabolic acidosis. 4. Elevated troponins, probably secondary to dehydration/demand ischemia. 5. Hypertension. Patient is hypotensive. 6. Peripheral vascular disease. 7. Chronic anemia secondary to renal insufficiency. Patient is hemoconcentrated at this time. 8. Dyslipidemia. 9. Deconditioning. 10. Elevated BNP probably secondary to renal insufficiency. The patient had echocardiogram earlier this year that showed ejection fraction 45%-50% with diastolic dysfunction. PLAN: The patient will be monitored in the intermediate care unit. We will continue insulin drip. We will be careful with IV fluids due to dialysis. We will start him on step four of the DKA protoco l with D5 half NS. He will undergo dialysis today. We will monitor troponins. We will recheck beta hydroxybutyrate in a.m. We will recheck labs every 4 hours. We will consult Nephrology for mainten ance dialysis. We will resume home medications once confirmed. Plan of care was discussed with the patient and the family in detail. They stated understanding.
[2018-04-04] MEDS ORDERED: cefTRIAXone\\ROCEPHIN 1 GM in Sodium Chloride 0.9% 100 ML IVPB SCH (18:00)
[2018-04-04 18:07] LABS: Anion Gap 36 mmol/L (10-20); BUN (Urea Nitrogen) 70 mg/dL (8.4-25.7); Calc. Creatinine Clearance 9 mL/min (70-130); Calcium 8.3 mg/dL (7.8-10.44); Chloride 100 mmol/L (98-107); Estimated GFR-MDRD 7; Glucose 287 mg/dL (80-115); Potassium 5.7 mmol/L (3.5-5.1); Sodium 138 mmol/L (136-145)
[2018-04-04 18:10] LABS: Carbon Dioxide 8 mmol/L (23-31)
[2018-04-04 18:13] LABS: Troponin I 0.043 ng/mL (< 0.028)
[2018-04-04] MEDS: cloNIDine 0.1 MG TAB PO SCH (21:28)
[2018-04-04] MEDS: Docusate 100 MG CAP PO SCH (21:28)
[2018-04-04] MEDS: Heparin 5,000 UNITS/ML VIAL SC SCH (21:29)
[2018-04-04] MEDS: Timolol 0.5% Ophth Soln 5 ml Bottle L EYE SCH (21:29)
[2018-04-04] MEDS: Metoprolol Tartrate 25 MG TAB PO SCH (21:29)
[2018-04-04 22:23] LABS: Anion Gap 17 mmol/L (10-20); BUN (Urea Nitrogen) 26 mg/dL (8.4-25.7); Calc. Creatinine Clearance 20 mL/min (70-130); Calcium 8.2 mg/dL (7.8-10.44); Carbon Dioxide 24 mmol/L (23-31); Chloride 102 mmol/L (98-107); Estimated GFR-MDRD 18; Glucose 111 mg/dL (80-115); Potassium 3.7 mmol/L (3.5-5.1); Sodium 139 mmol/L (136-145)
[2018-04-04] MEDS ORDERED: Dextrose 50% Abboject 50 ML SYRINGE SLOW IVP PRN (22:47)
[2018-04-04] MEDS ORDERED: Insulin Regular 300 UNITS/3 ML VIAL SC PRN (22:47)
[2018-04-04] MEDS ORDERED: Dextrose 5% in Water 1,000 ML IV PRN (22:47)
[2018-04-04] MEDS ORDERED: NPH, Human Insulin Isophane 300 UNIT/3 ML VIAL SC SCH (23:00)
[2018-04-04] MEDS: cefTRIAXone\\ROCEPHIN 1 GM in Sodium Chloride 0.9% 100 ML IVPB SCH (23:25)
[2018-04-05 04:56] LABS: #Eosinphils 0.1 thou/uL (0.0-0.7); #Lymphocytes 0.5 thou/uL (1.20-3.40); #Monocytes 0.7 thou/uL (0.11-0.59); #Neutrophils 3.7 thou/uL (1.40-6.50); %Basophils 0.6 % (0.0-1.0); %Eosinophils 1.3 % (0.0-10.0); %Lymphocytes 9.3 % (21.0-51.0); %Monocytes 14.2 % (0.0-10.0); %Neutrophils 74.6 % (42.0-75.0); Hemoglobin 11.5 g/dL (14.0-18.0); Mean Corpuscular HGB CONC 32.4 g/dL (32.0-36.0); Mean Corpuscular Hemoglobin 34.5 pg (27.0-31.0); Mean Platelet Volume 7.7 fL (7.4-10.4); Platelet Count 207 thou/uL (130-400); RBC Distribution Width 14.3 % (11.5-14.5); Red Blood Cell (RBC) Count 3.34 mill/uL (4.70-6.10); White Blood Cell (WBC) Count 4.9 thou/uL (4.8-10.8)
[2018-04-05 05:21] LABS: Anion Gap 17 mmol/L (10-20); BUN (Urea Nitrogen) 28 mg/dL (8.4-25.7); Calc. Creatinine Clearance 17 mL/min (70-130); Calcium 8.1 mg/dL (7.8-10.44); Carbon Dioxide 24 mmol/L (23-31); Chloride 102 mmol/L (98-107); Estimated GFR-MDRD 14; Glucose 86 mg/dL (80-115); Phosphorus 3.9 mg/dL (2.3-4.7); Sodium 139 mmol/L (136-145)
[2018-04-05] MEDS: Dextrose 5 %-0.45 % NaCl 1,000 ML IV SCH ×2 (06:31→23:03)
[2018-04-05] MEDS ORDERED: Famotidine/PF 20 mg/2ml Vial SLOW IVP SCH (09:00)
[2018-04-05] MEDS ORDERED: NPH, Human Insulin Isophane 300 UNIT/3 ML VIAL SC SCH (09:00)
[2018-04-05] MEDS: Clopidogrel Bisulfate 75 MG TAB PO SCH (09:20)
[2018-04-05] MEDS: Aspirin 81 mg Enteric Coated Tablet PO SCH (09:20)
[2018-04-05] MEDS: Metoprolol Tartrate 25 MG TAB PO SCH ×3 (09:20→20:26)
[2018-04-05] MEDS: Famotidine 20 MG TAB PO SCH (09:20)
[2018-04-05] MEDS: Atorvastatin Calcium 40 MG TAB PO SCH (09:20)
[2018-04-05] MEDS: Docusate 100 MG CAP PO SCH ×2 (09:20→20:52)
[2018-04-05] MEDS: Heparin 5,000 UNITS/ML VIAL SC SCH ×2 (09:21→20:28)
[2018-04-05] MEDS: Timolol 0.5% Ophth Soln 5 ml Bottle L EYE SCH ×2 (10:09→20:26)
[2018-04-05] MEDS: Acetaminophen 325 MG TAB PO PRN (10:09)
[2018-04-05] MEDS: Insulin Regular 300 UNITS/3 ML VIAL SC PRN (12:07)
[2018-04-05] MEDS: cloNIDine 0.1 MG TAB PO SCH ×2 (13:19→20:26)
--- NOTE | 2018-04-05 15:08 | CON ---
DATE OF CONSULTATION: 04/05/2018 HISTORY OF PRESENT ILLNESS: Mr. Lunsford is a 68-year-old male with diabetes. For many years, I took care of his , who had severe chronic obstructive pulmonary disease. She has in the last couple of years. I have not seen him since then, but he used to come to all of her office visit s. Apparently, he has been living at home alone. His mother became concerned after the dialysis unit ca lled mom looking for Mr. Lunsford. The family went to check on him and found him to be confused. He presented to the emergency department and was apparently dialyzed. He has remained confused. PAST MEDICAL HISTORY: Remarkable for, 1. Diabetes. 2. End-stage renal disease. 3. Atherosclerotic vascular disease. 4. Hypertension. 5. Lipid disorder. 6. Gout. 7. Diabetic retinopathy. 8. History of an atrial flutter ablation. 9. History of lipid disorder. 10. History of coronary disease. 11. History of multiple vascular access procedures. 12. History of aortofemoral bypass. SOCIAL HISTORY: He is a nonsmoker, nondrinker. ALLERGIES: He reports no drug allergies. MEDICATIONS: On admission in the hospital have been reviewed. FAMILY HISTORY: Positive for diabetes and vascular disease. There is no history of lung disease in early age. REVIEW OF SYSTEMS: A 10-point review of systems not obtainable, because of his confusion. PHYSICAL EXAMINATION: GENERAL: He recognized me immediately when I walked into the room. VITAL SIGNS: His blood pressure is 114/50, heart rate is 79, respiratory rate is 16, oximetry 98. HEENT: Pupils are equal. Sclerae is anicteric. Extraocular movements appear to be full. NECK: Free of lymphadenopathy. LUNGS: Clear. HEART: Regular rhythm. ABDOMEN: Soft and nontender. EXTREMITIES: Without clubbing, cyanosis, or edema. LABORATORY DATA: White count 4.9, hemoglobin 11.5, platelets 207,000. Sodium 139, potassium 4, chloride 102, bicarb 24, BUN 28, creatinine 4.1. IMPRESSION: Encephalopathy of unclear etiology. Blood cultures initially are negative. He did have an elevated beta hydroxybutyrate, but he is a typ e 2 diabetic. It would be unlikely that, with renal failure, all of a sudden he is a type 1 diabetic . Beta-hydroxybutyrate can cross assay with starvation ketones and I would suspect this is more of a problem. Need to avoid hypoglycemia. I would not keep him on an insulin drip, and my understanding is that this has been discontinued. We would recommend that he continue to have glucoses done every 2 hours, continue with empiric antibiotics until his cultures are negative 48 hours. There was a hi story of toothache recently. I am not sure how this plays into this. A CT of his brain showed micro vascular ischemic changes, so this could be some degree of decompensated vascular dementia. I will be happy to follow with the other physicians caring for him. This is a 50-minute consult, 50% of the time was spent on the unit coordinating care.
[2018-04-05] MEDS ORDERED: Lorazepam 2 MG/ML VIAL SLOW IVP SCH (20:15)
[2018-04-05] MEDS: NPH, Human Insulin Isophane 300 UNIT/3 ML VIAL SC SCH (20:28)
[2018-04-05] MEDS: cefTRIAXone\\ROCEPHIN 1 GM in Sodium Chloride 0.9% 100 ML IVPB SCH (23:03)
--- NOTE | 2018-04-05 23:55 | PDOC.PN ---
- Subjective Encounter Start Date: 04/05/18 Encounter Start Time: 17:00 Patient seen and examined for Encephalopathy/DKA. Poor appetite. No new complaints. No overnight events - Objective Resuscitation Status: Resuscitation Status FULL:Full Resuscitation MAR Reviewed: Yes Vital Signs & Weight: Vital Signs (12 hours) Temp Pulse Pulse Resp BP BP BP 04/05/18 23:45 98.4 F 62 15 04/05/18 20:26 89 170/89 H 04/05/18 20:00 04/05/18 19:44 970 F H 71 20 04/05/18 16:00 98.0 F 71 18 04/05/18 15:20 04/05/18 14:41 71 113/78 113/65 04/05/18 13:19 114/50 L 04/05/18 12:00 99.0 F 73 16 BP Pulse Ox Pulse Ox 04/05/18 23:45 137/63 95 04/05/18 20:26 04/05/18 20:00 99 04/05/18 19:44 170/89 H 99 04/05/18 16:00 128/66 94 L 04/05/18 15:20 129/69 04/05/18 14:41 100 04/05/18 13:19 04/05/18 12:00 120/68 100 Weight Weight 156 lb 4.924 oz I&O: 04/04/18 04/05/18 04/06/18 06:59 06:59 06:59 Intake Total 1729 1271 Balance 1729 1271 Result Diagrams: 04/05/18 03:40 04/05/18 03:40 Additional Labs: Accuchecks 04/05/18 04/05/18 04/05/18 23:16 20:19 16:54 POC Glucose 185 H 165 H 133 H 04/05/18 04/05/18 04/05/18 11:00 09:14 06:04 POC Glucose 211 H 138 H 112 H 04/05/18 04/05/18 04/05/18 05:17 03:57 03:02 POC Glucose 108 82 82 04/05/18 04/05/18 04/04/18 02:03 00:59 23:57 POC Glucose 82 97 54 L* EKG Reviewed by me: Yes (Tele SR) Phys Exam - Physical Examination Constitutional: NAD Neck: no nodes, no JVD Respiratory: no wheezing, no rales, no rhonchi, clear to auscultation bilateral Cardiovascular: RRR, no rub No heaves/pulsations Gastrointestinal: soft, non-tender, no distention, positive bowel sounds Musculoskeletal: no edema, pulses present Neurological: non-focal, moves all 4 limbs Dx/Plan - Plan DVT proph w/SCDs IMPRESSION: 1. Toxic metabolic encephalopathy. 2. Diabetic ketoacidosis. 3. Hyperkalemia secondary to metabolic acidosis. 4. Elevated troponins, probably secondary to dehydration/demand ischemia. 5. Hypertension. Patient is hypotensive. 6. Peripheral vascular disease. 7. Chronic anemia secondary to renal insufficiency. Patient is hemoconcentrated at this time. 8. Dyslipidemia. 9. Deconditioning. 10. Elevated BNP probably secondary to renal insufficiency. The patient had echocardiogram earlier this year that showed ejection fraction 45%-50% with diastolic dysfunction. 11. Recent Dental infection. PLAN: Cont sliding scale with freq Acuchecks Low dose NPH with D51/2 NS due to poor appetite Dialysis per Nephrology AM labs Cont Atbx Cont current meds as below Review of Systems - Review of Systems Cardiovascular: negative: chest pain, palpitations, orthopnea, paroxysmal nocturnal dyspnea, edema, light headedness, other Gastrointestinal: negative: Nausea, Vomiting, Abdominal Pain, Diarrhea, Constipation, Melena, Hematochezia, Other - Medications/Allergies Allergies/Adverse Reactions: Allergies Allergy/AdvReac Type Severity Reaction Status Date / Time adhesive Allergy Verified 09/16/17 23:40 Medications: Current Medications Acetaminophen (Tylenol) 650 mg PO Q4H PRN PRN Reason: Headache/Fever or Pain Last Admin: 04/05/18 10:09 Dose: 650 mg Acetaminophen (Tylenol) 650 mg [place] Q4H PRN PRN Reason: Headache/Fever or Pain Aspirin (Ecotrin) 81 mg PO DAILY [facility] Last Admin: 04/05/18 09:20 Dose: 81 mg Atorvastatin Calcium (Lipitor) 40 mg PO DAILY [facility] Last Admin: 04/05/18 09:20 Dose: 40 mg Clonidine (Catapres) 0.1 mg PO BID [facility] Last Admin: 04/05/18 20:26 Dose: 0.1 mg Clonidine (Catapres) 0.1 mg PO Q4H PRN PRN Reason: Systolic BP > 180 Clopidogrel Bisulfate (Plavix) 75 mg PO DAILY [facility] Last Admin: 04/05/18 09:20 Dose: 75 mg Dextrose/Water (Dextrose 50%) 25 gm SLOW IVP PRN PRN PRN Reason: Hypoglycemia Last Admin: 04/05/18 00:00 Dose: 25 gm Docusate Sodium (Colace) 100 mg PO BID [facility] Last Admin: 04/05/18 20:52 Dose: Not Given Famotidine (Pepcid) 20 mg PO DAILY [facility] Last Admin: 04/05/18 09:20 Dose: 20 mg Glucagon (Glucagon) 1 mg IM PRN PRN PRN Reason: Hypoglycemia Heparin Sodium (Porcine) (Heparin) 5,000 units SC BID [facility] Last Admin: 04/05/18 20:28 Dose: 5,000 units Hydralazine HCl (Apresoline) 10 mg SLOW IVP Q4H PRN PRN Reason: SBP Greater Than 180 Ceftriaxone Sodium 1 gm/ (Sodium Chloride) 100 mls @ 200 mls/hr IVPB 2300 [facility] Last Admin: 04/05/18 23:03 Dose: 100 mls Dextrose/Water (D5w) 1,000 mls @ 0 mls/hr IV .Q0M PRN PRN Reason: Hypoglycemia Dextrose/Sodium Chloride (D5 1/2 Ns) 1,000 mls @ 50 mls/hr IV .Q20H [facility] Last Admin: 04/05/18 23:03 Dose: 1,000 mls Insulin Human NPH (Humulin N) 5 unit SC BID [facility] Last Admin: 04/05/18 20:28 Dose: 5 unit Insulin Human Regular (Humulin R) 0 units SC .MILD SLIDING SCALE PRN PRN Reason: Mild Correctional Scale Last Admin: 04/05/18 12:07 Dose: 3 unit Insulin Human Regular (Humulin R) 0 units SC .BEDTIME SLIDING SC PRN PRN Reason: Bedtime Correctional Scale Labetalol HCl (Normodyne) 10 mg SLOW IVP Q4H PRN PRN Reason: Systolic BP > 180 Metoprolol Tartrate (Lopressor) 25 mg PO TID [facility] Last Admin: 04/05/18 20:26 Dose: 25 mg Nitroglycerin (Nitrostat) 0.4 mg PO Q5MIN PRN PRN Reason: Chest Pain Senna (Senokot) 2 tab PO HSPRN PRN PRN Reason: Constipation Sertraline HCl (Zoloft) 50 mg PO HS [facility] Last Admin: 04/05/18 20:26 Dose: 50 mg Timolol Maleate (Timoptic 0.5% Ophth Soln) 1 drop L EYE BID [facility] Last Admin: 04/05/18 20:26 Dose: 1 drop
[2018-04-06 04:24] LABS: Anion Gap 16 mmol/L (10-20); BUN (Urea Nitrogen) 42 mg/dL (8.4-25.7); Calc. Creatinine Clearance 13 mL/min (70-130); Calcium 8.5 mg/dL (7.8-10.44); Carbon Dioxide 24 mmol/L (23-31); Chloride 100 mmol/L (98-107); Estimated GFR-MDRD 10; Glucose 178 mg/dL (80-115); Potassium 4.2 mmol/L (3.5-5.1); Sodium 136 mmol/L (136-145)
[2018-04-06] MEDS: Timolol 0.5% Ophth Soln 5 ml Bottle L EYE SCH ×2 (12:08→22:02)
[2018-04-06] MEDS: Aspirin 81 mg Enteric Coated Tablet PO SCH (12:09)
[2018-04-06] MEDS: Heparin 5,000 UNITS/ML VIAL SC SCH ×2 (12:09→22:01)
[2018-04-06] MEDS: Docusate 100 MG CAP PO SCH ×2 (12:09→22:01)
[2018-04-06] MEDS: Atorvastatin Calcium 40 MG TAB PO SCH (12:09)
[2018-04-06] MEDS: Clopidogrel Bisulfate 75 MG TAB PO SCH (12:09)
[2018-04-06] MEDS: Metoprolol Tartrate 25 MG TAB PO SCH ×3 (12:09→22:01)
[2018-04-06] MEDS: Famotidine 20 MG TAB PO SCH (12:10)
[2018-04-06] MEDS: cloNIDine 0.1 MG TAB PO SCH ×2 (12:10→21:59)
[2018-04-06] MEDS: NPH, Human Insulin Isophane 300 UNIT/3 ML VIAL SC SCH ×2 (12:18→22:02)
[2018-04-06] MEDS: Acetaminophen 325 MG TAB PO PRN (12:21)
[2018-04-06] MEDS: Dextrose 5 %-0.45 % NaCl 1,000 ML IV SCH (15:51)
[2018-04-06] MEDS: Insulin Regular 300 UNITS/3 ML VIAL SC PRN (16:56)
--- NOTE | 2018-04-06 19:47 | PDOC.PN ---
- Subjective Encounter Start Date: 04/06/18 Encounter Start Time: 16:00 Patient seen and examined for Encephalopathy/DKA. No new complaints. No overnight events - Objective Resuscitation Status: Resuscitation Status FULL:Full Resuscitation MAR Reviewed: Yes Vital Signs & Weight: Vital Signs (12 hours) Temp Pulse Resp BP BP Pulse Ox 04/06/18 19:28 97.4 F L 66 16 165/88 H 100 04/06/18 14:25 98 04/06/18 13:35 97.5 F L 71 12 157/86 H 98 04/06/18 12:10 179/92 H 04/06/18 12:08 78 179/92 H 04/06/18 11:37 98.4 F 18 174/85 H 04/06/18 08:00 98 Weight Admit Weight 153 lb 8 oz Weight 153 lb 7.068 oz I&O: 04/05/18 04/06/18 04/07/18 06:59 06:59 06:59 Intake Total 1729 2171 Balance 1729 2171 Result Diagrams: 04/05/18 03:40 04/06/18 03:34 Additional Labs: Accuchecks 04/06/18 04/06/18 04/06/18 16:46 11:32 03:31 POC Glucose 219 H 121 H 146 H 04/05/18 04/05/18 23:16 20:19 POC Glucose 185 H 165 H Phys Exam - Physical Examination Constitutional: NAD Respiratory: no wheezing, no rhonchi Cardiovascular: RRR, no rub Gastrointestinal: soft, non-tender, positive bowel sounds Musculoskeletal: no edema Neurological: moves all 4 limbs Dx/Plan - Plan DVT proph w/heparin, DVT proph w/SCDs IMPRESSION: 1. Toxic metabolic encephalopathy - improving 2. Diabetic ketoacidosis. resolved 3. Hyperkalemia secondary to metabolic acidosis. 4. Elevated troponins, probably secondary to dehydration/demand ischemia. 5. Hypertension. 6. Peripheral vascular disease. 7. Chronic anemia secondary to renal insufficiency. Patient is hemoconcentrated at this time. 8. Dyslipidemia. 9. Deconditioning. 10. Elevated BNP probably secondary to renal insufficiency. The patient had echocardiogram earlier this year that showed ejection fraction 45%-50% with diastolic dysfunction. 11. Recent Dental infection. PLAN: Cont sliding scale with freq Acuchecks Cont Low dose NPH with D51/2 NS due to poor appetite Cont Dialysis per Nephrology AM labs Cont Atbx Cont current meds as below SNF eval Review of Systems - Review of Systems Respiratory: negative: Cough, Dry, Shortness of Breath, Hemoptysis, SOB with Excertion, Pleuritic Pain, Sputum, Wheezing Cardiovascular: negative: chest pain, palpitations, orthopnea, paroxysmal nocturnal dyspnea, edema, light headedness, other - Medications/Allergies Allergies/Adverse Reactions: Allergies Allergy/AdvReac Type Severity Reaction Status Date / Time adhesive Allergy Verified 09/16/17 23:40 Medications: Current Medications Acetaminophen (Tylenol) 650 mg PO Q4H PRN PRN Reason: Headache/Fever or Pain Last Admin: 04/06/18 12:21 Dose: 650 mg Acetaminophen (Tylenol) 650 mg [place] Q4H PRN PRN Reason: Headache/Fever or Pain Aspirin (Ecotrin) 81 mg PO DAILY [facility] Last Admin: 04/06/18 12:09 Dose: 81 mg Atorvastatin Calcium (Lipitor) 40 mg PO DAILY [facility] Last Admin: 04/06/18 12:09 Dose: 40 mg Clonidine (Catapres) 0.1 mg PO BID [facility] Last Admin: 04/06/18 12:10 Dose: 0.1 mg Clonidine (Catapres) 0.1 mg PO Q4H PRN PRN Reason: Systolic BP > 180 Clopidogrel Bisulfate (Plavix) 75 mg PO DAILY [facility] Last Admin: 04/06/18 12:09 Dose: 75 mg Dextrose/Water (Dextrose 50%) 25 gm SLOW IVP PRN PRN PRN Reason: Hypoglycemia Last Admin: 04/05/18 00:00 Dose: 25 gm Docusate Sodium (Colace) 100 mg PO BID [facility] Last Admin: 04/06/18 12:09 Dose: 100 mg Famotidine (Pepcid) 20 mg PO DAILY [facility] Last Admin: 04/06/18 12:10 Dose: 20 mg Glucagon (Glucagon) 1 mg IM PRN PRN PRN Reason: Hypoglycemia Heparin Sodium (Porcine) (Heparin) 5,000 units SC BID [facility] Last Admin: 04/06/18 12:09 Dose: 5,000 units Hydralazine HCl (Apresoline) 10 mg SLOW IVP Q4H PRN PRN Reason: SBP Greater Than 180 Ceftriaxone Sodium 1 gm/ (Sodium Chloride) 100 mls @ 200 mls/hr IVPB 2300 [facility] Last Admin: 04/05/18 23:03 Dose: 100 mls Dextrose/Water (D5w) 1,000 mls @ 0 mls/hr IV .Q0M PRN PRN Reason: Hypoglycemia Dextrose/Sodium Chloride (D5 1/2 Ns) 1,000 mls @ 50 mls/hr IV .Q20H [facility] Last Admin: 04/06/18 15:51 Dose: 1,000 mls Insulin Human NPH (Humulin N) 5 unit SC BID [facility] Last Admin: 04/06/18 12:18 Dose: Not Given Insulin Human Regular (Humulin R) 0 units SC .MILD SLIDING SCALE PRN PRN Reason: Mild Correctional Scale Last Admin: 04/06/18 16:56 Dose: 3 unit Insulin Human Regular (Humulin R) 0 units SC .BEDTIME SLIDING SC PRN PRN Reason: Bedtime Correctional Scale Labetalol HCl (Normodyne) 10 mg SLOW IVP Q4H PRN PRN Reason: Systolic BP > 180 Metoprolol Tartrate (Lopressor) 25 mg PO TID [facility] Last Admin: 04/06/18 15:49 Dose: 25 mg Nitroglycerin (Nitrostat) 0.4 mg PO Q5MIN PRN PRN Reason: Chest Pain Senna (Senokot) 2 tab PO HSPRN PRN PRN Reason: Constipation Sertraline HCl (Zoloft) 50 mg PO HS [facility] Last Admin: 04/05/18 20:26 Dose: 50 mg Timolol Maleate (Timoptic 0.5% Ophth Soln) 1 drop L EYE BID [facility] Last Admin: 04/06/18 12:08 Dose: 1 drop
[2018-04-07] MEDS: cefTRIAXone\\ROCEPHIN 1 GM in Sodium Chloride 0.9% 100 ML IVPB SCH ×2 (00:29→22:40)
[2018-04-07 04:52] LABS: Anion Gap 17 mmol/L (10-20); BUN (Urea Nitrogen) 26 mg/dL (8.4-25.7); Calc. Creatinine Clearance 16 mL/min (70-130); Calcium 8.3 mg/dL (7.8-10.44); Carbon Dioxide 24 mmol/L (23-31); Chloride 98 mmol/L (98-107); Estimated GFR-MDRD 14; Glucose 200 mg/dL (80-115); Sodium 135 mmol/L (136-145)
[2018-04-07] MEDS: Dextrose 5 %-0.45 % NaCl 1,000 ML IV SCH (08:52)
[2018-04-07] MEDS: Aspirin 81 mg Enteric Coated Tablet PO SCH (08:54)
[2018-04-07] MEDS: Atorvastatin Calcium 40 MG TAB PO SCH (08:55)
[2018-04-07] MEDS: cloNIDine 0.1 MG TAB PO SCH ×2 (08:55→20:58)
[2018-04-07] MEDS: Clopidogrel Bisulfate 75 MG TAB PO SCH (08:55)
[2018-04-07] MEDS: NPH, Human Insulin Isophane 300 UNIT/3 ML VIAL SC SCH ×2 (08:56→20:59)
[2018-04-07] MEDS: Docusate 100 MG CAP PO SCH ×2 (08:56→20:59)
[2018-04-07] MEDS: Metoprolol Tartrate 25 MG TAB PO SCH ×3 (08:56→20:59)
[2018-04-07] MEDS: Timolol 0.5% Ophth Soln 5 ml Bottle L EYE SCH ×2 (08:57→21:00)
[2018-04-07] MEDS: Heparin 5,000 UNITS/ML VIAL SC SCH ×2 (08:58→20:59)
[2018-04-07] MEDS: Famotidine 20 MG TAB PO SCH (08:59)
[2018-04-07] MEDS: Insulin Regular 300 UNITS/3 ML VIAL SC PRN ×2 (12:25→16:41)
--- NOTE | 2018-04-07 16:03 | PRG ---
DATE OF SERVICE: 04/07/2018 SUBJECTIVE: James Lunsford feels 100% improved compared to 2 days ago. OBJECTIVE: VITAL SIGNS: He is afebrile, heart rate is in the 68, blood pressure is still elevated running in the 170s to 190s. LUNGS: Clear. HEART: Regular rhythm. ABDOMEN: Soft. IMPRESSION: Encephalopathy resolving, it is likely toxic metabolic encephalopathy. Blood cultures remained negative. Deconditioning is an issue. I am not sure how well he was caring for himself at home. Family apparently does not feel he was doing an adequate job. Unfortunately, his really took great care of him, but now she is passed. He is probably not as good as she was at caring for himself. He did agree for me to go into [facility] for some rehabilitation. Hopefully, we will eventually become independent again, but he may not. ANNABELLA
[2018-04-07] MEDS: Acetaminophen 325 MG TAB PO PRN (16:42)
--- NOTE | 2018-04-07 21:47 | PDOC.PN ---
- Subjective Encounter Start Date: 04/07/18 Encounter Start Time: 09:30 Patient seen and examined for Encephalopathy. Poor appetite. No new complaints. No overnight events - Objective Resuscitation Status: Resuscitation Status FULL:Full Resuscitation MAR Reviewed: Yes Vital Signs & Weight: Vital Signs (12 hours) Temp Pulse Resp BP BP Pulse Ox 04/07/18 21:00 62 168/88 H 04/07/18 20:58 168/88 H 04/07/18 20:00 97.5 F L 61 18 168/88 H 100 04/07/18 16:30 166/89 H 04/07/18 16:00 97.7 F 62 16 189/98 H 99 04/07/18 15:20 100 04/07/18 14:28 171/92 H 04/07/18 12:18 68 198/101 H 04/07/18 11:41 97.7 F 61 16 195/95 H 100 Weight Admit Weight 153 lb 8 oz Weight 147 lb 14.883 oz I&O: 04/06/18 04/07/18 04/08/18 06:59 06:59 06:59 Intake Total 2171 900 1200 Balance 2171 900 1200 Result Diagrams: 04/05/18 03:40 04/07/18 03:57 Additional Labs: Accuchecks 04/07/18 04/07/18 04/07/18 19:30 15:46 11:16 POC Glucose 238 H 243 H 203 H 04/07/18 04/06/18 04:21 19:26 POC Glucose 180 H 210 H Phys Exam - Physical Examination Constitutional: NAD Respiratory: no wheezing, no rhonchi Cardiovascular: RRR, no rub Gastrointestinal: soft, non-tender Neurological: moves all 4 limbs Dx/Plan - Plan DVT proph w/heparin, DVT proph w/SCDs IMPRESSION: 1. Toxic metabolic encephalopathy - improving 2. Diabetic ketoacidosis. resolved 3. Hyperkalemia secondary to metabolic acidosis. resolved 4. Elevated troponins, probably secondary to dehydration/demand ischemia. 5. Hypertension. 6. Peripheral vascular disease. 7. Chronic anemia secondary to renal insufficiency. 8. Dyslipidemia. 9. Deconditioning. 10. Recent Dental infection. PLAN: Resume Amlodipine Cont IVF due to poor appetite Probable dc to SNF in AM if appetite improvesCont sliding scale with freq Acuchecks Cont Low dose NPH with D51/2 NS due to poor appetite Cont Dialysis per Nephrology Cont Atbx Cont current meds as below Review of Systems - Review of Systems Respiratory: negative: Cough, Dry, Shortness of Breath, Hemoptysis, SOB with Excertion, Pleuritic Pain, Sputum, Wheezing Cardiovascular: negative: chest pain, palpitations, orthopnea, paroxysmal nocturnal dyspnea, edema, light headedness, other - Medications/Allergies Allergies/Adverse Reactions: Allergies Allergy/AdvReac Type Severity Reaction Status Date / Time adhesive Allergy Verified 09/16/17 23:40 Medications: Current Medications Acetaminophen (Tylenol) 650 mg PO Q4H PRN PRN Reason: Headache/Fever or Pain Last Admin: 04/07/18 16:42 Dose: 650 mg Acetaminophen (Tylenol) 650 mg LA Q4H PRN PRN Reason: Headache/Fever or Pain Aspirin (Ecotrin) 81 mg PO DAILY [facility] Last Admin: 04/07/18 08:54 Dose: 81 mg Atorvastatin Calcium (Lipitor) 40 mg PO DAILY [facility] Last Admin: 04/07/18 08:55 Dose: 40 mg Clonidine (Catapres) 0.1 mg PO BID [facility] Last Admin: 04/07/18 20:58 Dose: 0.1 mg Clonidine (Catapres) 0.1 mg PO Q4H PRN PRN Reason: Systolic BP > 180 Clopidogrel Bisulfate (Plavix) 75 mg PO DAILY [facility] Last Admin: 04/07/18 08:55 Dose: 75 mg Dextrose/Water (Dextrose 50%) 25 gm SLOW IVP PRN PRN PRN Reason: Hypoglycemia Last Admin: 04/05/18 00:00 Dose: 25 gm Docusate Sodium (Colace) 100 mg PO BID [facility] Last Admin: 04/07/18 20:59 Dose: Not Given Famotidine (Pepcid) 20 mg PO DAILY [facility] Last Admin: 04/07/18 08:59 Dose: 20 mg Glucagon (Glucagon) 1 mg IM PRN PRN PRN Reason: Hypoglycemia Heparin Sodium (Porcine) (Heparin) 5,000 units SC BID [facility] Last Admin: 04/07/18 20:59 Dose: 5,000 units Hydralazine HCl (Apresoline) 10 mg SLOW IVP Q4H PRN PRN Reason: SBP Greater Than 180 Ceftriaxone Sodium 1 gm/ (Sodium Chloride) 100 mls @ 200 mls/hr IVPB 2300 [facility] Last Admin: 04/07/18 00:29 Dose: 100 mls Dextrose/Water (D5w) 1,000 mls @ 0 mls/hr IV .Q0M PRN PRN Reason: Hypoglycemia Dextrose/Sodium Chloride (D5 1/2 Ns) 1,000 mls @ 50 mls/hr IV .Q20H [facility] Last Admin: 04/07/18 08:52 Dose: 1,000 mls Insulin Human NPH (Humulin N) 5 unit SC BID [facility] Last Admin: 04/07/18 20:59 Dose: 5 unit Insulin Human Regular (Humulin R) 0 units SC .MILD SLIDING SCALE PRN PRN Reason: Mild Correctional Scale Last Admin: 04/07/18 16:41 Dose: 3 unit Insulin Human Regular (Humulin R) 0 units SC .BEDTIME SLIDING SC PRN PRN Reason: Bedtime Correctional Scale Labetalol HCl (Normodyne) 10 mg SLOW IVP Q4H PRN PRN Reason: Systolic BP > 180 Last Admin: 04/07/18 12:18 Dose: 10 mg Metoprolol Tartrate (Lopressor) 25 mg PO TID [facility] Last Admin: 04/07/18 20:59 Dose: 25 mg Nitroglycerin (Nitrostat) 0.4 mg PO Q5MIN PRN PRN Reason: Chest Pain Senna (Senokot) 2 tab PO HSPRN PRN PRN Reason: Constipation Sertraline HCl (Zoloft) 50 mg PO HS [facility] Last Admin: 04/07/18 20:59 Dose: 50 mg Timolol Maleate (Timoptic 0.5% Oph Soln) 1 drop L EYE BID [facility] Last Admin: 04/07/18 21:00 Dose: 1 drop
[2018-04-07] MEDS ORDERED: Amlodipine 10 MG TAB PO SCH (22:00)
[2018-04-08 07:19] VITALS: TEMP 97.8
[2018-04-08] MEDS ORDERED: Aspirin 81 mg Enteric Coated Tablet PO SCH (09:00)
--- NOTE | 2018-04-08 10:21 | PRG ---
DATE OF SERVICE: 04/08/2018 SUBJECTIVE: Mr. Lunsford has no complaints. He is much more alert today. OBJECTIVE: VITAL SIGNS: He is afebrile, heart rate is 63, respiratory rate is 18, oximetry is 92 on room air, b lood pressure is 132/78. GENERAL: He ate a good breakfast. LUNGS: Clear. HEART: Regular rhythm. ABDOMEN: Soft. He is still receiving IV fluids, looks like at 50 mL an hour. He is a dialysis patient. His p.o. in take is adequate. Fluids need to be stopped. He is stable to go to a skilled bed, in my opinion.
[2018-04-08 14:50] VITALS: BMI 20.3
[2018-04-08] MEDS: Clopidogrel Bisulfate 75 MG TAB PO SCH (17:26)
[2018-04-08] MEDS: Atorvastatin Calcium 40 MG TAB PO SCH (17:26)
[2018-04-08] MEDS: cloNIDine 0.1 MG TAB PO SCH (17:26)
[2018-04-08] MEDS: Metoprolol Tartrate 25 MG TAB PO SCH (17:27)
[2018-04-08] MEDS: NPH, Human Insulin Isophane 300 UNIT/3 ML VIAL SC SCH (17:27)
[2018-04-08] MEDS: Docusate 100 MG CAP PO SCH (17:27)
[2018-04-08] MEDS: Famotidine 20 MG TAB PO SCH (17:27)
[2018-04-08 17:28] VITALS: BP 168/88
[2018-04-08] MEDS: Timolol 0.5% Ophth Soln 5 ml Bottle L EYE SCH (17:28)
[2018-04-08] MEDS: Dextrose 5 %-0.45 % NaCl 1,000 ML IV SCH (17:29)
[2018-04-08] MEDS: Acetaminophen 325 MG TAB PO PRN (19:04)
--- NOTE | 2018-04-08 19:40 | DIS ---
DATE OF DISCHARGE: 04/08/2018 DISCHARGE DISPOSITION: To [facility]. DISCHARGE MEDICATIONS: Augmentin 250 mg twice a day for the next 10 days, Aspirin 81 mg daily, Pepci d 20 mg daily, NPH 5 units b.i.d., Pepcid 20 mg daily, timolol eyedrops twice a day, Zoloft 50 mg at bedtime, naphazoline eyedrops as needed, Lopressor 25 mg 3 times a day, insulin sliding scale, Plavix 75 mg daily, clonidine 0.1 twice a day, calcium acetate 3 times a day, Lipitor 40 mg daily, amlodipi ne 10 mg at bedtime, Tylenol as needed. ALLERGIES: Patient is allergic to ADHESIVES. BRIEF HOSPITAL COURSE: The patient is a 68-year-old male with end-stage renal disease on hemodialysi s with recent dental infection, presented to the hospital with altered mentation. Please refer to th e history and physical dated 04/04/2018 for further details. The patient was admitted to the intermediate care unit with a diagnosis of diabetic ketoacidosis requ iring insulin drip. His volume status was carefully monitored. He underwent dialysis per Nephrology . His anion gap on admission was 36 that have significantly improved. He was also found to have ind eterminate troponins, probably secondary to dehydration/demand ischemia. His mentation is significan tly improved. [facility]. FINAL DIAGNOSES: 1. Toxic metabolic encephalopathy secondary to diabetic ketoacidosis. 2. Recent dental infection, on Augmentin. 3. Hyperkalemia secondary to metabolic acidosis, resolved. 4. Elevated troponin secondary to dehydration/demand ischemia. 5. Hypertension. The patient was hypotensive on admission. 6. Peripheral vascular disease. 7. Chronic anemia secondary to renal insufficiency. 8. Dyslipidemia. 9. Physical deconditioning. Plan of care was discussed with the patient in detail. He stated understanding.
[2018-04-08] MEDS ORDERED: Amlodipine 10 MG TAB PO SCH (21:00)
--- NOTE | 2018-04-09 16:35 | EKG ---
Test Reason : Blood Pressure : / mmHG Vent. Rate : 078 BPM Atrial Rate : 078 BPM P-R Int : 184 ms QRS Dur : 108 ms QT Int : 462 ms P-R-T Axes : 051 116 -09 degrees QTc Int : 526 ms Normal sinus rhythm Possible Left atrial enlargement Right axis deviation Incomplete right bundle branch block Right ventricular hypertrophy Septal infarct , age undetermined Prolonged QT Abnormal ECG Confirmed by DESIREE MORRIS ([id number]), newspaper photo editor EDUARDO BRAVO ([id number]) on 04/09/2018 4:35:04 PM Referred By: Confirmed By:DESIREE MORRIS
== END 2018-04-08 19:13 | DRG 637 ==
LOC: ERS 11:22 → IMCU/EMU 14:39 → T4-B 04-06 13:43
PROVIDERS: ADMIT Internal Medicine; ATTEND Internal Medicine
PROC: 5A1D70Z Performance of Urinary Filtration, Intermittent, Less than 6 Hours Per Day (ICD-10-PCS; principal; 2018-04-04)
DX: E11.10 Type 2 diabetes mellitus with ketoacidosis without coma (principal); N18.6 End stage renal disease; G92 Toxic encephalopathy; I12.0 Hypertensive chronic kidney disease with stage 5 chronic kidney disease or end stage renal disease; I24.8 Other forms of acute ischemic heart disease; E87.2 Acidosis; E11.22 Type 2 diabetes mellitus with diabetic chronic kidney disease; Z99.2 Dependence on renal dialysis; E11.51 Type 2 diabetes mellitus with diabetic peripheral angiopathy without gangrene; E86.0 Dehydration; E87.5 Hyperkalemia; K04.7 Periapical abscess without sinus; D63.1 Anemia in chronic kidney disease; I25.10 Atherosclerotic heart disease of native coronary artery without angina pectoris; E78.5 Hyperlipidemia, unspecified; F32.9 Major depressive disorder, single episode, unspecified; Z95.820 Peripheral vascular angioplasty status with implants and grafts; Z87.891 Personal history of nicotine dependence; Z79.4 Long term (current) use of insulin; Z79.2 Long term (current) use of antibiotics; Z79.02 Long term (current) use of antithrombotics/antiplatelets
CPT/HCPCS: 36415; 36416; 70450; 71045; 80048; 80053; 82010; 82553; 83605; 83735; 83880; 84100; 84484; 85025; 90935; 93005; 94760; G0257; G8978-GP-CL; G8979-GP-CI; G8987-GO-CK; G8988-GO-CI; J0696; J1644; J1815; J2060; J7050

== ENCOUNTER 2018-04-29 00:11 | Observation (INO) | payer MEDICARE, OTHER ==
--- NOTE | 2018-04-29 06:29 | CON ---
DATE OF CONSULTATION: 04/29/2018 HISTORY OF PRESENT ILLNESS: Mr. Lunsford is a very pleasant 68-year-old man presenting for transfer v ia EMS from a [facility] after mechanical fall in the home. He is somewhat disoriented to th e actual events of his fall and surrounding that. 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 He is ab le to relate to me the correct month and correct year and that he is at [facility]. He has no signs outwardly of trauma to the scalp or face. PHYSICAL EXAMINATION: HEENT: He is nontender over the cervical spine. His pupils are equal, round, reactive to light. Ex traocular movements are intact. EXTREMITIES: He has great strength bilaterally in the upper and lower extremities in all movements. NEUROLOGIC: There is no sensory disturbance that I can discern. Neurosurgery was consulted for a CT scan performed in the emergency department that revealed hyperden sity along the midline at the fall which could potentially represent calcification of the density is a little less than what I expected for riley calcifications and could represent possible subdural hem atoma. He is on Plavix and aspirin daily. Unfortunately, system here has been down. I do not have a historical imaging to compare this current one too to definitively say this is subdural. As I am dictating this, I am actually able to compare a comparison study, it does look like there was th ickening in the frontal falx which is senior outside sales representative of subdural hemorrhage as he is on Plavix and as pirin, I would ask that would plan to keep him today with. We will repeat a scan around 10:00 this m orning and if stable, can return to the [facility]. He will need to remain off of Plavix and aspir in for the next 3-4 weeks and will see him in the clinic with a repeat scan.
--- NOTE | 2018-04-29 11:44 | CT ---
HEAD CT NONCONTRAST: INDICATIONS: Subdural hematoma. Followup. FINDINGS: A stable small volume parafalcine subdural hematoma is present, along the left aspect of the inner he mispheric falx. No new mass effect or midline shift. The exam is otherwise stable. IMPRESSION: Stable small volume left parafalcine subdural hematoma. POS: [facility]
--- NOTE | 2018-04-29 11:58 | CT ---
CT HEAD NONCONTRAST: INDICATIONS: Syncope. FINDINGS: There is a small volume left parafalcine subdural hematoma, approximately 3 mm in thickness, without associated mass effect or midline shift. Mild chronic ischemic disease is present. There is a left parietal scalp contusion. No depressed calvarial fracture. IMPRESSION: Small volume left parafalcine subdural hematoma without associated mass effect or midline shift. Chela rt-term followup is recommended to confirm size stability. POS: [facility]
--- NOTE | 2018-04-29 13:13 | CT ---
CERVICAL SPINE CT NONCONTRAST: Date: 04/29/18 CLINICAL HISTORY: Syncope, fall, neck injury. FINDINGS: There is moderate multilevel degenerative change with reversal of normal curvature. There is Grade I spondylolisthesis at C3-4 and C7-T1. No craniocervical distraction injury. No compression fracture. IMPRESSION: Multilevel moderate degenerative changes of the cervical spine without an acute fracture visualized. POS: [facility]
[2018-04-29 15:26] VITALS: BMI 19.6
[2018-04-29 16:36] LABS: ALT (SGPT) 25 U/L (8-55); AST (SGOT) 28 U/L (5-34); Albumin 3.6 g/dL (3.4-4.8); Alkaline Phosphatase 198 U/L (40-150); Anion Gap 15 mmol/L (10-20); BUN (Urea Nitrogen) 32 mg/dL (8.4-25.7); Bilirubin, Total 0.6 mg/dL (0.2-1.2); Calc. Creatinine Clearance 13 mL/min (70-130); Calcium 11.1 mg/dL (7.8-10.44); Carbon Dioxide 28 mmol/L (23-31); Chloride 98 mmol/L (98-107); Estimated GFR-MDRD 12; Globulin 3.1 g/dL (2.4-3.5); Glucose 129 mg/dL (80-115); Potassium 5.1 mmol/L (3.5-5.1); Protein, Total 6.7 g/dL (5.8-8.1); Sodium 136 mmol/L (136-145)
[2018-04-29 16:42] LABS: CK (CPK) 81 U/L (30-200)
[2018-04-29 16:44] LABS: Troponin I 0.071 ng/mL (< 0.028)
[2018-04-29] MEDS ORDERED: Acetaminophen 500 MG TAB PO PRN (17:30)
[2018-04-29] MEDS ORDERED: Dextrose 50% Abboject 50 ML SYRINGE SLOW IVP PRN (17:30)
[2018-04-29] MEDS ORDERED: Dextrose 5% in Water 1,000 ML IV PRN (17:30)
[2018-04-29] MEDS ORDERED: Ondansetron ODT 4 MG TAB PO PRN (17:30)
[2018-04-29] MEDS ORDERED: hydrALAZINE 20 MG/ML VIAL SLOW IVP PRN (17:30)
[2018-04-29] MEDS ORDERED: Ondansetron HCl/PF 4 MG/2 ML Vial IVP PRN (17:30)
[2018-04-29 18:00] LABS: PTT 37.5 SEC (22.9-36.1); Prothrombin Time 13.6 SEC (12.0-14.7)
[2018-04-29 18:04] LABS: #Eosinphils 0.3 thou/uL (0.0-0.7); #Lymphocytes 0.9 thou/uL (1.20-3.40); #Monocytes 0.9 thou/uL (0.11-0.59); #Neutrophils 7.1 thou/uL (1.40-6.50); %Basophils 0.4 % (0.0-1.0); %Eosinophils 3.2 % (0.0-10.0); %Lymphocytes 9.7 % (21.0-51.0); %Neutrophils 76.9 % (42.0-75.0); Hemoglobin 14.1 g/dL (14.0-18.0); Mean Corpuscular HGB CONC 32.4 g/dL (32.0-36.0); Mean Corpuscular Hemoglobin 33.9 pg (27.0-31.0); Mean Platelet Volume 7.7 fL (7.4-10.4); Platelet Count 264 thou/uL (130-400); RBC Distribution Width 14.2 % (11.5-14.5); Red Blood Cell (RBC) Count 4.16 mill/uL (4.70-6.10); White Blood Cell (WBC) Count 9.2 thou/uL (4.8-10.8)
[2018-04-29 20:11] VITALS: BP 147/81; TEMP 98.1
[2018-04-29] MEDS ORDERED: Famotidine 20 MG TAB PO SCH (21:00)
== END 2018-04-29 20:09 ==
LOC: ERS 00:11 → SURG A 05:55
PROVIDERS: ADMIT Specialist; ATTEND Specialist
DX: S06.5X9A Traumatic subdural hemorrhage with loss of consciousness of unspecified duration, initial encounter (principal); R55 Syncope and collapse; M43.12 Spondylolisthesis, cervical region; Z79.02 Long term (current) use of antithrombotics/antiplatelets; Z79.4 Long term (current) use of insulin; Z79.82 Long term (current) use of aspirin; Z79.899 Other long term (current) drug therapy; Z91.048 Other nonmedicinal substance allergy status; W19.XXXA Unspecified fall, initial encounter
CPT/HCPCS: 70450; 72125; 80053; 82550; 82962; 84484; 85025; 85610; 85730; 93005; 99285; G0378 ×2; 36416; 90935; G0257; G0390

== ENCOUNTER 2018-05-01 15:36 | Emergency (ER) | payer MEDICARE, OTHER ==
--- NOTE | 2018-05-01 16:25 | RAD ---
AP PELVIS: History: Fall with pelvic pain. FINDINGS: The bones appear demineralized. Extensive vascular calcifications are seen. Pelvic ring is intact. Th ere are arthritic changes of both hips. IMPRESSION: No evidence of fracture. POS: [facility]
--- NOTE | 2018-05-01 16:35 | CT ---
CT OF BRAIN PERFORMED WITHOUT CONTRAST ENHANCEMENT: History: Syncopal episode with fall. Comparison: 04-29-18 FINDINGS: There is mild ventricular and sulcal prominence with decreased attenuation of the periventricular whi te matter consistent with chronic ischemic white matter change. The slight increased density along th e falx could represent a tiny subdural. It appears similar to the previous examination. IMPRESSION: Stable appearance to a small amount of hemorrhage in a left parafalcine location. POS: [facility]
--- NOTE | 2018-05-01 16:39 | CT ---
CT CERVICAL SPINE PERFORMED WITHOUT CONTRAST ENHANCEMENT: History: Fall with neck pain. Comparison: 04-29-18 FINDINGS: The vertebral bodies are normal in height. There is fairly pronounced disc narrowing at C4-5, C5-6 an d C6-7. The facets are in normal alignment. There are degenerative facet changes present. There is mi ld bilateral foraminal narrowing, greater on the left at the C4-5 level. There is very mild bilateral foraminal narrowing and some mild canal stenosis at C5-6 and C6-7. There is no CT evidence for a fra cture. Lung apices show some emphysematous change. IMPRESSION: No CT evidence of fracture of the cervical spine. POS: [facility]
[2018-05-01] MEDS ORDERED: Lidocaine 1% (PF) 30 ML VIAL ONE (17:05)
[2018-05-01] MEDS ORDERED: Bacitracin Zinc 1 Packet ONE (18:20)
== END 2018-05-01 19:00 | disposition home or self-care (01) ==
LOC: ERS 15:36
DX: S61.211A Laceration without foreign body of left index finger without damage to nail, initial encounter (principal); I25.2 Old myocardial infarction; E10.9 Type 1 diabetes mellitus without complications; I12.0 Hypertensive chronic kidney disease with stage 5 chronic kidney disease or end stage renal disease; N18.6 End stage renal disease; E10.22 Type 1 diabetes mellitus with diabetic chronic kidney disease; F41.9 Anxiety disorder, unspecified; Z87.891 Personal history of nicotine dependence; Z99.2 Dependence on renal dialysis; Z79.899 Other long term (current) drug therapy; Z79.82 Long term (current) use of aspirin; W19.XXXA Unspecified fall, initial encounter
CPT/HCPCS: 12002; 70450; 72125; 72170; J2001

== ENCOUNTER 2018-05-03 15:50 | Observation (INO) | payer MEDICARE, OTHER ==
[2018-05-03 16:42] LABS: Bilirubin Negative (Negative); Blood, Urine Large (Negative); Clarity TURBID (Clear); Glucose, Urine (Dipstick) 100 mg/dL (Negative); Leukocyte Large (Negative); Nitrite Negative (Negative); Protein, Urine (Dipstick) 300 mg/dL (Neg-Trace); Specific Gravity, Urine 1.014 (1.002-1.036); Urobilinogen 0.2 mg/dL (0.2-1.0); pH, Urine 7.5 (5.0-9.0)
[2018-05-03 16:44] LABS: Hyaline Casts/LPF 0-3 HYALINE CAST LPF (0-3 Hyaline); Squamous Epithelial None Seen HPF (0-3)
[2018-05-03 16:46] LABS: Yeast-AUWi Flag 351.2 (0-25.0)
[2018-05-03 16:51] LABS: #Basophils 0.1 thou/uL (0.0-0.2); #Eosinphils 0.2 thou/uL (0.0-0.7); #Lymphocytes 0.6 thou/uL (1.20-3.40); #Monocytes 0.6 thou/uL (0.11-0.59); #Neutrophils 7.5 thou/uL (1.40-6.50); %Basophils 0.6 % (0.0-1.0); %Eosinophils 2.4 % (0.0-10.0); %Lymphocytes 6.8 % (21.0-51.0); %Monocytes 6.4 % (0.0-10.0); %Neutrophils 83.7 % (42.0-75.0); Hemoglobin 12.4 g/dL (14.0-18.0); Mean Corpuscular HGB CONC 32.6 g/dL (32.0-36.0); Mean Corpuscular Hemoglobin 33.5 pg (27.0-31.0); Mean Platelet Volume 7.3 fL (7.4-10.4); Platelet Count 242 thou/uL (130-400); RBC Distribution Width 14.1 % (11.5-14.5); Red Blood Cell (RBC) Count 3.69 mill/uL (4.70-6.10)
[2018-05-03 17:01] LABS: Bacteria/HPF 4+ HPF (None Seen); Yeast-All Forms None Seen HPF (None Seen)
[2018-05-03] MEDS ORDERED: cefTRIAXone\\ROCEPHIN 1 GM VIAL ONE (17:13)
[2018-05-03 17:36] LABS: ALT (SGPT) 32 U/L (8-55); AST (SGOT) 39 U/L (5-34); Albumin 3.2 g/dL (3.4-4.8); Alkaline Phosphatase 185 U/L (40-150); Anion Gap 14 mmol/L (10-20); BUN (Urea Nitrogen) 33 mg/dL (8.4-25.7); Bilirubin, Total 0.5 mg/dL (0.2-1.2); Calc. Creatinine Clearance 0 mL/min (70-130); Calcium 10.4 mg/dL (7.8-10.44); Carbon Dioxide 24 mmol/L (23-31); Chloride 97 mmol/L (98-107); Estimated GFR-MDRD 12; Globulin 3.2 g/dL (2.4-3.5); Glucose 267 mg/dL (80-115); Potassium 4.4 mmol/L (3.5-5.1); Protein, Total 6.4 g/dL (5.8-8.1); Sodium 131 mmol/L (136-145)
--- NOTE | 2018-05-03 19:16 | RAD ---
CHEST ONE VIEW 05/03/18 HISTORY: Syncope. COMPARISON: 04/28/18. FINDINGS: The cardiac silhouette is magnified by projection and upper limits of normal in size. Pulmonary vascu lature is unremarkable. Mediastinum is midline with aortic calcification. No lobar consolidation or e vidence of pneumothorax. IMPRESSION: Atherosclerosis. Chronic type findings appear stable. POS: [facility]
--- NOTE | 2018-05-03 19:31 | CT ---
CT HEAD NONCONTRAST: 05/03/18 HISTORY: Altered mental status. Recent intracranial hemorrhage. COMPARISON: Multiple exams back to 04/04/18. FINDINGS: The small lobular hyperdense prominence along the right side of the anterior falx is similar to the m ost recent CT exams. No mass effect or shift of midline structures. No new areas of hemorrhage. Chron ic ischemic small vessel disease and diffuse cortical atrophy are stable. Calcification throughout th e arterial structures. IMPRESSION: Stable CT appearance of the very small left anterior parafalcine hematoma. No new abnormalities are d emonstrated. POS: [facility]
[2018-05-03] MEDS ORDERED: Fleet Enema 133 ML BOT PR PRN (22:46)
[2018-05-03] MEDS ORDERED: Docusate 100 MG CAP PO PRN (22:46)
[2018-05-03] MEDS ORDERED: Insulin Regular 300 UNITS/3 ML VIAL SC PRN (22:46)
[2018-05-03] MEDS ORDERED: Milk Of Magnesia 30 ML UDCUP PO PRN (22:46)
[2018-05-03] MEDS ORDERED: Bisacodyl 10 MG SUPP PR PRN (22:46)
[2018-05-03] MEDS ORDERED: Acetaminophen 500 MG TAB PO PRN (22:46)
[2018-05-03] MEDS ORDERED: hydrALAZINE 20 MG/ML VIAL SLOW IVP PRN (22:48)
[2018-05-03] MEDS ORDERED: Acetaminophen 325 MG TAB PO PRN (22:50)
[2018-05-03] MEDS ORDERED: Ondansetron HCl/PF 4 MG/2 ML Vial IVP PRN (22:50)
[2018-05-03] MEDS ORDERED: Ondansetron ODT 4 MG TAB PO PRN (22:50)
[2018-05-03] MEDS ORDERED: Metoprolol Tartrate 25 MG TAB PO SCH (23:00)
[2018-05-03] MEDS ORDERED: cloNIDine 0.1 MG TAB PO SCH (23:00)
[2018-05-03] MEDS ORDERED: PHENIRAMINE EA EYE PRN (23:00)
[2018-05-03] MEDS ORDERED: NAPHAZOLINE HCL EA EYE PRN (23:00)
[2018-05-03] MEDS ORDERED: Amlodipine 10 MG TAB PO SCH (23:00)
[2018-05-03] MEDS ORDERED: Atorvastatin Calcium 40 MG TAB PO SCH (23:00)
[2018-05-03] MEDS ORDERED: Dextrose 5% in Water 1,000 ML IV PRN (23:31)
[2018-05-03] MEDS ORDERED: Dextrose 50% Abboject 50 ML SYRINGE SLOW IVP PRN (23:31)
[2018-05-03] MEDS ORDERED: HumaLOG 300 UNITS/3 ML VIAL SC PRN (23:31)
[2018-05-04 04:51] LABS: #Eosinphils 0.3 thou/uL (0.0-0.7); #Lymphocytes 0.6 thou/uL (1.20-3.40); #Monocytes 0.8 thou/uL (0.11-0.59); %Basophils 0.2 % (0.0-1.0); %Eosinophils 3.4 % (0.0-10.0); %Lymphocytes 5.7 % (21.0-51.0); %Monocytes 8.5 % (0.0-10.0); %Neutrophils 82.2 % (42.0-75.0); Hemoglobin 12.1 g/dL (14.0-18.0); Mean Corpuscular HGB CONC 32.3 g/dL (32.0-36.0); Mean Corpuscular Hemoglobin 33.7 pg (27.0-31.0); Mean Platelet Volume 7.5 fL (7.4-10.4); Platelet Count 257 thou/uL (130-400); White Blood Cell (WBC) Count 9.7 thou/uL (4.8-10.8)
[2018-05-04 04:59] LABS: Anion Gap 12 mmol/L (10-20); BUN (Urea Nitrogen) 37 mg/dL (8.4-25.7); Calc. Creatinine Clearance 11 mL/min (70-130); Calcium 10.3 mg/dL (7.8-10.44); Carbon Dioxide 29 mmol/L (23-31); Chloride 95 mmol/L (98-107); Estimated GFR-MDRD 10; Glucose 304 mg/dL (80-115); Potassium 4.3 mmol/L (3.5-5.1); Sodium 132 mmol/L (136-145)
[2018-05-04] MEDS: Calcium Acetate 667 MG CAP PO SCH ×2 (08:14→11:22)
[2018-05-04] MEDS ORDERED: Famotidine 20 MG TAB PO SCH (09:00)
[2018-05-04] MEDS ORDERED: Timolol 0.5% Ophth Soln 5 ml Bottle L EYE SCH (09:00)
[2018-05-04] MEDS ORDERED: Heparin 5,000 UNITS/ML VIAL SC SCH (09:00)
[2018-05-04] MEDS ORDERED: NPH, Human Insulin Isophane 300 UNIT/3 ML VIAL SC SCH (09:00)
[2018-05-04] MEDS ORDERED: Metoprolol Tartrate 25 MG TAB PO SCH (09:00)
[2018-05-04] MEDS ORDERED: cloNIDine 0.1 MG TAB PO SCH (09:00)
--- NOTE | 2018-05-04 09:04 | HP ---
CHIEF COMPLAINT: Syncope. HISTORY OF PRESENT ILLNESS: HPI was obtained from electronic medical records. This is a 68-year-old male with past medical history of diabetes mellitus type 1 on insulin, end-stage renal disease on hemodialysis on Wednesday, Wednesdays, and Fridays, CABG in the past, coronary artery disease, hypertension, presenting with syncope. Per medical records, patient was being transferred from his wheelchair to his bed and patient fell. Patient does not really recall what really happened because patient has some questionable dementia and patient was encephalopathic during questioning. Per electronic medical records , patient stated that he thinks that he got stung by a wasp in the left arm that is why he is in the hospital. Upon questioning, the patient states that he thinks that he is in his friend, Sourav's house and patient seemed to be a little confused. However, patient denies any chest pain, shortness of breath, nausea, vomiting, dizziness. Patient does not seem to have any complaints at this time. REVIEW OF SYSTEMS: Unable to be obtained since the patient seems to be confused. PAST MEDICAL HISTORY: End-stage renal disease on hemodialysis on Wednesday, Wednesdays, and Fridays; coronary artery disease, status post CABG, diabetes mellitus type 1 on insulin, hypertension. PAST SURGICAL HISTORY: Multiple eye surgeries, cholecystectomy, dialysis shunt left upper extremity. PSYCHIATRIC HISTORY: Anxiety. SOCIAL HISTORY: Denies any illicit drug use. Denies any alcohol use. The patient is a former tobacco smoker, quit more than 10 years ago. MEDICATIONS: The patient is on amlodipine 10 mg, atorvastatin 40 mg, metoprolol 50 mg, clopidogrel 70 mg, clonidine 0.1 mg, sertraline 50 mg, aspirin 81 mg, Humulin. PHYSICAL EXAMINATION: VITAL SIGNS: Blood pressure is 125/82, pulse is 67, respiratory rate of 17, temperature of 98.2, oxygen saturation of 100 on room air. GENERAL: Patient is lying in bed, does not appear to be in any acute distress, speaking in full sentences, alert, oriented x1. HEENT: Normocephalic, atraumatic. Extraocular movements are intact. Pupils are equally round and reactive to light, but the right pupil sluggish with light. Mucous membranes are moist. NECK: No JVD. Trachea is midline. Supple, full range of motion. LUNGS: Clear to auscultation bilaterally. No wheezing, no rales, no rhonchi appreciated. CARDIOVASCULAR: S1, S2, regular rate and rhythm. No murmurs, no gallops, no rubs appreciated. ABDOMEN: Soft, nontender, nondistended. Positive bowel sounds in all quadrants. No masses. EXTREMITIES: The patient has 5/5 upper extremity strength and 5/5 lower extremity strength. Good pulses bilaterally in the upper and lower extremities. NEUROLOGIC: Cranial nerves II-XII grossly intact. The patient seems to have some underlying mild cognitive impairment. LABORATORY DATA: Show WBC of 9.0, hemoglobin of 12.4, hematocrit of 37.9, MCV of 103.0, platelet of 242. Sodium of 131, potassium of 4.4, chloride of 97, carbon dioxide of 24, anion gap of 14, BUN is 33, creatinine of 4.92, GFR of 12 , AST 39, ALT 32, alkaline phosphatase is 185. Urinalysis, patient has negative nitrite and large leukoesterase. CT of the head showed stable CT appearance of a very small left anterior parafalcine hematoma. No new abnormalities are demonstrated. Chest x-ray shows atherosclerosis, chronic type findings appear stable. ASSESSMENT AND PLAN: 1. This is a 68-year-old male being admitted for encephalopathy, most likely secondary to urinary tract infection and also has some underlying dementia. At this time, we will start the patient on Rocephin. We will follow up on urine cultures. We will tailor antibiotics to patient's urine cultures results. 2. Syncope. We will rule out neurocardiogenic causes. CT of the brain is negative. 3. End-stage renal disease, on hemodialysis. We will continue patient on hemodialysis. 4. Diabetes mellitus. We will continue patient on insulin sliding scale and we will start patient on his home medications. 5. Macrocytic anemia, most likely due to B12 and folate deficiency. At this point, we are going to order for B12 and folate. We will follow up on these labs and we will treat the patient accordingly. 6. Deep venous thrombosis and gastrointestinal prophylaxis. This case has been dictated by Dr. Vj Bernal on patient Jonn Morris. [facility]
[2018-05-04 10:05] LABS: Folate (Folic Acid) 5.3 ng/mL (7.0-31.4)
[2018-05-04 10:28] VITALS: BMI 17.0
[2018-05-04 12:02] VITALS: BP 122/71; TEMP 97.5
[2018-05-04] MEDS ORDERED: cefTRIAXone\\ROCEPHIN 1 GM in Sodium Chloride 0.9% 100 ML IVPB SCH (17:00)
--- NOTE | 2018-05-04 20:09 | DIS ---
DATE OF ADMISSION: 05/03/2018 DATE OF DISCHARGE: 05/04/2018 PRIMARY CARE PROVIDER: Ryan Koehler M.D. DISCHARGE DIAGNOSES: 1. Acute encephalopathy. 2. Urinary tract infection, likely responsible for acute encephalopathy. 3. Folic acid deficiency. CONDITION OF PATIENT AT THE TIME OF DISCHARGE: Stable. I assessed Mr. Lunsford on the day of dischar ge. He denies any chest pain or shortness of breath. He knows he is at [facility] enter. He is unable to tell me the month and the year, and reports that he usually is not able to no te that information at baseline. Vital signs are stable. S1 and S2 are heard, regular. Lungs are c lear to auscultation bilaterally. DISCHARGE MEDICATIONS: Ceftriaxone 1 gram intravenously daily for 5 more days, acetaminophen 1000 mg every 6 hours as needed, Tylenol #3 1-2 tablets every 8 hours as needed, Norvasc 10 mg at bedtime, L ipitor 40 mg at bedtime, Dulcolax 10 mg rectally as needed, calcium acetate 2668 mg 3 times a day, cl onidine 0.1 mg 2 times a day, Colace 100 mg 2 times a day as needed, Humulin R insulin as needed, Lop ressor 25 mg 3 times a day, Naphcon-A eyedrops 2 drops each eye every 6 hours as needed, Zoloft 50 mg at bedtime, Fleet enema daily as needed, timolol eyedrops 1 drop to left eye 2 times a day, Pepcid 2 0 mg daily, folic acid 1 mg daily, and Humulin N 5 units 2 times a day. HOSPITAL COURSE: Mr. Lunsford is a pleasant 68-year-old gentleman who was admitted to [facility] on 05/03/2018 following a fall. Please refer to Dr. Bernal's history and physical note dated 05/04/[address] scan of the brain, noncontrast, done at the time of a dmission showed stable appearance of very small left anterior parafalcine hematoma. Urinalysis was c onsistent with urinary tract infection. At the time of this dictation, urine culture result is pendi ng. [facility] Provider is requested to follow up on urine cultures and adjust ant ibiotics as needed. He improved mentation hernandez. He will be discharged for her dialysis at the [facility] and then subsequently to [facility]. On the day of discharge, he has sodium 132, potassium 4.3, blood urea nitrogen 37, creatinine 5.48, w elyse count 9700, hemoglobin 12.1, and platelet count 257,000. Many thanks for allowing me to participate in your patient's care. Please feel free to contact me wi th any questions or concerns. DISCHARGE DESTINATION: [facility], from where the patient was admitted to the hospital.
[2018-05-04] MEDS ORDERED: Atorvastatin Calcium 40 MG TAB PO SCH (21:00)
[2018-05-04] MEDS ORDERED: Amlodipine 10 MG TAB PO SCH (21:00)
[2018-05-05] MEDS ORDERED: Folic Acid 1 MG TAB PO SCH (09:00)
== END 2018-05-04 12:47 ==
LOC: ERS 15:50 → 2NO 18:51
PROVIDERS: ADMIT Family Medicine; ATTEND Family Medicine
DX: G93.40 Encephalopathy, unspecified (principal); R55 Syncope and collapse; N39.0 Urinary tract infection, site not specified; D52.9 Folate deficiency anemia, unspecified; I12.0 Hypertensive chronic kidney disease with stage 5 chronic kidney disease or end stage renal disease; E10.22 Type 1 diabetes mellitus with diabetic chronic kidney disease; N18.6 End stage renal disease; Z99.2 Dependence on renal dialysis; I25.10 Atherosclerotic heart disease of native coronary artery without angina pectoris; F41.9 Anxiety disorder, unspecified; Z87.891 Personal history of nicotine dependence; Z79.02 Long term (current) use of antithrombotics/antiplatelets; Z79.82 Long term (current) use of aspirin; Z79.899 Other long term (current) drug therapy; Z91.048 Other nonmedicinal substance allergy status; W04.XXXA Fall while being carried or supported by other persons, initial encounter
CPT/HCPCS: 51701; 70450; 71045; 80048; 80053; 82140; 82553; 82607; 82746; 82962 ×2; 84484; 85025 ×2; 87086; 93005; 94760; 96365; 99285; G0378 ×2; 36415; 36416; 81003; 81015; J0360; J0696; J1644; J1815

== ENCOUNTER 2018-05-19 23:01 | Inpatient (IN) | payer MEDICARE, OTHER ==
[2018-05-20 00:35] LABS: #Basophils 0.1 thou/uL (0.0-0.2); #Eosinphils 0.1 thou/uL (0.0-0.7); #Lymphocytes 0.6 thou/uL (1.20-3.40); #Monocytes 1.2 thou/uL (0.11-0.59); #Neutrophils 11.1 thou/uL (1.40-6.50); %Basophils 0.6 % (0.0-1.0); %Eosinophils 0.8 % (0.0-10.0); %Lymphocytes 4.5 % (21.0-51.0); %Monocytes 9.1 % (0.0-10.0); Hemoglobin 11.6 g/dL (14.0-18.0); Mean Corpuscular HGB CONC 33.1 g/dL (32.0-36.0); Mean Corpuscular Hemoglobin 33.6 pg (27.0-31.0); Platelet Count 309 thou/uL (130-400); RBC Distribution Width 14.4 % (11.5-14.5); Red Blood Cell (RBC) Count 3.47 mill/uL (4.70-6.10)
[2018-05-20 00:41] LABS: Bilirubin Negative (Negative); Blood, Urine Moderate (Negative); Clarity TURBID (Clear); Glucose, Urine (Dipstick) 250 mg/dL (Negative); Leukocyte Large (Negative); Nitrite Negative (Negative); Protein, Urine (Dipstick) > or equal to 300 mg/dL (Neg-Trace); Specific Gravity, Urine 1.012 (1.002-1.036); Urobilinogen 0.2 mg/dL (0.2-1.0); pH, Urine 7.5 (5.0-9.0)
[2018-05-20 00:44] LABS: Bacteria/HPF None Seen HPF (None Seen); Hyaline Casts/LPF 0-3 HYALINE CAST LPF (0-3 Hyaline); Squamous Epithelial None Seen HPF (0-3)
[2018-05-20 00:45] LABS: Yeast-AUWi Flag 804.2 (0-25.0)
[2018-05-20 00:56] LABS: Yeast-All Forms None Seen HPF (None Seen)
[2018-05-20 00:59] LABS: ALT (SGPT) 24 U/L (8-55); AST (SGOT) 27 U/L (5-34); Albumin 3.4 g/dL (3.4-4.8); Alkaline Phosphatase 172 U/L (40-150); Anion Gap 15 mmol/L (10-20); BUN (Urea Nitrogen) 52 mg/dL (8.4-25.7); Bilirubin, Total 0.4 mg/dL (0.2-1.2); CK (CPK) 51 U/L (30-200); Calc. Creatinine Clearance 0 mL/min (70-130); Calcium 10.9 mg/dL (7.8-10.44); Carbon Dioxide 27 mmol/L (23-31); Chloride 97 mmol/L (98-107); Estimated GFR-MDRD 12; Globulin 3.4 g/dL (2.4-3.5); Glucose 185 mg/dL (80-115); Protein, Total 6.8 g/dL (5.8-8.1); Sodium 135 mmol/L (136-145)
[2018-05-20 01:00] LABS: CKMB 4.9 ng/mL (0-6.6)
[2018-05-20 01:03] LABS: Troponin I 0.474 ng/mL (< 0.028)
[2018-05-20] MEDS ORDERED: Enoxaparin Sodium 80 MG/0.8 ML SYRINGE ONE (01:57)
[2018-05-20 03:19] VITALS: BMI 17.3
[2018-05-20] MEDS ORDERED: Acetaminophen 325 MG TAB PO PRN ×2 (04:07→13:36)
[2018-05-20] MEDS ORDERED: Ondansetron PF 4 MG/2 ML Vial IVP PRN (04:07)
[2018-05-20] MEDS ORDERED: Ondansetron ODT 4 MG TAB SL PRN (04:07)
[2018-05-20 04:56] LABS: Troponin I 0.543 ng/mL (< 0.028)
[2018-05-20 06:42] LABS: Critical Call Chem Troponin I RESULT DECREASING
--- NOTE | 2018-05-20 08:04 | RAD ---
PORTABLE UPRIGHT FRONTAL CHEST RADIOGRAPH: 05/20/2018 HISTORY: Syncope. COMPARISON: 05/03/2018 FINDINGS: Mild increased linear interstitial density noted bilaterally. Increased linear density in the medial left base is noted, which suggests volume loss or scar. Mild left basilar infiltrate cannot be excl uded. There is no pneumothorax, performed, lobar consolidation, or alveolar edema. Atherosclerotic calcification of the aortic arch is noted. IMPRESSION: No lobar consolidation or alveolar edema. Please see above discussion. POS: [facility]
[2018-05-20] MEDS ORDERED: Aspirin 325 mg Enteric Coated Tablet PO SCH (09:00)
[2018-05-20] MEDS ORDERED: Dextrose 50% Abboject 50 ML SYRINGE SLOW IVP PRN (13:36)
[2018-05-20] MEDS ORDERED: PHENIRAMINE EA EYE PRN (13:36)
[2018-05-20] MEDS ORDERED: Senokot S 8.6-50 MG TAB PO PRN (13:36)
[2018-05-20] MEDS ORDERED: Guaifenesin DM 100-10/5 ML UDCUP PO PRN (13:36)
[2018-05-20] MEDS ORDERED: Dextrose 5% in Water 1,000 ML IV PRN (13:36)
[2018-05-20] MEDS ORDERED: Docusate 100 MG CAP PO PRN (13:36)
[2018-05-20] MEDS ORDERED: HumaLOG 300 UNITS/3 ML VIAL SC PRN ×2 (13:36)
[2018-05-20] MEDS ORDERED: NAPHAZOLINE HCL EA EYE PRN (13:36)
--- NOTE | 2018-05-20 16:06 | CON ---
DATE OF CONSULTATION: 05/20/2018 REASON FOR CONSULTATION: Elevated troponin. HISTORY OF PRESENT ILLNESS: Mr. Lunsford is a pleasant 68-year-old gentleman who was seen and evaluat ed in the past. He has a history of previous non-ST segment elevation MS within the last year. He a lso has a history of end-stage renal disease. He did have a markedly elevated troponin during his [facility] hospitalization. I had a long discussion while he was lucid about how to proceed. He was not int erested at that time in a more aggressive approach. He did not want to proceed with coronary angiogr aphy and preferred medicines. Mr. Lunsford was also seen in the office on 02/07/2018 where again he was lucid. We also readdress pr oceeding with angiography given his previous non-ST segment elevation MS and at that point again was not interested. He is also not interested to proceed with a noninvasive stress study. The history is somewhat difficult. He states he has no current symptoms. He is confused. He is not oriented to time, person, or place. The history in the chart is also not present. PAST MEDICAL AND SURGICAL HISTORY: As above including previous MS, CAD, status post bypass surgery, diabetes mellitus, hypertension, eye surgery, cholecystectomy. SOCIAL HISTORY: No current tobacco or alcohol use. ALLERGIES: None. HOME MEDICATIONS: Include atorvastatin, metoprolol, clopidogrel, clonidine, sertraline, aspirin, Hum ulin and Pepcid. REVIEW OF SYSTEMS: Unobtainable due to confusion. PHYSICAL EXAMINATION: GENERAL: Patient is a pleasant male who is in no acute distress. The patient appears his stated age . VITAL SIGNS: Blood pressure 160/78, pulse 79, and temperature 97.5. NEUROLOGIC: The patient is alert and oriented times 3 with no focal neurologic deficits. HEENT: Sclerae without icterus. Mouth has moist mucous membranes with normal pallor. NECK: No JVD. Carotid upstroke brisk. No bruits bilaterally. LUNGS: Clear to auscultation with unlabored respirations. BACK: No scoliosis or kyphosis. CARDIAC: Regular rate and rhythm with normal S1 and S2. No S3 or S4 noted. No significant rubs, mu rmurs, thrills, or gallops noted throughout the precordium. PMI is not displaced. There is no rodrigo ternal heave. ABDOMEN: Soft, nontender, nondistended. No peritoneal signs present. No hepatosplenomegaly. No ab normal striae. EXTREMITIES: 2+ femoral and 2+ dorsalis pedis pulses. No cyanosis, clubbing, or edema. SKIN: No gross abnormalities. PERTINENT LABORATORY DATA: Hemoglobin 11.6, white blood cell count 13,000. Creatinine 4.77, peak tr oponin 0.5. IMPRESSION: 1. Elevated troponin. 2. Coronary artery disease. 3. End-stage renal disease. 4. Delirium. RECOMMENDATIONS: At this point, Mr. Lunsford is not confused. He has no current symptoms. He appear s stable and asymptomatic. I discussed the case with Dr. Kaplan. Given that Mr. Lunsford has expressed conservative therapy with no angiography or cardiac studies, we would recommend again a more conservative approach. We w ould manage his blood pressure and continue statin therapy. We would also continue aspirin. We will stop Plavix. He does have bleeding noted in his mouth from an unknown cause. Patient has been made a DNR appropriately.
[2018-05-20] MEDS: Calcium Acetate 667 MG CAP PO SCH ×2 (16:20→16:23)
[2018-05-20] MEDS: Metoprolol Tartrate 25 MG TAB PO SCH ×2 (16:20→21:42)
--- NOTE | 2018-05-20 20:28 | HP ---
REASON FOR ADMISSION: Syncope, chest pain, non-ST elevation MD. HISTORY OF PRESENT ILLNESS: Please note majority of this history is obtained by talking to family members and ER records as patient is not oriented at present. The patient apparently was sent from [facility] as he had passed out yesterday. He had also complained of chest pain. He was not himself and was not feeling good. The patient was also confused a bit. On arrival here, the patient had indeterminate cardiac enzymes. The patient has known history of coronary artery disease and has refused a cardiac catheterization in the past. Currently, does not complain of any chest pain, palpitation, PND or orthopnea. He is not oriented, but responds to verbal questions. His nephew and niece both are in the room. His nephew, Mr. Horne, is the power of ip technology transactions attorney who is also here in the room. PAST MEDICAL/SURGICAL HISTORY: Prior history of cardiac arrest with ventricular fibrillation likely severe coronary artery disease; end-stage renal disease, on hemodialysis; recent intracranial bleed which is small on 2017. Diabetes mellitus type 1, hypertension, eye surgeries, cholecystectomy, left upper extremity dialysis access procedures including shunt, anxiety disorder, likely underlying dementia. PERSONAL HISTORY: Does not abuse alcohol or drugs. No history of smoking. He is currently a resident of [facility]. CURRENT MEDICATIONS: The patient is on aspirin 81 mg p.o. daily, Lipitor 40 mg p.o. daily, PhosLo 2668 mg p.o. 3 times daily, clonidine 0.1 mg p.o. twice daily , Plavix 75 mg p.o. daily, Colace 100 mg p.o. twice daily, NPH 5 units subcu twice daily, Lopressor 25 mg p.o. 3 times daily, Norvasc 10 mg daily, Pepcid 20 mg daily, sertraline 50 mg daily, timolol eyedrops as before, acetaminophen with codeine 1 tab q.8 hourly p.r.n. for pain. ALLERGIES: No known drug allergies. FAMILY HISTORY: Cannot be obtained as patient is not oriented. Per prior records, the patient had several family members with diabetes and stroke in the past. His 3 years back. He had given his kids for adoption when they were small. CODE STATUS: DNR. This was confirmed with Mr. Horne, who is also the power of ip technology transactions attorney and nephew of patient. REVIEW OF SYSTEMS: Cannot be obtained as patient is not oriented at present. PHYSICAL EXAMINATION: GENERAL: The patient is a 68-year-old male who is currently not in any acute distress. VITAL SIGNS: Blood pressure 116/54, pulse 66 per minute, respiratory rate 16 per minute, temperature 97.5 degrees Fahrenheit, saturating 95% on room air. NECK: Supple, no elevated JVD. HEENT: Eyes: Extraocular muscles intact. Pupils reacting to light. Oral cavity: Mucous membranes are moist. No exudates or congestion. CARDIOVASCULAR: S1, S2 heard. Regular rhythm. RESPIRATORY: Air entry 1+ bilaterally. No rales or rhonchi. ABDOMEN: Soft, bowel sounds heard. No tenderness, rigidity or guarding. EXTREMITIES: No peripheral edema or calf tenderness. VASCULAR SYSTEM: Peripheral pulses 1+ bilateral, no ischemic ulcerations or gangrene. CENTRAL NERVOUS SYSTEM: No gross focal deficits noted. The patient is not oriented at present. PSYCHIATRIC: No obvious hallucinations or delusions. LABORATORY AND X-RAY FINDINGS: White count of 13, H&H 11 and 35, platelet count 309, MCV 101 with 85% neutrophils. Serum bicarbonate 27, BUN 52, creatinine 4.7, serum glucose 185, troponin I is indeterminate peaking up to 0.54, CK-MB 4.9. Chest x-ray done shows no acute infiltrate. EKG done shows normal sinus rhythm at 65 beats per minute. There is ST-T wave depressions seen in anterolateral leads including V1, V2, V3 and V5, V6. CLINICAL IMPRESSION AND PLAN: The patient will be admitted to telemetry for non -ST elevation myocardial infarction with recurrent syncope. The patient has had recurrent hospitalization here for similar complaints. The patient in the past when he was fully oriented, had refused angiogram. This was confirmed with Dr. Madrigal. In fact, the patient had a followup visit to see him 3 months back and had adamantly refused angiogram. In view of this and patient's recurrent hospitalization for similar complaints, I have had discussion with patient's power of ip technology transactions attorney, Mr. Horne, that is the patient's nephew. They want him to be a do not resuscitate and they are wanting to go into palliative care. We will continue all his home medications as before including aspirin, Lipitor , Norvasc, Lopressor, clonidine, Plavix, Zoloft, and timolol eyedrops. Once palliative care has been set up, the patient will be discharged in the morning back to [facility]. ANNABELLA
[2018-05-20] MEDS ORDERED: Amlodipine 10 MG TAB PO SCH (21:00)
[2018-05-20] MEDS ORDERED: Atorvastatin Calcium 40 MG TAB PO SCH (21:00)
[2018-05-20] MEDS ORDERED: Famotidine 20 MG TAB PO SCH (21:00)
[2018-05-20] MEDS: Timolol 0.5% Ophth Soln 5 ml Bottle L EYE SCH (21:42)
[2018-05-20] MEDS: cloNIDine 0.1 MG TAB PO SCH (21:42)
[2018-05-21 04:45] LABS: #Basophils 0.1 thou/uL (0.0-0.2); #Eosinphils 0.2 thou/uL (0.0-0.7); #Lymphocytes 0.5 thou/uL (1.20-3.40); #Neutrophils 9.3 thou/uL (1.40-6.50); %Basophils 0.5 % (0.0-1.0); %Eosinophils 1.6 % (0.0-10.0); %Lymphocytes 4.9 % (21.0-51.0); %Neutrophils 84.1 % (42.0-75.0); Hemoglobin 10.8 g/dL (14.0-18.0); Mean Corpuscular Hemoglobin 33.7 pg (27.0-31.0); Mean Platelet Volume 7.3 fL (7.4-10.4); Platelet Count 297 thou/uL (130-400); RBC Distribution Width 14.3 % (11.5-14.5); White Blood Cell (WBC) Count 11.1 thou/uL (4.8-10.8)
[2018-05-21 04:58] LABS: Anion Gap 15 mmol/L (10-20); BUN (Urea Nitrogen) 66 mg/dL (8.4-25.7); Calc. Creatinine Clearance 10 mL/min (70-130); Carbon Dioxide 23 mmol/L (23-31); Chloride 97 mmol/L (98-107); Estimated GFR-MDRD 10; Glucose 283 mg/dL (80-115); Potassium 3.9 mmol/L (3.5-5.1); Sodium 131 mmol/L (136-145)
[2018-05-21] MEDS: Calcium Acetate 667 MG CAP PO SCH ×3 (09:00→11:02)
[2018-05-21] MEDS ORDERED: Enoxaparin Sodium 30 MG/0.3 ML SYRINGE SC SCH (09:00)
[2018-05-21] MEDS: cloNIDine 0.1 MG TAB PO SCH ×2 (09:35→10:56)
[2018-05-21] MEDS: Metoprolol Tartrate 25 MG TAB PO SCH ×2 (09:35→10:57)
[2018-05-21] MEDS: Clopidogrel Bisulfate 75 MG TAB PO SCH ×2 (09:35→10:56)
[2018-05-21] MEDS: Timolol 0.5% Ophth Soln 5 ml Bottle L EYE SCH ×2 (09:37→10:57)
--- NOTE | 2018-05-21 11:03 | PDOC.PN ---
- Subjective Encounter Start Date: 05/21/18 Encounter Start Time: 09:00 Subjective: no sob or chest pain -: has not eaten his breakfast and wants to be left alone - Objective Resuscitation Status: Resuscitation Status DNR:Do Not Resuscitate MAR Reviewed: Yes Vital Signs & Weight: Vital Signs (12 hours) Temp Pulse Resp BP Pulse Ox 05/21/18 09:30 98.1 F 74 15 152/81 H 94 L 05/21/18 09:05 94 L 05/21/18 04:00 97.8 F 70 20 146/81 H 95 Weight Admit Weight 127 lb 9.6 oz Weight 127 lb 9.6 oz I&O: 05/20/18 05/21/18 05/22/18 06:59 06:59 05:59 Intake Total 0 Output Total 0 Balance 0 Result Diagrams: 05/21/18 04:11 05/21/18 04:11 Additional Labs: Accuchecks 05/21/18 05/20/18 05/20/18 05:19 20:27 17:09 POC Glucose 305 H 205 H 121 H 05/20/18 11:15 POC Glucose 75 Phys Exam - Physical Examination HEENT: PERRLA, moist MMs Neck: no JVD, supple Respiratory: no wheezing, no rales Cardiovascular: RRR, no significant murmur Gastrointestinal: soft, non-tender, positive bowel sounds Musculoskeletal: no edema, pulses present Neurological: non-focal, moves all 4 limbs Dx/Plan (1) NSTEMI (non-ST elevated myocardial infarction) Code(s): I21.4 - NON-ST ELEVATION (NSTEMI) MYOCARDIAL INFARCTION Status: Acute (2) Syncope Code(s): R55 - SYNCOPE AND COLLAPSE Status: Acute Qualifiers: Syncope type: unspecified Qualified Code(s): R55 - Syncope and collapse (3) Dyslipidemia Code(s): E78.5 - HYPERLIPIDEMIA, UNSPECIFIED Status: Chronic (4) ESRD (end stage renal disease) on dialysis Code(s): N18.6 - END STAGE RENAL DISEASE; Z99.2 - DEPENDENCE ON RENAL DIALYSIS Status: Chronic Comment: Dialysis per nephrology. (5) HTN (hypertension) Code(s): I10 - ESSENTIAL (PRIMARY) HYPERTENSION Status: Chronic Qualifiers: Hypertension type: essential hypertension (6) PVD (peripheral vascular disease) Code(s): I73.9 - PERIPHERAL VASCULAR DISEASE, UNSPECIFIED Status: Chronic - Plan pt is for palliative care at [facility] -: no cath per patient request -: dc pt to snf -: family and pt to d/w pcp reg hospice if he wants to stop dialysis * . Review of Systems - Medications/Allergies Allergies/Adverse Reactions: Allergies Allergy/AdvReac Type Severity Reaction Status Date / Time adhesive Allergy Verified 05/04/18 01:04 Medications: Current Medications Acetaminophen (Tylenol) 650 mg PO Q4H PRN PRN Reason: Headache/Fever/Mild Pain (1-3) Amlodipine Besylate (Norvasc) 10 mg PO HS [facility] Last Admin: 05/20/18 21:42 Dose: 10 mg Aspirin (Aspirin Chewable) 81 mg PO DAILY [facility] Last Admin: 05/21/18 10:57 Dose: Not Given Atorvastatin Calcium (Lipitor) 40 mg PO HS [facility] Last Admin: 05/20/18 21:42 Dose: 40 mg Calcium Acetate (Phoslo) 2,668 mg PO TID[facility] Last Admin: 05/21/18 09:00 Dose: Not Given Clonidine (Catapres) 0.1 mg PO BID [facility] Last Admin: 05/21/18 10:56 Dose: Not Given Clopidogrel Bisulfate (Plavix) 75 mg PO DAILY [facility] Last Admin: 05/21/18 10:56 Dose: Not Given Dextrose/Water (Dextrose 50%) 25 gm SLOW IVP PRN PRN PRN Reason: Hypoglycemia Docusate Sodium (Colace) 100 mg PO BID PRN PRN Reason: Constipation Enoxaparin Sodium (Lovenox) 30 mg SC 0900 [facility] Last Admin: 05/21/18 09:35 Dose: 30 mg Famotidine (Pepcid) 20 mg PO 2100 [facility] Last Admin: 05/20/18 21:42 Dose: 20 mg Glucagon (Glucagon) 1 mg IM PRN PRN PRN Reason: Hypoglycemia Guaifenesin/Dextromethorphan (Robitussin Dm) 15 ml PO Q4H PRN PRN Reason: Cough Dextrose/Water (D5w) 1,000 mls @ 0 mls/hr IV .Q0M PRN PRN Reason: Hypoglycemia Insulin Human Lispro (Humalog) 0 units SC .MODERATE SLIDING SC PRN PRN Reason: Moderate Correctional Scale Insulin Human Lispro (Humalog) 0 units SC .BEDTIME SLIDING SC PRN PRN Reason: Bedtime Correctional Scale Metoprolol Tartrate (Lopressor) 25 mg PO TID [facility] Last Admin: 05/21/18 10:57 Dose: Not Given Senna/Docusate Sodium (Senokot S) 2 tab PO BID PRN PRN Reason: Constipation Sertraline HCl (Zoloft) 50 mg PO [facility] Timolol Maleate (Timoptic 0.5% Oph Soln) 1 drop L EYE BID [facility] Last Admin: 05/21/18 10:57 Dose: Not Given
[2018-05-21 11:06] VITALS: BP 168/90; TEMP 97.7
--- NOTE | 2018-05-21 13:03 | DIS ---
DATE OF ADMISSION: 05/20/2018 DATE OF DISCHARGE: 05/21/2018 DISCHARGE DISPOSITION: To intermediate with palliative care. PRIMARY DISCHARGE DIAGNOSES: Syncope, non-ST elevation myocardial infarction. SECONDARY DISCHARGE DIAGNOSES: Likely coronary artery disease with patient refusing angiogram, end-stage renal disease on hemodialysis, diabetes mellitus type 2, insulin-dependent, hypertension. PROCEDURES DONE DURING HOSPITALIZATION: The patient has had chest x-ray done, which showed no acute infiltrate. H&H was 10 and 32, platelet count 297. BUN 66, creatinine 5.6. Troponin I was indeterminate peaking up to 0.54, CK-MB 4.9. DISCHARGE MEDICATIONS: Patient to continue aspirin 81 mg p.o. daily, atorvastatin 40 mg p.o. at bedtime, calcium acetate 2668 mg p.o. 3 times daily, Tylenol #3 q.8 hours p.r.n., Norvasc 10 mg p.o. at bedtime, clonidine 0.1 mg p.o. twice daily, Colace 100 mg twice daily p.r.n., Humulin sliding scale, Lopressor 25 mg 3 times daily, sertraline 50 mg p.o. at bedtime, NPH 5 units subcu twice daily. ALLERGIES: Allergic to ADHESIVE. INPATIENT CONSULTS: Dr. Madrigal for Cardiology. DISCHARGE PLAN: The patient will be discharged to the intermediate with palliative care. BRIEF COURSE DURING HOSPITALIZATION: Patient initially was sent from [facility] after he passed out while sitting on a commode. He had also complained of chest pain. He has had indeterminate cardiac enzymes and EKG changes. The patient has refused coronary angiogram. He was also confused on arrival. The patient had expressed not to have coronary angiogram come what may when he was more alert and oriented when he had outpatient followup with Dr. Madrigal. In view of this, I have discussed his findings with Mr. Horne, the patient's nephew and power of canine service teacher. He has agreed for palliative care and is a Do Not Resuscitate. He will be discharged back to intermediate today. The patient has underlying dementia with multiple medical issues. Likely he will be a hospice candidate if he prefers to stop dialysis. This needs to be discussed further with his primary care physician at the intermediate. Please see a [id number] documentation for the day of discharge on [employer]. A total of 35 minutes was spent on discharge plan. ANNABELLA
== END 2018-05-21 11:42 | DRG 280 ==
LOC: ERS 23:01 → 2NO 05-20 02:57
PROVIDERS: ADMIT Internal Medicine; ATTEND Internal Medicine
DX: I21.4 Non-ST elevation (NSTEMI) myocardial infarction (principal); N18.6 End stage renal disease; I12.0 Hypertensive chronic kidney disease with stage 5 chronic kidney disease or end stage renal disease; E78.5 Hyperlipidemia, unspecified; E11.22 Type 2 diabetes mellitus with diabetic chronic kidney disease; Z99.2 Dependence on renal dialysis; I48.91 Unspecified atrial fibrillation; E11.51 Type 2 diabetes mellitus with diabetic peripheral angiopathy without gangrene; F03.90 Unspecified dementia, unspecified severity, without behavioral disturbance, psychotic disturbance, mood disturbance, and anxiety; Z66 Do not resuscitate; Z51.5 Encounter for palliative care; Z95.1 Presence of aortocoronary bypass graft
CPT/HCPCS: 36415; 36416; 51701; 70450; 71045; 80048; 80053; 81003; 81015; 82550; 82553; 84484; 85025; 93005; 93306; 96372; J1650